=== PATIENT | male | born 1950 | race Caucasian/White ===

== ENCOUNTER 2016-11-27 08:42 | Emergency (ER) | payer OTHER ==
[~2016-11-27] VITALS: Ht 193 cm; Wt 123.1 kg
[~2016-11-27 08:42] MED LIST: ACET650T82 PO; ASCO100061 PO; ASPI-232 PO; GLUC15002 PO; HYG/25 PO; LPT/40 PO; MULT-220 PO; OMEGCAP2 PO; PLV75 PO; POTA20TA16 PO; SOTA80TA PO
[2016-11-27 08:46] VITALS: TEMP 36.4; Ht 193 cm; Wt 123.1 kg
[2016-11-27] MEDS ORDERED: ONDANSETRON INJ 2 MG/ML 2 ML VIAL IV STA (09:21)
[2016-11-27] MEDS ORDERED: MoRPHine SULFATE 10 MG/ML CARP/VIAL IV STA (09:21)
[2016-11-27] MEDS ORDERED: SODIUM CHLORIDE 0.9% 1000ML 1,000 ML IV STA (09:21)
[2016-11-27] MEDS ORDERED: OPTIRAY 320 IV PRN (09:30)
[2016-11-27 09:35] LABS: BASO % 0.1 %; BASO ABS # 0.01 K/uL (0-0.2); COMPLETE YES; EOS % 0.1 %; HEMATOCRIT 50.4 % (42-52); IG% 0.4 %; LYMPH % 8.9 %; LYMPH ABS # 0.95 K/uL (1.2-3.4); MEAN CELL VOLUME 95.3 fL (80-100); MEAN CORPUSCULAR HEMOGLOBIN 31.9 pg (25-34); MEAN CORPUSCULAR HGB CONC 33.5 g/dl (32-36); MEAN PLATELET VOLUME 8.9 fL (7.4-10.4); MONO % 3.6 %; NEUT % 86.9 %; PLATELET COUNT 264 K/uL (130-400); RED BLOOD COUNT 5.29 M/uL (4.7-6.1); WHITE BLOOD COUNT 10.64 K/uL (4.8-10.8)
[2016-11-27 09:41] LABS: URINE APPEARANCE CLEAR (CLEAR); URINE BILIRUBIN NEG (NEG); URINE COLOR YELLOW; URINE NITRITE NEG (NEG); URINE PH 7.5 (4.5-7.5); URINE SPECIFIC GRAVITY 1.028 (1.000-1.030); UROBILINOGEN NEG (NEG); ZZUR CULT IF INDIC CLEAN CATCH NO
[2016-11-27 09:49] LABS: MANUAL MICROSCOPIC REQUIRED? NO; REVIEW REQ? NO; SULFASALICYLIC ACID POS (NEG)
[2016-11-27 09:51] LABS: BUN/CREATININE RATIO 16.2 (10-20); CALCIUM 9.9 mg/dl (8.5-10.1); CREATININE 1.1 mg/dl (0.60-1.40); POTASSIUM 3.8 mmol/L (3.5-5.1)
--- NOTE | 2016-11-27 10:57 | DIAGNOSTIC IMAGING REPORT ---
CT SCAN OF THE ABDOMEN AND PELVIS WITHOUT CONTRAST CLINICAL HISTORY: Left flank pain COMPARISON STUDY: 01/02/2013 TECHNIQUE: CT scan of the abdomen and pelvis was performed from the lung bases to the proximal femurs. Images are reviewed in the axial, sagittal, and coronal planes. IV contrast was not administered for this examination. A dose lowering technique was utilized adhering to the principles of ALARA. CT DOSE: 1416.99 mGy.cm FINDINGS: Lower chest: There are bilateral dependent atelectatic type changes the heart is enlarged. Liver: The unenhanced liver is normal in size, contour, and attenuation. There is no intrahepatic biliary ductal dilatation. Gallbladder: Surgically absent Spleen: Normal in size and attenuation. Pancreas: Unremarkable. Adrenal glands: Unremarkable. Kidneys: There are punctate bilateral renal calculi. There is mild left-sided hydronephrosis. There is left-sided perinephric stranding. There are bilateral hypodensities, likely representing cysts. A mid upper pole left renal cyst contains a small peripheral calcification. This remains unchanged from 2013. No ureteral calculi are visualized. The etiology of the left-sided hydronephrosis, could be secondary to a recently passed calculus, radiolucent calculus, blood clot, or ureteral neoplasm. Close follow-up is advocated. Bowel: There are no transition zone to indicate bowel obstruction. There is no acute diverticulitis. The appendix appears normal. There is a right inguinal hernia containing a portion of sigmoid colon and bladder. There is a fat-containing left inguinal hernia. Peritoneum: There is no intraperitoneal free air or abdominal ascites. Vasculature: The abdominal aorta is normal in course and caliber. Adenopathy: None. Pelvic viscera: The prostate is enlarged measuring 55 mm transversely. Skeletal structures: No destructive osseous lesions are seen. IMPRESSION: 1. Bilateral nephrolithiasis 2. Mild left-sided hydronephrosis and perinephric stranding. No ureteral calculi are visualized. Likely diagnostic considerations include a recently passed calculus, radiolucent calculus, blood,, or ureteral neoplasm. Close follow-up is recommended 3. Normal appendix. No evidence of acute diverticulitis 4. Right inguinal hernia containing a portion of sigmoid colon and bladder. 5. No evidence of bowel obstruction. No evidence of free air Electronically signed by: Barak Tovar M.D. 11/27/2016 10:55 AM Dictated Date/Time: 11/27/2016 10:47 AM
[2016-11-27] MEDS ORDERED: OXYC1TAB3 PO (11:38)
[2016-11-27] MEDS ORDERED: ONDA4TAB65 PO (11:38)
[2016-11-27 11:54] VITALS: BP 124/79; PULSE 84; O2SAT 98
--- NOTE | 2016-11-27 14:49 | EMERGENCY ROOM VISIT NOTE ---
History Report prepared by Emma: Berenice Warner Under the Supervision of: Dr. Maxwell Bates D.O. First contact with patient: 09:00 Chief Complaint: FLANK PAIN Stated Complaint: LEFT SIDED PAIN/KIDNEY STONE History of Present Illness The patient is a 66 year old male who presents to the Emergency Room with complaints of constant left flank pain starting 9 hours ago. He reports that his pain came from his back and wraps around to the front of his body. The patient reports that he believes he has kidney stones and that he has passed one already. The patient reports also having tingling in hands. He denies having any testicular pain and bloody urine. The patient reports that his last bowel movement was yesterday. He states that he has a history of a hernia repair and a cholecystectomy. Pt denies headache, change in vision, fevers, chest pain, shortness of breath, nausea, vomiting, diarrhea, pain with urination , and melena. Source of History: patient Onset: 9 hours ago Position: other (left flank) Timing: constant Associated Symptoms: No fevers, No headache, No chest pain, No SOB Note: additional symptom: tinging in hands Review of Systems See HPI for pertinent positives & negatives. A total of 10 systems reviewed and were otherwise negative. Past Medical & Surgical Medical Problems: (1) Atrial fibrillation (2) Benign hypertension (3) Chronic anticoagulation (4) Chronic venous insufficiency (5) Coronary artery disease (6) Dyslipidemia (7) Sleep apnea (8) Stroke Surgical Problems: (1) H/O arthroscopic knee surgery (2) H/O colonoscopy (3) H/O ventral hernia repair (4) History of cholecystectomy (5) History of repair of hiatal hernia (6) S/P tonsillectomy and adenoidectomy Family History FH: heart disease FATHER (1st [place] late 50's, of HF age 72) FH: myocardial infarction FHx: cancer MOTHER ( of oral CA mid 70's) SISTER ( of lung CA) Social History Smoking Status: Never Smoker Alcohol Use: none Drug Use: none Marital Status: Housing Status: lives with family Occupation Status: retired Current/Historical Medications Scheduled Aspirin (Aspir-81), 81 MG PO QPM Atorvastatin (Lipitor), 40 MG PO QPM Potassium Ext Rel (Klor-Con), 20 MEQ PO BID Sotalol Hcl (Sotalol Hcl), 80 MG PO BID Scheduled PRN Ondansetron Hcl (Zofran), 4 MG PO TID PRN for Nausea Oxycodone Immediate Rel Tab (Roxicodone Ir), 5 MG PO Q6H PRN for Pain Allergies Coded Allergies: Amlodipine (Verified Adverse Reaction, Unknown, RASH, 11/28/15) le edema Physical Exam Vital Signs Date Time Temp Pulse Resp B/P (MAP) Pulse Ox O2 Delivery O2 Flow Rate FiO2 11/27/16 11:54 84 20 124/79 98 11/27/16 10:45 82 18 133/75 96 Room Air 11/27/16 08:46 36.4 75 18 187/95 94 Room Air Physical Exam GENERAL: Sitting upright in bed, disheveled, mild distress EYE EXAM: normal conjunctiva OROPHARYNX: no exudate, no erythema, lips, buccal mucosa, and tongue normal and mucous membranes are moist NECK: supple, no nuchal rigidity, no adenopathy, non-tender LUNGS: Clear to auscultation. Normal chest wall mechanics HEART: no murmurs, S1 normal and S2 normal ABDOMEN: minimal tenderness on left flank. BACK: Back is symmetrical on inspection and there is no deformity, no midline tenderness, no CVA tenderness. SKIN: no rashes and no bruising UPPER EXTREMITIES: upper extremities are grossly normal. LOWER EXTREMITIES: No pitting edema. NEURO EXAM: Normal sensorium, cranial nerves II-XII intact, normal speech, no weakness of arms, no weakness of legs. Medical Decision & Procedures ER Provider Diagnostic Interpretation: CT scan: Radiology provided the following report CT: CT SCAN OF THE ABDOMEN AND PELVIS WITHOUT CONTRAST CLINICAL HISTORY: Left flank pain COMPARISON STUDY: 01/02/2013 TECHNIQUE: CT scan of the abdomen and pelvis was performed from the lung bases to the proximal femurs. Images are reviewed in the axial, sagittal, and coronal planes. IV contrast was not administered for this examination. A dose lowering technique was utilized adhering to the principles of ALARA. CT DOSE: 1416.99 mGy.cm FINDINGS: Lower chest: There are bilateral dependent atelectatic type changes the heart is enlarged. Liver: The unenhanced liver is normal in size, contour, and attenuation. There is no intrahepatic biliary ductal dilatation. Gallbladder: Surgically absent Spleen: Normal in size and attenuation. Pancreas: Unremarkable. Adrenal glands: Unremarkable. Kidneys: There are punctate bilateral renal calculi. There is mild left-sided hydronephrosis. There is left-sided perinephric stranding. There are bilateral hypodensities, likely representing cysts. A mid upper pole left renal cyst contains a small peripheral calcification. This remains unchanged from 2013. No ureteral calculi are visualized. The etiology of the left-sided hydronephrosis, could be secondary to a recently passed calculus, radiolucent calculus, blood clot, or ureteral neoplasm. Close follow-up is advocated. Bowel: There are no transition zone to indicate bowel obstruction. There is no acute diverticulitis. The appendix appears normal. There is a right inguinal hernia containing a portion of sigmoid colon and bladder. There is a fat-containing left inguinal hernia. Peritoneum: There is no intraperitoneal free air or abdominal ascites. Vasculature: The abdominal aorta is normal in course and caliber. Adenopathy: None. Pelvic viscera: The prostate is enlarged measuring 55 mm transversely. Skeletal structures: No destructive osseous lesions are seen. IMPRESSION: 1. Bilateral nephrolithiasis 2. Mild left-sided hydronephrosis and perinephric stranding. No ureteral calculi are visualized. Likely diagnostic considerations include a recently passed calculus, radiolucent calculus, blood,, or ureteral neoplasm. Close follow-up is recommended 3. Normal appendix. No evidence of acute diverticulitis 4. Right inguinal hernia containing a portion of sigmoid colon and bladder. 5. No evidence of bowel obstruction. No evidence of free air Electronically signed by: Barak Tovar M.D. 11/27/2016 10:55 AM Dictated Date/Time: 11/27/2016 10:47 AM Laboratory Results 11/27/16 09:15 Red Blood Count 5.29, Mean Corpuscular Volume 95.3, Mean Corpuscular Hemoglobin 31.9, Mean Corpuscular Hemoglobin Concent 33.5, Mean Platelet Volume 8.9, Neutrophils (%) (Auto) 86.9, Lymphocytes (%) (Auto) 8.9, Monocytes (%) (Auto) 3.6, Eosinophils (%) (Auto) 0.1, Basophils (%) (Auto) 0.1, Neutrophils # (Auto) 9.25, Lymphocytes # (Auto) 0.95, Monocytes # (Auto) 0.38, Eosinophils # (Auto) 0.01, Basophils # (Auto) 0.01 11/27/16 09:15 Test 11/27/16 09:15 White Blood Count 10.64 K/uL (4.8-10.8) Red Blood Count 5.29 M/uL (4.7-6.1) Hemoglobin 16.9 g/dL (14.0-18.0) Hematocrit 50.4 % (42-52) Mean Corpuscular Volume 95.3 fL (80-100) Mean Corpuscular Hemoglobin 31.9 pg (25-34) Mean Corpuscular Hemoglobin Concent 33.5 g/dl (32-36) Platelet Count 264 K/uL (130-400) Mean Platelet Volume 8.9 fL (7.4-10.4) Neutrophils (%) (Auto) 86.9 % Lymphocytes (%) (Auto) 8.9 % Monocytes (%) (Auto) 3.6 % Eosinophils (%) (Auto) 0.1 % Basophils (%) (Auto) 0.1 % Neutrophils # (Auto) 9.25 K/uL (1.4-6.5) Lymphocytes # (Auto) 0.95 K/uL (1.2-3.4) Monocytes # (Auto) 0.38 K/uL (0.11-0.59) Eosinophils # (Auto) 0.01 K/uL (0-0.5) Basophils # (Auto) 0.01 K/uL (0-0.2) RDW Standard Deviation 42.9 fL (36.4-46.3) RDW Coefficient of Variation 12.4 % (11.5-14.5) Immature Granulocyte % (Auto) 0.4 % Immature Granulocyte # (Auto) 0.04 K/uL (0.00-0.02) Urine Color YELLOW Urine Appearance CLEAR (CLEAR) Urine pH 7.5 (4.5-7.5) Urine Specific [place] 1.028 (1.000-1.030) Urine Protein 1+ (NEG) Urine Glucose (UA) 2+ (NEG) Urine Ketones TRACE (NEG) Urine Occult Blood 3+ (NEG) Urine Nitrite NEG (NEG) Urine Bilirubin NEG (NEG) Urine Urobilinogen NEG (NEG) Urine Leukocyte Esterase NEG (NEG) Urine WBC (Auto) 1-5 /hpf (0-5) Urine RBC (Auto) >30 /hpf (0-4) Urine Hyaline Casts (Auto) 1-5 /lpf (0-5) Urine Epithelial Cells (Auto) 10-20 /lpf (0-5) Urine Bacteria (Auto) NEG (NEG) Anion Gap 5.0 mmol/L (3-11) Est Creatinine Clear Calc Drug Dose 94.6 ml/min Estimated GFR () 80.6 Estimated GFR (Non- 69.6 BUN/Creatinine Ratio 16.2 (10-20) Calcium Level 9.9 mg/dl (8.5-10.1) Total Bilirubin 0.9 mg/dl (0.2-1) Direct Bilirubin 0.2 mg/dl (0-0.2) Aspartate Amino Transf (AST/SGOT) 15 U/L (15-37) Alanine Aminotransferase (ALT/SGPT) 28 U/L (12-78) Alkaline Phosphatase 119 U/L (45-117) Total Protein 8.1 gm/dl (6.4-8.2) Albumin 3.9 gm/dl (3.4-5.0) Lipase 111 U/L (73-393) Laboratory results per my review. Medications Administered Medications (Trade) Dose Ordered Sig/Sunita Route Start Time Stop Time Status Last Admin Dose Admin Sodium Chloride 1,000 ml @ 999 mls/hr Q1H1M STAT IV 11/27/16 09:21 11/27/16 10:21 DC 11/27/16 09:46 999 MLS/HR Ondansetron HCl (Zofran Inj) 4 mg NOW STAT IV 11/27/16 09:21 11/27/16 09:23 DC 11/27/16 09:47 4 MG Morphine Sulfate (MoRPHine SULFATE INJ) 6 mg NOW STAT IV 11/27/16 09:21 11/27/16 09:23 DC 11/27/16 09:49 6 MG ED Course ED COURSE: Vital signs were reviewed and showed situational hypertension. The patients medical record was reviewed The above diagnostic studies were performed and reviewed. ED treatments and interventions as stated above. 0917: The patient was evaluated in room B3. A complete history and physical examination was performed. 0921: Ordered Morphine Sulfate 6 mg IV, Zofran Inj 4 mg IV, Sodium Chloride 1, 000 ml @ 999 mls/hr IV. 0943: I checked on the patient and he is doing better. 1124: I updated the patient. 1155: Upon reevaluation, the patient is feeling better. I discussed the findings and the treatment plan with the patient. He verbalizes agreement and understanding. He was discharged home. Medical Decision Blood Pressure Screening: The patient was found to have a slightly elevated blood pressure due to circumstances. I do not believe that the patient requires hypertension monitoring. Medication Reconciliation: I attest that I have personally reviewed the patient' s current medication list. Differential diagnoses includes but is not limited to gastritis, peptic ulcer disease, GERD, gallbladder disease, pancreatitis, small bowel obstruction, acute coronary syndrome, pericarditis, ischemic bowel, irritable bowel disease, irritable bowel syndrome, appendicitis, diverticulitis, malignancy, hernia, urinary tract infection, torsion, [/ectopic (if female)], perforation, trauma, infectious. Patient is a 66-year-old male that presents to the ER with left lower quadrant abdominal pain which started around 12 AM this morning. He notes it started in his back and is radiating anteriorly to his left lower quadrant. On exam he has minimal tenderness. CBC along with BMP, LFTs, bilirubin and lipase was unremarkable. UA showed hematuria. CT was performed and showed mild hydronephrosis on the left without stone. His symptoms have completely resolved although he did receive a dose of Dilaudid. With the blood in his urine and hydronephrosis I favor this is likely a stone. I did update him that this could be a retained stone which is not visible on CT versus mass although very unlikely. Recommended following up with PCP tomorrow and if symptoms persist or worsen following up with urology within the week. Discussed with Pt concerning signs and symptoms to watch out for. Pt was instructed to follow up with their PCP and discussed with the patient their option to return to the ED at anytime for persistent or worsening symptoms. The appropriate anticipatory guidance and out-patient management, including indications for return to the emergency department, were explained at length to the patient and understood. [place] Drug Monitoring Program Search Results: patient reviewed within database, no issues identified Impression Primary Impression: Hydronephrosis Additional Impression: Renal colic Scribe Attestation The scribe's documentation has been prepared under my direction and personally reviewed by me in its entirety. I confirm that the note above accurately reflects all work, treatment, procedures, and medical decision making performed by me. Departure Information Dispostion Home / Self-Care Prescriptions Ondansetron Hcl (ZOFRAN) 4 Mg Tab 4 MG PO TID Y for Nausea, #20 TAB Prov: Maxwell Bates, DO 11/27/16 Oxycodone Immediate Rel Tab (ROXICODONE IR) 5 Mg Tab 5 MG PO Q6H Y for Pain, #14 TAB Prov: Maxwell Bates, DO 11/27/16 Referrals Deena John M.D. (PCP) Forms HOME CARE DOCUMENTATION FORM, IMPORTANT VISIT INFORMATION Patient Instructions Kidney Stones, [facility] Additional Instructions Please follow up with your primary care doctor or if you are a student, [facility] with in the next 24 hours. Any worsening of your symptoms, please return to the ED immediately. This includes any fevers greater than 100.4, worsening pain, chest pain, shortness breath, persistent nausea, vomiting, unable to eat or drink, or any other concerning signs or symptoms from your standpoint. You were given medications during this visit that will inhibit your ability to drive, operate machinery and work. Please do NOT drive, operate machinery or work for the next 12hrs. You were also given a prescription for a narcotic. While taking this medication you should also not drive, operate machinery and or work. Please call urology to schedule appointment to be seen. Please call your PCP/primary care doctor as stated above to schedule appointment within the next 1-2 days. Problem Qualifiers Primary Impression: Hydronephrosis Hydronephrosis type: unspecified Qualified Codes: N13.30 - Unspecified hydronephrosis
== END 2016-11-27 11:55 | disposition home or self-care (01) ==
LOC: C.EDB 08:43
DX: N13.30 Unspecified hydronephrosis (principal); N23 Unspecified renal colic; R31.9 Hematuria, unspecified; I48.91 Unspecified atrial fibrillation; I10 Essential (primary) hypertension; I25.10 Atherosclerotic heart disease of native coronary artery without angina pectoris; E78.5 Hyperlipidemia, unspecified; G47.30 Sleep apnea, unspecified; Z82.3 Family history of stroke; Z90.49 Acquired absence of other specified parts of digestive tract; Z98.890 Other specified postprocedural states; Z79.82 Long term (current) use of aspirin; Z79.899 Other long term (current) drug therapy; Z88.8 Allergy status to other drugs, medicaments and biological substances; Z82.49 Family history of ischemic heart disease and other diseases of the circulatory system; Z80.9 Family history of malignant neoplasm, unspecified

== ENCOUNTER 2018-07-01 09:44 | Inpatient (IN) ==
--- NOTE | 2018-06-03 09:40 | Anesthesiology Consultation ---
Date of Service June 03, 2018 Assessment & Plan (1) Encounter for pre-operative examination: Chart Review Chart Review: Acceptable Risk for Surgery and Patient seen in Pre Admission Testing Consults Requested none Teaching & Discussion Pre-Anesthesia Teaching/Discussion Notes: Instructed NPO after midnight before surgery, except medications with 15 cc of water. Medication instructions provided according to the PAT guidelines. History Surgery Operation Date: 07/01/18 07:00 Proposed Procedures p Right Total Knee Arthroplasty - John Cotto MD Height/Weight Height: 6 ft 4 in Weight: 129.2 kg Allergies Allergy/AdvReac Type Severity Reaction Status Date / Time amlodipine AdvReac Unknown Cough Verified 05/28/18 11:31 Medications Home Medications Medication Instructions Recorded Confirmed Last Taken Glucosamine Chondroitin 1 dose PO DAILY 05/28/18 05/28/18 Unknown acetaminophen [Tylenol Arthritis 650 mg PO UD PRN 05/28/18 05/28/18 Unknown Pain] albuterol sulfate 1 - 2 puff INHALATION UD PRN 05/28/18 05/28/18 Unknown aspirin [Aspir-81] 81 mg PO QAM 05/28/18 05/28/18 05/28/18 atorvastatin 05/28/18 Unknown atorvastatin 40 mg PO QPM 05/28/18 05/28/18 05/27/18 fluticasone 2 spray INTRANASAL QAM 05/28/18 05/28/18 05/28/18 fluticasone furoate 1 inh INHALATION DAILY 05/28/18 05/28/18 Unknown lansoprazole [Prevacid] 15 mg PO QAM 05/28/18 05/28/18 05/28/18 losartan 25 mg PO QPM 05/28/18 05/28/18 05/27/18 multivitamin [Multiple Vitamins] 1 tab PO DAILY 05/28/18 05/28/18 Unknown omega 7-rwd-cml-fish oil [Fish Oil] 1 cap PO HS 05/28/18 06/03/18 Unknown potassium chloride [Klor-Con M20] 20 meq PO BID 05/28/18 05/28/18 05/28/18 sotalol 80 mg PO BID 05/28/18 05/28/18 05/28/18 Past Medical History Medical History Asthma NO FLARE UPS / CONTROLLED Atrial fibrillation DX 7-8 YR AGO/CARDIOVERSION ? DATE/[facility] GERD (gastroesophageal reflux disease) History of arthritis History of kidney stones History of low potassium Sleep apnea CPAP Thyroid nodule Past Family History Family History Mother Family history of cancer Sister Family history of lung cancer Past Surgical History Surgical History H/O foot surgery TENDON REPAIR IN CHILDHOOD History of arthroscopy of right knee History of colonoscopy History of hernia repair UMBILICAL History of laparoscopic cholecystectomy History of repair of hiatal hernia History of tonsillectomy and adenoidectomy Past Anesthesia History No Hx of Anesthesia Complications and No Family Hx of Anesthesia Complications History of PONV No Motion Sickness Screening History of Motion Sickness: No Social History Smoking Status: Never smoker Do You Dip or Chew Tobacco: No Hx Alcohol Use: No Hx Substance Use: No substance use type: does not use Exercise / Class Metabolic Activity II 4-5 Yardwork/Stairs/Walk up hill (Can climb FOS. Denies CP. Does get some SOB when taking sotolol, but recovers quickly. ) Review of Systems Patient denies chest pain, reflux, cough, wheezing, palpitations. +SOB/GLASS (Does get some SOB when taking sotolol, but recovers quickly) +joint pain (knees, hands) +palpitations (rare) Physical Exam Vital Signs BP: 144/92 P: 62 R: 18 T: 97.8 SPO2: 95% on RA Constitutional + obese ENMT Mouth: + dental bridge Thyromental Distance: < 3.5 Finger Breadths (3) Mallampati Class: II Neck normal visual inspection, trachea midline and + facial hair (Advised); neck extension not limited Respiratory normal respiratory effort Auscultation: lungs clear to auscultation bilaterally Cardiovascular Rate/Rhythm: regular rate and regular rhythm Heart Sounds: + murmur (3/6) Vessels: no carotid bruit Neurologic moves all extremities Psychiatric Orientation: alert and oriented x 3 Testing Electrocardiogram Date: 04/02/18 Findings: + NSR @ (60) and + no change from (04/16/17) Chest X-Ray Date: 06/03/18 Findings: + NAD and + cardiomegaly (Borderline, unchanged from 11/28/15.) Echocardiogram Date: 02/15/17 EF: 55-60% LV Function: normal RWMA: + none Other Findings: + LVH (mild concentric) and + diastolic dysfunction (Grade I) Moderate aortic valve stenosis is present. The aortic root is moderately enlarged. The proximal ascending thoracic aorta is mildly enlarged. Stress Test Date: 10/03/17 Type: DSE Resting EF: 60-64% The stress echo is negative for inducible ischemia. Hypertensive blood pressure response to dobutamine/atropine infusion. The LV wall thickness is mildly increased (concentric). The LV diastolic function is mildly abnormal (grade I) . The aortic valve is moderately calcified. Moderate aortic valve stenosis is present. Mild aortic valve regurgitation is present. Mild mitral regurgitation is present. The aortic root and proximal ascending aorta are mildly enlarged. The stress EKG response showed no evidence of ischemia. NSR was noted at rest. No symptoms were noted. The stress test was terminated due to 85% maximal HR was achieved. HR response to stress was normal. Hypertensive BP response to dobutamine/atropine infusion. Compared to prior study of 02/15/17, there is no significant change. Laboratory Results 06/03/18 10:30 Blood Type A Positive 06/03/18 10:30 Antibody Screen NEGATIVE 06/03/18 10:30 PT 10.0 Seconds (9.0-12.0) 06/03/18 10:30 INR 1.0 (0.9-1.1) 06/03/18 10:30 APTT 26.4 Seconds (21.0-31.0) 06/03/18 10:30 [facility] 05/08/18 SODIUM: 141 POTASSIUM: 4.1 CHLORIDE: 104 CO2: 29 BUN: 19 CREATININE: 0.7 GLUCOSE: 102
--- NOTE | 2018-06-03 09:49 | PAT Medication Instructions ---
Medication Instructions Date of Service June 03, 2018 Home Medications Glucosamine Chondroitin 1 dose PO DAILY acetaminophen [Tylenol Arthritis] 650 mg PO NEEDED albuterol sulfate 1 - 2 puff INHALATION NEEDED aspirin [Aspir-81] 81 mg PO QAM atorvastatin 40 mg PO QPM fluticasone 2 spray INTRANASAL QAM fluticasone furoate 1 inh INHALATION DAILY lansoprazole [Prevacid] 15 mg PO QAM losartan 25 mg PO QPM multivitamin [Multiple Vitamins] 1 tab PO DAILY omega 2-glf-zwh-fish oil [Fish Oil] 1 cap PO DAILY potassium chloride [Klor-Con M20] 20 meq PO BID sotalol 80 mg PO BID STOP taking 2 weeks before surgery Glucosamine Chondroitin 1 dose PO DAILY omega 0-ubd-apy-fish oil [Fish Oil] 1 cap PO DAILY DO NOT take the morning of surgery fluticasone 2 spray INTRANASAL QAM multivitamin [Multiple Vitamins] 1 tab PO DAILY potassium chloride [Klor-Con M20] 20 meq PO BID Take morning of surgery With a small sip of water, OTHERWISE NOTHING TO EAT OR DRINK AFTER MIDNIGHT: acetaminophen [Tylenol Arthritis] 650 mg PO NEEDED albuterol sulfate 1 - 2 puff INHALATION NEEDED aspirin [Aspir-81] 81 mg PO QAM fluticasone furoate 1 inh INHALATION DAILY lansoprazole [Prevacid] 15 mg PO QAM Take evening before surgery acetaminophen [Tylenol Arthritis] 650 mg PO NEEDED albuterol sulfate 1 - 2 puff INHALATION NEEDED atorvastatin 40 mg PO QPM losartan 25 mg PO QPM potassium chloride [Klor-Con M20] 20 meq PO BID sotalol 80 mg PO BID Other Notes If you have any questions please call us at [phone] or [phone] or [phone] or [phone]
--- NOTE | 2018-06-03 11:07 | XRay Report ---
XR chest Pre-admission PA/Lat HISTORY: Preop. COMPARISON: Chest 11/28/2015. FINDINGS: The lungs are clear. The heart is borderline enlarged. This remains unchanged. No pleural e ffusions. No pneumothorax. Epigastric surgical clips are noted. IMPRESSION: Borderline cardiomegaly, unchanged. Otherwise, no acute process within the chest. Electronically signed by: Jb Almanza M.D. 06/03/2018 11:06 AM
[2018-06-03 11:33] LABS: Basophils # (auto) 0.01 K/uL (0-0.2); Basophils % (auto) 0.1 %; Eosinophils # (auto) 0.08 K/uL (0-0.5); Eosinophils % (auto) 1.1 %; Hematocrit (blood only) 46.1 % (42-52); Hemoglobin 15.7 g/dL (14.0-18.0); Immature Granulocytes # (auto) 0.04 K/uL (0.00-0.02); Immature Granulocytes % (auto) 0.6 %; Lymphocytes # (auto) 1.76 K/uL (1.2-3.4); Lymphocytes % (auto) 25.3 %; Mean Corpuscular Hgb Conc 34.1 g/dL (32-36); Mean Corpuscular Volume 96.6 fL (80-100); Mean Platelet Volume 8.9 fL (7.4-10.4); Monocytes # (auto) 0.71 K/uL (0.11-0.59); Monocytes % (auto) 10.2 %; Neutrophils # (auto) 4.37 K/uL (1.4-6.5); Neutrophils % (auto) 62.7 %; Platelet Count 222 K/uL (130-400); RDW Coefficient of Variation 12.6 % (11.5-14.5); RDW Standard Deviation 44.4 fL (36.4-46.3); Red Blood Count 4.77 M/uL (4.7-6.1); White Blood Count 6.97 K/uL (4.8-10.8)
[2018-06-03 11:41] LABS: Partial Thromboplastin Time 26.4 Seconds (21.0-31.0)
--- NOTE | 2018-06-16 18:19 | History and Physical Report ---
DATE OF ADMISSION: 07/01/2018 CHIEF COMPLAINT: Bilateral knee pain, right side greater than left. HISTORY OF PRESENT ILLNESS: The patient is a 67-year-old gentleman. He has been a long-term patient of mine. I have been treating for knee arthritis for quite some time. We have been putting shots into his knees, which has gradually become less successful over time. The right knee is a bit worse than the left. He describes global pain. The more he walks, the more it hurts. The more he walks, the more he limps. He has nighttime pain. It is limiting his activities and would like to have his right knee fixed. PAST MEDICAL HISTORY: 1. Atrial fibrillation status post cardioversion, followed by Dr. Quiñones, currently in sinus rhythm. 2. Elevated cholesterol. 3. Asthma. 4. Sleep apnea with CPAP machine. 5. Hiatal hernia. 6. Gastroesophageal reflux disease. 7. Obesity with a BMI of 35. 8. Low back pain/sciatica. PAST SURGICAL HISTORY: 1. Hiatal hernia. 2. Ankle surgery. 3. Cholecystectomy. 4. Herniorrhaphy. 5. Nose fracture. 6. Right leg fracture. ALLERGIES: None. CURRENT MEDICINES: 1. Albuterol inhaler 2 puffs every 4 hours as needed. 2. Aspirin 81 mg a day. 3. Atorvastatin 40 mg a day. 4. Fish oil 1000 mg. 5. Fluticasone nasal spray 2 sprays each nostril a daily. 6. Fluticasone inhaler 1 puff per day. 7. Glucosamine. 8. Klor-Con 20 mEq twice a day. 9. Lansoprazole 1 capsule 30 minutes for the first meal of the day. 10. Losartan 25 mg. 11. Sotalol 80 mg twice a day for AFib. 12. Tylenol Arthritis. SOCIAL HISTORY: A 67-year-old gentleman. He is . Lives in [place]. FAMILY HISTORY: Noncontributory. REVIEW OF SYSTEMS: Significant for history of atrial fibrillation status post cardioversion, currently in sinus rhythm. He is off all anticoagulation. He is followed by Dr. Quiñones. No history of DVT or PE. No known bleeding problems. No chest pain or shortness of breath. PHYSICAL EXAMINATION: GENERAL: Physical examination shows a fairly large middle-aged male. Looks to be in pretty good health. HEENT: Benign. NECK: Supple. No lymphadenopathy. LUNGS: Clear to auscultation. HEART: Has a regular rate and rhythm. ABDOMEN: Soft, nontender, nondistended. EXTREMITIES: Grossly neurovascularly intact except as follows: Examination of both knees reveals the patient ambulates with a bit of a waddling gait. He has got varus alignment to both knees. Examination of the right knee reveals a varus alignment with a varus thrust. He has got bony hypertrophy medially. Hdgrj-ro-topoqvwj sized knee effusion. Range of motion is 5-120. No instability. He is neurologically intact. Examination of left knee reveals varus deformity. He has got bony hypertrophy medially. Range of motion 5-125. No instability. Small knee effusion. No pain with hip motion. The patient does have some bilateral lower extremity edema in both legs. X-RAYS: X-rays of both knees reveal advanced bilateral knee DJD. He has got complete loss of the medial joint space in both knees. The right side is probably a little bit worse than the left. ASSESSMENT: A 67-year-old gentleman with history of atrial fibrillation, currently in sinus rhythm with advanced bilateral knee degenerative joint disease. He has failed conservative treatment and would like to proceed with right knee replacement. PLAN: We will take him to the operating room and do a right total knee replacement. The risks and benefits of this procedure were explained to the patient including but not limited to DVT, PE, , infection, neurological injury, vascular injury, bleeding problem, pain, limited range of motion, stiffness, failure to relieve symptoms, incomplete relief of symptoms, need for further surgery in future, fracture, leg length inequality, nerve palsy, etc. The patient understands and desires to proceed. Informed consent was obtained. We have to be very good about controlling his swelling postoperatively due to his lower extremity edema. We will have to bring CPAP machine to the hospital. He should take his beta donavon the morning of surgery. We will see him. As far as discharge plans, he is planning to be discharged to home using [facility].
[~2018-07-01 09:44] MED LIST changes: -ACET650T82 PO; +ACETAMINOPHEN 500 MG TAB PO SCH; -ASCO100061 PO; -ASPI-232 PO; +BUPIVACAINE 0.5 % 5 MG/1 ML PF 10ML VIAL ONE; +BUPIVACAINE LIPOSOME/PF 266 MG, BUPIVACAINE/EPINEPHRINE 50 ML, SODIUM CHLORIDE 0.9% 30 ... INFIL SCH; +CEFAZOLIN 3000MG 65 ML IV SCH; +FAMOTIDINE 20 MG TAB PO SCH; +GABAPENTIN 300 MG PO SCH; -GLUC15002 PO; -HYG/25 PO; -LPT/40 PO; +LR 500ML BOLUS, THEN 15ML/HR IV SCH; +LR 60ML/HR IV SCH; +METOCLOPRAMIDE HCL 10 MG TABLET PO SCH; -MULT-220 PO; -OMEGCAP2 PO; -PLV75 PO; -POTA20TA16 PO; +ROPIVACAINE 0.5% 5 MG/ML 30 ML VIAL ONE; -SOTA80TA PO; +TRANEXAMIC ACID 1,000 MG **IV Intra-op IV SCH
[2018-07-01] MEDS ORDERED: MIDAZOLAM HCL 1 MG/ML 2ML VIAL ONE ×2 (10:33→13:59)
[2018-07-01] MEDS: SCOPOLAMINE 1.5 MG TDSY TD SCH (10:37)
--- NOTE | 2018-07-01 10:58 | History & Physical Bridge Note ---
Date of Service July 01, 2018 History & Physical Bridge Note I have examined the patient, reviewed the History & Physical and in the interval since the performance of the History & Physical I have noted the following changes of clinical significance: no changes noted
[2018-07-01] MEDS ORDERED: SODIUM CHLORIDE 0.9% PF 50 ML VIAL ONE (11:02)
[2018-07-01] MEDS ORDERED: BUPIVACAINE LIPOSOME 1.3% 266 MG/20 ML VIAL ONE (11:02)
[2018-07-01] MEDS ORDERED: BACITRACIN INJ 50,000 UNIT VIAL ONE (11:02)
[2018-07-01] MEDS ORDERED: BUPIVACAINE/EPINEPHRINE 0.25% 1:200,000 30 ML VIAL ONE (11:04)
[2018-07-01] MEDS ORDERED: LACTATED RINGER'S 1,000 ML IV SCH (11:45)
[2018-07-01] MEDS ORDERED: ONDANSETRON INJ 2 MG/ML 2 ML VIAL IV PRN ×2 (11:56→16:04)
[2018-07-01] MEDS ORDERED: ATROPINE SULFATE 0.1 MG/ML 10ML SYR IV PRN (11:56)
[2018-07-01] MEDS ORDERED: ePHEDrine sulfate 50 MG/ML AMP IV PRN (11:56)
[2018-07-01] MEDS ORDERED: fentaNYL citrate 100 MCG/2 ML VIAL IV PRN (11:56)
[2018-07-01] MEDS ORDERED: VANCOMYCIN HCL 1000MG/20ML VIAL ONE (13:25)
[2018-07-01] MEDS ORDERED: BUPIVACAINE/EPINEPHRINE 0.25% 1:200,000 30 ML VIAL INFIL ONE (13:44)
[2018-07-01] MEDS ORDERED: PROPOFOL IV EMULSION 10 MG/ML 20 ML VIAL IV ONE (14:18)
[2018-07-01] MEDS ORDERED: LIDOCAINE HCL 2% 2 ML VIAL/AMP(20MG/ML) INFIL ONE (14:18)
--- NOTE | 2018-07-01 14:47 | Post Operative Brief Note ---
Immediate Post Op Note v1 Date of Surgery July 01, 2018 Pre & Post Diagnosis Operation Date: 07/01/18 12:30 Pre-Op Diagnosis: Right Knee Advanced Degerative Joint Disease Post-Op Diagnosis: Right Knee Advanced Degerative Joint Disease Procedure Operation Date: 07/01/18 12:30 Actual Procedures p Right Total Knee Arthroplasty(Right) - Jhon Cotto MD Surgeon John Cotto MD Medical Csr Elizabeth, PAC Estimated Blood Loss 50 Findings Consistent with Post-Op Diagnosis Fluids 1900 cc Specimens Right Knee Drains Montgomery Catheter (A 16 Mongolian montgomery catheter was inserted by Sultana Jordan RN, without difficulty, clear yellow urine obtained, output to be monitored by Anesthesia.) Anesthesia Type Spinal MAC Complications none Disposition Accompanied Patient To Recovery: No Disposition: Recovery Room
--- NOTE | 2018-07-01 15:04 | Anesthesiology Progress Note ---
Date of Service July 01, 2018 Anesthesia Post Procedure Vital Signs Vital Signs: Temp Pulse Resp BP Pulse Ox 07/01/18 10:19 36.3 C L 70 18 133/88 94 Notes Mental Status: alert / awake / arousable Patient Amnestic to Procedure: Yes Nausea / Vomiting: adequately controlled Pain: adequately controlled Airway Patency, RR, SpO2: stable & adequate BP & HR: stable & adequate Hydration State: stable & adequate Neuraxial Anesthesia: was administered and sensory block is resolving Anesthetic Complications: no major complications apparent and Pt Satisfied with anesthetic care
--- NOTE | 2018-07-01 15:55 | XRay Report ---
TWO VIEWS RIGHT KNEE CLINICAL HISTORY: Postoperative examination. FINDINGS: AP and crosstable lateral portable views of the right knee are obtained. A right knee arthr oplasty is in near anatomic alignment. There has been undersurface remodeling of the patella. No acut e fracture is seen. There are expected postoperative changes around the knee including skin clips, so ft tissue edema, and subcutaneous gas. IMPRESSION: Expected postoperative changes status post right knee arthroplasty. No acute fracture is seen. Electronically signed by: Travis Ferguson M.D. 07/01/2018 3:54 PM
[2018-07-01] MEDS ORDERED: TAMSULOSIN HCL 0.4 MG CAP PO PRN (16:04)
[2018-07-01] MEDS ORDERED: ALBUTEROL HFA 8 GM INHALER INH PRN (16:04)
[2018-07-01] MEDS ORDERED: METOCLOPRAMIDE HCL INJ 5 MG/ML 2 ML VIAL IV PRN (16:04)
[2018-07-01] MEDS ORDERED: NALOXONE HCL 0.4 MG/1 ML VIAL/CARP IV PRN (16:04)
[2018-07-01] MEDS ORDERED: HYDROmorphone INJ 0.5 MG/0.5 ML SYR IV PRN (16:04)
[2018-07-01] MEDS ORDERED: ALUMINUM/MAGNESIUM SUSP 30 ML UDC PO PRN (16:04)
[2018-07-01] MEDS ORDERED: BISACODYL 10 MG SUPP PR PRN (16:04)
[2018-07-01] MEDS ORDERED: MAGNESIUM HYDROXIDE SUSP 30 ML UDC PO PRN (16:04)
[2018-07-01] MEDS: SODIUM CHLORIDE 0.9% 1000ML 1,000 ML IV SCH ×2 (16:44→22:41)
[2018-07-01] MEDS: CHECK SCOPOLAMINE PATCH PLACEMENT SCH ×2 (16:45→22:55)
[2018-07-01] MEDS: KETOROLAC TROMETHAMINE 15 MG/ML VIAL IV SCH ×2 (17:17→22:55)
[2018-07-01] MEDS: FERROUS GLUCONATE 324 MG TAB PO SCH (17:17)
[2018-07-01] MEDS: OXYCODONE HCL IR 5 MG TAB (IMMEDIATE RELEASE) PO PRN (17:38)
[2018-07-01] MEDS ORDERED: TRANEXAMIC ACID 1,000 MG in 0.9 % SODIUM CHLORIDE 100 ML IV SCH (20:49)
[2018-07-01] MEDS: OMEGA-3 (PURIFIED FISH OIL) 1 GM CAP PO SCH (21:33)
[2018-07-01] MEDS: POTASSIUM CHLORIDE 20 MEQ TABCR PO SCH (21:33)
[2018-07-01] MEDS: SOTALOL HCL 80 MG TAB PO SCH (21:33)
[2018-07-01] MEDS: ATORVASTATIN 40 MG TAB PO SCH (21:33)
[2018-07-01] MEDS: TAPENTADOL HCL ER 50 MG TABCR PO SCH (21:33)
[2018-07-01] MEDS: ASPIRIN 81 MG ECTAB PO SCH (21:33)
[2018-07-01] MEDS: DOCUSATE SODIUM 100 MG CAP PO SCH (21:33)
[2018-07-01] MEDS: LOSARTAN POTASSIUM 25 MG TAB PO SCH (21:33)
[2018-07-01] MEDS: SENNA 8.6 MG TAB PO SCH (21:34)
[2018-07-01] MEDS: ACETAMINOPHEN 500 MG TAB PO SCH (21:34)
[2018-07-01] MEDS: CEFAZOLIN 2000MG 2,000 MG/15 ML SYR IV SCH (21:38)
--- NOTE | 2018-07-02 01:12 | Operative Report ---
DATE OF OPERATION: 07/01/2018 SURGEON: John Cotto MD BARGE WORKER: ISAAC Lees PREOPERATIVE DIAGNOSIS: Right knee degenerative joint disease. POSTOPERATIVE DIAGNOSIS: Right knee degenerative joint disease. PROCEDURE PERFORMED: Right cemented posterior stabilized total knee arthroplasty. COMPLICATIONS: None. ESTIMATED BLOOD LOSS: 50 mL. FLUID REPLACEMENT: 1900 mL crystalloid fluid replacement. ANESTHESIA: Spinal with adductor canal block. DRAINS: None. SPECIMENS: Right knee sent for pathology. TOURNIQUET TIME: 56 minutes at 300 mmHg. OPERATIVE INDICATIONS: The patient is a 67-year-old gentleman, I have been following for several years for bilateral knee pain, DJD, right side a bit worse than the left. He has been through extensive conservative treatment which became less successful over time. X-rays show advanced medial compartment arthritis. He elected to proceed with operative treatment. OPERATIVE FINDINGS: Operative findings revealed advanced right knee DJD. Extensive grade 4 changes of the medial femoral condyle and medial tibial plateau as well as the patellofemoral joint. The lateral compartment was pretty well spared. He had a moderate to large knee joint effusion. A fixed varus deformity to his knee. OPERATIVE IMPLANTS: Operative implants consisted of: 1. Biomet Vanguard size 72.5 right posterior stabilized femoral component. 2. Biomet size 75 tibial tray. 3. A 14 mm posterior stabilized polyethylene insert. 4. A 34 x 8.5 all poly patella. OPERATIVE PROCEDURE: The patient was taken to the operating room, identified and placed on the operating table in supine position. All contact areas were appropriately padded. IV antibiotics were provided by anesthesia team. A spinal anesthetic and adductor canal block had been provided in the holding area. Sewell catheter was placed in sterile fashion. A right thigh tourniquet was then placed and the right lower extremity was then prepped and draped in usual sterile fashion. The right leg was elevated and exsanguinated with Esmarch and tourniquet was placed at 300 mmHg. An anterior approach of the right knee was then performed through a longitudinal incision centered over the patella. Sharp dissection was carried through subcutaneous tissue down to the level of the extensor mechanism. Medial parapatellar arthrotomy incision was made. Some subperiosteal dissection was carried out medially. The fat pad resected from beneath the patellar tendon. The lateral patellofemoral ligament was released. The patella was everted and knee was flexed. The osteophytes were taken off the distal femur. The ACL and PCL were then released from the distal femur and the tibia subluxated anteriorly. The external tibial alignment jig was then placed in the anterior face of the tibia and adjusted 16 mm medially. Proximal tibial cut was made to remove about 2-3 mm of bone from the most deficient aspect of the medial side. Some osteophytes were taken off medial and posteromedially. Tibia sized to a size 75. Attention was then drawn to the femur. The distal femur was entered with a sharp drill bit. Intramedullary canal was suctioned. A right 6-degree valgus cutting guide was placed. Distal femoral cutting block was pinned in place. Distal femoral cut was made to take an additional 3 mm of bone off the distal femur. The femur was then sized to a size 72.5. We did downsize this slightly. The AP cutting block was pinned parallel to the epicondylar axis, which was 3 degrees of external rotation. The anterior cut, anterior chamfer, posterior cut, posterior chamfer cuts were made. Box cutting guide was placed and adjusted slightly lateral and the box cut was made. The knee was flexed. The remnants of the medial and lateral menisci were excised. The osteophytes were taken off posterior aspect of the femur. Trial femoral component was placed. Tibial tray was pinned in maximum external rotation and drill and stem punch were used to create defect in proximal tibia for the tibial tray. I then trialed the knee and the 14 mm insert fit most appropriately. Attention was then drawn to the patella. The patella was cleaned of all soft tissues. Patella thickness measured 22 mm in thickness, it was cut down to 14. It was sized to a size 34 patella. Lug holes were drilled for 34 patella. Lateral osteophyte was removed. Patella button was placed. Knee was taken through range of motion and patella tracked nicely with no thumbs test. Attention was then drawn toward placement of the permanent components. All trial components removed. Bone plug was placed in the distal femur to limit blood loss. A double batch of Palacos G cement was mixed. I did add an additional gram of vancomycin. A Biomet Vanguard size 72.5 right posterior stabilized femoral component, size 75 tibial tray, 14 mm posterior stabilized polyethylene insert, and a 34 x 8.5 all poly patella then cemented in place. Knee was brought out into full extension until cement hardened. A final cement check was then performed. Pericapsular tissues were injected with a total of 100 mL of a combination of 20 mL of Exparel, 30 mL of normal saline, 50 mL of 0.25% Marcaine with epinephrine. The patient did receive 1 gram of tranexamic acid. The tourniquet was then let down for a tourniquet time of 56 minutes. Hemostasis was assured using electrocautery. Extensor mechanism was then closed with combination of #1 PDS suture and #1 Vicryl suture in a [id number] fashion. Extensor mechanism was checked and found to be intact. The subcutaneous tissues were then closed with #2 Dexon suture in buried interrupted fashion. Skin was closed with skin pilo. Leg was then cleaned, dried and a sterile dressing of Xeroform, 4 x 4, sterile cast padding and Erik bandage were applied. The patient then transferred to the recovery room in stable condition. The patient tolerated the procedure well with no complications. All needle and sponge counts were correct at the end of the operation. I attest to the content of the Intraoperative Record and any orders documented therein. Any exception s are noted below.
[2018-07-02] MEDS: ACETAMINOPHEN 500 MG TAB PO SCH ×3 (05:09→22:21)
[2018-07-02] MEDS: KETOROLAC TROMETHAMINE 15 MG/ML VIAL IV SCH ×3 (05:09→17:49)
[2018-07-02] MEDS: CEFAZOLIN 2000MG 2,000 MG/15 ML SYR IV SCH (05:09)
[2018-07-02] MEDS: SCOPOLAMINE 1.5 MG TDSY TD SCH (06:11)
[2018-07-02 07:56] LABS: Hematocrit (blood only) 38.9 % (42-52); Hemoglobin 13.3 g/dL (14.0-18.0); Mean Corpuscular Hgb Conc 34.2 g/dL (32-36); Mean Corpuscular Volume 94.9 fL (80-100); Platelet Count 197 K/uL (130-400); RDW Coefficient of Variation 12.4 % (11.5-14.5); White Blood Count 12.41 K/uL (4.8-10.8)
--- NOTE | 2018-07-02 07:58 | Anesthesiology Progress Note ---
Date of Service July 02, 2018 Anesthesia Post Procedure Vital Signs Vital Signs: Temp Pulse Pulse Pulse Resp BP BP 07/02/18 03:21 37.2 C 81 17 110/66 07/01/18 22:49 36.5 C 80 17 137/77 07/01/18 18:50 36.4 C L 62 17 114/63 07/01/18 17:49 36.6 C 60 18 131/73 07/01/18 16:40 62 17 115/68 07/01/18 16:12 36.4 C L 60 17 104/60 07/01/18 15:45 36.6 C 68 18 109/72 07/01/18 15:30 36.7 C 61 19 110/69 07/01/18 15:20 36.7 C 63 19 109/65 07/01/18 15:10 36.7 C 61 14 111/64 07/01/18 15:00 36.7 C 63 20 110/68 07/01/18 14:52 36.7 C 64 16 118/71 07/01/18 10:19 36.3 C L 70 18 133/88 Pulse Ox 07/02/18 03:21 91 07/01/18 22:49 92 07/01/18 18:50 95 07/01/18 17:49 96 07/01/18 16:40 96 07/01/18 16:12 95 07/01/18 15:45 95 07/01/18 15:30 92 07/01/18 15:20 94 07/01/18 15:10 94 07/01/18 15:00 94 07/01/18 14:52 97 07/01/18 10:19 94 Pain Intensity Right Knee: Pain Intensity: 2 Notes Mental Status: alert / awake / arousable and participated in evaluation Patient Amnestic to Procedure: Yes Nausea / Vomiting: adequately controlled Pain: adequately controlled Airway Patency, RR, SpO2: stable & adequate BP & HR: stable & adequate Hydration State: stable & adequate Neuraxial Anesthesia: was administered and sensory block resolved Anesthetic Complications: no major complications apparent
[2018-07-02 08:33] LABS: BUN Creatinine Ratio 21.6 (10-20); Creatinine Clr Calc Pharmacy 103.9 ml/min; Est GFR (African American) 88.8; Est GFR (Non-African American) 76.6; Potassium 3.9 mmol/L (3.5-5.1)
[2018-07-02] MEDS: SOTALOL HCL 80 MG TAB PO SCH ×2 (08:40→22:19)
[2018-07-02] MEDS: FERROUS GLUCONATE 324 MG TAB PO SCH ×2 (08:40→17:49)
[2018-07-02] MEDS: DOCUSATE SODIUM 100 MG CAP PO SCH ×2 (08:41→22:19)
[2018-07-02] MEDS: ASPIRIN 81 MG ECTAB PO SCH ×2 (08:42→22:19)
[2018-07-02] MEDS: FLUTICASONE PROPIONATE NA SPR 16 GM BTL SCH (08:42)
[2018-07-02] MEDS: POTASSIUM CHLORIDE 20 MEQ TABCR PO SCH ×2 (08:42→22:20)
[2018-07-02] MEDS: MULTIVITAMIN TAB PO SCH (08:43)
[2018-07-02] MEDS: PANTOprazole 40 MG TAB PO SCH (08:43)
[2018-07-02] MEDS: TAPENTADOL HCL ER 50 MG TABCR PO SCH ×2 (08:45→22:22)
[2018-07-02] MEDS ORDERED: MULTIVITAMIN TAB PO SCH (09:00)
[2018-07-02] MEDS: OXYCODONE HCL IR 5 MG TAB (IMMEDIATE RELEASE) PO PRN ×2 (09:35→19:56)
--- NOTE | 2018-07-02 11:17 | Progress Note ---
DATE: 07/02/2018 SUBJECTIVE: A 67-year-old gentleman postop day 1 from right knee replacement. He is doing pretty well. Pain is very well controlled while in bed but pretty painful today. He went for walking with therapy and did respond well to the pain medicine. Denies any chest pain or shortness of breath. Not feeling dizzy or lightheaded. OBJECTIVE: VITAL SIGNS: Temperature 36.5. Vital signs stable. GENERAL: Reveals a healthy, pleasant, middle-aged male. He is sitting up in his bed and talking to his spouse and looks pretty comfortable. LUNGS: Clear to auscultation. HEART: Regular rate and rhythm. ABDOMEN: Soft, nontender, nondistended. EXTREMITIES: Grossly neurovascularly intact except as follows: Examination of the right leg reveals the dressing to be clean, dry and intact. Leg is well aligned. He can dorsiflex and plantarflex his foot appropriately. He is neurologically intact. LABORATORY DATA: Hemoglobin 13.3. Hematocrit 38.9. Electrolytes are stable. ASSESSMENT: A 67-year-old gentleman postop day 1 from a right knee replacement, doing pretty well. Pain is controlled. He is neurologically intact. PLAN: 1. DVT prophylaxis including thigh-high TEDs, SCDs, and aspirin twice a day. 2. PT/OT. Weight bear as tolerated. Right total knee protocol. 3. Pain control, doing well with current pain regimen. 4. Disposition: Plan to discharge to home with some home health once adequately recovered.
[2018-07-02] MEDS: LOSARTAN POTASSIUM 25 MG TAB PO SCH (22:19)
[2018-07-02] MEDS: SENNA 8.6 MG TAB PO SCH (22:20)
[2018-07-02] MEDS: OMEGA-3 (PURIFIED FISH OIL) 1 GM CAP PO SCH (22:20)
[2018-07-02] MEDS: ATORVASTATIN 40 MG TAB PO SCH (22:20)
[2018-07-03] MEDS: KETOROLAC TROMETHAMINE 15 MG/ML VIAL IV SCH ×3 (00:18→11:46)
[2018-07-03] MEDS: ACETAMINOPHEN 500 MG TAB PO SCH (05:59)
--- NOTE | 2018-07-03 07:37 | Progress Note ---
DATE: 07/03/2018 SUBJECTIVE: A 67-year-old gentleman postop day 2 from right knee replacement. He is doing pretty well. Pain seems to be a little bit better today. No chest pain or shortness of breath. Not feeling dizzy or lightheaded. OBJECTIVE: VITAL SIGNS: Temperature 36.8. Vital signs stable. GENERAL: Physical examination reveals a healthy, pleasant, middle-aged male. He is lying in bed, looks pretty comfortable. EXTREMITIES: Examination of the right leg reveals the incision to be clean, dry and intact. No significant drainage. Some moderate swelling. Calf is soft and supple. He is neurologically intact. ASSESSMENT: A 67-year-old gentleman postop day 2 from right knee replacement, doing pretty well. Pain is controlled. PLAN: 1. DVT prophylaxis including thigh-high TEDs, SCDs, and aspirin twice a day. 2. PT/OT. Weight bear as tolerated. Right total knee protocol. 3. Pain control, doing well with current pain regimen. 4. Disposition: Plan to discharge to home with some home health later today.
[2018-07-03] MEDS: FERROUS GLUCONATE 324 MG TAB PO SCH (08:43)
[2018-07-03] MEDS: FLUTICASONE PROPIONATE NA SPR 16 GM BTL SCH (08:44)
[2018-07-03] MEDS: ASPIRIN 81 MG ECTAB PO SCH (08:44)
[2018-07-03] MEDS: SOTALOL HCL 80 MG TAB PO SCH (08:44)
[2018-07-03] MEDS: DOCUSATE SODIUM 100 MG CAP PO SCH (08:44)
[2018-07-03] MEDS: MULTIVITAMIN TAB PO SCH (08:47)
[2018-07-03] MEDS: TAPENTADOL HCL ER 50 MG TABCR PO SCH (08:47)
[2018-07-03] MEDS: POTASSIUM CHLORIDE 20 MEQ TABCR PO SCH (08:47)
[2018-07-03] MEDS: PANTOprazole 40 MG TAB PO SCH (08:47)
[2018-07-03] MEDS: OXYCODONE HCL IR 5 MG TAB (IMMEDIATE RELEASE) PO PRN (11:46)
--- NOTE | 2018-07-04 11:41 | Discharge Summary ---
Date of Service July 09, 2018 Discharge Data Consultations 07/01/18 16:04 Consult Case Management - Discharge Planning Routine Procedures Performed Operation Date: 07/01/18 12:30 Actual Procedures p Right Total Knee Arthroplasty(Right) - John Cotto MD
--- NOTE | 2018-07-08 15:46 | Discharge Summary ---
ADMITTING PHYSICIAN AND SURGEON: Dr. John Cotto. ADMITTING DIAGNOSIS: Right knee degenerative joint disease. SURGERY PERFORMED: Right total knee arthroplasty. SECONDARY DIAGNOSES: Atrial fibrillation, elevated cholesterol, asthma, sleep apnea, hiatal hernia, gastroesophageal reflux disease, obesity, low back pain, sciatica. CONSULTS: None obtained. HISTORY AND PHYSICAL EXAMINATION: Well documented in the patient's chart. HOSPITAL COURSE: The patient was admitted on 07/01/2018 underwent total knee arthroplasty, tolerated the procedure well. There were no complications. He was transferred to the PACU postoperatively and later to the orthopedic floor for further care. He was given Ancef for antibiotic prophylaxis, NICK stockings, SCDs and aspirin for DVT prophylaxis. Hemoglobin, hematocrit and vital signs were monitored during his hospital stay and remained stable, did not require any blood transfusions. There were no complications. By postoperative day 2, he was tolerating a regular diet, pain was controlled with oral pain medicine. He was participating in physical therapy. On postop day 2, he was discharged to home, set up with home health services, given printed discharge instructions including new prescriptions for extra strength Tylenol, aspirin and oxycodone. Continue his home medications, continue physical therapy, weightbearing as tolerated, NICK stockings. Follow up approximately 2 weeks postoperatively or sooner if there are any problems or concerns.
== END 2018-07-03 12:26 | disposition home health service (06) | DRG 470 ==
LOC: ASU 09:44 → 3E 14:52

== ENCOUNTER 2019-11-16 06:26 | Observation (INO) ==
--- NOTE | 2019-11-03 13:51 | PAT Medication Instructions ---
Medication Instructions Date of Service November 03, 2019 Home Medications Arnuity Ellipta 1 inh INHALATION QAM acetaminophen [Tylenol Arthritis Pain] 1,300 mg PO BID PRN albuterol sulfate 1 - 2 puff INHALATION UD PRN aspirin [Aspir-81] 81 mg PO QAM atorvastatin 40 mg PO QPM fluticasone propionate 2 spray INTRANASAL QAM losartan 25 mg PO QAM multivitamin [Multiple Vitamins] 1 tab PO QAM omega 3-gkt-eyl-fish oil [Fish Oil] 1 cap PO HS potassium chloride [Klor-Con M20] 20 meq PO BID sotalol 80 mg PO BID Glucosamine Chondroitin 1 cap PO QPM methimazole 5 mg PO QAM omeprazole 20 mg PO DAILY PRN STOP taking 2 weeks before surgery (or as soon as possible if surgery is within 2 weeks) omega 7-otd-rbw-fish oil [Fish Oil] 1 cap PO HS Glucosamine Chondroitin 1 cap PO QPM DO NOT take the morning of surgery losartan 25 mg PO QAM multivitamin [Multiple Vitamins] 1 tab PO QAM potassium chloride [Klor-Con M20] 20 meq PO BID Take morning of surgery With a small sip of water, OTHERWISE NOTHING TO EAT OR DRINK AFTER MIDNIGHT: Arnuity Ellipta 1 inh INHALATION QAM acetaminophen [Tylenol Arthritis Pain] 1,300 mg PO BID PRN (okay to take up to 4 hours prior to surgery if needed) albuterol sulfate 1 - 2 puff INHALATION UD PRN (use if needed; please bring with you to hospital day of surgery if possible) aspirin [Aspir-81] 81 mg PO QAM fluticasone propionate 2 spray INTRANASAL QAM sotalol 80 mg PO BID methimazole 5 mg PO QAM omeprazole 20 mg PO DAILY PRN (if needed) Take evening before surgery acetaminophen [Tylenol Arthritis Pain] 1,300 mg PO BID PRN (if needed) albuterol sulfate 1 - 2 puff INHALATION UD PRN (if needed) atorvastatin 40 mg PO QPM potassium chloride [Klor-Con M20] 20 meq PO BID sotalol 80 mg PO BID omeprazole 20 mg PO DAILY PRN (if needed) Other Notes If you have any questions please call us at [phone] or [phone] or [phone] or [phone]
--- NOTE | 2019-11-05 13:07 | Anesthesiology Consultation ---
Date of Service November 05, 2019 Assessment & Plan (1) Encounter for pre-operative examination: Per PAT assessment on 10/29: Travel screen negative. No known COVID-19 positive contacts. No current COVID-19 related symptoms. Per patient, surgeon arranging preop COVID testing. Awaiting results. - S/P left inguinal hernia repair: 09/28/19: LMA#5 - Seen by cardiology: 06/12/19: from a cardiac standpoint he is doing very well and no further cardiac testing or intervention is necessary at this time. He remains in sinus rhythm. His murmur stable by exam. Follow-up in 6 months - Moderate aortic stenosis (CHAIM= 1.3cm2, mean PG=24.1mmHg per 09/2018 echo): t/c general vs. SAB at anesthesiologist discretion AM DOS Chart Review Chart Review: Acceptable Risk for Surgery (pending COVID testing) and Patient seen in Pre Admission Testing Teaching & Discussion Pre-Anesthesia Teaching/Discussion Notes: Instructed NPO after midnight before surgery,except medications with 15 cc of water. Medication instructions provided according to the PAT guidelines. History Surgery Operation Date: 11/16/19 11:10 Proposed Procedures p Left Total Knee Arthroplasty - John Cotto MD Height/Weight Height: 6 ft 4 in Weight: 131.7 kg Allergies Allergy/AdvReac Type Severity Reaction Status Date / Time amlodipine AdvReac Unknown Cough Verified 10/30/19 14:58 Medications Home Medications Medication Instructions Recorded Confirmed Last Taken Arnuity Ellipta 1 inh INHALATION QAM 05/28/18 10/30/19 09/27/19 08:00 acetaminophen [Tylenol Arthritis 1,300 mg PO BID PRN 05/28/18 10/30/19 09/27/19 21:00 Pain] albuterol sulfate 1 - 2 puff INHALATION UD PRN 05/28/18 10/30/19 Unknown aspirin [Aspir-81] 81 mg PO QAM 05/28/18 10/30/19 09/27/19 08:00 atorvastatin 40 mg PO QPM 05/28/18 10/30/19 09/27/19 21:00 fluticasone propionate 2 spray INTRANASAL QAM 05/28/18 10/30/19 09/27/19 08:00 losartan 25 mg PO QAM 05/28/18 10/30/19 09/27/19 08:00 multivitamin [Multiple Vitamins] 1 tab PO QAM 05/28/18 10/30/19 09/21/19 omega 7-dyg-vsv-fish oil [Fish Oil] 1 cap PO HS 05/28/18 10/30/19 09/21/19 potassium chloride [Klor-Con M20] 20 meq PO BID 05/28/18 10/30/19 09/27/19 21:00 sotalol 80 mg PO BID 05/28/18 10/30/19 09/27/19 21:00 Glucosamine Chondroitin 1 cap PO QPM 08/22/18 10/30/19 09/21/19 methimazole 5 mg PO QAM 04/08/19 10/30/19 09/27/19 08:00 omeprazole 20 mg PO DAILY PRN 04/08/19 10/30/19 Unknown Past Medical History Medical History (Updated 11/05/19 @ 14:50 by Breanna Robles) Aortic stenosis Moderate aortic stenosis (CHAIM= 1.3cm2, mean PG=24.1mmHg) per 09/2018 echo Asthma stable Atrial fibrillation follows with Dr. Quiñones, "chronic sotalol therapy with CHADS score of 1" Dyslipidemia per records GERD (gastroesophageal reflux disease) controlled History of kidney stones no intervention needed Hypertension per records Hyperthyroidism on Methimazole- under surveillance by [facility] endocrine (euthyroid per most recent labs) Obesity Osteoarthritis Sleep apnea CPAP WITH O 2L/MIN HS Thyroid nodule Exercise / Class Metabolic Activity III < 4 Walking/Shop/Light housework Past Family History Family History Mother Family history of cancer Sister Family history of lung cancer Other No family history of adverse response to anesthesia Past Surgical History Surgical History H/O colonoscopy H/O foot surgery TENDON REPAIR IN CHILDHOOD H/O ventral hernia repair History of arthroscopy of right knee History of cardioversion History of cholecystectomy History of esophagogastroduodenoscopy (EGD) History of hernia repair UMBILICAL History of laparoscopic cholecystectomy History of left inguinal hernia repair 09/28/2019 [facility] History of repair of hiatal hernia History of right inguinal hernia repair History of tonsillectomy and adenoidectomy S/P thyroid biopsy Status post right knee replacement Social History Smoking Status: Never smoker Do You Dip or Chew Tobacco: No Hx Alcohol Use: Yes alcohol intake frequency: holidays/special occasions only Hx Substance Use: No substance use type: does not use Review of Systems Patient denies chest pain, shortness of breath, fever, chills, cough, wheezing, palpitations. Physical Exam Vital Signs VITALS BP 127/77 P 74 TEMP 98.7 SP02 94%RA RESP 16 PHYSICAL Full neck and c-spine range of motion. Full TMJ range of motion. TMD 3 finger breaths Mallampati Score 3 Dentition: missing molars. lower left bridge Lungs: clear throughout to auscultation Cardiac: regular rate and rhythm, no murmurs noted Spine: normal Carotid arteries: negative bruit Extremities: no edema + trimmed ta Testing Laboratory Results PT 10.7 Seconds (9.0-12.0) 11/05/19 13:25 INR 1.0 (0.9-1.1) 11/05/19 13:25 APTT 30.1 Seconds (21.0-31.0) 11/05/19 13:25 Blood Type A Positive 11/05/19 13:25 Antibody Screen NEGATIVE 11/05/19 13:25 09/28/19 WBC 7.87 H/H 15.8/47.1 PLATELETS 244 SODIUM 142 POTASSIUM 3.9 CHLORIDE 108 CO2 29 BUN 19 CREATININE 0.83 GLUCOSE 97 Electrocardiogram Date: 04/08/19 + NSR @ (67 bpm) and + RBBB (incomplete) Chest X-Ray Date: 11/05/19 Findings: + NAD Echocardiogram Date: 09/29/18 EF: 62% LV Function: normal RWMA: + none Other Findings: + LVH (Mild/concentric) Grade 2 diastolic dysfunction. Aortic valve has 3 leaflets. Aortic valve is moderately calcified. Moderate aortic valve stenosis is present (CHAIM= 1.3cm2, mean PG=24.1mmHg, AV velocity= 3.175m/s). Mild AR. Mild MR. Mild left atrial enlargement. Aortic root and proximal ascending aorta are mildly enlarged. Stress Test Date: 10/03/17 Type: DSE Resting EF: 60-64% Resting RWMA: + none The stress echo is negative for inducible ischemia. Hypertensive blood pressure response to dobutamine/atropine infusion. The LV wall thickness is mildly increased (concentric). The LV diastolic function is mildly abnormal (grade I). The aortic valve is moderately calcified. Moderate aortic valve stenosis is present. Mild aortic valve regurgitation is present. Mild mitral regurgitation is present. The aortic root and proximal ascending aorta are mildly enlarged. The stress EKG response showed no evidence of ischemia. NSR was noted at rest. No symptoms were noted. The stress test was terminated due to 85% maximal HR was achieved. HR response to stress was normal. Hypertensive BP response to utamine/atropine infusion. Compared to prior study of 02/15/17, there is no significant change.
--- NOTE | 2019-11-05 13:57 | XRay Report ---
XR chest Pre-admission PA/Lat CLINICAL HISTORY: pat preoperative COMPARISON STUDY: 06/03/2018 FINDINGS: The bones soft tissues and hemidiaphragms are normal. The cardiomediastinal silhouette is n ormal. The lungs are clear. The pulmonary vasculature is normal. IMPRESSION: Negative chest. ACT 112: Negative or not required by law. The above report was generated using voice recognition software. It may contain grammatical, syntax or spelling errors. Electronically signed by: Tim Strong M.D. 11/05/2019 1:56 PM
[2019-11-05 14:29] LABS: Partial Thromboplastin Ratio 1.1; Partial Thromboplastin Time 30.1 Seconds (21.0-31.0); Prothrombin Time 10.7 Seconds (9.0-12.0)
[~2019-11-16 06:26] MED LIST changes: -BUPIVACAINE 0.5 % 5 MG/1 ML PF 10ML VIAL ONE; -CEFAZOLIN 3000MG 65 ML IV SCH; +CEFAZOLIN 3000MG 72.5 ML IV SCH; +GABAPENTIN 300 MG CAP PO SCH; -GABAPENTIN 300 MG PO SCH; -ROPIVACAINE 0.5% 5 MG/ML 30 ML VIAL ONE
[2019-11-16] MEDS ORDERED: BUPIVACAINE 0.5 % 5 MG/1 ML PF 10ML VIAL ONE (06:29)
[2019-11-16] MEDS ORDERED: ROPIVACAINE 0.5% 5 MG/ML 30 ML VIAL ONE (06:30)
[2019-11-16] MEDS ORDERED: EPINEPHrine INJ 1 MG/ML AMP ONE ×2 (06:30→09:08)
--- NOTE | 2019-11-16 06:46 | History & Physical Bridge Note ---
Date of Service November 16, 2019 History & Physical Bridge Note I have examined the patient, reviewed the History & Physical and in the interval since the performance of the History & Physical I have noted the following changes of clinical significance: no changes noted
[2019-11-16] MEDS ORDERED: LIDOCAINE HCL 2% 2 ML VIAL/AMP(20MG/ML) INFIL ONE (07:37)
[2019-11-16] MEDS ORDERED: PROPOFOL IV EMULSION 10 MG/ML 20 ML VIAL IV ONE (07:37)
[2019-11-16] MEDS ORDERED: MIDAZOLAM HCL 1 MG/ML 2ML VIAL ONE ×2 (07:38→09:34)
[2019-11-16] MEDS ORDERED: ATROPINE SULFATE 0.1 MG/ML 10ML SYR IV PRN (07:56)
[2019-11-16] MEDS ORDERED: HYDROmorphone INJ 1 MG/ML SYRINGE IV PRN (07:56)
[2019-11-16] MEDS ORDERED: fentaNYL citrate 100 MCG/2 ML VIAL IV PRN (07:56)
[2019-11-16] MEDS ORDERED: MEPERIDINE HCL 25 MG/ML CARP/VIAL IV PRN (07:56)
[2019-11-16] MEDS ORDERED: ONDANSETRON INJ 2 MG/ML 2 ML VIAL IV PRN ×2 (07:56→11:57)
[2019-11-16] MEDS ORDERED: PHENYLEPHRINE 100MCG/ML 5ML SYR IV PRN (07:56)
[2019-11-16] MEDS ORDERED: ePHEDrine sulfate 50 MG/ML AMP IV PRN (07:56)
[2019-11-16] MEDS ORDERED: BUPIVACAINE/EPINEPHRINE 0.25% 1:200,000 30 ML VIAL ONE (09:07)
[2019-11-16] MEDS ORDERED: BUPIVACAINE LIPOSOME 1.3% 266 MG/20 ML VIAL ONE (09:08)
[2019-11-16] MEDS ORDERED: SODIUM CHLORIDE 0.9% PF 50 ML VIAL ONE (09:08)
[2019-11-16] MEDS ORDERED: BACITRACIN INJ 50,000 UNIT VIAL ONE (09:08)
[2019-11-16] MEDS ORDERED: BUPIVACAINE 0.25% 30 ML VIAL ONE (09:09)
[2019-11-16] MEDS ORDERED: ePHEDrine sulfate 50 MG/ML SYR ONE (10:13)
--- NOTE | 2019-11-16 11:07 | Post Operative Brief Note ---
PG Immediate Post Op with CF Date of Surgery November 16, 2019 Pre & Post Diagnosis Operation Date: 11/16/19 08:50 Pre-Op Diagnosis: Left Knee Degenerative Joint Disease, Knee Pain Post-Op Diagnosis: Left Knee Degenerative Joint Disease, Knee Pain I identified the patient and participated in the time-out.: Yes Procedure Operation Date: 11/16/19 08:50 Actual Procedures p Left Total Knee Arthroplasty(Left) - John Cotto MD Surgeon John Cotto MD Staff Radiation Therapist Elizabeth, PAC Estimated Blood Loss 50 Findings Consistent with Post-Op Diagnosis Fluids 1700 cc Specimens Specimen Description: Permanent specimen A: left knee bone and tissue Drains Montgomery Catheter (16fr montgomery catheter placed by Tiffanie Johnson PA-C, without difficulty; montgomery demonstrates clear yellow urine. Output measured and recorded by anesthesia.) Anesthesia Type Spinal MAC Complications none Disposition Disposition: Recovery Room
--- NOTE | 2019-11-16 11:20 | Operative Report ---
Post Operative Report Pre & Post Diagnosis Operation Date: 11/16/19 08:50 Pre-Op Diagnosis: Left Knee Degenerative Joint Disease, Knee Pain Post-Op Diagnosis: Left Knee Degenerative Joint Disease, Knee Pain I identified the patient and participated in the time-out.: Yes Procedure Operation Date: 11/16/19 08:50 Actual Procedures p Left Total Knee Arthroplasty(Left) - John Cotto MD Surgeon John Cotto MD Mid Level Practitioner Elizabeth, PAC Estimated Blood Loss 50 Findings Consistent with Post-Op Diagnosis Operative findings revealed advanced left knee DJD. Did pretty extensive grade 4 [id number] disease of the medial and patellofemoral compartments. He had a varus deformity to his knee. The osteophytes medially and posteriorly. Moderate-sized joint effusion. Fluids 1700 cc. Specimens Left knee sent for pathology. Drains None. Anesthesia Type Spinal MAC Complications none Disposition Accompanied Patient To Recovery: No Disposition: Recovery Room Indications Patient is a 69-year-old gentleman with a long history of bilateral knee pain discomfort. Is been through extensive conservative treatment over the years. He had his right knee replaced a little over a year ago is done well from this. He continues be limited by left knee pain discomfort. He failed all con servative measures and elected proceed with total knee arthroplasty. Kristian Resendiz, physician assistant women's soccer coach, was present for the entire procedure. He was critical for patient positioning, prepping, draping, retraction, exposure, wound closure, and application of the sterile dressing placed. Description of Procedure Operative implants consist of: 1. Biomet Vanguard size 70 left posterior by femoral component. 2. Biomet size 79 tibial tray. 3. 12 mm posterior stabilized polyethylene insert. 4. 31 x 8 all poly-patella. Patient was taken to the operating room identified and placed on the operating table supine position. All contractors were properly padded. IV antibiotics arrived by anesthesia team. Spinal anesthetic and abductor canal block had been provided in the holding area. A Sewell catheter was placed in sterile fashion. Left factor was then placed in the left lower extremities and prepped and draped in usual sterile fashion. The left leg was elevated and exsanguinated with use of an Esmarch and turns placed at 300 mmHg. An anterior approach to the left knee was then performed to longitudinal incision centered over the patella. Sharp dissection was got through subcutaneous tissue down to the level of the extensor mechanism. A medial parapatellar arthrotomy incision was made. Some subperiosteal dissection was carried out medially. The fat pad was dissected from each patella tendon. Lateral patellofemoral ligament was released. Patella was subluxated laterally and the knee was flexed. The osteophytes were taken off the distal femur P the ACL and PCL were then released from distal femur and the tibia was subluxated anteriorly. The external tibial alignment jig was then placed in the interface the tibia and adjusted 14 mm medially. Proximal tibial cut was made to remove about 2 mm of bone from the medial side. The tibia was then sized to a size 79. Some osteophytes were taken off medial and posterior medially. Attention was then drawn to the femur. The distal femur was entered with a sharp drill. Intramedullary canal was suction. A left 6 degree valgus cutting guide was placed. Distal femoral cutting block was pinned in place. The distal femoral cut was made to take an additional 3 mm of bone off distal femur. The femur was then sized to a size 70. We did downsize a slightly. The AP cutting block was pinned parallel to the epicondylar axis which was 5 degrees of external rotation. Anterior cut, anterior chamfer, posterior cut, posterior chamfer cuts were made. Box cutting guide was placed in just slight lateral box cut was made. The knee was flexed. The remnants of the medial lateral menisci were excised. The osteophytes were taken off the posterior aspect of the femur. A trial femoral component was placed. The tibial tray was pinned in maximum external rotation and the drill and stem punch were used to create defect in proximal tip for the tibial tray. Knee was then trialed and the 12 mm insert fit most appropriately. Attention drawn to the patella. Patella cleaned of all soft tissues. Patella thickness measured 23 mm in thickness was cut down to 14. Was sized to a size 31 patella. Locals were drilled for 31 patella. The lateral osteophyte was removed. Patella button was placed. Knee was taken through range of motion patella tracked nicely with no thumbs test. Attention drawn to place the permanent components. All trial components were removed. A bone plug was placed in the distal femur limit blood loss. A double batch [place]os G cement was mixed. A Biomet Vanguard size 70 left posterior by femoral component, a size 79 tibial tray, 12 mm posterior box polyethylene insert, and a 31 x 8 all poly-patella were then cemented in place. Knee was brought out into full extension total cement hardened. Final cement check was then performed. The pericapsular tissues were injected with total 100 cc of combination of 20 cc of Exparel, 30 cc normal saline, 50 cc of quarter percent Marcaine with epinephrine. Patient did receive 1 g tranexamic acid per the tourniquet was then let down for for final tourniquet time 57 minutes. Hemostasis assured use electrocautery. Extensor mechanism closed with combination of #1 PDS suture #1 Vicryl suture in [id number] fashion to the extensor mechanism checked found to be intact and subcutaneous tissue then closed with 2 Dexon suture in a buried interrupted fashion. Skin was closed skin pilo. Leg was then cleaned and dried a sterile dressing composed Xeroform, 4 x 4's, sterile cast padding, Erik bandage were applied. Patient then transferred to the recovery room in stable condition. Patient tolerated procedure well and there were no complications. I attest to the content of the Intraoperative Record and any orders documented therein. Any exceptions are noted below.
--- NOTE | 2019-11-16 11:28 | XRay Report ---
XR knee LT 1 or 2V routine CLINICAL HISTORY: Postoperative evaluation. COMPARISON: Knee radiographs June 15, 2019. FINDINGS: Alignment of the total left knee arthroplasty is anatomic. There is no fracture or unexpec galina radiopaque foreign body. There are skin pilo. IMPRESSION: Expected findings following total left knee arthroplasty. ACT 112: Negative or not required by law. Electronically signed by: Fred Cabrera M.D. 11/16/2019 11:26 AM
--- NOTE | 2019-11-16 11:51 | Anesthesiology Progress Note ---
Date of Service November 16, 2019 Anesthesia Post Procedure Vital Signs Vital Signs: Temp Pulse Pulse Resp BP BP Pulse Ox 11/16/19 11:40 36.7 C 11/16/19 11:30 61 16 118/58 L 96 11/16/19 11:20 61 16 110/60 97 11/16/19 11:13 36.7 C 61 16 91/69 L 96 11/16/19 07:30 36.8 C 65 18 136/90 96 Pain Intensity Left Knee: Pain Intensity: 1 Transfer of Care Handoff Completed per policy Notes Mental Status: alert / awake / arousable Patient Amnestic to Procedure: Yes Nausea / Vomiting: adequately controlled Pain: adequately controlled Airway Patency, RR, SpO2: stable & adequate BP & HR: stable & adequate Hydration State: stable & adequate Neuraxial Anesthesia: was administered and sensory block is resolving Anesthetic Complications: no major complications apparent and Pt Satisfied with anesthetic care
[2019-11-16] MEDS ORDERED: HYDROmorphone INJ 0.5 MG/0.5 ML SYR IV PRN (11:57)
[2019-11-16] MEDS ORDERED: TAMSULOSIN HCL 0.4 MG CAP PO PRN (11:57)
[2019-11-16] MEDS ORDERED: METOCLOPRAMIDE HCL INJ 5 MG/ML 2 ML VIAL IV PRN (11:57)
[2019-11-16] MEDS ORDERED: ALUMINUM/MAGNESIUM SUSP 30 ML UDC PO PRN (11:57)
[2019-11-16] MEDS ORDERED: ALBUTEROL HFA 8 GM INHALER INH PRN (11:57)
[2019-11-16] MEDS ORDERED: OXYCODONE HCL IR 5 MG TAB (IMMEDIATE RELEASE) PO PRN (11:57)
[2019-11-16] MEDS ORDERED: MAGNESIUM HYDROXIDE SUSP 30 ML UDC PO PRN (11:57)
[2019-11-16] MEDS ORDERED: NALOXONE HCL 0.4 MG/1 ML VIAL/CARP IV PRN (11:57)
[2019-11-16] MEDS ORDERED: bisacodyL 10 MG SUPP PR PRN (11:57)
[2019-11-16] MEDS ORDERED: PANTOprazole 40 MG TAB PO PRN (12:04)
[2019-11-16] MEDS: SODIUM CHLORIDE 0.9% 1000ML 1,000 ML IV SCH ×2 (12:30→20:27)
[2019-11-16] MEDS: ACETAMINOPHEN 500 MG TAB PO SCH ×2 (13:31→21:17)
[2019-11-16] MEDS: KETOROLAC TROMETHAMINE 15 MG/ML VIAL IV SCH ×2 (13:32→20:21)
[2019-11-16] MEDS: CEFAZOLIN 2000MG 2,000 MG/15 ML SYR IV SCH ×2 (16:15→23:52)
[2019-11-16] MEDS: ASCORBIC ACID 500 MG TAB PO SCH (17:14)
[2019-11-16] MEDS ORDERED: TRANEXAMIC ACID / 0.7% NACL 1,000 MG/100 ML BAG IV SCH (17:15)
[2019-11-16] MEDS: FERROUS GLUCONATE 324 MG TAB PO SCH (17:15)
[2019-11-16] MEDS ORDERED: ATORVASTATIN 40 MG TAB PO SCH (21:00)
[2019-11-16] MEDS ORDERED: OMEGA-3 (PURIFIED FISH OIL) 1 GM CAP PO SCH (21:00)
[2019-11-16] MEDS ORDERED: SENNA 8.6 MG TAB PO SCH (21:00)
[2019-11-16] MEDS: DOCUSATE SODIUM 100 MG CAP PO SCH (21:17)
[2019-11-16] MEDS: TAPENTADOL HCL ER 50 MG TABCR PO SCH (21:17)
[2019-11-16] MEDS: POTASSIUM CHLORIDE 20 MEQ TABCR PO SCH (21:17)
[2019-11-16] MEDS: ASPIRIN 81 MG ECTAB PO SCH (21:17)
[2019-11-16] MEDS: SOTALOL HCL 80 MG TAB PO SCH (21:17)
[2019-11-17] MEDS: KETOROLAC TROMETHAMINE 15 MG/ML VIAL IV SCH ×3 (01:53→13:37)
[2019-11-17] MEDS: ACETAMINOPHEN 500 MG TAB PO SCH ×2 (05:41→13:37)
[2019-11-17 07:05] LABS: Hematocrit (blood only) 39.9 % (42-52); Hemoglobin 13.3 g/dL (14.0-18.0); Mean Corpuscular Hemoglobin 32.5 pg (25-34); Mean Corpuscular Hgb Conc 33.3 g/dL (32-36); Mean Corpuscular Volume 97.6 fL (80-100); Platelet Count 213 K/uL (130-400); RDW Coefficient of Variation 12.9 % (11.5-14.5); RDW Standard Deviation 46.3 fL (36.4-46.3); Red Blood Count 4.09 M/uL (4.7-6.1); White Blood Count 11.05 K/uL (4.8-10.8)
[2019-11-17 07:29] LABS: BUN Creatinine Ratio 22.6 (10-20); Calcium 8.6 mg/dl (8.5-10.1); Creatinine Clr Calc Pharmacy 125.7 ml/min; Est GFR (African American) 104.6; Est GFR (Non-African American) 90.2
[2019-11-17] MEDS: FERROUS GLUCONATE 324 MG TAB PO SCH (08:52)
[2019-11-17] MEDS: ASCORBIC ACID 500 MG TAB PO SCH (08:53)
[2019-11-17] MEDS: SOTALOL HCL 80 MG TAB PO SCH (08:54)
[2019-11-17] MEDS: DOCUSATE SODIUM 100 MG CAP PO SCH (08:54)
[2019-11-17] MEDS: ASPIRIN 81 MG ECTAB PO SCH (08:55)
[2019-11-17] MEDS: POTASSIUM CHLORIDE 20 MEQ TABCR PO SCH (08:55)
[2019-11-17] MEDS ORDERED: FLUTICASONE FUROATE 100MCG 14 PUFFS/INHALER INH SCH (09:00)
[2019-11-17] MEDS ORDERED: FLUTICASONE PROPIONATE NA SPR 16 GM BTL NAE SCH (09:00)
[2019-11-17] MEDS ORDERED: MULTIVITAMIN TAB PO SCH ×2 (09:00)
[2019-11-17] MEDS ORDERED: methIMAzole 5 MG TABLET PO SCH (09:00)
[2019-11-17] MEDS ORDERED: LOSARTAN POTASSIUM 25 MG TAB PO SCH (09:00)
[2019-11-17] MEDS: TAPENTADOL HCL ER 50 MG TABCR PO SCH (09:04)
--- NOTE | 2019-11-17 10:24 | Progress Notes ---
DATE: 11/17/2019 SUBJECTIVE: A 69-year-old gentleman postop day #1 from left knee replacement. He is doing well. Had a pretty good night. Pain is controlled. No chest pain or shortness of breath. Not feeling dizzy or lightheaded. OBJECTIVE: VITAL SIGNS: Temperature is 36.6. Vital signs stable. GENERAL: Shows a pleasant, middle-aged male. He is sitting up dangling his legs over the edge of the bed and looks pretty comfortable this morning. LUNGS: Clear to auscultation. HEART: Has a regular rate and rhythm. ABDOMEN: Soft, nontender, nondistended. EXTREMITIES: Grossly neurovascularly intact except as follows. Examination of the left leg reveals the dressing to be clean, dry, and intact. He can dorsiflex and plantarflex his foot appropriately. He has got brisk refill. LABORATORY DATA: Hemoglobin 13.3. Hematocrit 39.3. Electrolytes are stable. ASSESSMENT: A 69-year-old gentleman postop day #1 from left knee replacement, doing pretty well. Pain is controlled. He is neurologically intact. PLAN: 1. DVT prophylaxis including thigh-high TEDs, SCDs, and aspirin twice a day. 2. PT/OT. Weight bear as tolerated. Left total knee protocol. 3. Pain control, doing pretty well with current pain regimen. 4. Disposition: Plan to discharge to home with some home health; if he does okay in therapy and pain controlled later today.
--- NOTE | 2019-11-20 14:38 | Discharge Summary ---
Date of Service November 20, 2019 Admission HPI Per Admitting Provider Well documented in the H & P Admission Exam (Per Admitting) Constitutional Well documented in the H & P Discharge Data Consultations 11/16/19 11:57 Consult Case Management - Discharge Planning Routine Procedures Performed Operation Date: 11/16/19 08:50 Actual Procedures p Left Total Knee Arthroplasty(Left) - John Cotto MD Hospital Course (1) Status post total left knee replacement: This patient is a 69 year old male admitted on 11/16/19 and underwent total knee arthroplasty. He tolerated the procedure well and there were no complications. Transferred to the PACU post op and later to the orthopedic floor for further care. He was given ancef for antibiotic prophylaxis. He was also given NICK stockings, SCDs, and aspirin for DVT prophylaxis. Hemoglobin, hematocrit, and vital signs were monitored during his hospital stay and remained stable. Did not require any blood transfusions. There were no complications during his hospital stay. By post op day #1 the patient was tolerating a regular diet, pain was reasonably controlled with oral pain medicine, and he was participating in physical therapy. On post op day #21the patient was discharged home and set up with home health care. He was given printed discharge instructions including prescriptions for extra strength tylenol, aspirin, and oxycodone. Continue physical therapy, weight bearing as tolerated. Continue NICK stockings. Follow up approximately 2 weeks post op or sooner if there are problems or concerns. Coding Level of Care Code None Diagnoses Status post total left knee replacement Z96.652
== END 2019-11-17 15:19 | disposition home health service (06) ==
LOC: ASU 06:26 → 3E 06:26

== ENCOUNTER 2023-11-06 15:19 | Inpatient (IN) ==
[2023-11-06 16:56] LABS: Basophils # (auto) 0.03 K/uL (0.00-0.20); Basophils % (auto) 0.4 %; Eosinophils % (auto) 1.5 %; Hematocrit (blood only) 41.5 % (42.0-52.0); Hemoglobin 13.7 g/dl (14.0-18.0); Immature Granulocytes # (auto) 0.04 K/uL (0.01-0.20); Immature Granulocytes % (auto) 0.6 %; Lymphocytes # (auto) 1.53 K/uL (1.20-3.40); Lymphocytes % (auto) 22.8 %; Mean Corpuscular Hemoglobin 31.9 pg (25.0-34.0); Mean Corpuscular Volume 96.7 fL (80.0-100.0); Mean Platelet Volume 8.7 fL (9.4-12.4); Monocytes # (auto) 0.58 K/uL (0.11-0.59); Monocytes % (auto) 8.7 %; Neutrophils # (auto) 4.42 K/uL (1.40-6.50); Platelet Count 286 K/uL (130-400); RDW Coefficient of Variation 12.2 % (11.5-14.5); RDW Standard Deviation 43.1 fL (36.4-46.3); Red Blood Count 4.29 M/uL (4.70-6.10)
[2023-11-06 17:10] LABS: Albumin Globulin Ratio 1.1 (0.9-2); Albumin Level 3.8 gm/dl (3.4-5.0); BUN Creatinine Ratio 20.7 (10-20); Bilirubin,Total 0.7 mg/dl (0.2-1.0); Calcium 9.1 mg/dl (8.6-10.3); Creatinine Clr Calc Pharmacy 112.9 ml/min; Est GFR (African American) 101.7 ml/min; Est GFR (Non-African American) 87.7 ml/min; Globulin 3.6 gm/dl (2.5-4.0); Potassium 4.1 mmol/L (3.5-5.1); Total Protein 7.4 gm/dl (6.0-8.3)
[2023-11-06 17:16] LABS: Troponin I High Sensitivity 3.8 pg/ml (0-20)
[2023-11-06] MEDS ORDERED: VANCOMYCIN CONSULT ACTIVE PRN ×2 (17:23→22:23)
[2023-11-06] MEDS: VANCOMYCIN HCL 2,750 MG in SODIUM CHLORIDE 0.9% 500 ML IV ONE (17:45)
--- NOTE | 2023-11-06 18:18 | Emergency Department Note ---
Impression & Plan Abscess of right lower leg ED Provider Note NAME: FRANK GAONA AGE: 73 SEX: M : 1950 ARRIVES VIA: Walk-In INFORMANT: Patient, ED PROVIDER(S): Norm Stafford MD CHIEF COMPLAINT: Leg abscess HPI: This is a 73-year-old male presenting for leg abscess. Patient was seen by his PCP a few days ago for a painful lump on his right chapin. He notes that he injured his leg about 2 weeks ago and since then has been progressively swollen. Now it is red. There is a fluctuant large area to the leg. He was referred to surgery who states that because on Eliquis he cannot get an incision and drainage today. He will need to come to the ER for IV antibiotics. He has no fevers, chills, nausea or vomiting. ROS: See above HPI for pertinent positives & negatives. A total of 10 systems reviewed and were otherwise negative. PHYSICAL EXAMINATION: General: resting comfortably in no acute distress Head: Normocephalic and atraumatic Eyes: Normal inspection, extraocular muscles intact Ear, nose, throat: Normal external exam Neck: Normal range of motion Respiratory: lungs clear to auscultation bilaterally Cardiovascular: Regular rate/rhythm, no murmur GI: soft, nontender, no guarding or rebound Extremities: Swollen right lower extremity, mid chapin with fluctuance Neuro: The patient awake and alert, appropriately conversive, no focal deficits, symmetric faces Skin: Warm, dry, and intact MEDICAL DECISION MAKING: This is a 73-year-old male presenting for leg abscess/cellulitis. Patient's leg is significantly swollen, on the right. Consistent with cellulitis and likely abscess. Ultrasound reviewed from outpatient visit showing complex fluid collection that is 6.7 x 1.6 x 4.9 cm, complex, suggestive of abscess done on 11/04/2023. -Discussed with on-call surgery who recommends CT imaging to assess for surgical versus orthopedic needs. Also recommends discussing with hospitalist service for admission. -Will start IV antibiotic at this time and consult hospitalist. -No leukocytosis noted, hemoglobin 13.7. Electrolytes within normal limits. Blood cultures pending. Differential diagnosis: DVT, cellulitis, abscess ER treatment provided: See below Diagnostics interpreted by me: ECG: None Cardiac Monitoring: An order was placed for continuous cardiac monitoring. The monitor shows a rate of 71 with sinus rhythm. Laboratory studies: As stated above and show below. Imaging studies: See below. Past Med/Surg History Problem List Abscess of right lower leg (Acute) Hematoma of right lower extremity Mass of right hand Status post total left knee replacement Encounter for pre-operative examination Left knee DJD Goiter (Chronic) Multiple thyroid nodules (Chronic) Coronary artery disease Left knee DJD (Chronic) History of cholecystectomy Atrial fibrillation (Chronic) Chronic venous insufficiency (Chronic) Chronic anticoagulation (Chronic) History of tonsillectomy and adenoidectomy History of hernia repair UMBILICAL Hyperthyroidism On Methimazole- under surveillance by [facility] endocrine (euthyroid per most recent labs) Follows with endo- last seen 04/13/20- no acute issues noted Hypertension per records Dyslipidemia per records Status post right knee replacement History of repair of hiatal hernia H/O ventral hernia repair H/O colonoscopy Medical History Cardiac murmur no current issues Obesity Aortic stenosis Moderate aortic stenosis (CHAIM= 1.3cm2, mean PG=24.1mmHg) per 09/2018 echo - has had a more recent echo in 2022 at [facility] Osteoarthritis History of kidney stones no intervention needed GERD (gastroesophageal reflux disease) controlled Thyroid nodule Sleep apnea CPAP WITH O 3L/MIN HS Asthma stable Atrial fibrillation follows with Dr. Quiñones, "chronic sotalol therapy with CHADS score of 1" Surgical History History of total knee replacement LEFT-10/2019 History of right inguinal hernia repair History of left inguinal hernia repair 09/28/2019 [facility] S/P thyroid biopsy History of cardioversion "YRS AGO" History of esophagogastroduodenoscopy (EGD) H/O foot surgery TENDON REPAIR IN CHILDHOOD History of arthroscopy of right knee History of laparoscopic cholecystectomy Family History Mother Family history of cancer Sister Family history of lung cancer Other No family history of adverse response to anesthesia Social History Smoking Status: Never smoker Second Hand Exposure: No; Do You Dip or Chew Tobacco: No; Hx Alcohol Use: No Hx Substance Use: No Preferred Language: Gibraltarian Communication Ability: Effective Visual Impairment: No Limitations Button Pusher Required: No Beliefs That Will Affect Care: None marital status: Current Living Situation: Spouse Current Living Situation Comment: with 1 dog current occupational status: retired Other Information That Helps Us Care for You: No Feels Safe at Home: Yes Safety Concerns: Feels Safe At This Time Assistive Devices: CPAP and Glasses Allergies Allergies Allergy/AdvReac Type Severity Reaction Status Date / Time amlodipine AdvReac Intermediate EDEMA Verified 11/06/23 18:15 lisinopril AdvReac Intermediate Cough Verified 11/06/23 18:15 sotalol AdvReac Intermediate A-FIB Verified 11/06/23 18:15 Home Meds Home Medications Medication Instructions Recorded Confirmed albuterol sulfate 90 mcg/actuation 2 puff inhalation Q4H PRN 05/28/18 11/06/23 aerosol inhaler Shortness Of Breath fluticasone furoate 100 1 inh inhalation QAM 05/28/18 11/06/23 mcg/actuation blister powder for inhalation (Arnuity Ellipta) fluticasone propionate 50 2 spray intranasal QAM 05/28/18 11/06/23 mcg/actuation nasal spray,suspension losartan 25 mg tablet 25 mg PO QAM 05/28/18 11/06/23 multivitamin (Multiple Vitamins 1 tab PO QAM 05/28/18 11/06/23 tablet) omega 5-rxc-vqg-fish oil 1,000 mg 1 cap PO HS 05/28/18 11/06/23 (120 mg-180 mg) capsule (Fish Oil) potassium chloride 20 mEq 20 meq PO BID 05/28/18 11/06/23 tablet,extended release(part/cryst) (Klor-Con M) glucosamine sulf dipot 1 cap PO QPM 08/22/18 11/06/23 chlr,msm,chond 550 mg-C 30 mg-perry 1 mg capsule (Glucosamine Chondroitin) aspirin 81 mg tablet,delayed 81 mg PO HS 11/30/20 11/06/23 release (Adult Low Dose Aspirin) apixaban 5 mg tablet (Eliquis) 5 mg PO BID 12/25/22 11/06/23 atorvastatin 80 mg tablet 80 mg PO HS 12/25/22 11/06/23 metoprolol succinate 50 mg 50 mg PO QAM 12/25/22 11/06/23 tablet,extended release 24 hr acetaminophen 650 mg 1,300 mg PO BID 11/06/23 11/06/23 tablet,extended release (Tylenol Arthritis Pain) albuterol sulfate 2.5 mg/3 mL 2.5 mg inhalation Q4H PRN 11/06/23 11/06/23 (0.083 %) solution for nebulization Shortness Of Breath Or Wheezing cephalexin 500 mg capsule 500 mg PO TID 11/06/23 11/06/23 montelukast 10 mg tablet 10 mg PO QAM 11/06/23 11/06/23 Previous Rx's Medication Instructions Recorded oxycodone-acetaminophen 5 mg-325 1 tab PO Q6H PRN pain #20 tabs 12/31/22 mg tablet (Percocet) methimazole 5 mg tablet 2.5 mg (1/2 x 5 mg) PO QAM #90 tabs 01/18/23 Results & Data (ED) Vital Signs Vital Signs - 24 hr 11/06/23 15:25 11/06/23 16:00 11/06/23 17:21 Temperature 36.7 C Temperature Source Temporal Artery Scan Pulse Rate 76 Pulse Rate [Apical] 72 70 Respiratory Rate 20 16 19 Respiratory Effort / Characteristics Non-Labored Spontaneous Non-Labored Spontaneous Non-Labored Spontaneous Respiratory Depth Normal Normal Normal Respiratory Pattern Regular Regular Regular Blood Pressure 135/71 Blood Pressure [Right Arm] 124/63 135/69 Blood Pressure Mean 92 Blood Pressure Mean [Right Arm] 83 91 Blood Pressure Position Sitting Blood Pressure Position [Right Arm] Semi-fowlers Pulse Oximetry 94 94 94 Oxygen Delivery Method Room Air Room Air Room Air Sepsis Recent Fever Within 48 Hours No Sepsis New/Unexplained Change in Mental Status No Sepsis Action Taken by Nursing No Action Required 11/06/23 17:50 Temperature Temperature Source Pulse Rate Pulse Rate [Apical] 68 Respiratory Rate 23 Respiratory Effort / Characteristics Non-Labored Spontaneous Respiratory Depth Normal Respiratory Pattern Regular Blood Pressure Blood Pressure [Right Arm] 135/69 Blood Pressure Mean Blood Pressure Mean [Right Arm] 91 Blood Pressure Position Blood Pressure Position [Right Arm] Pulse Oximetry 95 Oxygen Delivery Method Room Air Sepsis Recent Fever Within 48 Hours Sepsis New/Unexplained Change in Mental Status Sepsis Action Taken by Nursing Laboratory Data 11/06/23 16:28 11/06/23 16:28 Lab Results 11/06/23 Range/Units 16:28 WBC 6.70 (4.8-10.8) K/ul RBC 4.29 L (4.70-6.10) M/uL Hgb 13.7 L (14.0-18.0) g/dl Hct 41.5 L (42.0-52.0) % MCV 96.7 (80.0-100.0) fL MCH 31.9 (25.0-34.0) pg MCHC 33.0 (32.0-36.0) g/dL RDW Std Deviation 43.1 (36.4-46.3) fL RDW Coeff of Flavio 12.2 (11.5-14.5) % Plt Count 286 (130-400) K/uL MPV 8.7 L (9.4-12.4) fL Immature Gran % (Auto) 0.6 % Neut % (Auto) 66.0 % Lymph % (Auto) 22.8 % [place] % (Auto) 8.7 % Eos % (Auto) 1.5 % Baso % (Auto) 0.4 % Neut # (Auto) 4.42 (1.40-6.50) K/uL Lymph # (Auto) 1.53 (1.20-3.40) K/uL [place] # (Auto) 0.58 (0.11-0.59) K/uL Eos # (Auto) 0.10 (0.00-0.50) K/uL Baso # (Auto) 0.03 (0.00-0.20) K/uL Immature Gran # (Auto) 0.04 (0.01-0.20) K/uL Sodium 139 (136-145) mmol/L Potassium 4.1 (3.5-5.1) mmol/L Chloride 102 (98-107) mmol/L Carbon Dioxide 31 (21-32) mmol/L Anion Gap 6 (3-11) BUN 17 (6-23) mg/dl Creatinine 0.82 (0.6-1.4) mg/dl Est Cr Clr Drug Dosing 112.9 ml/min Est GFR ( Amer) 101.7 ml/min Est GFR (Non-Af Amer) 87.7 ml/min BUN/Creatinine Ratio 20.7 H (10-20) Glucose 124 H (70-99(Fasting)) mg/dl Calcium 9.1 (8.6-10.3) mg/dl Total Bilirubin 0.7 (0.2-1.0) mg/dl AST 16 (13-39) U/L ALT 13 (7-52) U/L Alkaline Phosphatase 99 (34-104) U/L Troponin I High Sens 3.8 (0-20) pg/ml Total Protein 7.4 (6.0-8.3) gm/dl Albumin 3.8 (3.4-5.0) gm/dl Globulin 3.6 (2.5-4.0) gm/dl Albumin/Globulin Ratio 1.1 (0.9-2) Lipase 24 (11-82) U/L Administered Medications Discontinued Medications Vancomycin HCl 2,750 mg/ (Sodium Chloride) 555 mls @ 200 mls/hr IV NOW ONE Stop: 11/06/23 20:09 Last Admin: 11/06/23 18:08 Dose: 200 mls/hr Documented By: TIMA Ioversol (Optiray 320 100ml) 100 ml IV ONCE ONE Stop: 11/06/23 23:01 Last Admin: 11/06/23 23:02 Dose: 93 ml Documented By: SADIE Discharge Plan Visit Data Chief Complaint: Leg Injury/Pain Stated Complaint: R LEG INJURY, ANTIBIOTIC IV ED Provider: Norm Stafford Discharge Problem: Abscess of right lower leg Patient Disposition: Admitted As Inpatient Discharge Instructions Interventions: ED Discharge Assessment Last Done: 11/06/23 20:47
--- NOTE | 2023-11-06 18:28 | History & Physical Report ---
Date of Service November 06, 2023 Assessment & Plan (1) Hematoma of right lower extremity: (2) Atrial fibrillation: (3) Hypertension: (4) Chronic anticoagulation: (5) Coronary artery disease: (6) Dyslipidemia: Plan: Right lower extremity hematoma versus abscess -Admit to MedSurg -Hold Eliquis for possible I&D - place on subq heparin for afib in the meantime -Consult general surgery, Dr. Huizar aware of patient for surgical procedure - CT leg pending -N.p.o. after midnight -likely to be done on Saturday for holding 72 hrs. -Will continue patient on IV vanc and add Unasyn IV -Obtain MRSA nasal swab CAD -Holding Eliquis, last dose on 11/05 morning -Continue home antihypertensive medications including losartan, metoprolol, potassium chloride -Continue statin therapy COPD Asthma PRABHU -Continue on home inhaler, nasal spray - May use home cpap machine Hyperthyroidism -Continue methimazole 2.5 mg daily DVT ppx: teds, scds, heparin subcu Lines: PIV x 1 FEN/GI: HH, continue n.p.o. at midnight in case needs for I&D CODE: Full code Dispo: From home, likely to remain in the hospital x 1-2 days A total of 75 minutes were spent with greater than 50% of that time face to face with the patient, personally reviewing all current laboratories, imaging studies, past medication reconciliation, outpatient chart review, and discussion with specialists to collaborate care for the patient with attending. Please see attending documentation for corrections and/or additions. History of Present Illness Chief Complaint: Left leg pain Primary Care Provider: Bello Sullivan MD This is a 73 yo M with PMHx of Atrial fibrillation on Eliquis, chronic ischemic heart disease, HLD, COPD, asthma, PRABHU, aortic stenosis who presented to outpatient general surgery office this morning and saw Dr. Rc Elena for right lower extremity lump after a fall he sustained 1 week ago. Ultrasound completed demonstrated a 6 cm hematoma/possible abscess and he was noted to be on Eliquis, therefore was referred to the ER for IV antibiotics and possible I&D during admission. Pt states that he was pushing off a boat 2 weeks ago and fell and hit the right chapin on the edge of the boat. Pt completed Keflex starting 10/28 until this morning. He denies any nausea, vomiting, fever, chills or sweats. Pt last dose of eliquis was this morning. He denies any fevers or chills but states he uses tylenol daily for arthritis pain. Allergies Allergy/AdvReac Type Severity Reaction Status Date / Time amlodipine AdvReac Intermediate EDEMA Verified 11/06/23 18:15 lisinopril AdvReac Intermediate Cough Verified 11/06/23 18:15 sotalol AdvReac Intermediate A-FIB Verified 11/06/23 18:15 Home Medications Medication Instructions Recorded Confirmed Type albuterol sulfate 90 mcg/actuation 2 puff inhalation Q4H PRN 05/28/18 11/06/23 History aerosol inhaler Shortness Of Breath fluticasone furoate 100 1 inh inhalation QAM 05/28/18 11/06/23 History mcg/actuation blister powder for inhalation (Arnuity Ellipta) fluticasone propionate 50 2 spray intranasal QAM 05/28/18 11/06/23 History mcg/actuation nasal spray,suspension losartan 25 mg tablet 25 mg PO QAM 05/28/18 11/06/23 History multivitamin (Multiple Vitamins 1 tab PO QAM 05/28/18 11/06/23 History tablet) omega 4-oim-vdp-fish oil 1,000 mg 1 cap PO HS 05/28/18 11/06/23 History (120 mg-180 mg) capsule (Fish Oil) potassium chloride 20 mEq 20 meq PO BID 05/28/18 11/06/23 History tablet,extended release(part/cryst) (Klor-Con M) glucosamine sulf dipot 1 cap PO QPM 08/22/18 11/06/23 History chlr,msm,chond 550 mg-C 30 mg-perry 1 mg capsule (Glucosamine Chondroitin) aspirin 81 mg tablet,delayed 81 mg PO HS 11/30/20 11/06/23 History release (Adult Low Dose Aspirin) apixaban 5 mg tablet (Eliquis) 5 mg PO BID 12/25/22 11/06/23 History atorvastatin 80 mg tablet 80 mg PO HS 12/25/22 11/06/23 History metoprolol succinate 50 mg 50 mg PO QAM 12/25/22 11/06/23 History tablet,extended release 24 hr oxycodone-acetaminophen 5 mg-325 1 tab PO Q6H PRN pain #20 tabs 12/31/22 11/06/23 Rx mg tablet (Percocet) methimazole 5 mg tablet 2.5 mg (1/2 x 5 mg) PO QAM #90 tabs 01/18/23 11/06/23 Rx acetaminophen 650 mg 1,300 mg PO BID 11/06/23 11/06/23 History tablet,extended release (Tylenol Arthritis Pain) albuterol sulfate 2.5 mg/3 mL 2.5 mg inhalation Q4H PRN 11/06/23 11/06/23 History (0.083 %) solution for nebulization Shortness Of Breath Or Wheezing cephalexin 500 mg capsule 500 mg PO TID 11/06/23 11/06/23 History montelukast 10 mg tablet 10 mg PO QAM 11/06/23 11/06/23 History Past Med/Surg History Problem List Hematoma of right lower extremity Mass of right hand Status post total left knee replacement Encounter for pre-operative examination Left knee DJD Goiter (Chronic) Multiple thyroid nodules (Chronic) Coronary artery disease Left knee DJD (Chronic) History of cholecystectomy Atrial fibrillation (Chronic) Chronic venous insufficiency (Chronic) Chronic anticoagulation (Chronic) History of tonsillectomy and adenoidectomy History of hernia repair UMBILICAL Hyperthyroidism On Methimazole- under surveillance by [facility] endocrine (euthyroid per most recent labs) Follows with endo- last seen 04/13/20- no acute issues noted Hypertension per records Dyslipidemia per records Status post right knee replacement History of repair of hiatal hernia H/O ventral hernia repair H/O colonoscopy Medical History Cardiac murmur no current issues Obesity Aortic stenosis Moderate aortic stenosis (CHAIM= 1.3cm2, mean PG=24.1mmHg) per 09/2018 echo - has had a more recent echo in 2022 at [facility] Osteoarthritis History of kidney stones no intervention needed GERD (gastroesophageal reflux disease) controlled Thyroid nodule Sleep apnea CPAP WITH O 3L/MIN HS Asthma stable Atrial fibrillation follows with Dr. Quiñones, "chronic sotalol therapy with CHADS score of 1" Surgical History History of total knee replacement LEFT-10/2019 History of right inguinal hernia repair History of left inguinal hernia repair 09/28/2019 [facility] S/P thyroid biopsy History of cardioversion "YRS AGO" History of esophagogastroduodenoscopy (EGD) H/O foot surgery TENDON REPAIR IN CHILDHOOD History of arthroscopy of right knee History of laparoscopic cholecystectomy Family History Mother Family history of cancer Sister Family history of lung cancer Other No family history of adverse response to anesthesia Social History Smoking Status: Never smoker Second Hand Exposure: No; Do You Dip or Chew Tobacco: No; Hx Alcohol Use: Yes Alcohol type: beer Hx Substance Use: No Preferred Language: Bangladeshi Communication Ability: Effective Visual Impairment: No Limitations Sprinkler Installer Required: No Beliefs That Will Affect Care: None marital status: Current Living Situation: Spouse Current Living Situation Comment: with 1 dog current occupational status: retired Feels Safe at Home: Yes Assistive Devices: CPAP, Glasses and Oxygen - at Night Review of Systems Review of Systems: Constitutional: No fever, sweats or chills Eyes: No diplopia, no worsening or blurred vision ENT: normal hearing, no trouble swallowing Respiratory: No cough, sputum, dyspnea at rest or on exertion Cardiovascular: No chest pain, tightness or palpitations Abdomen: No pain, nausea, vomiting, diarrhea or constipation Musculoskeletal: RLE pain, redness, tenderness, lump present, no specific joint pain, calf pain, swelling otherwise Neurologic: No weakness, numbness/tingling, or balance problems Psychiatric: No anxiety or depression Skin: No rash or itch Physical Exam Physical Exam: General: awake, alert, no apparent distress Head: Normocephalic, atraumatic ENT: PERRL, EOMI, no pharyngeal exudate, mucous membranes moist Chest: Clear to auscultation, on room air, no adventitious breath sounds Cardiac: Regular rate and rhythm, no murmur, no JVD, normal peripheral pulses, good capillary refill Abdominal: NABS x 4 quadrants, soft, nondistended, nontender to palpation, no rebound or guarding Extremities: RLE with erythema, lump visible over the RLE, peripheral edema of the ankle, or erythema, calfs nontender to palpation Psych: Normal mood and affect Neuro: AAO x 3, strength intact bilaterally and rated 5/5, no motor deficits, speech is clear, no peripheral sensory deficits Results & Data Results & Data Vital Signs (Past 12 Hours) Vital Signs Temp Pulse Pulse Resp BP BP Pulse Ox 11/06/23 17:50 68 23 135/69 95 11/06/23 17:21 70 19 135/69 94 11/06/23 16:00 72 16 124/63 94 11/06/23 15:25 36.7 C 76 20 135/71 94 O2 Del Method 11/06/23 17:50 Room Air 11/06/23 17:21 Room Air 11/06/23 16:00 Room Air 11/06/23 15:25 Room Air Laboratory Results 11/06/23 17:52 Aerobic Blood Culture - Pending Blood Anaerobic Blood Culture - Pending 11/06/23 16:28 Aerobic Blood Culture - Pending Blood Anaerobic Blood Culture - Pending 11/06/23 16:28 WBC 6.70 RBC 4.29 L Hgb 13.7 L Hct 41.5 L MCV 96.7 MCH 31.9 MCHC 33.0 RDW Std Deviation 43.1 RDW Coeff of Flavio 12.2 Plt Count 286 MPV 8.7 L Immature Gran % (Auto) 0.6 Neut % (Auto) 66.0 Lymph % (Auto) 22.8 [place] % (Auto) 8.7 Eos % (Auto) 1.5 Baso % (Auto) 0.4 Neut # (Auto) 4.42 Lymph # (Auto) 1.53 [place] # (Auto) 0.58 Eos # (Auto) 0.10 Baso # (Auto) 0.03 Immature Gran # (Auto) 0.04 Sodium 139 Potassium 4.1 Chloride 102 Carbon Dioxide 31 Anion Gap 6 BUN 17 Creatinine 0.82 Est Cr Clr Drug Dosing 112.9 Est GFR ( Amer) 101.7 Est GFR (Non-Af Amer) 87.7 BUN/Creatinine Ratio 20.7 H Glucose 124 H Calcium 9.1 Total Bilirubin 0.7 AST 16 ALT 13 Alkaline Phosphatase 99 Troponin I High Sens 3.8 Total Protein 7.4 Albumin 3.8 Globulin 3.6 Albumin/Globulin Ratio 1.1 Lipase 24 Code Status & VTE Plan Code Status Full code - discussed with pt at bedside Supervising Physician Co-Signing Physician Notes Patient is a 73-year-old male with history of atrial fibrillation on chronic anticoagulation with Eliquis, COPD and other medical problems presents with his tory of worsening right leg swelling, erythema after sustaining a trauma to his leg 2 week ago. He was started on Keflex by his PCP 1 week ago. Despite using the antibiotics, patient's symptoms continue to worsen. He admits to have leg pain pain with ambulation and activity. On recommendations from his PCP, patient visited ED for further evaluation. Please review HPI for complete details of presentation. I personally reviewed blood work. On exam patient is moderately built and nourished, no apparent distress, normocephalic atraumatic, EOMI, normal breath sounds, clear to auscultation, S1-S2, no murmur, abdomen soft, nontender, normal bowel sounds, alert, awake, oriented, grossly no focal deficits, right lower extremity swelling noted, lump noted on chin, tender to palpate. Outpatient ultrasound showed 6 cm hematoma, possible abscess. Patient is admitted for management of right leg cellulitis associated with hematoma/abscess.? Started on IV antibiotics. Hold Eliquis for possible I&D. Surgery was consulted. Pain control. I personally interviewed and examined at bedside. Patient's care is coordinated with Janessa Mitchell PA-C. I have reviewed the advanced practitioner's documentation, and I agree with plan of care. Please refer to the documentation above for details of patient's presentation and for discussion of other issues. I spent a total of25 minutes coordinating, documenting, and providing care for this patient excluding time spent in the performance of separately billed services.
--- NOTE | 2023-11-06 21:39 | Surgery Consultation ---
Date of Consultation November 06, 2023 Assessment & Plan (1) Hematoma of right lower extremity: Patient has been admitted on the medical service. From surgery perspective we recommend the following: I suspect the patient has a hematoma of his right lower extremity. Clinically the patient is not presenting like an abscess as he does not have any fevers or or leukocytosis or other signs of sepsis. Would recommend holding the patient's Eliquis which has been done. His most recent dose was the morning of 11/06/2023 Although the patient did have an outpatient ultrasound I feel CT scan of lower extremity will be beneficial to further delineate this fluid collection and help guide further decision making. This study has been ordered The medical service has empirically placed the patient on Unasyn as an abscess has not been entire excluded. He has also received a dose of vancomycin in the emergency department. (As noted above I have low clinical suspicion at this) Will empirically make the patient n.p.o. after midnight tonight. The patient be evaluated by my surgical attending, Dr. Huizar on the morning of 11/07/2023 to determine if incision and drainage will be required. It may, however be beneficial to withhold any surgical incision and drainage for at least an additional 24 hours as the patient did take Eliquis today. It is unclear if the patient will require surgical incision and drainage as on clinical exam the fluid collection/suspected hematoma is not causing any neurovascular compromise at this time the patient's lower extremity. At the present time the patient is nontoxic-appearing as he is normotensive without tachycardia, fever, or leukocytosis. Also as noted in the physical exam section of this note the patient is not exhibiting any signs of compartment syndrome. Additional recommendations be forthcoming based on his clinical course as unfolds Supervising Physician Co-Signing Physician Notes Patient discussed with Stefan Baumann overnight, see today's progress note for further plan. History of Present Illness Reason for Consultation: Right lower extremity fluid collection Attending Physician: Malik Christopher MD History of Present Illness This is a 73-year-old male who suffered a fall approximately 1 week ago. The patient says that he was launching his boat and slipped because he was wearing a new pair of sneakers which were not broken in. The patient notes that he struck his right chapin and since that time has had some pain and swelling of the right chapin. The patient notes that he takes Eliquis with his most recent dose this morning on 11/06/2023. Since this injury he denies any fevers, shakes, or chills. He has been able to ambulate since this injury. The patient says that he does have some chronic neuropathy but does not have any new numbness or tingling of his lower extremity. He reported to the [facility] general surgery office secondary to this problem and an ultrasound was completed that demonstrated a 6 cm fluid collection representing either hematoma or an abscess. It is noteworthy to mention that the patient reports that the swelling of his right lower extremity has not increased in size since the after mentioned injury. Since arrival to the emergency department the patient has had labs which I independent reviewed. CBC revealed white blood cell count and platelet count were normal. His hemoglobin and hematocrit were 13.7 and 41.5. Chemistry profile showed sodium and potassium as well as the BUN and creatinine were normal. At the time of my interview the patient was ambulating throughout his hospital room and he was in no distress. Allergies Allergy/AdvReac Type Severity Reaction Status Date / Time amlodipine AdvReac Intermediate EDEMA Verified 11/06/23 18:15 lisinopril AdvReac Intermediate Cough Verified 11/06/23 18:15 sotalol AdvReac Intermediate A-FIB Verified 11/06/23 18:15 Home Medications Medication Instructions Recorded Confirmed Type albuterol sulfate 90 mcg/actuation 2 puff inhalation Q4H PRN 05/28/18 11/06/23 History aerosol inhaler Shortness Of Breath fluticasone furoate 100 1 inh inhalation QAM 05/28/18 11/06/23 History mcg/actuation blister powder for inhalation (Arnuity Ellipta) fluticasone propionate 50 2 spray intranasal QAM 05/28/18 11/06/23 History mcg/actuation nasal spray,suspension losartan 25 mg tablet 25 mg PO QAM 05/28/18 11/06/23 History multivitamin (Multiple Vitamins 1 tab PO QAM 05/28/18 11/06/23 History tablet) omega 0-okj-ybv-fish oil 1,000 mg 1 cap PO HS 05/28/18 11/06/23 History (120 mg-180 mg) capsule (Fish Oil) potassium chloride 20 mEq 20 meq PO BID 05/28/18 11/06/23 History tablet,extended release(part/cryst) (Klor-Con M) glucosamine sulf dipot 1 cap PO QPM 08/22/18 11/06/23 History chlr,msm,chond 550 mg-C 30 mg-perry 1 mg capsule (Glucosamine Chondroitin) aspirin 81 mg tablet,delayed 81 mg PO HS 11/30/20 11/06/23 History release (Adult Low Dose Aspirin) apixaban 5 mg tablet (Eliquis) 5 mg PO BID 12/25/22 11/06/23 History atorvastatin 80 mg tablet 80 mg PO HS 12/25/22 11/06/23 History metoprolol succinate 50 mg 50 mg PO QAM 12/25/22 11/06/23 History tablet,extended release 24 hr oxycodone-acetaminophen 5 mg-325 1 tab PO Q6H PRN pain #20 tabs 12/31/2211/05 Rx mg tablet (Percocet) methimazole 5 mg tablet 2.5 mg (1/2 x 5 mg) PO QAM #90 tabs 01/18/23 11/06/23 Rx acetaminophen 650 mg 1,300 mg PO BID 11/06/23 11/06/23 History tablet,extended release (Tylenol Arthritis Pain) albuterol sulfate 2.5 mg/3 mL 2.5 mg inhalation Q4H PRN 11/06/23 11/06/23 History (0.083 %) solution for nebulization Shortness Of Breath Or Wheezing cephalexin 500 mg capsule 500 mg PO TID 11/06/23 11/06/23 History montelukast 10 mg tablet 10 mg PO QAM 11/06/23 11/06/23 History Patient History Medical History Cardiac murmur no current issues Obesity Aortic stenosis Moderate aortic stenosis (CHAIM= 1.3cm2, mean PG=24.1mmHg) per 09/2018 echo - has had a more recent echo in 2022 at [facility] Osteoarthritis History of kidney stones no intervention needed GERD (gastroesophageal reflux disease) controlled Thyroid nodule Sleep apnea CPAP WITH O 3L/MIN HS Asthma stable Atrial fibrillation follows with Dr. Quiñones, "chronic sotalol therapy with CHADS score of 1" Surgical History History of total knee replacement LEFT-10/2019 History of right inguinal hernia repair History of left inguinal hernia repair 09/28/2019 [facility] S/P thyroid biopsy History of cardioversion "YRS AGO" History of esophagogastroduodenoscopy (EGD) H/O foot surgery TENDON REPAIR IN CHILDHOOD History of arthroscopy of right knee History of laparoscopic cholecystectomy Family History Mother Family history of cancer Sister Family history of lung cancer Other No family history of adverse response to anesthesia Social History Smoking Status: Never smoker Second Hand Exposure: No; Do You Dip or Chew Tobacco: No; Hx Alcohol Use: No Hx Substance Use: No Preferred Language: Estonian Communication Ability: Effective Visual Impairment: No Limitations Vending Machine Operator Required: No Beliefs That Will Affect Care: None marital status: Current Living Situation: Spouse Current Living Situation Comment: with 1 dog current occupational status: retired Other Information That Helps Us Care for You: No Feels Safe at Home: Yes Safety Concerns: Feels Safe At This Time Assistive Devices: CPAP and Glasses Review of Systems Review of Systems: All systems reviewed & are unremarkable except as noted in HPI & below Physical Exam Constitutional: WD/WN, vitals as above Eyes: no conjunctival abnormality ENMT: Ears: no hearing impairment and no external ear abnormality Mouth: no oropharynx abnormality Neck: trachea midline Respiratory: normal respiratory effort; no respiratory distress and no labored breathing Cardiovascular: Rate/Rhythm: regular rate and regular rhythm Gastrointestinal (Abdomen): Soft and nondistended. Musculoskeletal: The patient's lower extremities were examined. The right lower extremity was noted to be circumferentially swollen compared to the left from mid talar region to approximately two [address] the way up his lower extremity. On the anterior aspect of the patient's right chapin there is a small area of swelling with some overlying erythema. This area did not exhibit warmth to palpation. There are no open areas or areas of drainage. There is no crepitus in the soft tissue. The area was somewhat painful to palpation. The patient did have intact sensation of his lower extremity. I was unable to palpate pedal pulses but both his posterior tibial and dorsalis pedis pulses were audible by Doppler. He did not have any pain of his right chapin or right foot with passive range of motion of his ankle. Capillary refill was noted to be adequate and there is no pallor of the extremity noted. The patient was able to ambulate throughout the room and he was able to dorsiflex and plantarflex his foot without difficulty. Skin: no rashes Neurologic: moves all extremities Psychiatric: A+Ox3, euthymic affect Results & Data Vital Signs (Past 12 Hours) Vital Signs Temp Pulse Pulse Resp BP BP Pulse Ox 11/06/23 20:12 69 12 156/65 H 97 11/06/23 19:33 73 11/06/23 19:14 73 18 148/79 H 95 11/06/23 17:50 68 23 135/69 95 11/06/23 17:21 70 19 135/69 94 11/06/23 16:00 72 16 124/63 94 11/06/23 15:25 36.7 C 76 20 135/71 94 O2 Del Method 11/06/23 20:12 Room Air 11/06/23 19:33 11/06/23 19:14 Room Air 11/06/23 17:50 Room Air 11/06/23 17:21 Room Air 11/06/23 16:00 Room Air 11/06/23 15:25 Room Air PG Care Time/CCT Total # of Minutes Spent Total Time Spent with Patient: Total time spent is greater than 50% in coordination of care (as documented) at patient's floor/unit and/or counseling patient: Coding Level of Care Code 71938 INT INP/OBS CARE 3/75MIN Diagnoses Hematoma of right lower extremity S80.11XA
[2023-11-06] MEDS ORDERED: ALBUTEROL HFA 8 GM INHALER INH PRN (22:23)
[2023-11-06] MEDS ORDERED: oxyCODONE/ACETAMINOPHEN 5mg/325mg TAB PO PRN (22:23)
[2023-11-06] MEDS ORDERED: AMPICILLIN SOD/SULBACTAM SOD 3 GM VIAL IV SCH (22:23)
[2023-11-06] MEDS ORDERED: ONDANSETRON INJ 2 MG/ML 2 ML VIAL IV PRN (22:23)
[2023-11-06] MEDS: OPTIRAY 320 100ml IV ONE (23:02)
[2023-11-06] MEDS: AMPICILLIN/SULBACTAM SOD 3,000 MG in SODIUM CHLOR 0.9% MINI-B 100 ML IV SCH (23:58)
[2023-11-07] MEDS: ATORVASTATIN 40 MG TAB PO SCH (00:01)
[2023-11-07] MEDS: HEPARIN SOD 5,000 UNIT/0.5 ML VIAL SQ SCH (00:01)
[2023-11-07] MEDS: ASPIRIN 81 MG ECTAB PO SCH (00:01)
--- NOTE | 2023-11-07 00:35 | CT Scan Report ---
Exam(s): CT EXTREMITY RIGHT LOWER With Contrast IV Amt: 93 ML OPTIRAY 320 EXAM: CT Right Lower Extremity With Intravenous Contrast CLINICAL HISTORY: Reason for exam: Right LE hematoma. TECHNIQUE: Axial computed tomography images of the right lower extremity with intravenous contrast. CTDI is 9.36 mGy and DLP is 540.68 mGy-cm. Automated exposure control was utilized for the study. A dose lowering technique was utilized adhering to the principles of ALARA. CONTRAST: Patient received 93 ML OPTIRAY 320 of IV contrast COMPARISON: No relevant prior studies available. FINDINGS: Bones/joints: Diffuse osseous demineralization. No acute fracture or subluxation. Soft tissues: Subcutaneous edema and skin thickening about the lower calf/ankle, concerning for cellulitis. Hyperdense coalescing fluid anterior to the tibia measures approximately 4.1 x 1.5 cm. Correlate for coalescing phlegmonous change versus soft tissue hematoma. No drainable abscess in this location. IMPRESSION: 1. No acute fracture or subluxation. 2. Subcutaneous edema and skin thickening about the lower calf/ankle, concerning for cellulitis. No subcutaneous air. 3. Hyperdense coalescing fluid anterior to the tibia measures approximately 4.1 x 1.5 cm. Correlate for coalescing phlegmonous change versus soft tissue hematoma. No drainable abscess in this location. Electronically signed by: Georges Vines MD 11/07/23 00:34 AM
[2023-11-07] MEDS ORDERED: Nursing to Pharmacy Communication SCH (04:45)
--- OUTSIDE RECORDS SUMMARY | 2023-11-07 05:50 | External Medical Summary | Summary of Care ---
Author Name Unknown Organization [facility] Address [address] [place] [address] Phone [phone] Care Team Providers Care Gas Booster Engineer Name Role Phone Bello Sullivan MD Primary Care Provider [phone] Reason for Visit * Reason Onset Date Comments Test Results 10/16/2023 Encounter Details Date Type Department Care Team (Late st Contact Info) Description 10/16/2023 Telephone Cardiology, [facility] [address] [place] [address] Roxanne Pete CRNP [address] [place] [address] Test Results Allergies Active Allergy Reactions Criticality Noted Date Comments Amlodipine Edema Other 11/28/2015 Lisinopril Cough 02/04/2018 Sotalol Unknown 02/12/2023 VT documented as of this encounter (statuses as of 10/23/2023) Medications Medication Sig Dispensed Refills Start Date End Date Status ASPIRIN 81 MG OR TABS one tab by mouth daily 0 0 Active HUMIDIFIER MISCIndications:Obs tructive sleep apnea (adult) (pediatric) heated 1 0 11/09/2005 Active GLUCOSAMINE CHONDROITIN COMPLX PO CAPS 1 daily Active ONE-A-DAY MENS PO TABS 1 daily Active TYLENOL ARTHRITIS PAIN 650 MG PO TBCR 2 tablets twice daily Active FISH OIL 1000 MG PO CAPS one daily Active oxygen IN GAS Use 3 L/min(Oxygen) as directed at bedtime. BLED THROUGH CPAP AHP 1 Each 02/04/2020 Active Additional Information Patient taking differently: 4 L/min(Oxygen)Nasal cannula HS, BLED THROUGH CPAPAHP, Reported on 03/20/2023 CPAP every night at bedtime. Active methIMAzole 5 MG Oral Tablet (Tapazole) Take 0.5 Tablets by mouth in the morning. 05/29/2022 Active Albuterol Sulfate HFA 108 (90 Base) MCG/ACT Inhalation Aerosol Solution Inhale 2 Puffs by mouth every 4 hours as needed for Shortness of Breath. 18 g 11 07/13/2022 Active Atorvastatin Calcium 80 MG Oral Tablet (Lipitor)Indication s:Dyslipidemia, goal LDL below 70 Take 1 Tablet by mouth in the morning. 90 Tablet 3 11/08/2022 Active Eliquis 5 MG Oral Tablet (Apixaban)Indicatio ns:Paroxysmal atrial fibrillation (HCC) TAKE 1 TABLET EVERY MORNINGAND TAKE 1 TABLET BEFORE BEDTIME 180 Tablet 3 11/22/2022 Active Metoprolol Succinate ER 50 MG Oral Tablet Extended Release 24 Hour (toPROL XL)Indications:Paro xysmal atrial fibrillation (HCC) TAKE 1 TABLET EVERY MORNING 90 Tablet 3 01/01/2023 Active Potassium Chloride Roxy ER 20 MEQ Oral Tablet Extended Release (Klor-Con M20)Indications:Hyp okalemia Take 2 Tablets by mouth in the morning. 180 Tablet 3 01/08/2023 Active Additional Information Patient taking differently: 20 mEqOralBID (.AM/PM), Reported on 10/22/2023 Montelukast Sodium 10 MG Oral Tablet (Singulair) Take 1 Tablet by mouth in the morning. 90 Tablet 3 03/21/2023 Active Arnuity Ellipta 100 MCG/ACT Inhalation Aerosol Powder Breath Activated (fluticasone Furoate)Indications :Mild intermittent asthma without complication USE 1 INHALATION ORALLY DAILY 90 Each 3 07/16/2023 Active Fluticasone Propionate 50 MCG/ACT Nasal Suspension (Flonase) Administer 2 Sprays into each nostril in the morning. 48 g 1 07/16/2023 Active Losartan Potassium 25 MG Oral Tablet (Cozaar) TAKE 1 TABLET DAILY 90 Tablet 1 08/13/2023 Active oxyCODONE-Acetamino phen 5-325 MG Oral Tablet (Percocet) 1 Tablet. 12/31/2022 Active Hospital, Clinic, or Other Facility Administered Medication Ordered Dose Route Frequency Start Date End Date Status Albuterol Sulfate (Proventil) (2.5 MG/3ML) 0.083% inhalation solution 2.5 mgIndications:Mild intermittent asthma without complication 2.5 mg NEBULIZER Q4H PRN 07/13/2022 Acti ve documented as of this encounter (statuses as of 10/23/2023) Active Problems Problem Noted Date Diagnosed Date Prediabetes 09/30/2023 Overview: Per Prediabetes protocol Hyperthyroidism 04/02/2019 Overview: On Tapazole Nocturnal hypoxemia 03/02/2019 History of colon polyps 09/22/2018 Gastroesophageal reflux disease without esophagi tis 09/01/2018 Mild intermittent asthma without complication Thyroid nodule 10/31/2017 History of kidney stones 11/29/2016 Chronic venous insufficiency 09/16/2015 Obesity, Class I, BMI 30.0-34.9 (see actual BMI) 12/17/2012 Dyslipidemia, goal LDL below 100 09/28/2010 Atrial fibrillation 03/16/2008 PRABHU (obstructive sleep apnea) 12/04/2005 NONALLERGIC RHINITIS 11/26/2002 documented as of this encounter (statuses as of 10/23/2023) Resolved Problems Problem Noted Date Diagnosed Date Resolved Date Prediabetes 11/02/2019 11/03/2020 Overview: Per Prediabetes protocol Peripheral vascular disease 04/02/2019 10/04/2020 Controlled substance agreement signed 10/03/2018 10/06/2019 Cough 03/24/2018 03/02/2019 COPD, mild 03/04/2018 09/01/2018 Asthma with COPD (chronic ob structive pulmonary disease) 03/04/2018 09/01/2018 Adenomatous polyp of colon 10/14/2017 0 09/22/2018 Trigger finger 10/09/2012 12/18/2012 Dermatitis 09/21/2011 12/18/2012 Acute bronchitis, complicated 06/22/2011 12/18/2012 Pain in right knee 06/22/2011 8 Edema 06/22/2011 10/06/2019 [employer] Research Other*[id number] 09/28/2010 09/15/2013 Overview: PROJECT: #[id number], SPONSOR: Sosa, PI: James Mendez MD SUMMARY: Observational registry to better understand how patients with A-Fib are cared for (utilization, effectiveness, safety of antithrombotic therapy for stroke prevention). Patients are recruited through an invitational letter. Study data will be collected (by research staff) from the EHR for at least 2 years on consenting patients at approximate 6-month intervals when seen at routine clinic visits. There is no study intervention. A BPA will fire in office visit notes and is connected to a flowsheet which has 2-4 questions that must be answered by the visit provider before the encounter can be closed. CONTACT: Travis Shepherd, Electric Meter Tester Chronic ischemic heart disease 09/28/2009 02/06/2022 Anticoagulation management encounter 03/16/2008 12/18/2012 FDC current use of ant icoagulant therapy 03/16/2008 08/17/2016 Overview: ICD-10 update of inactive term ADVANCE DIRECTIVE INFORMATION 10/02/2005 10/06/2019 Overview: Information given to patient Dyslipidemia, goal to be determined 01/08/2001 03/30/2009 Family history of ischemic heart disease 01/08/2001 09/28/2009 Bicipital tenosynovitis 01/08/200112/2009 documented as of this encounter (statuses as of 10/23/2023) Immunizations Name Administration Dates Next Due COVID-19 mRNA, LNP-s, No Pre serve, 2-Dose Series (Moderna) 06/25/2020,05/21/2020 COVID-19, mRNA, LNP-s, PF, B ooster, 100mcg/0.5mg (Moderna) 02/23/2021 DT - Diptheria/Tetanus (PEDS) 08/27/2002 Hepatitis B, 0-19 yrs 01/05/2013 Pneumococcal Conjugate Vacc, 13 Valent (Prevnar) 08/18/2015 Pneumococcal Polysaccharide PPV23 (Pneumovax) 02/21/2018,01/05/2013,03/30/2010 Season Influenza, Cell Cultu re, 18+ Yrs, With Preserv (Flucelvax) 01/13/2015 Seasonal Influenza, PF, 6 M & above, IM , (FluLaval or Fluzone) 01/09/2020 Seasonal Influenza, Quadriva lent Hd (Fluzone Hd) 02/06/2022,01/03/2021 Seasonal Influenza, Quadriva lent, No Preserve, IM 11/20/2017,02/17/2016 Seasonal Influenza, Split, I IV3, With Preserve, Inj 01/27/2019,12/23/2013,03/02/2013,01/10,02/16/2011,03/30/2010,03/30/2009 ,03/15/2008,02/28/2006,03/04/2003 Seasonal Influenza, Trivalen t, Adjuvanted, 65+ yrs 01/27/2019 Seasonal Influenza, Trivalen t, High Dose, No Preserve, IM 12/22/2017,01/11/2017 TD, Preservative Free 02/26/2020 TDAP, Age 7 and older, IM (Adacel) 03/30/2010 Zoster Vaccine Recombinant (Shingrix) 04/20/2018 ,12/22/2017,11/20/2017 documented as of this encounter Social History Tobacco Use Types Packs/Day Years Used Date Smoking Tobacco: Never Smokeless Tobacco: Never Comments:second hand smoke e xposure to some extent x 18 years Alcohol Use Standard Drinks/Week Comments No 0 (1 standard drink = 0.6 oz pur e alcohol) PHQ-2 Answer Date Recorded PHQ Adult Total Score 0 09/25/2023 Hunger Vital Sign Answer Date Recorded Within the past 12 months, y ou worried that your food would run out before you got the money to buy more. Never true 03/19/20 23 Within the past 12 months, t he food you bought just didn't last and you didn't have money to get more. Never true 03/19/2023 Childcare Answer Date Recorded Do you feel overwhelmed with taking care of a child, family member or friend? No 03/19/2023 Does your family need help f inding childcare? (Household - for ages 0-17 years) Not on file 03/19/2023 Clothing Answer Date Recorded Have you been unable to get clothing when it was really needed? No 03/19/2023 Is your family able to get c lothes or diapers when needed? (Household - for ages 0-17 years) Not on file 03/19/2023 Personal Safety Answer Date Recorded Do you feel unsafe or have concerns for your saf ety? No 03/19/2023 Do you have concerns for you r family's safety? (Household - for ages 0-17 years) Not on file 03/19/2023 Utilities Answer Date Recorded Do you have trouble paying y our heating, water, or electric bill? No 03/19/2023 Is your family able to pay t he heat, water, or electric bill? (Household - for ages 0-17 years) Not on file 03/19/2023 Does your family have access to good internet? (Household - for ages 0-17 years) Not on file 03/19/2023 Employment Status Answer Date Recorded Are you unemployed or without regular income? No 03/19/2023 Does the household have a re gular source of income? (Household - for ages 0-17 years) Not on file 03/19/2023 Social Connections Answer Date Recorded How often do you feel lonely or isolated from th ose around you? Never 03/19/2023 Financial Resource Strain Answer Date R ecorded Do you have any trouble payi ng for your medications, or do you think you might in the future? No 03/19/2023 Does your family have troubl e paying for medicine? (Household - for ages 0-17 years) Not on file 03/19/2023 Transportation Needs Answer Date Record ed READ ONLY Do you have troubl e getting a ride to medical visits or work? Never True 03/19/2023 Does your family have a hard time getting a ride to doctors visits? (Household - for ages 0-17 years) Not on file 03/19/2023 Has lack of transportation k ept you from medical appointments, meetings, work, or from getting things needed for daily living? Check all that apply. (Adult - for ages 18 years and over) Not on file 03/19/2023 Do you (or your family) have trouble finding or paying for a ride (transportation)? (Household - for ages 0-17 years) Not on file 03/19/2023 Housing Stability Answer Date Recorded Do you currently live in a s helter or have no steady place to sleep at night? No 03/19/2023 READ ONLY Do you think you a re at risk of becoming homeless? No 03/19/2023 Does your family worry about paying for your home or becoming homeless? (Household - for ages 0-17 years) Not on file 1 05/19/2022 Are you homeless or worried that you might be in the future? (Adult - for ages 18 years and over) Not on file Are you (or your family) danny eless or worried that you might be in the future? (Household - for ages 0-17 years) Not on file Food Insecurity Answer Date Recorded Do you need food for this week? No 03/19/2023 Are you able to get enough f ood for your family? (Household - for ages 0-17 years) Not on file 03/19/2023 Does your family need food t his week? (Household - for ages 0-17 years) Not on file 03/19/2023 Do you always have enough fo od for your family? (Household - for ages 0-17 years) Not on file 03/19/2023 Sex and Gender Information Value Date Recorded Sex Assigned at Not on file Gender Identity Not on file Sexual Orientation Straight 06/14/2020 9: 39 AM EST Job Start Date Occupation Industry Not on file Not on file Not on file documented as of this encounter Miscellaneous Notes * Telephone Encounter - Sujatha Borrego CMA - 10/23/2023 1:12 PM EDT Letter mailed. * Telephone Encounter - Sujatha Borrego CMA - 10/16/2023 12:15 PM EDT My g sent. * Telephone Encounter - Sujatha Borrego CMA - 10/16/2023 12:14 PM EDT ----- Message from Roxanne Pete sent at 10/16/2023 8:37 AM EDT ----- Ascending aortic measurements stable at 4.5 cm. Dental findings: Increased size of a 4.5 cm hypodense nodule in the left thyroid lobe since 2019. Follow-up with thyroid ultrasound is recommended. Recommend follow-up with PCP. documented in this encounter Plan of Treatment Upcoming Encounters Date Type Department Care Team (Late st Contact Info) Description 04/27/2024 8:20 AM EST Office Visit [facility] [address] [place] [facility] [place] [place] [address] Bello Sullivan MD [address] [place] [address] 07/16/2024 10:00 AM EDT Office Visit [facility] [address] [phone] Bernice Daniels CRNP [address] [place] [address] 10/20/2024 8:15 AM EDT [facility] Studies [facility] [address] [facility] [address] 11/03/2024 8:30 AM EDT Office Visit Cardiology, [facility] [address] [facility] [place] [address] John Wiseman MD [address] [facility] [address] Scheduled Procedures Name Priority Associated Diagnoses Date/Ti me COLONOSCOPY FLEXIBLE PROXIMA L DIAGNOSTIC Recall History of colonic polyps Health Maintenance Due Date Last Done Comments Cologuard 07/06/1995 Fecal Occult Blood Test 07/06/1995 Sigmoidoscopy 07/06/1995 COVID-19 Vaccine ( season) 2022 02/23/2021, 06/25/2020, 05/21/2020 Influenza Vaccine (FLU shot) (#1) 2023 02/06/2022, 01/03/2021, 01/09/2020, Additional history exists Depression Screening 09/24/2024 09/25/2023 HbA1c 09/24/2024 09/25/2023, 09/21, 04/10/2022, Additional history exists Colonoscopy 02/18/2026 02/18/2023, 01/22, 10/28/2017, Additional history exists Colorectal Cancer Screening 02/18/2026 Lipid Panel 03/21/2028 03/21/2023, 10/20, 09/11/2021, Additional history exists DTaP,Tdap,and Td Vaccines (4 - Td or Tdap) 02/25/2030 02/26/2020, 03/30/2010, 08/27/2002 Hepatitis B Vaccine Aged Out 01/05/2013 No longe r eligible based on patient's age to complete this topic Pneumococcal Vaccine: 65+ Years Completed 02/21/2018, 08/18/2015, 01/05/2013, Additional history exists Zoster Vaccines Completed 04/20/2018, 05/2017, 11/20/2017 RETIRED - COLONOSCOPY-EVERY 5 YRS AGES 18-100 Discontinued 02/18/2023, 02/18/2023, 10/28/2017, Additional history exists HPV (Gardasil) Vaccine Aged Out No lo nger eligible based on patient's age to complete this topic MENINGOCOCCAL (MENACTRA/MENVEO) Aged Out No longer eligible based on patient's age to complete this topic documented as of this encounter Medical Devices Implanted Type Area Strip Cutter Device Identifier Shelf Expiration Date Model / Serial / Lot Lens Li61ao 13.00mm 19.50 - [id number] - [id number] Implanted:Qty: 1 on 03/26/2023 by Max Melendez MD at [facility] Right: Eye [employer] 11/20/2027 [id number] / [id number] / [id number] Lens Li61ao 13.00mm 19.50 - [id number] - [id number] Implanted:Qty: 1 on 04/04/2023 by Max Melendez MD at [facility] Left: Eye [employer] 12/21/2027 [id number] / [id number] / [id number] documented as of this encounter Advance Directives * Full Code (Latest Code Status on File) Date Activated Date Inactivated Comments 04/04/2023 10:23 AM 04/04/2023 4:09 PM This orde r reflects the patients wishes and were consensually agreed upon. Question Answer Comments Discussion of Advance Directives occurred with: Patient Does the patient have a Living Will? No Does the patient have Health Care Power of Attor michael? No * Full Code Date Activated Date Inactivated Comments 03/26/2023 1:01 PM 03/26/2023 6:40 PM This order r eflects the patients wishes and were consensually agreed upon. Question Answer Comments Discussion of Advance Directives occurred with: Patient Does the patient have a Living Will? No Does the patient have Health Care Power of Attor michael? No Care Teams Gas Booster Engineer Relationship Specialty Start Date End Date Bello Sullivan MD [address] [facility] [place] [address] PCP - General Family Medicine 06/17/19 documented as of this encounter
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
--- OUTSIDE RECORDS SUMMARY | 2023-11-07 05:50 | External Medical Summary | Summary of Care ---
Author Name Unknown Organization [facility] Address [address] [place] [address] Phone [phone] Care Team Providers Care High Pressure Cleaner Name Role Phone Bello Sullivan MD Primary Care Provider +1- [phone] Reason for Referral * Precert (Within 10 days (routine)) - Authorized Specialty Diagnoses / Procedures Referred By Contac t Referred To Contact Cardiac Studies Diagnoses Paroxysmal atrial fibrillation (HCC) V-tach (HCC) Nonrheumatic aortic valve stenosis Enlarged aorta (HCC) Dyslipidemia, goal LDL below 100 HTN, goal below 130/80 PRABHU (obstructive sleep apnea) Procedures ECHO, COMPLETE (2D), TRANS-THORACIC Roxanne Pete CRNP [address] [place] [address] Referral ID Status Reason Start Date Expiration Date V isits Requested Visits Authorized [id number] Authorized Precert 10/20/2024 999 999 Reason for Visit * Reason Comments Follow Up Encounter Details Date Type Department Care Team (Late st Contact Info) Description 10/22/2023 8:30 AM EDT Office Visit Cardiology, [facility] [address] [place] [address] Roxanne Pete CRNP [address] [place] [address] Paroxysmal atrial fibrillation (HCC)*; V-tach (HCC); Nonrheumatic aortic valve stenosis; Enlarged aorta (HCC); Dyslipidemia, goal LDL below 100; HTN, goal below 130/80; PRABHU (obstructive sleep apnea) Allergies Active Allergy Reactions Criticality Noted Date Comments Amlodipine Edema Other 11/28/2015 Lisinopril Cough 02/04/2018 Sotalol Unknown 02/12/2023 VT documented as of this encounter (statuses as of 10/22/2023) Medications Medication Sig Dispensed Refills Start Date [...] as of this encounter (statuses as of 10/22/2023) Active Problems Problem Noted Date Diagnosed Date [...] as of this encounter (statuses as of 10/22/2023) Resolved Problems Problem Noted Date Diagnosed Date [...] 06/22/2011 8 Edema 06/22/2011 10/06/2019 [employer] Other*[id number] 09/28/2010 09/15/2013 Overview: PROJECT: #[id number], SPONSOR: Sosa, PI: James Mendez MD SUMMARY: [...] encounter can be closed. 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 use of ant icoagulant therapy 03/16/2008 08/17/2016 Overview: ICD-10 update of inactive term ADVANCE DIRECTIVE INFORMATION 10/02/2005 10/06/2019 Overview: Information given to patient Dyslipidemia, goal to be determined 01/08/2001 03/30/2009 Family history of ischemic heart disease 01/08/2001 09/28/2009 Bicipital tenosynovitis 01/08/2001 06/12/2009 documented as of this encounter (statuses as of 10/22/2023) Immunizations Name Administration Dates Next Due COVID-19 [...] 18 years and over) Not on file 3 Are you (or your family) danny eless [...] Sign Reading Time Taken Comments Blood Pressure 136/74 10/22/2023 8:17 AM EDT Pulse 72 10/22/2023 8:17 AM EDT Temperature - - Respiratory Rate 16 10/22/2023 8:17 AM EDT Oxygen Saturation - - Inhaled Oxygen Concentration - - Weight 130 kg (286 lb 8 oz) 10/22/2023 8:17 AM E DT Height - - Body Mass Index 34.87 09/25/2023 7:59 AM EDT documented in this encounter Progress Notes * Roxanne Pete CRNP - 10/22/2023 8:30 AM EDT Cardiology Outpatient Visit 10/22/2023 Primary Order Expediter: Formally Dr. Quiñones, follows with Dr. Aparicio EP Past medical history: Paroxysmal atrial fibrillation,[id number] score of 2 (age, HTN) History of DCCV years ago by Dr. Wiseman, previously on sotalol-discontinued 02/2022 due to VT History of recurrent hypokalemia associated with atrial fibrillation H/o nonsustained Ventricular tachycardia Nonischemic nuclear stress testing 04/2022 Moderate aortic stenosis Enlarged aortic root and ascending aorta Dyslipidemia Hypertension Obstructive sleep apnea; on CPAP Hyperthyroidism, follows with [facility] endocrinology, on Tapazole Chronic venous insufficiency HPI 73-year-old male presenting to the cardiology office today in routine follow-up. Was last evaluatedby the undersigned approximately 1 year ago. Patient carries a history of aortic stenosis. Most recent echocardiogram dated 09/2023 showed a normal LVEF of 60-64% without wall motion abnormalities. Aortic valve gradients indicated moderate stenosis was present with mild aortic regurgitation. The aortic root was mildly enlarged at 4.4 cm and ascending aorta measured at 4.[address] of the chest performed showing similar measurements. Today the patient presents feeling well and offers no acute concerns. Denies any exertional chest pain or unusual shortness of breath. No sustained palpitations. Occasional lightheadedness with position changes. No syncope. No orthopnea or PND. Has chronic venous insufficiency. Lower extremity edema at baseline. Wears compression socks. No fever, chills, cough, hematochezia, melena, or hemoptysis. Patient is compliant with all medications, and offers no side effects. Current Outpatient Medications Medication Sig Dispense Refill ASPIRIN 81 MG OR TABS one tab by mouth daily 0 0 GLUCOSAMINE CHONDROITIN COMPLX PO CAPS 1 [...] BLED THROUGH CPAP AHP) 1 Each 0 methIMAzole 5 MG Oral Tablet (Tapazole) Take [...] 5-325 MG Oral Tablet (Percocet) 1 Tablet. HUMIDIFIER MISC heated 1 0 CPAP every night at bedtime. Current Facility-Administered Medications Medication Dose Route Frequency Provider Last Rate Last Admin Albuterol Sulfate (Proventil) (2.5 MG/3ML) 0.083% inhalation solution 2.5 mg 2.5 mg Nebulizer Q4H PRN Bernice Daniels, DESIRE 2.5 mg at 07/18/23 0750 Past Medical [...] REPAIR, LAP, REDUCIBLE 05/18/2020 Dr. Abad at [facility] ABDOMEN SURGERY PROCEDURE NEC 1997 hiatal hernia repair COLONOSCOPY, DIAGNOSTIC (RECTUM) 10/07/2014 adenomatous polyps, repeat 3 yrs COLONOSCOPY, DIAGNOSTIC (RECTUM) 10/28/2017 adenomatous polyp, repeat 5 yrs/COLONOSCOPY FLEXIBLE PROXIMAL DIAGNOSTIC performed by Valencia Hewitt DO at [facility] COLONOSCOPY, DIAGNOSTIC (RECTUM) 02/18/2023 biopsies show adenomatous polyps/recall 3 years/COLONOSCOPY FLEXIBLE PROXIMAL DIAGNOSTIC performed by Valencia Hewitt DO at [facility] COLONOSCOPY, REMOVE LESION 02/2004 ascending colon Benign inflammatory polyp. Repeat 10 years. EGD, FLEXIBLE, DIAGNOSTIC 01/14/2018 mild stomach irritation/ESOPHAGOGASTRODUODENOSCOPY (EGD), FLEXIBLE, TRANSORAL, DIAGNOSTIC performedby Valencia Hewitt DO at [facility] INFORMATION Removal of cysts from back INFORMATION 12/29/2012 Laparoscopic ventral hernia repair with 12.5 cm circular Surgi-mesh Dr Awan, Kale\\medical office assistant instructor Ricki Cantu [facility] 12/29/12 KNEE ARTHROSCOPY/MENISCUS REPAIR 1999 Knee Scope,Med+Lat Menis Repair LAPAROSCOPY; CHOLECYSTECTOMY 1989 Cholecystectomy, Laproscopic REMOVE CATARACT, INSERT LENS PROSTH Right 03/26/2023 RIGHT EXTRACAPSULAR CATARACT REMOVAL WITH INTRAOCULAR LENS performed by Max Melendez MDat [facility] REMOVE CATARACT, INSERT LENS PROSTH Left 04/04/2023 LEFT EXTRACAPSULAR CATARACT REMOVAL WITH INTRAOCULAR LENS performed by Max Melendez MD at [facility] REMOVE GALLBLADDER 20 years ago REMOVE TONSILS & ADENOIDS, UNDER 12 REPAIR SPIGELIAN HERNIA SURGICAL PROCEDURE ONLY Right 12/31/2022 Inguinal Hernia Repair (Right) by Dr. Sherley Abad Social History Tobacco Use Smoking status: Never Smokeless tobacco: Never Tobacco comments: second hand smoke exposure to some extent x 18 years Vaping Use Vaping status: Never Used Substance Use Topics Alcohol use: No Drug use: No Review of patient's allergies indicates: Allergen Reactions Amlodipine Edema Other Lisinopril Cough Sotalol Unknown VT Review of Systems: See HPI for pertinent positives. All others negative, other than those noted in HPI. Physical Exam BP 136/74 (BP Site: Left Arm, BP Position: Sitting) | Pulse 72 | Resp 16 | Wt 130 kg (286 lb 8 oz) | BMI 34.87 kg/m | BSA 2.64 m General: No acute distress. A+Ox3. HEENT: Normocephalic. Atraumatic. Conjunctiva and sclera clear. NECK: No carotid bruits. No JVD. Carotid upstrokes are brisk. Heart: RRR. S1 and S2 noted. +3/6 systolic murmur Lungs: Clear to auscultation. No wheezes, rhonchi, rales. Abdomen: Normal bowel sounds. Soft. Nontender. No masses or organomegaly. No abdominal bruits. Extremities: Chronic venous insufficiency, right greater than left. Wears compression socks. No clubbing or cyanosis. Pulses: radial=2/4, posterior tibial=2/4, dorsalis pedis = 2/4. NEURO: No focal deficits. PSYCH: Normal. Lab data/imaging study review: Echo 09/2023 The examination is adequate to evaluate the referral indication. The qualitative LV ejection fraction is 60-64% (normal). The LV wall thickness is moderately increased (concentric). The left atrium is mildly enlarged (35-41 ml/m^2). The left ventricular diastolic function is mildly abnormal (grade I). The aortic valve is moderately calcified. Mild aortic valve regurgitation is present. Moderate aortic valve stenosis is present. The aortic root and proximal ascending aorta are mildly enlarged. Mild mitral regurgitation is present. Echo 09/2022 The examination is limited quality but adequate for evaluation of the referral indication. The qualitative LV ejection fraction is 60-64% (normal). No LV segmental wall motion abnormalities. Moderate aortic valve stenosis is present. Moderate aortic valve regurgitation is present. The aortic root is mildly enlarged. The aortic arch is mildly dilated. The proximal ascending aortais inadequately visualized Nuclear Stress Test 05/17/2022: Myocardial perfusion imaging is normal. Overall left ventricular systolic function was normal without regional wall motion abnormalities. The left ventricular ejection fraction was 68%. There are no prior studies available for comparison. Echocardiogram 03/07/2022: The left ventricular cavity size is normal. The LV wall thickness is moderately increased (concentric). The left ventricular wall motion is normal. The qualitative LV ejection fraction is 60-64% (normal). The left ventricular diastolic function is moderately abnormal (grade II). The aortic valve is moderately calcified. Moderate aortic valve stenosis is present. Mild aortic valve regurgitation is present. The mitral valve leaflets are mildly calcified. Mild mitral regurgitation is present. There is no evidence of pulmonary hypertension. In comparison to prior study of August 17, 2021, no significant change Zio Patch: 02/07/2022: CONCLUSIONS: Duration: 14 days. Indication: Palpitations Patient had a min HR of 45 bpm, max HR of 207 bpm, and avg HR of 64 bpm. Predominant underlying rhythm was Sinus Rhythm. 7 Ventricular Tachycardia runs occurred, the run with the fastest interval lasting 10 beats with a max rate of 207 bpm, the longest lasting 9.6 secs with an avg rate of 181 bpm. 7 Supraventricular Tachycardia runs occurred, the run with the fastest interval lasting 12 beats with a max rate of 169 bpm (avg 145 bpm); the run with the fastest interval was also the longest. Some episodes of Supraventricular Tachycardia may be possible Atrial Tachycardia with variable block. Isolated SVEs were rare (<1.0%), SVE Couplets were rare (<1.0%), and SVE Triplets were rare (<1.0%). Isolated VEs were rare (<1.0%, 334), VE Couplets were rare (<1.0%, 20), and VE Triplets were rare (<1.0%, 4). Ventricular Bigeminy was present. MD notification criteria for Ventricular Tachycardia met - report posted prior to notification per account request (MB). Occasional symptoms correlate with sinus rhythm and supraventricular ectopy. 7 ventricular tachycardia runs recorded without associated symptoms. Ordering physician notified of results via staff message. Impression/Plan: 1. Paroxysmal atrial fibrillation (HCC) -Paroxysmal atrial fibrillation,[id number] score of 2 (age, HTN) -History of DCCV years ago by Dr. Wiseman, previously on sotalol-discontinued 02/2022 due to VT -History of recurrent hypokalemia associated with atrial fibrillation, on replacement 1. Continue Eliquis 5 mg twice daily 2. Continue metoprolol succinate 50 milligrams daily 3. With recurrent atrial fibrillation considerations of restarting sotalol per EP 2. V-tach (HCC) -Nonsustained Ventricular tachycardia -Nonischemic nuclear stress testing 04/2022 3. Nonrheumatic aortic valve stenosis Moderate aortic stenosis per echo, 09/2023 1. Repeat echo in 1 year to reassess AV gradients 4. 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 Dyslipidemia, goal LDL below 100 LDL 70 1. Continue atorvastatin 40 mg daily 6. HTN, goal below 130/80 Controlled. 1. Continue losartan 25 mg daily 2. Encouraged adequate hydration to minimize dizziness with position changes 7. PRABHU (obstructive sleep apnea) On CPAP The patient agrees to the above plan and will call with additional questions or concerns. ER with all emergencies advised. Follow-up: Return in about 1 year (around 10/21/2024). | Check-out note: Echo 1 year prior to follow up. I spent a total of 30 minutes on the date of service in preparation, delivery, and documentation ofthe care provided to Tim Fraser excluding any time spent in the performance of separately billed services. DESIRE [facility], Department of Cardiology This chart was completed in part utilizing [employer] Speech Voice Recognition Software. Grammatical errors, random word insertions, prounoun errors, and incomplete sentences are an occasional consequence of this system due to software limitations, ambient noise, and hardware issues. Any formal questions or concerns about the content, text, or information contained within the body of this dictation should be directly addressed to the provider for clarification. documented in this encounter Nursing Notes * Jose D Max CMA - 10/22/2023 8:16 AM EDT Examination Room: 4 Name: Tim Fraser Date of : (1950). Reason for Visit: follow up Interim Hospitalization(s): denies Problems/Concerns: dizzy/lightheaded when sitting up/standing up too quickly Chest Pain/SOB: denies [facility] Discussed: Not applicable [facility] is a way you can talk to your provider online through e-mail. Would you like to sign up? I can activate it for you? ALREADY ACTIVE Patient was instructed to not get up on the exam table until directed and assisted by their provider; patient is to remain seated in the chair/ wheelchair/ exam table for fall prevention and safety reasons. Patient is aware to have assistance to step down off exam table with personnel. Patient voiced full comprehension of instructions. documented in this encounter Miscellaneous Notes * Addendum Note - Jose D Max CMA - 10/22/2023 8:54 AM EDTAddended by: JOSE D MAX on: 10/22/2023 08:54 AM Modules accepted: Orders documented in this encounter Plan of Treatment Upcoming Encounters Date Type Department Care Team (Late st Contact Info) Description 04/27/2024 8:20 AM EST Office Visit [facility] [address] [place] [address] Bello Sullivan MD [address] [place] [address] 07/16/2024 10:00 AM EDT Office Visit [facility] [address] [place] [phone] Bernice Daniels CRNP [address] [place] [address] 10/20/2024 8:15 AM EDT Cardiac Studies Cardiac Studies, [facility] [address] [place] [address] 11/03/2024 8:30 AM EDT Office Visit Cardiology, [facility] [address] [facility] [place] [address] John Wiseman MD [address] [place] [address] Scheduled Orders Name Type Priority Associated Diagnoses Orde r Schedule ECHO, COMPLETE (2D), TRANS-THORACIC Echocardiology Routine Paroxysmal atrial fibrillation (HCC) V-tach (HCC) Nonrheumatic aortic valve stenosis Enlarged aorta (HCC) Dyslipidemia, goal LDL below 100 HTN, goal below 130/80 PRABHU (obstructive sleep apnea) Expected: 10/20/2024 (Approximate), Expires: 11/21/2025 EKG EKG Routine Paroxysmal atrial fibrillation (HCC) Expected: 10/22/2023 (Approximate), Expires: 11/21/2024 Scheduled Procedures Name Priority Associated Diagnoses Date/Ti [...] Tdap) 02/25/2030 02/26/2020, 03/30/2010, 08/27/2002 Hepatitis B Aged Out 01/05/2013 No longer eligi ble based on patient's age to complete this topic Pneumococcal Vaccine: 65+ Years Completed 02/21/2018, 08/18/2015, 01/05/2013, Additional history exists Zoster Vaccines Completed 04/20/2018, 05/2017, 11/20/2017 RETIRED - COLONOSCOPY-EVERY 5 YRS AGES 18-100 Discontinued 02/18/2023, 02/18/2023, 10/28/2017, Additional history exists GARDASIL-HPV IMMUNIZATION SERIES Aged Out No longer eligible based on patient's age to complete this topic MENINGOCOCCAL (MENACTRA/MENVEO) Aged Out No longer eligible based on patient's age to complete this topic documented as of this encounter Medical Devices Implanted Type Area Director Of Vendor Management Device Identifier Shelf Expiration Date Model / Serial / Lot Lens Li61ao 13.00mm 19.50 - [id number] - [id number] Implanted:Qty: 1 on 03/26/2023 by Max Melendez MD at [facility] Right: Eye [employer] 11/20/2027 [id number] / [id number] / [id number] Lens Li61ao 13.00mm 19.50 - [id number] - [id number] Implanted:Qty: 1 on 04/04/2023 by Max Melendez MD at [facility] Left: Eye [employer] 12/21/2027 [id number] / [id number] / [id number] documented as of this encounter Visit Diagnoses Diagnosis Paroxysmal atrial fibrillation (HCC)- Primary Atrial fibrillation V-tach (HCC) Paroxysmal ventricular tachycardia Nonrheumatic aortic valve stenosis Aortic valve disorders Enlarged aorta (HCC) Other specified disorders of arteries and arterioles Dyslipidemia, goal LDL below 100 Other and unspecified hyperlipidemia HTN, goal below 130/80 Unspecified essential hypertension PRABHU (obstructive sleep apnea) Obstructive sleep apnea (adult) (pediatric) documented in this encounter Advance Directives * [...] Power of Attor michael? No Care Teams High Pressure Cleaner Relationship Specialty Start Date End Date Bello Sullivan MD [address] [place] [address] PCP - General Family Medicine 06/17/19 documented as of this encounter"
--- OUTSIDE RECORDS SUMMARY | 2023-11-07 05:50 | External Medical Summary | Summary of Care ---
Author Name Unknown Organization [facility] Address [address] [place] [address] Phone [phone] Care Team Providers Care Can Technician Name Role Phone Bello Sullivan MD Primary Care Provider +1- [phone] Reason for Visit * Reason Onset Date Comments Appointment 11/05/2023 Encounter Details Date Type Department Care Team (Late st Contact Info) Description 11/05/2023 Telephone General Internal Medicine [facility] [address] [place] [address] Javier Montenegro, DO [address] [place] [address] Appointment Allergies Active Allergy Reactions Criticality Noted Date [...] Tablet (Lipitor)Indication s:Dyslipidemia, goal LDL below 70 TAKE 1 TABLET EVERY MORNING 90 Tablet 3 10/31/2023 Active Eliquis 5 MG Oral Tablet (Apixaban)Indicatio ns:Paroxysmal atrial fibrillation (HCC) TAKE 1 TABLET EVERY MORNINGAND TAKE 1 TABLET BEFORE BEDTIME 180 Tablet 3 10/31/2023 Active Cephalexin 500 MG Oral CapsuleIndications: Cellulitis of right lower extremity Take 1 Capsule by mouth in the morning and 1 Capsule at noon and 1 Capsule before bedtime. Do all this for 7 days. 21 Capsule 11/05/2023 11/12/2023 Active Hospital, Clinic, or Other Facility Administered [...] 06/22/2011 8 Edema 06/22/2011 10/06/2019 [employer] Other*[id number] 09/28/2010 09/15/2013 Overview: PROJECT: #[id number], SPONSOR: Sosa, PI: James Mendez MD SUMMARY: [...] encounter can be closed. 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 (Household - for ages [...] encounter Miscellaneous Notes * Telephone Encounter - Bruna Caicedo OSA - 11/05/2023 9:39 AM EDT Scheduled on 11/06/23. * Telephone Encounter - Rick Gonzalez OSA - 11/05/2023 8:31 AM EDT Procedure: SURGERY REFERRAL OP Status: Needs Scheduling (Dvbk-ih-Rfilbay Pending) Requested appt date: Authorizing: Javier Montenegro DO in [facility] POD3 Referral: [id number] (Authorized) Priority: Within 3 days (urgent) Diagnosis: Cellulitis of right lower extremity [L03.115] Abscess [L02.91] Please assist patient with scheduling appointment documented in this encounter Plan of Treatment Upcoming Encounters Date Type Department Care Team (Late st Contact Info) Description 11/06/2023 1:30 PM EDT Office Visit General Surgery, [facility] [address] [address] Rc Elena MD [address] [place] [address] 04/27/2024 8:20 AM EST Office Visit [place] [address] [place] [address] Bello Sullivan MD [address] [place] [address] 07/16/2024 10:00 AM EDT Office Visit [facility] [address] [place] [phone] Bernice Daniels CRNP [address] [place] [address] 10/20/2024 8:15 AM EDT Cardiac Studies Cardiac Studies, [facility] [address] [place] [address] 11/03/2024 8:30 AM EDT Office Visit Cardiology, [facility] [address] [place] [address] John Wiseman MD [address] [place] [address] Scheduled Procedures Name Priority Associated Diagnoses Date/Ti me COLONOSCOPY FLEXIBLE PROXIMA L DIAGNOSTIC Recall History of colonic polyps Health Maintenance Due Date Last Done Comments Cologuard 07/06/1995 Fecal Occult Blood Test 07/06/1995 Sigmoidoscopy 07/06/1995 COVID-19 Vaccine ( - 2022- season) 2022 02/23/2021, 06/25/2020, 05/21/2020 *SPIROMETRY ONCE [...] this encounter Medical Devices Implanted Type Area News Broadcaster Device Identifier Shelf Expiration Date Model / Serial / Lot Lens Li61ao 13.00mm 19.50 - [id number] - [id number] Implanted:Qty: 1 on 03/26/2023 by Max Melendez MD at [facility] Right: Eye [employer] 11/20/2027 [id number] / [id number] / [id number] Lens Li61ao 13.00mm 19.50 - [id number] - [id number] Implanted:Qty: 1 on 04/04/2023 by Max Melendez MD at [facility] Left: Eye [employer] 12/21/2027 [id number] / [id number] / [id number] documented as of this encounter Advance Directives [...] Power of Attor michael? No Care Teams Can Technician Relationship Specialty Start Date End Date Bello Sullivan MD [address] [place] [address] PCP - General Family Medicine 06/17/19 documented as of this encounter
--- OUTSIDE RECORDS SUMMARY | 2023-11-07 05:50 | External Medical Summary | Summary of Care ---
Author Name Unknown Organization [facility] Address [address] [place] [address] Phone [phone] Care Team Providers Care Deck Mate Name Role Phone Bello Sullivan MD Primary Care Provider +1- [phone] Reason for Visit * Reason Comments eRx-Medication Refill Encounter Details Date Type Department Care Team (Late st Contact Info) Description 10/30/2023 Refill Cardiology, [facility] [address] [place] [address] Kortney Smith CRNP [address] [facility] [place] [address] Dyslipidemia, goal LDL below 70; Paroxysmal atrial fibrillation (HCC) Allergies Active Allergy Reactions Criticality Noted Date Comments Amlodipine Edema Other 11/28/2015 Lisinopril Cough 02/04/2018 Sotalol Unknown 02/12/2023 VT documented as of this encounter (statuses as of 10/31/2023) Medications Medication Sig Dispensed Refills Start Date End Date Status ASPIRIN 81 MG OR TABS one tab by mouth daily 0 0 Active HUMIDIFIER MISCIndications:O bstructive sleep apnea (adult) (pediatric) heated 1 0 [...] Oral Tablet Extended Release 24 Hour (toPROL XL)Indications:Pa roxysmal atrial fibrillation (HCC) TAKE 1 TABLET EVERY MORNING 90 Tablet 3 01/01/2023 Active Potassium Chloride Roxy ER 20 MEQ Oral Tablet Extended Release (Klor-Con M20)Indications:H ypokalemia Take 2 Tablets by mouth in the morning. 180 Tablet 3 01/08/2023 Active Additional Information Patient taking differently: 20 mEqOralBID (.AM/PM), Reported on 10/22/2023 Montelukast Sodium 10 MG Oral Tablet (Singulair) Take 1 Tablet by mouth in the morning. 90 Tablet 3 03/21/2023 Active Arnuity Ellipta 100 MCG/ACT Inhalation Aerosol Powder Breath Activated (fluticasone Furoate)Indicatio ns:Mild intermittent asthma without complication USE 1 INHALATION ORALLY DAILY 90 Each 3 07/16/2023 Active Fluticasone Propionate 50 MCG/ACT Nasal Suspension (Flonase) Administer 2 Sprays into each nostril in the morning. 48 g 1 07/16/2023 Active Losartan Potassium 25 MG Oral Tablet (Cozaar) TAKE 1 TABLET DAILY 90 Tablet 1 08/13/2023 Active oxyCODONE-Acetami nophen 5-325 MG Oral Tablet (Percocet) 1 Tablet. 12/31/2022 Active Cephalexin 500 MG Oral CapsuleIndication s:Cellulitis of right lower extremity Take 1 Capsule by mouth in the morning and 1 Capsule at noon and 1 Capsule before bedtime. Do all this for 10 days. 30 Capsule 10/28/2023 11/07/19 24 Active Atorvastatin Calcium 80 MG Oral Tablet (Lipitor)Indicati ons:Dyslipidemia, goal LDL below 70 TAKE 1 TABLET EVERY MORNING 90 Tablet 3 10/31/2023 Active Eliquis 5 MG Oral Tablet (Apixaban)Indicat ions:Paroxysmal atrial fibrillation (HCC) TAKE 1 TABLET EVERY MORNINGAND TAKE 1 TABLET BEFORE BEDTIME 180 Tablet 3 10/31/2023 Active Atorvastatin Calcium 80 MG Oral Tablet (Lipitor)Indicati ons:Dyslipidemia, goal LDL below 70 Take 1 Tablet by mouth in the morning. 90 Tablet 3 11/08/2022 10/31/19 24 Discontinued Eliquis 5 MG Oral Tablet (Apixaban)Indicat ions:Paroxysmal atrial fibrillation (HCC) TAKE 1 TABLET EVERY MORNINGAND TAKE 1 TABLET BEFORE BEDTIME 180 Tablet 3 11/22/2022 10/31/19 24 Discontinued Hospital, Clinic, or Other Facility Administered Medication Ordered Dose Route Frequency Start Date End Date Status Albuterol Sulfate (Proventil) (2.5 MG/3ML) 0.083% inhalation solution 2.5 mgIndications:Mild intermittent asthma without complication 2.5 mg NEBULIZER Q4H PRN 07/13/2022 Acti ve documented as of this encounter (statuses as of 10/31/2023) Active Problems Problem Noted Date Diagnosed Date [...] as of this encounter (statuses as of 10/31/2023) Resolved Problems Problem Noted Date Diagnosed Date [...] 06/22/2011 8 Edema 06/22/2011 10/06/2019 [employer] Other*[id number] 09/28/2010 09/15/2013 Overview: PROJECT: #[id number], SPONSOR: Sosa, PI: James Mendez MD SUMMARY: [...] encounter can be closed. CONTACT: Travis Shepherd, Quantitative Research Analyst Chronic ischemic heart disease 09/28/2009 02/06/2022 Anticoagulation management encounter 03/16/2008 12/18/2012 skilled nursing current use of ant icoagulant therapy 03/16/2008 08/17/2016 Overview: ICD-10 update of inactive term ADVANCE DIRECTIVE INFORMATION 10/02/2005 10/06/2019 Overview: Information given to patient Dyslipidemia, goal to be determined 01/08/2001 03/30/2009 Family history of ischemic heart disease 01/08/2001 09/28/2009 Bicipital tenosynovitis 01/08/2001 06/0 12/2009 documented as of this encounter (statuses as of 10/31/2023) Immunizations Name Administration Dates Next Due COVID-19 [...] encounter Miscellaneous Notes * Telephone Encounter - Kortney Smith CRNP - 10/31/2023 9:44 AM EDT Signed Prescriptions: Disp Refills Atorvastatin Calcium 80 MG Oral Tablet (Li*90 Tab*3 Sig: TAKE 1 TABLET EVERY MORNING Authorizing Provider: SARAH, KORTNEY KEEGAN Eliquis 5 MG Oral Tablet (Apixaban) 180 Ta*3 Sig: TAKE 1 TABLET EVERY MORNINGAND TAKE 1 TABLET BEFORE BEDTIME Authorizing Provider: KORTNEY SMITH * Telephone Encounter - Germaine Barros CMA - 10/31/2023 9:33 AM EDTPending Prescriptions: Disp Refills Atorvastatin Calcium 80 MG Oral Tablet [Ph*90 Tab*3 Sig: TAKE 1 TABLET EVERY MORNING Eliquis 5 MG Oral Tablet [Pharmacy Med Nam*180 Ta*3 Sig: TAKE 1 TABLET EVERY MORNINGAND TAKE 1 TABLET BEFORE BEDTIME Electronically signed by Germaine Barros [facility] at 10/31/2023 9:33 AM EDT * Telephone Encounter - Germaine Barros [facility] - 10/31/2023 9:32 AM EDT Did you pend patient's preferred pharmacy and medication before forwarding?yes Pharmacy: [id number] Pending Prescriptions: Disp Refills Atorvastatin Calcium 80 MG Oral Tablet (L*90 Tab*3 Sig: TAKE 1 TABLET EVERY MORNING Eliquis 5 MG Oral Tablet (Apixaban) [Phar*180 Ta*3 Sig: TAKE 1 TABLET EVERY MORNINGAND TAKE 1 TABLET BEFORE BEDTIME Last Visit: 10/22/2023 (in office), Visit date not found (telemedicine) Next Visit: Visit date not found If no future appointments scheduled, and last appointment is greater than a year ago, please schedule patient for a follow-up appointment Last date the medication was ordered: Atorvastatin: 11-08-2022 Eliquis: 11-22-2022 Is this request for a controlled substance?No Urine Drug Screen:No results found. However, due to the size of the patient record, not all encounters were searched. Please check Results Review for a complete set of results. Patient Phone Numbers Labs: Lab Results Component Value Date/Time CREAT 0.9 09/25/2023 09:28 AM CREAT 0.9 05/11/2020 03:19 PM POTASSIUM 4.4 09/25/2023 09:28 AM POTASSIUM 4.7 05/11/2020 03:19 PM TSH 1.16 09/25/2023 09:28 AM TSH 2.93 10/06/2019 09:22 AM LDLCALC 57 05/08/2018 09:27 AM LDLDIRECT 70 03/21/2023 04:07 PM LDLDIRECT 84 10/22/2019 08:38 AM LDLDIRECT 90 08/17/2016 09:56 AM ALT 17 12/11/2022 10:13 AM ALT 17 05/11/2020 03:19 PM HGBA1C 5.7 (H) 09/25/2023 09:28 AM HGBA1C 5.7 (H) 10/22/2019 08:38 AM documented in this encounter Plan of Treatment Upcoming Encounters Date Type Department Care Team (Late st Contact Info) Description 11/04/2023 9:00 AM EDT Imaging Radiology, [place] [address] [place] [address] 11/05/2023 8:20 AM EDT Office Visit General Internal Medicine Emelyn [place] [address] [facility] [address] Javier Montenegro, [address] [address] 04/27/2024 8:20 AM EST Office Visit Family Practice [place] [address] [place] [phone] Bello Sullivan MD [address] [place] [address] 07/16/2024 10:00 AM EDT Office Visit Sleep Disorders Ctr [facility] [address] [place] [phone] Bernice Daniels CRNP [address] [place] [address] 10/20/2024 8:15 AM EDT Cardiac Studies Cardiac Studies, [facility] [address] [facility] [place] [address] 11/03/2024 8:30 AM EDT Office Visit Cardiology, [facility] [address] [facility] [place] [address] John Wiseman MD 132 [facility] [place] [address] Scheduled Procedures Name Priority Associated Diagnoses Date/Ti [...] this encounter Medical Devices Implanted Type Area Music Instructor Device Identifier Shelf Expiration Date Model / Serial / Lot Lens Li61ao 13.00mm 19.50 - [id number] - [id number] Implanted:Qty: 1 on 03/26/2023 by Max Melendez MD at OR [facility] Right: Eye [employer] 11/20/2027 [id number] / [id number] / [id number] Lens Li61ao 13.00mm 19.50 - [id number] - [id number] Implanted:Qty: 1 on 04/04/2023 by Max Melendez MD at OR [facility] Left: Eye [employer]OM[employer] 12/21/2027 [id number] / [id number] / [id number] documented as of this encounter Visit Diagnoses Diagnosis Dyslipidemia, goal LDL below 70 Other and unspecified hyperlipidemia Paroxysmal atrial fibrillation (HCC) Atrial fibrillation documented in this encounter Advance Directives * [...] Power of Attor michael? No Care Teams Deck Mate Relationship Specialty Start Date End Date Bello Sullivan MD [address] [place] [address] PCP - General Family Medicine 06/17/19 documented as of this encounter
--- OUTSIDE RECORDS SUMMARY | 2023-11-07 05:50 | External Medical Summary | Summary of Care ---
Author Name Unknown Organization [facility] Address [address] [place] [address] Phone [phone] Care Team Providers Care Engine Installer Name Role Phone Bello Sullivan MD Primary Care Provider +1- [phone] Reason for Visit * Reason Onset Date Comments Appointment 11/05/2023 Encounter Details Date Type Department Care Team (Late st Contact Info) Description 11/05/2023 Telephone General Internal Medicine [facility] [address] [place] [address] Javier Montenegro, DO [address] [place] [address] Appointment Allergies Active Allergy Reactions Criticality Noted [...] 06/22/2011 8 Edema 06/22/2011 10/06/2019 [employer] Other*[id number] 09/28/2010 09/15/2013 Overview: PROJECT: #[id number], SPONSOR: Sosa, PI: James Mendez MD SUMMARY: [...] encounter can be closed. CONTACT: Travis Shepherd, Denial Resolution Specialist Chronic ischemic heart disease 09/28/2009 02/06/2022 Anticoagulation management encounter 03/16/2008 12/18/2012 director long term care current use of ant icoagulant therapy 03/16/2008 [...] No 03/19/2023 Does the household have a new [facility] source of income? (Household - for ages [...] encounter Miscellaneous Notes * Telephone Encounter - Rick Gonzalez OSA - 11/05/2023 8:31 AM EDT Procedure: SURGERY REFERRAL OP Status: Needs Scheduling (Hfpi-yq-Szqsyvy Pending) Requested appt date: Authorizing: Javier Montenegro DO in GEN INT [facility] POD3 Referral: [id number] (Authorized) Priority: Within 3 days (urgent) Diagnosis: Cellulitis of right lower extremity [L03.115] Abscess [L02.91] Please assist patient with scheduling appointment documented in this encounter Plan of Treatment Upcoming Encounters Date Type Department Care Team (Late st Contact Info) Description 04/27/2024 8:20 AM EST Office Visit Family [facility] [place] [address] [place] [facility] [place] [phone] Bello Sullivan MD [address] [facility] [place] [address] 07/16/2024 10:00 AM EDT Office Visit Sleep Disorders Ctr [facility] [address] [facility] [place] [address] Bernice Daniels CRNP [facility] [place] [address] 10/20/2024 8:15 AM EDT Cardiac Studies Cardiac Studies, [facility] 132 [facility] [place] [address] 11/03/2024 8:30 AM EDT Office Visit Cardiology, [facility] [place] [address] John Wiseman MD 132 [facility] [place] [address] Scheduled Procedures Name Priority Associated Diagnoses Date/Ti [...] this encounter Medical Devices Implanted Type Area Solutions Architect Consultant Device Identifier Shelf Expiration Date Model / Serial / Lot Lens Li61ao 13.00mm 19.50 - [id number] - [id number] Implanted:Qty: 1 on 03/26/2023 by Max Melendez MD at OR [facility] Right: Eye [employer] 11/20/2027 [id number] / [id number] / [id number] Lens Li61ao 13.00mm 19.50 - [id number] - [id number] Implanted:Qty: 1 on 04/04/2023 by Max Melendez MD at OR [facility] Left: Eye [employer]OM[employer] 12/21/2027 [id number] / [id number] / [id number] documented as of this encounter Advance Directives [...] Power of Attor michael? No Care Teams Engine Installer Relationship Specialty Start Date End Date Bello Sullivan MD [address] [place] [address] PCP - General Family Medicine 06/17/19 documented as of this encounter
--- OUTSIDE RECORDS SUMMARY | 2023-11-07 05:50 | External Medical Summary | Summary of Care ---
Author Name Unknown Organization [facility] Address [address] [place] [address] Phone [phone] Care Team Providers Care Director Life Sales Name Role Phone Bello Sullivan MD Primary Care Provider +1- [phone] Reason for Referral * Precert (Within 10 days (routine)) - Authorized Specialty Diagnoses / Procedures Referred By Contac t Referred To Contact Cardiac Studies Diagnoses Paroxysmal atrial fibrillation (HCC) V-tach (HCC) Nonrheumatic aortic valve stenosis Enlarged aorta (HCC) Dyslipidemia, goal LDL below 100 HTN, goal below 130/80 PRABHU (obstructive sleep apnea) Procedures ECHO, COMPLETE (2D), TRANS-THORACIC Roxanne Pete CRNP [address] [place] [address] Referral ID Status Reason Start Date Expiration Date V isits Requested Visits Authorized [id number] Authorized Precert 10/20/2024 999 999 Reason for Visit * Reason Comments Follow Up Encounter Details Date Type Department Care Team (Late st Contact Info) Description 10/22/2023 8:30 AM EDT Office Visit Cardiology, [facility] [address] [place] [address] Roxanne Pete CRNP [address] [place] [address] Paroxysmal atrial fibrillation (HCC)*; V-tach (HCC); Nonrheumatic [...] 06/22/2011 8 Edema 06/22/2011 10/06/2019 [employer] Other*[id number] 09/28/2010 09/15/2013 Overview: PROJECT: #[id number], SPONSOR: Sosa, PI: James Mendez MD SUMMARY: [...] encounter can be closed. CONTACT: Travis Shepherd, Publicity Agent Chronic ischemic heart disease 09/28/2009 02/06/2022 Anticoagulation management encounter 03/16/2008 12/18/2012 terminal block assembler current use of ant icoagulant therapy 03/16/2008 [...] AM EDT Cardiology Outpatient Visit 10/22/2023 Primary Warp Changer: Formally Dr. Quiñones, follows with Dr. Aparicio EP Past medical history: Paroxysmal atrial fibrillation,AST2NP6-UHXk score of 2 (age, HTN) History of DCCV years ago by Dr. Wiseman, previously on sotalol-discontinued 02/2022 due to [place] History of recurrent hypokalemia associated with atrial fibrillation H/o nonsustained Ventricular tachycardia Nonischemic nuclear stress testing 04/2022 Moderate aortic stenosis Enlarged aortic root and ascending aorta Dyslipidemia Hypertension Obstructive sleep apnea; on CPAP Hyperthyroidism, follows with [facility] endocrinology, on Tapazole Chronic venous insufficiency HPI [...] Dr. Abad at [facility] ABDOMEN SURGERY PROCEDURE NEC 1997 hiatal hernia [...] with 12.5 cm circular Surgi-mesh Dr Awan, Kale\\quality control assistant Ricki Cantu [facility] 12/29/12 KNEE ARTHROSCOPY/MENISCUS REPAIR 1999 Knee Scope,Med+Lat [...] 1. Paroxysmal atrial fibrillation (HCC) -Paroxysmal atrial fibrillation,[id number] score of 2 (age, HTN) -History of [...] performance of separately billed services. DES[facility], Department of Cardiology This chart was completed in part utilizing [employer] Speech Voice Recognition Software. Grammatical errors, random [...] Description 04/27/2024 8:20 AM EST Office Visit [facility] [address] [place] [address] Bello Sullivan MD [address] [place] [address] 07/16/2024 10:00 AM EDT Office Visit [facility] [address] [place] [phone] Bernice Daniels CRNP [address] [place] [address] 10/20/2024 8:15 AM EDT Cardiac Studies Cardiac Studies, [facility] [address] [place] [address] 11/03/2024 8:30 AM EDT Office Visit Cardiology, [facility] [address] [facility] [place] [address] John Wiseman MD [address] [place] [address] Scheduled Orders Name Type Priority Associated Diagnoses [...] this encounter Medical Devices Implanted Type Area Improvement Engineer Device Identifier Shelf Expiration Date Model / Serial / Lot Lens Li61ao 13.00mm 19.50 - [id number] - [id number] Implanted:Qty: 1 on 03/26/2023 by Max Melendez MD at OR [facility] Right: Eye [employer]OM[employer] 11/20/2027 [id number] / [id number] / [id number] Lens Li61ao 13.00mm 19.50 - [id number] - [id number] Implanted:Qty: 1 on 04/04/2023 by Max Melendez MD at OR [facility] Left: Eye [employer]OMB 12/21/2027 [id number] / [id number] / [id number] documented as of this encounter Visit Diagnoses [...] Power of Attor michael? No Care Teams Director Life Sales Relationship Specialty Start Date End Date Bello Sullivan MD [address] [place] [address] PCP - General Family Medicine 06/17/19 documented as of this encounter"
--- OUTSIDE RECORDS SUMMARY | 2023-11-07 05:51 | External Medical Summary ---
Author Name Unknown Address Unknown Organization K01:[facility] - [address] [place] [address] Laboratory Report Ordering Provider Test Date Status FADUMO LIN 09/25/2023 09:28:07 Final Observation Date Value Abnormality Reference (Units ) Status MYCODE SPECIMEN-SST 09/25/2023 09:28:07 Freezing of extracted DNA, whole blood and/or serum. Final Performing Location [facility] - [address] [place] [address]
--- OUTSIDE RECORDS SUMMARY | 2023-11-07 05:51 | External Medical Summary | Summary of Care ---
Author Name Unknown Organization [facility] Address [address] [place] [address] Phone [phone] Care Team Providers Care Environmental Permitting Specialist Name Role Phone Bello Sullivan MD Primary Care Provider +1- [phone] Reason for Visit * Reason Onset Date Comments Test Results 10/10/2023 Encounter Details Date Type Department Care Team (Late st Contact Info) Description 10/10/2023 Telephone Cardiology, [facility] [address] [place] [address] Roxanne Pete CRNP [address] [place] [address] Test Results Allergies Active Allergy Reactions Criticality Noted Date Comments Amlodipine Edema Other 11/28/2015 Lisinopril Cough 02/04/2018 Sotalol Unknown 02/12/2023 [place] documented as of this encounter (statuses as of 10/10/2023) Medications Medication Sig Dispensed Refills Start Date [...] the morning. 180 Tablet 3 01/08/2023 Active Montelukast Sodium 10 MG Oral Tablet (Singulair) [...] as of this encounter (statuses as of 10/10/2023) Active Problems Problem Noted Date Diagnosed Date [...] as of this encounter (statuses as of 10/10/2023) Resolved Problems Problem Noted Date Diagnosed Date [...] 06/22/2011 8 Edema 06/22/2011 10/06/2019 [employer] Other*[id number] 09/28/2010 09/15/2013 Overview: PROJECT: #[id number], SPONSOR: Danny&Danny, PI: James Mendez MD SUMMARY: Observational registry [...] encounter can be closed. CONTACT: Travis Shepherd, Shaker Plate Operator Chronic ischemic heart disease 09/28/2009 02/06/2022 Anticoagulation management encounter 03/16/2008 12/18/2012 residential current use of ant icoagulant therapy 03/16/2008 08/17/2016 Overview: ICD-10 update of inactive term ADVANCE DIRECTIVE INFORMATION 10/02/2005 10/06/2019 Overview: Information given to patient Dyslipidemia, goal to be determined 01/08/2001 03/30/2009 Family history of ischemic heart disease 01/08/2001 09/28/2009 Bicipital tenosynovitis 01/08/200112/2009 documented as of this encounter (statuses as of 10/10/2023) Immunizations Name Administration Dates Next Due COVID-19 [...] encounter Miscellaneous Notes * Telephone Encounter - Jb Cruz OSA - 10/10/2023 12:13 PM EDT Called patient he is setup for the ct and is aware of the date and time. Sep Appt at 3:00 PM (15 min) CT1 SAM[facility]EL KENT * Telephone Encounter - Mark Huddleston RN - 10/10/2023 11:53 AM EDT Called and spoke to the patient and reviewed the message with him from Roxanne Simpson in regards to his echo. He state he understood. Explained that the schedulers will call if the can move up his CT scan. * Telephone Encounter - Mark Huddleston RN - 10/10/2023 11:53 AM EDT ----- Message from Roxanne Pete sent at 10/10/2023 9:10 AM EDT ----- Echocardiogram showed a normal LVEF of 60-64% with moderate concentric LVH. No wall motion abnormalities. Moderate aortic stenosis and mild aortic regurgitation noted, stable. Aortic root measuring 4.4 cm and ascending aorta measuring 4.4 cm. Overall echocardiogram is stable. Patient is due for a CT scan of the chest on 11/03. Can we move this appointment up to be prior to my follow-up on 10/21 so I can discuss results. documented in this encounter Plan of Treatment Upcoming Encounters Date Type Department Care Team (Late st Contact Info) Description 10/10/2023 3:00 PM EDT Imaging Radiology [address] [facility] [place] [address] 10/22/2023 8:30 AM EDT Office Visit Cardiology, [facility] 132 [facility] [place] [address] Yanci, DESIRE Adrian 132 [facility] [place] [address] 04/27/2024 8:20 AM EST Office Visit [facility] [address] [place] [address] Bello Sullivan MD [address] [place] [address] 07/16/2024 10:00 AM EDT Office Visit Sleep Disorders Ctr [facility] 132 [facility] [place] [phone] Bernice Daniels CRNP 132 [facility] [place] [address] Scheduled Procedures Name Priority Associated Diagnoses Date/Ti me COLONOSCOPY FLEXIBLE PROXIMA L DIAGNOSTIC Recall History of colonic polyps Health Maintenance Due Date Last Done Comments Cologuard 07/06/1995 Fecal Occult Blood Test 07/06/1995 Sigmoidoscopy 07/06/1995 COVID-19 Vaccine ( season) 2022 02/23/2021, 06/25/2020, 05/21/2020 Influenza Vaccine (FLU shot) (Season Ended) 2023 02/06/2022, 01/03/2021, 01/09/2020, Additional history exists [...] this encounter Medical Devices Implanted Type Area Salad Maker Device Identifier Shelf Expiration Date Model / Serial / Lot Lens Li61ao 13.00mm 19.50 - [id number] - [id number] Implanted:Qty: 1 on 03/26/2023 by Max Melendez MD at OR [facility] Right: Eye [employer]OM[employer] 11/20/2027 [id number] / [id number] / [id number] Lens Li61ao 13.00mm 19.50 - [id number] - [id number] Implanted:Qty: 1 on 04/04/2023 by Max Melendez MD at OR [facility] Left: Eye [employer]CH [employer] LOMB 12/21/2027 [id number] / [id number] / [id number] documented as of this encounter Advance Directives [...] Power of Attor michael? No Care Teams Environmental Permitting Specialist Relationship Specialty Start Date End Date Bello Sullivan MD [address] [place] [address] PCP - General Family Medicine 06/17/19 documented as of this encounter
--- OUTSIDE RECORDS SUMMARY | 2023-11-07 05:51 | External Medical Summary ---
Author Name Unknown Address Unknown Organization K01:[facility] - [address] [place] [address] Laboratory Report Ordering Provider Test Date Status MARILEE GAMINOLUCIO 09/25/2023 09:28:07 Final Observation Date Value Abnormality Reference (Units ) Status BUN 09/25/2023 09:28:07 18 6-20 (mg/dL) Final Creatinine 09/25/2023 09:28:07 0.9 0.6-1.2 (mg/dL) Final Glomerular filtration rate/1.73 sq M.predicted [Volume Rate/Area] in Serum, Plasma or Blood by Creatinine-based formula (CKD-EPI) 09/25/2023 09:28:07 >90 >=60 (mL/min) Final eGFR is calculated based on the CKD-EPI 2020 equation Sodium 09/25/2023 09:28:07 140 135-146 (m mol/L) Final Potassium 09/25/2023 09:28:07 4.4 3.5-5.1 (m mol/L) Final Cl 09/25/2023 09:28:07 101 98-107 (mm ol/L) Final CO2 09/25/2023 09:28:07 29 22-32 (mmo l/L) Final Anion gap 09/25/2023 09:28:07 10 7-15 (mmol /L) Final Glucose 09/25/2023 09:28:07 101 70-120 (mg /dL) Final Calcium 09/25/2023 09:28:07 9.5 8.4-10.2 ( mg/dL) Final Performing Location [facility] - [address] [place] [address]
--- OUTSIDE RECORDS SUMMARY | 2023-11-07 05:51 | External Medical Summary | Summary of Care ---
Author Name Unknown Organization [facility] Address [address] [place] [address] Phone [phone] Care Team Providers Care Business Services Manager Name Role Phone Bello Sullivan MD Primary Care Provider [phone]- [phone] Reason for Visit * Reason Onset Date Comments Test Results 10/16/2023 Encounter Details Date Type Department Care Team (Late st Contact Info) Description 10/16/2023 Telephone Cardiology, [facility] [address] [place] [address] Roxanne Pete CRNP [address] [place] [address] Test Results Allergies Active Allergy Reactions Criticality Noted Date Comments Amlodipine Edema Other 11/28/2015 Lisinopril Cough 02/04/2018 Sotalol Unknown 02/12/2023 VT documented as of this encounter (statuses as of 10/16/2023) Medications Medication Sig Dispensed Refills Start Date [...] as of this encounter (statuses as of 10/16/2023) Active Problems Problem Noted Date Diagnosed Date [...] as of this encounter (statuses as of 10/16/2023) Resolved Problems Problem Noted Date Diagnosed Date [...] 06/22/2011 8 Edema 06/22/2011 10/06/2019 [employer] Other*[id number] 09/28/2010 09/15/2013 Overview: PROJECT: #[id number], SPONSOR: Danny&Danny, PI: James Mendez MD SUMMARY: [...] encounter can be closed. CONTACT: Travis Shepherd, Apprentice/Lineman Chronic ischemic heart disease 09/28/2009 02/06/2022 Anticoagulation management encounter 03/16/2008 12/18/2012 assisted current use of ant icoagulant therapy 03/16/2008 08/17/2016 Overview: ICD-10 update of inactive term ADVANCE DIRECTIVE INFORMATION 10/02/2005 10/06/2019 Overview: Information given to patient Dyslipidemia, goal to be determined 01/08/2001 03/30/2009 Family history of ischemic heart disease 01/08/2001 09/28/2009 Bicipital tenosynovitis 01/08/200112/2009 documented as of this encounter (statuses as of 10/16/2023) Immunizations Name Administration Dates Next Due COVID-19 [...] [facility] [address] [place] [address] Roxanne Pete CRNP [address] [facility] [place] [address] 04/27/2024 8:20 AM EST Office Visit Family [facility] [address] [place] [phone] Bello Sullivan MD [address] [place] [address] 07/16/2024 10:00 AM EDT Office Visit [facility] Disorders Ctr [facility] [address] [facility] [place] [phone] Bernice Daniels CRNP [address] [facility] [place] [address] Scheduled Procedures Name Priority Associated Diagnoses Date/Ti [...] this encounter Medical Devices Implanted Type Area Nurse Office Device Identifier Shelf Expiration Date Model / Serial / Lot Lens Li61ao 13.00mm 19.50 - [id number] - [id number] Implanted:Qty: 1 on 03/26/2023 by Max Melendez MD at OR [facility] Right: Eye [employer] 11/20/2027 [id number] / [id number] / [id number] Lens Li61ao 13.00mm 19.50 - [id number] - [id number] Implanted:Qty: 1 on 04/04/2023 by Max Melendez MD at OR [facility] Left: Eye [employer] 12/21/2027 [id number] / [id number] / [id number] documented as of this encounter Advance Directives [...] Power of Attor michael? No Care Teams Business Services Manager Relationship Specialty Start Date End Date Bello Sullivan MD [address] [place] [address] PCP - General Family Medicine 06/17/19 documented as of this encounter
--- OUTSIDE RECORDS SUMMARY | 2023-11-07 05:51 | External Medical Summary | Summary of Care ---
Author Name Unknown Organization [facility] Address [address] [place] [address] Phone [phone] Care Team Providers Care Retread Supervisor Name Role Phone Bello Sullivan MD Primary Care Provider +1- [phone] Reason for Visit * Reason Comments Follow Up Patient is here toda y for a follow up. Patient would like a spot checked on his right wrist that gets sore. Patient states he had a health screening done at his house and they found neuropathy. Patient has red spots on his chest he would like checked. Patient states he has a mole on his right side he would like checked. Patient has a sore spot on his left leg that has been there for about a year and does not heal. Patients back is irritated. Encounter Details Date Type Department Care Team (Late st Contact Info) Description 09/25/2023 8:00 AM EDT Office Visit [facility] [address] [place] [address] Bello Sullivan MD [address] [place] [address] Hyperthyroidism*; Prediabetes; Inflammation of sacroiliac joint (HCC); Dyslipidemia, goal LDL below 100; PRABHU (obstructive sleep apnea); Paroxysmal atrial fibrillation (HCC); Gastroesophageal reflux disease without esophagitis Allergies Active Allergy Reactions Criticality Noted Date Comments Amlodipine Edema Other 11/28/2015 Lisinopril Cough 02/04/2018 Sotalol Unknown 02/12/2023 VT documented as of this encounter (statuses as of 10/14/2023) Medications Medication Sig Dispensed Refills Start Date [...] as of this encounter (statuses as of 10/14/2023) Active Problems Problem Noted Date Diagnosed Date [...] as of this encounter (statuses as of 10/14/2023) Resolved Problems Problem Noted Date Diagnosed Date [...] 06/22/2011 8 Edema 06/22/2011 10/06/2019 [employer] Other*[id number] 09/28/2010 09/15/2013 Overview: PROJECT: #[id number], SPONSOR: Sosa, PI: James Mendez MD SUMMARY: [...] encounter can be closed. CONTACT: Travis Shepherd, Exhibitions Curator Chronic ischemic heart disease 09/28/2009 02/06/2022 Anticoagulation management encounter 03/16/2008 12/18/2012 care home current use of ant icoagulant therapy 03/16/2008 08/17/2016 Overview: ICD-10 update of inactive term ADVANCE DIRECTIVE INFORMATION 10/02/2005 10/06/2019 Overview: Information given to patient Dyslipidemia, goal to be determined 01/08/2001 03/30/2009 Family history of ischemic heart disease 01/08/2001 09/28/2009 Bicipital tenosynovitis 01/08/200112/2009 documented as of this encounter (statuses as of 10/14/2023) Immunizations Name Administration Dates Next Due COVID-19 [...] No 03/19/2023 Does the household [facility] source of [facility]? (Household - for [...] Sign Reading Time Taken Comments Blood Pressure 124/72 09/25/2023 7:59 AM EDT Pulse 69 09/25/2023 7:59 AM EDT Temperature 36.6 C (97.8 F) 09/25/2023 7:59 AM ED T Respiratory Rate 16 09/25/2023 7:59 AM EDT Oxygen Saturation 94% 09/25/2023 7:59 AM EDT Inhaled Oxygen Concentration - - Weight 130.1 kg (286 lb 12.8 oz) 09/25/2023 7:59 AM EDT Height 193 cm (6' 4") 09/25/2023 7:59 AM EDT Body Mass Index 34.91 09/25/2023 7:59 AM EDT documented in this encounter Progress Notes * Bello Sullivan MD - 09/25/2023 8:31 AM EDT Subjective: Tim Fraser is a 73 year old male here today for Chief Complaint Patient presents with Follow Up Patient is here today for a follow up. Patient would like a spot checked on his right wrist that gets sore. Patient states he had a health screening done at his house and they found neuropathy. Patient has red spots on his chest he would like checked. Patient states he has a mole on his right side he would like checked. Patient has a sore spot on his left leg that has been there for about a year and does not heal. Patients back is irritated. Pt here for routine recheck. Please see nurses notes above for concerns. Agrees to up dating labs. Denies chest pain, shortness of breath, cough, nausea, vomiting, abd pain, dysuria, urinary frequency, nocturia, fever, melena, hematochezia, peripheral edema. Past Medical History: Diagnosis Date Adenomatous polyp [...] LAP, REDUCIBLE 05/18/2020 Dr. Abad at [facility] ABDOMEN SURGERY PROCEDURE NEC 1998 hiatal hernia repair COLONOSCOPY, DIAGNOSTIC (RECTUM) 10/07/2014 adenomatous polyps, repeat 3 yrs COLONOSCOPY, DIAGNOSTIC (RECTUM) 10/28/2017 adenomatous polyp, repeat 5 yrs/COLONOSCOPY FLEXIBLE PROXIMAL DIAGNOSTIC performed by Valencia Hewitt DO at ENDOSCOPY [facility] COLONOSCOPY, DIAGNOSTIC (RECTUM) 02/18/2023 biopsies show adenomatous polyps/recall 3 years/COLONOSCOPY FLEXIBLE PROXIMAL DIAGNOSTIC performed by Valencia Hewitt DO at [facility]COPY [facility] COLONOSCOPY, REMOVE LESION 02/2004 ascending colon Benign inflammatory polyp. Repeat 10 years. EGD, FLEXIBLE, DIAGNOSTIC 01/14/2018 mild stomach irritation/ESOPHAGOGASTRODUODENOSCOPY (EGD), FLEXIBLE, TRANSORAL, DIAGNOSTIC performedby Valencia Hewitt DO at ENDOSCOPY [facility] INFORMATION Removal of cysts from back INFORMATION 12/29/2012 Laparoscopic ventral hernia repair with 12.5 cm circular Surgi-mesh Kale Swanson\\engineering assistant Ricki Cantu [facility] 12/29/12 KNEE ARTHROSCOPY/MENISCUS REPAIR 1999 Knee Scope,Med+Lat Menis Repair LAPAROSCOPY; CHOLECYSTECTOMY 1989 Cholecystectomy, Laproscopic REMOVE CATARACT, INSERT LENS PROSTH Right 03/26/2023 RIGHT EXTRACAPSULAR CATARACT REMOVAL WITH INTRAOCULAR LENS performed by Max Melendez MDat OR [facility] REMOVE CATARACT, INSERT LENS PROSTH Left 04/04/2023 LEFT EXTRACAPSULAR CATARACT REMOVAL WITH INTRAOCULAR LENS performed by Max Melendez MD at OR [facility] REMOVE GALLBLADDER 20 years ago REMOVE TONSILS & ADENOIDS, UNDER 12 REPAIR SPIGELIAN HERNIA SURGICAL PROCEDURE ONLY Right 12/31/2022 Inguinal Hernia Repair (Right) by Dr. Sherley Abad Review of patient's allergies indicates: Allergen Reactions Amlodipine Edema Other Lisinopril Cough Sotalol Unknown VT Current Outpatient Medications Medication Sig Dispense Refill [...] 0.5 Tablets by mouth in the morning. Atorvastatin Calcium 80 MG Oral Tablet (Lipitor) [...] mouth in the morning. 180 Tablet 3 Montelukast Sodium 10 MG [...] 5-325 MG Oral Tablet (Percocet) 1 Tablet. Albuterol Sulfate HFA 108 (90 Base) MCG/ACT Inhalation Aerosol Solution Inhale 2 Puffs by mouth every 4 hours as needed for Shortness of Breath. 18 g 11 Current Facility-Administered Medications Medication Dose Route Frequency Provider Last Rate Last Admin Albuterol Sulfate (Proventil) (2.5 MG/3ML) 0.083% inhalation solution 2.5 mg 2.5 mg Nebulizer Q4H PRN Bernice Daniels CRNP 2.5 mg at 07/18/23 0750 Objective: BP 124/72 | Pulse 69 | Temp 36.6 C (97.8 F) (Tympanic) | Resp 16 | Ht 1.93 m (6' 4")| Wt 130.1 kg (286 lb 12.8 oz) | SpO2 94% | BMI 34.91 kg/m | BSA 2.64 m GEN: NAD HEENT: Benign NECK: Supple with no LAD, TM, JVD CHEST: CTA B CV: RRR ABD: Soft, NT/ND, No HSM, NABS EXT: No c,c,e Assessment and Plan: Hyperthyroidism (Primary) - TSH WITH FREE T4 IF INDICATED; Future; Expected date: 09/25/2023 Prediabetes - HEMOGLOBIN A1C; Future; Expected date: 09/25/2023 - BASIC METABOLIC PANEL; Future; Expected date: 09/25/2023 Inflammation of sacroiliac joint (HCC) Dyslipidemia, goal LDL below 100 PRABHU (obstructive sleep apnea) Paroxysmal atrial fibrillation (HCC) Gastroesophageal reflux disease without esophagitis -continue current treatments. Call for new or worsening symptoms. Follow Up: Return in about 6 months (around 03/26/2024) for recheck. | For: recheck | Check-out note: Labs today 35 min with pt and chart review. Bello Sullivan MD documented in this encounter Nursing Notes * Patti Dillard LPN - 09/25/2023 8:05 AM EDT The patient has been properly identified by confirmation of name and date of . Chief Complaint Patient presents with Follow Up Patient is here today for a follow up. Patient would like a spot checked on his right wrist that gets sore. Patient states he had a health screening done at his house and they found neuropathy. Patient has red spots on his chest he would like checked. Patient states he has a mole on his right side he would like checked. Patient has a sore spot on his left leg that has been there for about a year and does not heal. Patients back is irritated. documented in this encounter Plan of Treatment Upcoming Encounters Date Type Department Care Team (Late st Contact Info) Description 10/22/2023 8:30 AM EDT Office Visit [facility], [facility] [address] [facility] [address] Roxanne Pete CRNP [address] [place] [address] 04/27/2024 8:20 AM EST Office Visit [facility] [address] [place] [phone] Bello Sullivan MD [address] [place] [address] 07/16/2024 10:00 AM EDT Office Visit Sleep Disorders Ctr [facility] [address] [facility] [place] [phone] Bernice Daniels CRNP [address] [place] [address] Scheduled Procedures Name Priority Associated Diagnoses Date/Ti [...] this encounter Medical Devices Implanted Type Area Television Journalist Device Identifier Shelf Expiration Date Model / Serial / Lot Lens Li61ao 13.00mm 19.50 - [id number] - [id number] Implanted:Qty: 1 on 03/26/2023 by Max Melendez MD at OR [facility] Right: Eye [employer] 11/20/2027 [id number] / [id number] / [id number] Lens Li61ao 13.00mm 19.50 - [id number] - [id number] Implanted:Qty: 1 on 04/04/2023 by Max Melendez MD at OR [facility] Left: Eye [employer] 12/21/2027 [id number] / [id number] / [id number] documented as of this encounter Results * TSH WITH FREE T4 IF INDICATED (09/25/2023 9:28 AM EDT) Pathologist [facility] TSH 1.16 0.27 - 4.20 uIU/mL 09/25/2023 4:43 PM EDT LAB[facility]ATORY [facility] Blood Venous blood specimen / Unknown Venipuncture / Unknown 09/25/2023 9:28 AM EDT 09/25/2023 9:28 AM EDT Bello Sullivan MD LAB BLOOD ORDERABL ES LAB[facility]ATORY [facility] [address] [place] [address] * BASIC METABOLIC PANEL (09/25/2023 9:28 AM EDT) BUN 18 6 - 20 mg/dL 09/25/2023 4:01 PM EDT LAB[facility]ATORY [facility] Creatinine 0.9 0.6 - 1.2 mg/dL 09/25/2023 4:01 PM EDT LAB[facility]ATORY [facility] Estimated Glomerular Filtration Rate >90 >=60 mL/min 09/25/2023 4:01 PM EDT LAB[facility]ATORY [facility] Comment:eGFR is calculated b ased on the CKD-EPI 2020 equation Sodium 140 135 - 146 mmol/L 09/25/2023 4:01 PM EDT LAB[facility]ORY [facility] Potassium 4.4 3.5 - 5.1 mmol/L 09/25/2023 4:01 PM EDT LABORATORY C Chloride 101 98 - 107 mmol/L 09/25/2023 4:01 PM EDT LABORATORY C CO2 29 22 - 32 mmol/L 09/25/2023 4:01 PM EDT LABORATORY C Anion Gap 10 7 - 15 mmol/L 09/25/2023 4:01 PM EDT LABORATORY C Glucose 101 70 - 120 mg/dL 09/25/2023 4:01 PM EDT LABORATORY C Calcium 9.5 8.4 - 10.2 mg/dL 09/25/2023 4:01 PM EDT LABORATORY C Blood Venous blood specimen / Unknown Venipuncture / Unknown 09/25/2023 9:28 AM EDT 09/25/2023 9:28 AM EDT Bello Sullivan MD LAB BLOOD ORDERABL ES Performing Organization Address [facility] de Phone Number LABORATORY [facility] [address] [place] [address] * (ABNORMAL) HEMOGLOBIN A1C (09/25/2023 9:28 AM EDT) [facility] Hemoglobin A1C 5.7(H) 4.0 - 5.6 % 09/25/2023 3:58 PM EDT LABORATORY C Comment:The use of HbA1c to monitor glycemic status is based on normal hemoglobin and HbA composition. This test should not be used in patients with abnormal hemoglobin that affects the half life of the red blood cell or the in vivo glycation rates. Estimated Average Glucose 117 <126 mg/dL 09/25/2023 3:58 PM EDT LABORATORY [facility] Blood Venous blood specimen / Unknown Venipuncture / Unknown 09/25/2023 9:28 AM EDT 09/25/2023 9:28 AM EDT Bello Sullivan MD LAB BLOOD ORDERABL ES Performing Organization Address [facility] Co de Phone Number LABORATORY [facility] [address] [place] [address] documented in this encounter Visit Diagnoses Diagnosis Hyperthyroidism- Primary Thyrotoxicosis without mention of goiter or other cause, without mention of thyrotoxic crisis or storm Prediabetes Other abnormal glucose Inflammation of sacroiliac joint (HCC) Sacroiliitis, not elsewhere classified Dyslipidemia, goal LDL below 100 Other and unspecified hyperlipidemia PRABHU (obstructive sleep apnea) Obstructive sleep apnea (adult) (pediatric) Paroxysmal atrial fibrillation (HCC) Atrial fibrillation Gastroesophageal reflux disease without esophagitis Esophageal reflux documented in this encounter Advance Directives * [...] Power of Attor michael? No Care Teams Retread Supervisor Relationship Specialty Start Date End Date Bello Sullivan MD [address] [place] [address] PCP - General Family Medicine 06/17/19 documented as of this encounter
--- OUTSIDE RECORDS SUMMARY | 2023-11-07 05:51 | External Medical Summary | Summary of Care ---
Author Name Unknown Organization [facility] Address [address] [place] [address] Phone [phone] Care Team Providers Care Employment Services Director Name Role Phone Hanny Engel MD Primary Care Provider +1- [phone] Reason for Visit * Reason Comments eRx-Medication Refill Encounter Details Date Type Department Care Team (Late st Contact Info) Description 08/11/2023 Refill [facility] [address] [place] [address] Hanny Engel MD [address] [place] [address] Allergies Active Allergy Reactions Criticality Noted Date Comments Amlodipine Edema Other 11/28/2015 Lisinopril Cough 02/04/2018 Sotalol Unknown 02/12/2023 [place] documented as of this encounter (statuses as of 08/13/2023) Medications Medication Sig Dispensed Refills Start Date End Date Status ASPIRIN 81 MG OR TABS one tab by mouth daily 0 0 Active HUMIDIFIER MISCIndications:O bstructive sleep apnea (adult) (pediatric) heated 1 0 11/09/2005 Active GLUCOSAMINE CHONDROITIN COMPLX PO CAPS 1 daily 0 Active ONE-A-DAY MENS PO TABS 1 daily 0 Active TYLENOL ARTHRITIS PAIN 650 MG PO TBCR 2 tablets twice daily 0 Active FISH OIL 1000 MG PO CAPS one daily 0 Active oxygen IN GAS Use 3 L/min(Oxygen) as directed at bedtime. BLED THROUGH CPAP AHP 1 Each 0 02/04/2020 Active Additional Information Patient taking differently: 4 L/min(Oxygen)Nasal cannula HS, BLED THROUGH CPAPAHP, Reported on 03/20/2023 CPAP every night at bedtime. 0 Active methIMAzole 5 MG Oral Tablet (Tapazole) Take 0.5 Tablets by mouth in the morning. 0 05/29/2022 Active Albuterol Sulfate HFA 108 (90 Base) MCG/ACT Inhalation Aerosol Solution Inhale 2 Puffs by mouth every 4 hours as needed for Shortness of Breath. 18 g 11 07/13/2022 Active Atorvastatin Calcium 80 MG Oral Tablet (Lipitor)Indicati ons:Dyslipidemia, goal LDL below 70 Take 1 Tablet by mouth in the morning. 90 Tablet 3 11/08/2022 Active Eliquis 5 MG Oral Tablet (Apixaban)Indicat [...] TABLET DAILY 90 Tablet 1 08/13/2023 Active Losartan Potassium 25 MG Oral Tablet (Cozaar) TAKE 1 TABLET DAILY 90 Tablet 1 01/05/2023 08/13/19 24 Discontinued Hospital, Clinic, or Other Facility Administered Medication Ordered Dose Route Frequency Start Date End Date Status Albuterol Sulfate (Proventil) (2.5 MG/3ML) 0.083% inhalation solution 2.5 mgIndications:Mild intermittent asthma without complication 2.5 mg NEBULIZER Q4H PRN 07/13/2022 Acti ve documented as of this encounter (statuses as of 08/13/2023) Active Problems Problem Noted Date Diagnosed Date Hyperthyroidism 04/02/2019 Overview: On Tapazole Nocturnal hypoxemia [...] as of this encounter (statuses as of 08/13/2023) Resolved Problems Problem Noted Date Diagnosed Date [...] 06/22/2011 8 Edema 06/22/2011 10/06/2019 [employer] Other*[id number] 09/28/2010 09/15/2013 Overview: PROJECT: #[id number], SPONSOR: Danny&Danny, PI: James Mendez MD SUMMARY: [...] encounter can be closed. CONTACT: Travis Shepherd, Graphic User Interface Designer Chronic ischemic heart disease 09/28/2009 02/06/2022 Anticoagulation management encounter 03/16/2008 12/18/2012 shelter current use of ant icoagulant therapy 03/16/2008 08/17/2016 Overview: ICD-10 update of inactive term ADVANCE DIRECTIVE INFORMATION 10/02/2005 10/06/2019 Overview: Information given to patient Dyslipidemia, goal to be determined 01/08/2001 03/30/2009 Family history of ischemic heart disease 01/08/2001 09/28/2009 Bicipital tenosynovitis 01/08/200112/2009 documented as of this encounter (statuses as of 08/13/2023) Immunizations Name Administration Dates Next Due COVID-19 [...] Preserve, IM 12/22/2017,01/11/2017 TD, Preservative Free 02/26/2020 TDAP (age 11 and older)(Adacel) 03/30/2010 Zoster Vaccine Recombinant (Shingrix) 04/20/2018 ,12/22/2017,11/20/2017 documented as of this encounter Social History Tobacco Use Types Packs/Day Years Used Date Smoking Tobacco: Never Smokeless Tobacco: Never Comments:second hand smoke e xposure to some extent x 18 years Alcohol Use Standard Drinks/Week Comments No 0 (1 standard drink = 0.6 oz pur e alcohol) PHQ-2 Answer Date Recorded PHQ Adult Total Score 0 04/10/2022 Hunger Vital Sign Answer Date Recorded Within the past 12 months, y ou worried that your food would run out before you got the money to buy more. Never true 03/19/20 23 Within the past 12 months, t he food you bought just didn't last and you didn't have money to get more. Never true 03/19/2023 Sex and Gender Information Value Date Recorded Sex Assigned at Not on file Gender Identity Not on file Sexual Orientation Straight 06/14/2020 9: 39 AM EST Job Start Date Occupation Industry Not on file Not on file Not on file documented as of this encounter Miscellaneous Notes * Telephone Encounter - Fouzia Carl, [facility] - 08/13/2023 8:00 AM EDTSigned Prescriptions: Disp Refills Losartan Potassium 25 MG Oral Tablet (Coza*90 Tab*1 Sig: TAKE 1 TABLET DAILYAuthorizing Provider: HANNY ENGEL User: FOUZIA CARL documented in this encounter Plan of Treatment Upcoming Encounters Date Type Department Care Team (Late st Contact Info) Description 09/25/2023 8:00 AM EDT [facility] [address] [facility] [phone] [facility] [address] [address] 10/10/2023 7:15 AM EDT Cardiac Studies Cardiac Studies, [facility] [address] [place] [address] 10/22/2023 8:30 AM EDT Office Visit Cardiology, [facility] [address] [place] [address] Roxanne Pete CRNP [address] [place] [address] 11/04/2023 8:15 AM EDT Imaging Radiology [address] [place] [address] 07/16/2024 10:00 AM EDT Office Visit Sleep Disorders Ctr [facility] [address] [place] [phone] Bernice Daniels CRNP [address] [place] [address] Scheduled Procedures Name Priority Associated Diagnoses Date/Ti me COLONOSCOPY FLEXIBLE PROXIMA L DIAGNOSTIC Recall History of colonic polyps Health Maintenance Due Date Last Done Comments COVID-19 Vaccine (2022- season) 2022 02/23/2021, 06/25/2020, 05/21/2020 Depression Screening 04/10/2023 04/10/2022 Influenza Vaccine (FLU shot) (Season Ended) 2023 02/06/2022, 01/03/2021, 01/09/2020, Additional history exists COLONOSCOPY-EVERY 3 YRS AGES 18-100 02/18/2026 02/18/2023, 02/18/2023, 10/28/2017, Additional history exists Lipid Panel 03/21/2028 03/21/2023, 10/20, 09/11/2021, Additional history exists DTaP,Tdap,and Td Vaccines (4 - Td or Tdap) 02/25/2030 02/26/2020, 03/30/2010, 08/27/2002 Hepatitis B Aged Out 01/05/2013 No longer eligi ble based on patient's age to complete this topic Pneumococcal Vaccine: 65+ Years Completed 02/21/2018, 08/18/2015, 01/05/2013, Additional history exists Zoster Vaccines Completed 04/20/2018, 05/2017, 11/20/2017 COLONOSCOPY-EVERY 5 YRS AGES 18-100 Discontinued 02/18/2023, 02/18/2023, 10/28/2017, Additional history exists GARDASIL-HPV IMMUNIZATION SERIES Aged Out No longer eligible based on patient's age to complete this topic MENINGOCOCCAL (MENACTRA/MENVEO) Aged Out No longer eligible based on patient's age to complete this topic documented as of this encounter Medical Devices Implanted Type Area Loom Mechanic Device Identifier Shelf Expiration Date Model / Serial / Lot Lens Li61ao 13.00mm 19.50 - [id number] - [id number] Implanted:Qty: 1 on 03/26/2023 by Max Melendez MD at OR [facility] Right: Eye [employer] 11/20/2027 [id number] / [id number] / [id number] Lens Li61ao 13.00mm 19.50 - [id number] - [id number] Implanted:Qty: 1 on 04/04/2023 by Max Melendez MD at OR [facility] Left: Eye [employer]OM[employer] 12/21/2027 [id number] / [id number] / [id number] documented as of this encounter Advance Directives Latest Code Status on File Code Status Date Activated Date Inactivated Comments Full Code 04/04/2023 10:23 AM 04/04/2023 4:09 PM Th is order reflects the patients wishes and were consensually agreed upon. Question Answer Comments Discussion of Advance Directives occurred with: Patient Does the patient have a Living Will? No Does the patient have Health Care Power of Manager Chinese? No Code Status History Code Status Date Activated Date Inactivated Comments Full Code 03/26/2023 1:01 PM 03/26/2023 6:40 PM This order reflects the patients wishes and were consensually agreed upon. Question Answer Comments Discussion of Advance Directives occurred with: Patient Does the patient have a Living Will? No Does the patient have Health Care Power of Manager Chinese? No Care Teams Employment Services Director Relationship Specialty Start Date End Date Hanny Engel MD [address] [place] [address] PCP - General Family Medicine 06/17/19 documented as of this encounter
--- OUTSIDE RECORDS SUMMARY | 2023-11-07 05:51 | External Medical Summary ---
Author Name Unknown Address Unknown Organization K01:[place] [facility] [place] [address] [facility] [address] Laboratory Report Ordering Provider Test Date Status TORO GAMINO 09/25/2023 09:28:07 Final Observation Date Value Abnormality Reference (Units ) Status HbA1C 09/25/2023 09:28:07 5.7 Above high normal 4. 0-5.6 (%) Final The use of HbA1c to monitor glycemic status is based on normal hemoglobin and HbA composition. This test should not be used in patients with abnormal hemoglobin that affects the half life of the red blood cell or the in vivo glycation rates. Glucose, estimated average 09/25/2023 09:28:07 117 <126 (mg/dL) Final Performing Location [place] [facility] [place] [address] [facility] [address]
--- OUTSIDE RECORDS SUMMARY | 2023-11-07 05:51 | External Medical Summary | Summary of Care ---
Author Name Unknown Organization [facility] Address [address] [place] [address] Phone [phone] Care Team Providers Care Cto Name Role Phone Blelo Sullivan MD Primary Care Provider +1- [phone] Encounter Details Date Type Department Care Team (Late st Contact Info) Description 09/20/2023 Result Scan Unspecified Department <No scans attached> Allergies Active Allergy Reactions Criticality Noted Date Comments Amlodipine Edema Other 11/28/2015 Lisinopril Cough 02/04/2018 Sotalol Unknown 02/12/2023 [place] documented as of this encounter (statuses as of 10/02/2023) Medications Medication Sig Dispensed Refills Start Date [...] TABLET DAILY 90 Tablet 1 08/13/2023 Active Hospital, Clinic, or Other Facility Administered Medication Ordered Dose Route Frequency Start Date End Date Status Albuterol Sulfate (Proventil) (2.5 MG/3ML) 0.083% inhalation solution 2.5 mgIndications:Mild intermittent asthma without complication 2.5 mg NEBULIZER Q4H PRN 07/13/2022 Acti ve documented as of this encounter (statuses as of 10/02/2023) Active Problems Problem Noted Date Diagnosed Date [...] as of this encounter (statuses as of 10/02/2023) Resolved Problems Problem Noted Date Diagnosed Date [...] 06/22/2011 8 Edema 06/22/2011 10/06/2019 [employer] Other*[id number] 09/28/2010 09/15/2013 Overview: PROJECT: #[id number], SPONSOR: Sosa, PI: James Mendez MD SUMMARY: [...] encounter can be closed. CONTACT: Travis Shepherd, Carbon Coater Machine Operator Chronic ischemic heart disease 09/28/2009 02/06/2022 Anticoagulation management encounter 03/16/2008 12/18/2012 [facility] current use of ant icoagulant therapy 03/16/2008 08/17/2016 Overview: ICD-10 update of inactive term ADVANCE DIRECTIVE INFORMATION 10/02/2005 10/06/2019 Overview: Information given to patient Dyslipidemia, goal to be determined 01/08/2001 03/30/2009 Family history of ischemic heart disease 01/08/2001 09/28/2009 Bicipital tenosynovitis 01/08/200112/2009 documented as of this encounter (statuses as of 10/02/2023) Immunizations Name Administration Dates Next Due COVID-19 [...] on file documented as of this encounter Plan of Treatment Upcoming Encounters Date Type Department Care Team (Late st Contact Info) Description 10/10/2023 7:15 AM EDT Cardiac Studies Cardiac Studies, [facility] [address] [facility] [place] [address] 10/22/2023 8:30 AM EDT Office Visit Cardiology, [facility] [address] [facility] [place] [address] Roxanne Pete CRNP [address] [place] [address] 11/04/2023 8:15 AM EDT Imaging Radiology [facility] [address] [place] [address] 04/27/2024 8:20 AM EST [address] [phone] Bello Sullivan MD [address] [place] [address] 07/16/2024 10:00 AM EDT Office Visit Sleep Disorders Ctr [facility] [address] [place] [address] Bernice Daniels CRNP [address] [place] [address] Scheduled Procedures Name Priority Associated Diagnoses Date/Ti me COLONOSCOPY FLEXIBLE PROXIMA L DIAGNOSTIC Recall History of colonic polyps Health Maintenance Due Date Last Done Comments Cologuard 07/06/1995 Fecal Occult Blood Test 07/06/1995 Sigmoidoscopy 07/06/1995 COVID-19 Vaccine ( season) 2022 02/23/2021, 06/25/2020, 05/21/2020 Influenza Vaccine (FLU shot) (Season Ended) 2023 02/06/2022, 01/03/2021, 01/09/2020, Additional history exists Depression Screening 09/24/2024 09/25/2023 Colonoscopy 02/18/2026 02/18/2023, 01/22, 10/28/2017, Additional history [...] this encounter Medical Devices Implanted Type Area Assembly Leader Device Identifier Shelf Expiration Date Model / Serial / Lot Lens Li61ao 13.00mm 19.50 - [id number] - [id number] Implanted:Qty: 1 on 03/26/2023 by Max Melendez MD at OR [facility] Right: Eye [employer] 11/20/2027 [id number] / [id number] / [id number] Lens Li61ao 13.00mm 19.50 - [id number] - [id number] Implanted:Qty: 1 on 04/04/2023 by Max Melendez MD at OR [facility] Left: Eye [employer] LOMB 12/21/2027 [id number] / [id number] / [id number] documented as of this encounter Procedures Procedure Name Priority Date/Time Associated Diagnosis Comments RADIOLOGY SCANNED RESULT 09/20/2023 documented in this encounter Results * RADIOLOGY SCANNED RESULT (09/20/2023) 09/20/2023 No Physician Data Unknown DIAGNOSTIC RAD IOLOGY SERVICES documented in this encounter Advance Directives * [...] Power of Attor michael? No Care Teams Cto Relationship Specialty Start Date End Date Bello Sullivan MD [address] [facility] [place] [address] PCP - General Family Medicine 06/17/19 documented as of this encounter
--- OUTSIDE RECORDS SUMMARY | 2023-11-07 05:51 | External Medical Summary ---
Author Name Unknown Address Unknown Organization K01[place] [facility] [place] [address] [facility] [address] Laboratory Report Ordering Provider Test Date Status TORO GAMINO 09/25/2023 09:28:07 Final Observation Date Value Abnormality Reference (Units ) Status TSH 09/25/2023 09:28:07 1.16 0.27-4.20 (uIU/mL) Final Performing Location [facility] [address] [facility] [address]
--- OUTSIDE RECORDS SUMMARY | 2023-11-07 05:51 | External Medical Summary | Summary of Care ---
Author Name Unknown Organization [facility] Address [address] [place] [address] Phone [phone] Care Team Providers Care Analytical Lab Analyst Name Role Phone Bello Sullivan MD Primary Care Provider +1- [phone] Reason for Visit * Reason Comments Outpatient Testing Encounter Details Date Type Department Care Team (Late st Contact Info) Description 09/25/2023 9:40 AM EDT Laboratory Laboratory, [facility] [address] [place] [address] [facility] [address] [place] [address] [employer] Other*[id number]; Prediabetes; Hyperthyroidism Allergies Active Allergy Reactions Criticality Noted Date Comments Amlodipine Edema Other 11/28/2015 Lisinopril Cough 02/04/2018 Sotalol Unknown 02/12/2023 [place] documented as of this encounter (statuses as of 09/25/2023) Medications Medication Sig Dispensed Refills Start Date [...] as of this encounter (statuses as of 09/25/2023) Active Problems Problem Noted Date Diagnosed Date [...] as of this encounter (statuses as of 09/25/2023) Resolved Problems Problem Noted Date Diagnosed Date [...] 06/22/2011 8 Edema 06/22/2011 10/06/2019 [employer] Other*[id number] 09/28/2010 09/15/2013 Overview: PROJECT: #[id number], SPONSOR: J&Danny, PI: James Mendez MD SUMMARY: Observational registry [...] encounter can be closed. CONTACT: Travis Shepherd, Cheese Tester Chronic ischemic heart disease 09/28/2009 02/06/2022 [...] as of this encounter (statuses as of 09/25/2023) Immunizations Name Administration Dates Next Due COVID-19 [...] 7:15 AM EDT Cardiac Studies Cardiac Studies, [facility] [address] [place] [address] 10/22/2023 8:30 AM EDT Office Visit Cardiology, [facility] [address] [place] [address] Roxanne Pete CRNP [address] [facility] [place] [address] 11/04/2023 8:15 AM EDT Imaging Radiology [address] [facility] [place] [address] 04/27/2024 8:20 AM EST Office Visit [facility] [address] [place] [phone] Bello Sullivan MD [address] [place] [address] 07/16/2024 10:00 AM EDT Office Visit Sleep Disorders Ctr [facility] [address] [facility] [place] [phone] Bernice Daniels CRNP [address] [facility] [place] [address] Pending Results Name Type Priority Associated Diagnoses Date /Time MYCODE SUBSEQUENT ADULT Lab Routine [employer] Other*[id number] 09/25/2023 9:28 AM EDT HEMOGLOBIN A1C Lab Routine Prediabetes 09/25/2023 9:28 AM EDT BASIC METABOLIC PANEL Lab Routine Prediabetes 09/25/2023 9:28 AM EDT TSH WITH FREE T4 IF INDICATED Lab Routine Hyperthyroidism 09/25/2023 9:28 AM EDT MYCODE SST1 Lab Routine [employer] Other*[id number] 09/25/2023 9:28 AM EDT MYCODE SST2 Lab Routine [employer] Other*[id number] 09/25/2023 9:28 AM EDT Scheduled Procedures Name Priority Associated Diagnoses Date/Ti [...] this encounter Medical Devices Implanted Type Area Student Development Coordinator Device Identifier Shelf Expiration Date Model / Serial / Lot Lens Li61ao 13.00mm 19.50 - [id number] - [id number] Implanted:Qty: 1 on 03/26/2023 by Max Melendez MD at OR [facility] Right: Eye [employer] 11/20/2027 [id number] / [id number] / [id number] Lens Li61ao 13.00mm 19.50 - [id number] - [id number] Implanted:Qty: 1 on 04/04/2023 by Max Melendez MD at OR [facility] Left: Eye [employer]CH [employer] LOMB 12/21/2027 [id number] / [id number] / [id number] documented as of this encounter Visit Diagnoses Diagnosis [employer] Other*[id number] Prediabetes Other abnormal glucose Hyperthyroidism Thyrotoxicosis without mention of goiter or other cause, without mention of thyrotoxic crisis or storm documented in this encounter Advance Directives * [...] Power of Attor michael? No Care Teams Analytical Lab Analyst Relationship Specialty Start Date End Date Bello Sullivan MD [address] [place] [address] PCP - General Family Medicine 06/17/19 documented as of this encounter
--- OUTSIDE RECORDS SUMMARY | 2023-11-07 05:52 | External Medical Summary | Summary of Care ---
Author Name Unknown Organization [facility] Address [address] [place] [address] Phone [phone] Care Team Providers Care Forwarder Operator Name Role Phone Bello Sullivan MD Primary Care Provider [phone]- [phone] Reason for Visit * Reason Comments Pulmonary Function Test PFT with broncho dilator Encounter Details Date Type Department Care Team (Latest Contact Info) Description 07/18/2023 8:00 AM EDT PulmDiagnostic Pulmonary Function Lab, [facility] [address] [facility] [place] [address] [place], [address] [facility] [place] [address] Mild intermittent asthma without complication* Allergies Active Allergy Reactions Criticality Noted Date Comments Amlodipine Edema Other 11/28/2015 Lisinopril Cough 02/04/2018 Sotalol Unknown 02/12/2023 VT documented as of this encounter (statuses as of 07/18/2023) Medications Medication Sig Dispensed Refills Start Date [...] EVERY MORNING 90 Tablet 3 01/01/2023 Active Losartan Potassium 25 MG Oral Tablet (Cozaar) TAKE 1 TABLET DAILY 90 Tablet 1 01/05/2023 Active Potassium Chloride Roxy ER 20 MEQ [...] the morning. 48 g 1 07/16/2023 Active Hospital, Clinic, or Other Facility Administered Medication Ordered Dose Route Frequency Start Date End Date Status Albuterol Sulfate (Proventil) (2.5 MG/3ML) 0.083% inhalation solution 2.5 mgIndications:Mild intermittent asthma without complication 2.5 mg NEBULIZER Q4H PRN 07/13/2022 Acti ve documented as of this encounter (statuses as of 07/18/2023) Active Problems Problem Noted Date Diagnosed Date [...] as of this encounter (statuses as of 07/18/2023) Resolved Problems Problem Noted Date Diagnosed Date [...] 06/22/2011 8 Edema 06/22/2011 10/06/2019 [employer] Other*[id number] 09/28/2010 09/15/2013 Overview: PROJECT: #[id number], SPONSOR: Sosa, PI: James Mendez MD SUMMARY: [...] encounter can be closed. CONTACT: Travis Shepherd, Exhaust Tender Chronic ischemic heart disease 09/28/2009 02/06/2022 Anticoagulation [...] as of this encounter (statuses as of 07/18/2023) Immunizations Name Administration Dates Next Due COVID-19 [...] Sign Reading Time Taken Comments Blood Pressure - - Pulse - - Temperature - - Respiratory Rate - - Oxygen Saturation - - Inhaled Oxygen Concentration - - Weight 132.2 kg (291 lb 7.2 oz) 07/18/2023 7:58 AM EDT Height 193.3 cm (6' 4.1") 07/18/2023 7:58 AM EDT Body Mass Index 35.38 07/18/2023 7:58 AM EDT documented in this encounter Nursing Notes * Glo Monsivais, JOSELIN - 07/18/2023 8:02 AM EDT Tim Fraser was identified by name, Date of : (1950), and . Vitals were obtained for testing. Body mass index is 35.38 kg/m. Pt does not have a smoking history. 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 Pt wears CPAP with 4 liters bled in. Spirometry, DLCO, RAW, and TGV performed. A slowvolume nebulizer treatment of 0.5ml of albuterol in 3 ml of NSS was given. The proper method of use, as well as anticipated side effects, of this svn are discussed and demonstrated to the patient. Patient demonstrates adequate delivery. Administrations This Visit Albuterol Sulfate (Proventil) (2.5 MG/3ML) 0.083% inhalation solution 2.5 mg Admin Date 07/18/2023 Action Given Dose 2.5 mg Route Nebulizer Documented By Glo Monsivais RRT documented in this encounter Plan of Treatment Upcoming Encounters Date Type Department Care Team (Late st Contact Info) Description 09/25/2023 8:00 AM EDT Office Visit [facility] [address] [place] [phone] Bello Sullivan MD [address] [place] [address] 10/10/2023 7:15 AM EDT Cardiac Studies Cardiac Studies, [facility] [address] [facility] [place] [address] 10/22/2023 8:30 AM EDT Office Visit Cardiology, [facility] [address] [facility] [place] [address] Roxanne Pete CRNP [address] [facility] [place] [address] 11/04/2023 8:15 AM EDT Imaging Radiology [address] [place] [address] 07/16/2024 10:00 AM EDT Office Visit [facility] [address] [place] [phone] Bernice Daniels CRNP [address] [facility] [place] [address] Scheduled Procedures Name Priority Associated Diagnoses Date/Ti me COLONOSCOPY FLEXIBLE PROXIMA L DIAGNOSTIC Recall History of colonic polyps Health Maintenance Due Date Last Done Comments COVID-19 Vaccine ( season) 2022 02/23/2021, 06/25/2020, 05/21/2020 Influenza Vaccine (FLU shot) (#1) 2022 02/06/2022, 01/03/2021, 01/09/2020, Additional history exists Depression Screening 04/10/2023 04/10/2022 COLONOSCOPY-EVERY 3 YRS AGES 18-100 02/18/2026 02/18/2023, [...] this encounter Medical Devices Implanted Type Area Watch Commander Device Identifier Shelf Expiration Date Model / Serial / Lot Lens Li61ao 13.00mm 19.50 - [id number] - [id number] Implanted:Qty: 1 on 03/26/2023 by Max Melendez MD at OR [facility] Right: Eye [employer] 11/20/2027 [id number] / [id number] / [id number] Lens Li61ao 13.00mm 19.50 - [id number] - [id number] Implanted:Qty: 1 on 04/04/2023 by Max Melendez MD at OR [facility] Left: Eye [employer] 12/21/2027 [id number] / [id number] / [id number] documented as of this encounter Visit Diagnoses Diagnosis Mild intermittent asthma without complication- Primary Unspecified asthma documented in this encounter Administered Medications Active Administered Medications - up to 3 most recent administrations Medication Order MAR Action Action Date Dose Rate Site Albuterol Sulfate (Proventil) (2.5 MG/3ML) 0.083% inhalation solution 2.5 mg 2.5 mg, Nebulizer, Q4H PRN once for PFT, Starting on Sat07/13/22 at 1129, Until Discontinued Given 07/18/2023 7:50 AM EDT 2.5 mg documented in this encounter Advance Directives Latest Code Status on File Code Status Date Activated Date Inactivated Comments Full Code 04/04/2023 10:23 AM 04/04/2023 4:09 PM Th is order reflects the patients wishes and were consensually agreed upon. Question Answer Comments Discussion of Advance Directives occurred with: Patient Does the patient have a Living Will? No Does the patient have Health Care Power of Dramatic Art Teacher? No Code Status History Code Status Date Activated Date Inactivated Comments Full Code 03/26/2023 1:01 PM 03/26/2023 6:40 PM This order reflects the patients wishes and were consensually agreed upon. Question Answer Comments Discussion of Advance Directives occurred with: Patient Does the patient have a Living Will? No Does the patient have Health Care Power of Dramatic Art Teacher? No Care Teams Forwarder Operator Relationship Specialty Start Date End Date Bello Sullivan MD [address] [place] [address] PCP - General Family Medicine 06/17/19 documented as of this encounter
--- OUTSIDE RECORDS SUMMARY | 2023-11-07 05:52 | External Medical Summary | Summary of Care ---
Author Name Unknown Organization [facility] Address [address] [place] [address] Phone [phone] Care Team Providers Care Oim Consultant Name Role Phone Bello Sullivan MD Primary Care Provider [phone] Reason for Visit * Reason Comments Follow Up Sleep Apnea Asthma Noct Hypoxemia Encounter Details Date Type Department Care Team (Late st Contact Info) Description 07/16/2023 9:00 AM EDT Office Visit [facility] [address] [place] [phone] Bernice Daniels CRNP [address] [facility] [place] [address] Mild intermittent asthma without complication*; Obstructive sleep apnea; Nocturnal hypoxemia; NONALLERGIC RHINITIS Allergies Active Allergy Reactions Criticality Noted Date Comments Amlodipine Edema Other 11/28/2015 Lisinopril Cough 02/04/2018 Sotalol Unknown 02/12/2023 VT documented as of this encounter (statuses as of 07/23/2023) Medications Medication Sig Dispensed Refills Start Date End Date Status ASPIRIN 81 MG OR TABS one tab by mouth daily 0 0 Active HUMIDIFIER MISCIndications: Obstructive sleep apnea (adult) (pediatric) heated 1 0 6 Active GLUCOSAMINE CHONDROITIN COMPLX PO CAPS 1 daily 0 Active ONE-A-DAY MENS PO TABS 1 daily 0 Active TYLENOL ARTHRITIS PAIN 650 MG PO TBCR 2 tablets twice daily 0 Active FISH OIL 1000 MG PO CAPS one daily 0 Active oxygen IN GAS Use 3 L/min(Oxygen) as directed at bedtime. BLED THROUGH CPAP AHP 1 Each 0 0 Active Additional Information Patient taking differently: 4 L/min(Oxygen)Nasal cannula HS, BLED THROUGH CPAPAHP, Reported on 03/20/2023 CPAP every night at bedtime. 0 Active methIMAzole 5 MG Oral Tablet (Tapazole) Take 0.5 Tablets by mouth in the morning. 0 3 Active Albuterol Sulfate HFA 108 (90 Base) MCG/ACT Inhalation Aerosol Solution Inhale 2 Puffs by mouth every 4 hours as needed for Shortness of Breath. 18 g 11 3 Active Atorvastatin Calcium 80 MG Oral Tablet (Lipitor)Indicat ions:Dyslipidemi a, goal LDL below 70 Take 1 Tablet by mouth in the morning. 90 Tablet 3 3 Active Eliquis 5 MG Oral Tablet (Apixaban)Indica tions:Paroxysmal atrial fibrillation (HCC) TAKE 1 TABLET EVERY MORNINGAND TAKE 1 TABLET BEFORE BEDTIME 180 Tablet 3 3 Active Metoprolol Succinate ER 50 MG Oral Tablet Extended Release 24 Hour (toPROL XL)Indications:P aroxysmal atrial fibrillation (HCC) TAKE 1 TABLET EVERY MORNING 90 Tablet 3 3 Active Losartan Potassium 25 MG Oral Tablet (Cozaar) TAKE 1 TABLET DAILY 90 Tablet 1 3 Active Potassium Chloride Roxy ER 20 MEQ Oral Tablet Extended Release (Klor-Con M20)Indications: Hypokalemia Take 2 Tablets by mouth in the morning. 180 Tablet 3 3 Active Montelukast Sodium 10 MG Oral Tablet (Singulair) Take 1 Tablet by mouth in the morning. 90 Tablet 3 3 Active Arnuity Ellipta 100 MCG/ACT Inhalation Aerosol Powder Breath Activated (fluticasone Furoate)Indicati ons:Mild intermittent asthma without complication USE 1 INHALATION ORALLY DAILY 90 Each 3 4 Active Fluticasone Propionate 50 MCG/ACT Nasal Suspension (Flonase) Administer 2 Sprays into each nostril in the morning. 48 g 1 4 Active Abdominal Binder/Elastic XLIndications:Po stoperative pain Wear abdominal binder daily for support and compression 1 Each 0 1 07/16/19 24 Discontinued Fluticasone Propionate 50 MCG/ACT Nasal Suspension (Flonase) Administer 2 Sprays into each nostril in the morning. 48 g 1 3 07/16/19 24 Discontinued(Ref ill) Arnuity Ellipta 100 MCG/ACT Inhalation Aerosol Powder Breath Activated (fluticasone Furoate)Indicati ons:Mild intermittent asthma without complication USE 1 INHALATION ORALLY DAILY 90 Each 3 3 07/16/19 24 Discontinued(Ref ill) Hospital, Clinic, or Other Facility Administered Medication Ordered Dose Route Frequency Start Date End Date Status Albuterol Sulfate (Proventil) (2.5 MG/3ML) 0.083% inhalation solution 2.5 mgIndications:Mild intermittent asthma without complication 2.5 mg NEBULIZER Q4H PRN 07/13/2022 Acti ve documented as of this encounter (statuses as of 07/23/2023) Active Problems Problem Noted Date Diagnosed Date [...] as of this encounter (statuses as of 07/23/2023) Resolved Problems Problem Noted Date Diagnosed Date [...] 06/22/2011 8 Edema 06/22/2011 10/06/2019 [employer] Other*[id number] 09/28/2010 09/15/2013 Overview: PROJECT: #[id number], SPONSOR: Sosa, PI: James Mendez MD SUMMARY: [...] encounter can be closed. 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 current use of ant icoagulant therapy 03/16/2008 08/17/2016 Overview: ICD-10 update of inactive term ADVANCE DIRECTIVE INFORMATION 10/02/2005 10/06/2019 Overview: Information given to patient Dyslipidemia, goal to be determined 01/08/2001 03/30/2009 Family history of ischemic heart disease 01/08/2001 09/28/2009 Bicipital tenosynovitis 01/08/200112/2009 documented as of this encounter (statuses as of 07/23/2023) Immunizations Name Administration Dates Next Due COVID-19 [...] Sign Reading Time Taken Comments Blood Pressure 142/70 07/16/2023 9:08 AM EDT Pulse 73 07/16/2023 9:08 AM EDT Temperature 37.1 C (98.7 F) 07/16/2023 9:08 AM ED T Respiratory Rate 16 07/16/2023 9:08 AM EDT Oxygen Saturation 95% 07/16/2023 9:08 AM EDT Inhaled Oxygen Concentration - - Weight 132.5 kg (292 lb) 07/16/2023 9:08 AM EDT Height 193 cm (6' 4") 07/16/2023 9:08 AM EDT Body Mass Index 35.54 07/16/2023 9:08 AM EDT documented in this encounter Progress Notes * Bernice Daniels CRNP - 07/16/2023 9:38 AM EDT [facility] Tim Fraser is a 73 year old male seen for yearly follow-up of mild intermittent asthma, nonallergic rhinitis and severe obstructive sleep apnea with hypoxemia on CPAP and oxygen. Medical history includes atrial fibrillation, GERD, nonallergic rhinitis with last testing done in 2002, BMI 35.4. Pulmonary Symptoms: Reports 0 ER visits/hospitalization and 0 courses of prednisone related to their breathing in the past year. Cough: occasional, denies night time cough Sputum Production: denies Hemoptysis: denies Dyspnea: noted with exertion depending on weather Chest tightness or wheezing: denies Environmental allergies: noted, triggered by his dog Pulmonary Medications: Arnuity 100mcg - used 1-7 days per week based often on weather/symptoms, winter is the worst for him, notes benefit with use Albuterol - has on hand but rarely used Motelukast 10 mg - nightly Flonase - daily with benefit Sleep Symptoms & Treatment: CPAP with oxygen used nightly, noting ongoing benefit with use. Compliance Data: Report date: % total days used: 100 % days used > 4 hours: 100 Average hours per day used: 9 hours 6 mins Large leak: 0 mins AHI: 1.8 Equipment: DME Provider: TRACY Device: Blue Source Settings: 12-20 cmH20 with 4 LPM Interface Type: nasal with chin strap Humidifier: not used Cleaning: Washing by hand only Problem List: Patient Active Problem List Diagnosis Code NONALLERGIC RHINITIS J31.0 PRABHU (obstructive sleep apnea) G47.33 Atrial fibrillation (HCC) I48.91 Dyslipidemia, goal LDL below 100 E78.5 Obesity, Class I, BMI 30.0-34.9 (see actual BMI) E66.9 Chronic venous insufficiency I87.2 History of kidney stones Z87.442 Thyroid nodule E04.1 Gastroesophageal reflux disease without esophagitis K21.9 Mild intermittent asthma without complication J45.20 History of colon polyps Z86.010 Nocturnal hypoxemia G47.34 Hyperthyroidism E05.90 Medications: Outpatient Medications Marked as Taking for the 07/16/23 encounter (Office Visit) with Bernice Daniels CRNP Medication Sig Montelukast Sodium 10 MG Oral Tablet (Singulair) Take 1 Tablet by mouth in the morning. Potassium Chloride Roxy ER 20 MEQ Oral Tablet Extended Release (Klor-Con M20) Take 2 Tablets by mouth in the morning. Losartan Potassium 25 MG Oral Tablet (Cozaar) TAKE 1 TABLET DAILY Metoprolol Succinate ER 50 MG Oral Tablet Extended Release 24 Hour (toPROL XL) TAKE 1 TABLET EVERY MORNING Eliquis 5 MG Oral Tablet (Apixaban) TAKE 1 TABLET EVERY MORNINGAND TAKE 1 TABLET BEFORE BEDTIME Atorvastatin Calcium 80 MG Oral Tablet (Lipitor) Take 1 Tablet by mouth in the morning. Albuterol Sulfate HFA 108 (90 Base) MCG/ACT Inhalation Aerosol Solution Inhale 2 Puffs by mouth every 4 hours as needed for Shortness of Breath. Arnuity Ellipta 100 MCG/ACT Inhalation Aerosol Powder Breath Activated (fluticasone Furoate) USE 1 INHALATION ORALLY DAILY Fluticasone Propionate 50 MCG/ACT Nasal Suspension (Flonase) Administer 2 Sprays into each nostril in the morning. methIMAzole 5 MG Oral Tablet (Tapazole) Take 0.5 Tablets by mouth in the morning. CPAP every night at bedtime. oxygen IN GAS Use 3 L/min(Oxygen) as directed at bedtime. BLED THROUGH CPAP AHP (Patient taking differently: Use 4 L/min(Oxygen) as directed at bedtime. BLED THROUGH CPAP AHP) FISH OIL 1000 MG PO CAPS one daily TYLENOL ARTHRITIS PAIN 650 MG PO TBCR 2 tablets twice daily GLUCOSAMINE CHONDROITIN COMPLX PO CAPS 1 daily ONE-A-DAY MENS PO TABS 1 daily HUMIDIFIER MISC heated ASPIRIN 81 MG OR TABS one tab by mouth daily Current Facility-Administered Medications for the 07/16/23 encounter (Office Visit) with Bernice Daniels CRNP Medication Albuterol Sulfate (Proventil) (2.5 MG/3ML) 0.083% inhalation solution 2.5 mg Diagnostics: Pulmonary Function Test Results: Performed on 12/13/2017 - Reviewed Sleep Testing: PSG 10/2005: AHI 36 Split 09/07/2017: AHI 81, SpO2 <89% 74 minutes; suboptimal titration, CPAP 14 cwp, some desats noted CPAP 11-14 cwp Noct ox APAP 7-15 cwp/RA 05/2018: SpO2 dane 69% with 64 minutes <89% Titration 07/2018: CPAP to BIPAP, suboptimal, mouth leak (50% of night)/mask leak, he declined trialFFM, SpO2 <89% 12.5 minutes, recommend repeat starting on 06/04 -> patient declined change toBPAP and repeat testing Noct Ox Apap 7-15 cwp/RA 09/25/18: <89% 36 mins, low 89% Noct Ox Apap 7-15 cwp/RA 03/04/19: <89% 41 mins, low 82% Noct Ox Apap 10-15 cwp/RA 03/31/19: <89% 62 mins, low 83% Noct Ox Apap 10-15/2LPM 01/22/20:<88% 42 mins, low 78% Noct Ox Apap 10-15/3LPM 02/10/20:<88% 36 mins, low 84% (chin strap/nasal mask) Noct Ox Apap 12-20/4 LPM 01/03/2021 (wt 282): SpO2 dane 88%, mean 93.5%, test time 8:55 hrs Roosevelt Sleepiness Scale Question 07/16/2023 9:10 AM EDT - Filed by Madison Kunz LPN What is the chance you will doze off in the following situation? Sitting and reading Slight chance of dozing Watching TV Slight chance of dozing Sitting inactive in a public place, such as a theater or meeting No chance of dozing As a passenger in a car for an hour without a break No chance of dozing Lying down to rest in the afternoon when circumstances permit High chance of dozing When sitting and talking to someone No chance of dozing When sitting quietly after lunch without alcohol No chance of dozing In a car, while stopped for a few minutes in traffic No chance of dozing Score (range: 0 - 24) 5 Asthma Control Test Question 07/16/2023 9:12 AM EDT - Filed by Madison Kunz LPN Please select the best response to the five questions below, by clicking the appropriate option button. In the past 4 weeks, how much of the time did your asthma keep you from getting as much done at work, school or at home? (4) A little of the time During the past 4 weeks, how often have you had shortness of breath? (4) Once or twice a week During the past 4 weeks, how often did your asthma symptoms (wheezing, coughing, shortness of breath, chest tightness or pain) wake you up at night or earlier than usual in the morning? (5) Not at all During the past 4 weeks, how often have you used your rescue inhaler or nebulizer medication (such as albuterol)? (5) Not at all How would you rate your asthma control during the past 4 weeks? (4) Well controlled Total ACT Adult Score (range: 5 - 25) 22 (Well Controlled) Total ACT Child Score (range: 0 - 27) Incomplete BP 142/70 | Pulse 73 | Temp 37.1 C (98.7 F) (Tympanic) | Resp 16 | Ht 1.93 m (6' 4") | Wt 132.5kg (292 lb) | SpO2 95% | BMI 35.54 kg/m | BSA 2.67 m Physical Exam Vitals and nursing note reviewed. Jackaroo present: none. Constitutional: General: He is not in acute distress. Appearance: He is not diaphoretic. Cardiovascular: Rate and Rhythm: Normal rate and regular rhythm. Heart sounds: Murmur (RSB) heard. Pulmonary: Effort: Pulmonary effort is normal. No respiratory distress. Breath sounds: Normal breath sounds. Skin: General: Skin is warm and dry. Capillary Refill: Capillary refill takes less than 2 seconds. Neurological: Mental Status: He is alert and oriented to person, place, and time. Psychiatric: Mood and Affect: Mood normal. Thought Content: Thought content normal. Assessment and Plan: PRABHU on CPAP (Primary) Nocturnal hypoxemia Severe sleep apnea based on AHI criteria associated with hypoxemia on CPAP with 4 LPM bled through He is compliant, therapeutic and benefiting with nasal PAP treatment. Continue CPAP with oxygen 4 LPM during all periods of sleep opportunity. Routine cleaning and change of supplies as needed was encouraged. Continue to avoid engaging in activities that require full alertness when feeling sleepy or tired. Mild intermittent asthma without complication ACT 22 Well controlled on LD ICS inhaler used 1-7 days per week. Discussed daily use is recommended for optimal treatment of airways inflammation. SHARAN to be used as needed Avoid known triggers. PFTs scheduled NONALLERGIC RHINITIS Continue montelukast and nasal corticosteroid Last testing for allergies in 2002. Consider NE Rast completion and repeat CBC/diff with IgE if symptoms worsen. Consider stepping up treatment with 24 hour antihistamine if symptoms worsen. Follow up in Pulmonary Medicine Clinic in 12 months, sooner as needed. DESIRE [facility] I spent a total of 40-54 minutes (exact time 49 mins) on the date of service in preparation, delivery, and documentation of the care provided to Tim Fraser excluding any time spent in the performance of separately billed services. documented in this encounter Nursing Notes * Madison Kunz LPN - 07/16/2023 9:12 AM EDT Chief Complaint Patient presents with Follow Up Sleep Apnea Asthma Noct Hypoxemia Cpap DME: AHP Roosevelt Sleepiness Scale Question 07/16/2023 9:10 AM EDT - Filed by Madison Kunz LPN What is the chance you will doze off in the following situation? Sitting and reading Slight chance of dozing Watching TV Slight chance of dozing Sitting inactive in a public place, such as a theater or meeting No chance of dozing As a passenger in a car for an hour without a break No chance of dozing Lying down to rest in the afternoon when circumstances permit High chance of dozing When sitting and talking to someone No chance of dozing When sitting quietly after lunch without alcohol No chance of dozing In a car, while stopped for a few minutes in traffic No chance of dozing Score (range: 0 - 24) 5 Asthma Control Test Question 07/16/2023 9:12 AM EDT - Filed by Madison Kunz LPN Please select the best response to the five questions below, by clicking the appropriate option button. In the past 4 weeks, how much of the time did your asthma keep you from getting as much done at work, school or at home? (4) A little of the time During the past 4 weeks, how often have you had shortness of breath? (4) Once or twice a week During the past 4 weeks, how often did your asthma symptoms (wheezing, coughing, shortness of breath, chest tightness or pain) wake you up at night or earlier than usual in the morning? (5) Not at all During the past 4 weeks, how often have you used your rescue inhaler or nebulizer medication (such as albuterol)? (5) Not at all How would you rate your asthma control during the past 4 weeks? (4) Well controlled Total ACT Adult Score (range: 5 - 25) 22 (Well Controlled) Total ACT Child Score (range: 0 - 27) Incomplete MMRC Dyspnea Scale = None apply per pt Interm History/Respiratory Symptoms Cough: occ dry/productive Hemoptysis: no Sinus Symptoms: PND Hospitalizations: no ED Trips: no Triggers: air conditions,pets Nocturnal: no CPAP/BiPAP/O2: CPAP WITH o2 @ 4 LPM documented in this encounter Plan of Treatment Upcoming Encounters Date Type Department Care Team (Late st Contact Info) Description 09/25/2023 8:00 AM EDT Office Visit [facility] [address] [phone] Bello Sullivan MD [address] [place] [id number] 10/10/2023 7:15 AM EDT Cardiac Studies Cardiac Studies, [facility] [address] [facility] [place] [id number] 10/22/2023 8:30 AM EDT Office Visit Cardiology, [facility] [address] [facility] [place] [address] Roxanne Pete CRNP [address] [place] [id number] 11/04/2023 8:15 AM EDT Imaging Radiology [facility] 1st Floor, [place] [address] [facility] [place] [id number] 07/16/2024 10:00 AM EDT Office Visit [facility] [address] [facility] [place] [phone] Bernice Daniels CRNP [address] [place] [id number] Scheduled Procedures Name Priority Associated Diagnoses Date/Ti [...] this encounter Medical Devices Implanted Type Area Ambulatory Care Device Identifier Shelf Expiration Date Model / Serial / Lot Lens Li61ao 13.00mm 19.50 - [id number] - [id number] Implanted:Qty: 1 on 03/26/2023 by Max Melendez MD at [facility] Right: Eye [employer] 11/20/2027 [id number] / [id number] / [id number] Lens Li61ao 13.00mm 19.50 - [id number] - [id number] Implanted:Qty: 1 on 04/04/2023 by Max Melendez MD at OR [facility] Left: Eye [employer] 12/21/2027 [id number] / [id number] / [id number] documented as of this encounter Visit Diagnoses Diagnosis Mild intermittent asthma without complication- Primary Unspecified asthma Obstructive sleep apnea Obstructive sleep apnea (adult) (pediatric) Nocturnal hypoxemia Hypoxemia NONALLERGIC RHINITIS Chronic rhinitis documented in this encounter Advance Directives Latest [...] the patient have Health Care Power of Creative Engagement Director? No Code Status History Code Status Date Activated Date Inactivated Comments Full Code 03/26/2023 1:01 PM 03/26/2023 6:40 PM This order reflects the patients wishes and were consensually agreed upon. Question Answer Comments Discussion of Advance Directives occurred with: Patient Does the patient have a Living Will? No Does the patient have Health Care Power of Creative Engagement Director? No Care Teams Oim Consultant Relationship Specialty Start Date End Date Bello Sullivan MD [address] [place] [id number] PCP - General Family Medicine 06/17/19 documented as of this encounter
[2023-11-07 07:57] LABS: Hematocrit (blood only) 37.9 % (42.0-52.0); Hemoglobin 12.9 g/dl (14.0-18.0); Mean Corpuscular Hemoglobin 32.4 pg (25.0-34.0); Mean Corpuscular Volume 95.2 fL (80.0-100.0); Mean Platelet Volume 9.2 fL (9.4-12.4); Platelet Count 258 K/uL (130-400); RDW Coefficient of Variation 12.1 % (11.5-14.5); RDW Standard Deviation 42.5 fL (36.4-46.3); Red Blood Count 3.98 M/uL (4.70-6.10); White Blood Count 7.29 K/ul (4.8-10.8)
[2023-11-07] MEDS: FLUTICASONE PROPIONATE NA SPR 16 GM BTL SCH (08:18)
[2023-11-07] MEDS: FLUTICASONE FUROATE 100MCG 14 PUFFS/INHALER INH SCH (08:19)
[2023-11-07] MEDS: LOSARTAN POTASSIUM 25 MG TAB PO SCH (08:19)
[2023-11-07] MEDS: METOPROLOL SUCC 50MG EXT REL TAB PO SCH (08:19)
[2023-11-07] MEDS: MONTELUKAST SODIUM 10 MG TABLET PO SCH (08:19)
[2023-11-07] MEDS: methIMAzole 5 MG TABLET PO SCH (08:19)
[2023-11-07] MEDS: VANCOMYCIN HCL 1,500 MG in SODIUM CHLORIDE 0.9% 500 ML IV SCH (08:25)
[2023-11-07 08:30] LABS: BUN Creatinine Ratio 20.5 (10-20); Calcium 8.8 mg/dl (8.6-10.3); Creatinine Clr Calc Pharmacy 132.9 ml/min; Est GFR (African American) 106.7 ml/min; Potassium 3.7 mmol/L (3.5-5.1)
--- NOTE | 2023-11-07 08:43 | Pharmacy Report ---
Pharmacy PK ABX Note - Date of Service November 07, 2023 - Assessment and Plan Assessment 73 year old M receiving Vancomycin and Unasyn for treatment of right lower extremity cellulitis. * Day # 2 of antimicrobial therapy. * MRSA nasal swab negative. Blood cultures pending. No leukocytosis. No fever. Plan Vancomycin * Loading dose: 2750 mg IV x 1 * Maintenance dose: 1500 mg IV every 12 hours * Regimen is predicted to achieve target AUC/CHRIS of 400-600 mg/L.hr * Random level ordered for: 11/08/23 Unasyn * 3000 mg IV every 6 hours Pharmacy will continue to follow and will adjust dose/frequency as necessary. Thank you. Pharmacy has transitioned to AUC monitoring for vancomycin. AUC/CHRIS is the preferred PK/PD target and is associated with decreased risk of nephrotoxicity compared to traditional trough targets.
--- OUTSIDE RECORDS SUMMARY | 2023-11-07 09:36 | External Medical Summary | Summary of Care ---
Author Name Unknown Organization [facility] Address [address] [place] [address] Phone [phone] Care Team Providers Care Car Dumper Operator Helper Name Role Phone Bello Sullivan MD Primary Care Provider [phone] Reason for Visit * Reason Comments NEW PATIENT Right lower extremit y abscess. * Evaluate & Treat - Unlimited Visits (Within 3 days (urgent)) - Authorized Specialty Diagnoses / Procedures Referred By Nohemy mendoza Referred To Contact General Surgery Diagnoses Cellulitis of right lower extremity Abscess Javier Montenegro, DO [address] [place] [address] Referral ID Status Reason Start Date Expiration Date Visits Requested Visits Authorized [id number] Authorized Specialty Services Required 11/05/[phone] Encounter Details Date Type Department Care Team ([facility] st Contact Info) Description 11/06/2023 1:30 PM EDT Office Visit General Surgery, [facility] [address] [place] [address] Rc Elena MD [address] [place] [address] Hematoma* Allergies Active Allergy Reactions Criticality Noted Date Comments Amlodipine Edema Other 11/28/2015 Lisinopril Cough 02/04/2018 Sotalol Unknown 02/12/2023 [place] documented as of this encounter (statuses as of 11/06/2023) Medications Medication Sig Dispensed Refills Start Date [...] as of this encounter (statuses as of 11/06/2023) Active Problems Problem Noted Date Diagnosed Date [...] as of this encounter (statuses as of 11/06/2023) Resolved Problems Problem Noted Date Diagnosed Date [...] 06/22/2011 8 Edema 06/22/2011 10/06/2019 [employer] Other*[id number] 09/28/2010 09/15/2013 Overview: PROJECT: #[id number], SPONSOR: Sosa, PI: James Mendez MD SUMMARY: [...] encounter can be closed. CONTACT: Travis Shepherd, Filenet Developer Chronic ischemic heart disease 09/28/2009 02/06/2022 Anticoagulation management encounter 03/16/2008 12/18/2012 terminal manager current use of ant icoagulant therapy 03/16/2008 08/17/2016 Overview: ICD-10 update of inactive term ADVANCE DIRECTIVE INFORMATION 10/02/2005 10/06/2019 Overview: Information given to patient Dyslipidemia, goal to be determined 01/08/2001 03/30/2009 Family history of ischemic heart disease 01/08/2001 09/28/2009 Bicipital tenosynovitis 01/08/2001 06/12/2009 documented as of this encounter (statuses as of 11/06/2023) Immunizations Name Administration Dates Next Due COVID-19 [...] Sign Reading Time Taken Comments Blood Pressure 137/65 11/06/2023 1:17 PM EDT Pulse 63 11/06/2023 1:17 PM EDT Temperature - - Respiratory Rate - - Oxygen Saturation - - Inhaled Oxygen Concentration - - Weight 130.8 kg (288 lb 6.4 oz) 11/06/2023 1:17 PM EDT Height - - Body Mass Index 35.11 11/05/2023 8:02 AM EDT documented in this encounter Progress Notes * Rc Elena MD - 11/06/2023 1:41 PM EDT SUBJECTIVE: Tim Fraser is a 73 year old male. Chief Complaint Patient presents with NEW PATIENT Right lower extremity abscess. HPI: 73-year-old gentleman fell last week, developed a lump in his right lower extremity. Subsequently this has gotten warm, red, tender to palpation. He had an ultrasound which demonstrated a 6 cm hematoma/possible abscess. He was seen by his primary care physician who sent him to General Surgery. Past Medical History: Diagnosis Date Adenomatous polyp [...] [facility] ABDOMEN SURGERY PROCEDURE NEC 1998 hiatal hernia repair COLONOSCOPY, DIAGNOSTIC (RECTUM) 10/07/2014 adenomatous polyps, repeat 3 yrs COLONOSCOPY, DIAGNOSTIC (RECTUM) 10/28/2017 adenomatous polyp, repeat 5 yrs/COLONOSCOPY FLEXIBLE PROXIMAL DIAGNOSTIC performed by Valencia Hewitt DO at ENDOSCOPY [facility] COLONOSCOPY, DIAGNOSTIC (RECTUM) 02/18/2023 biopsies show adenomatous polyps/recall 3 years/COLONOSCOPY FLEXIBLE PROXIMAL DIAGNOSTIC performed by Valencia Hewitt DO at ENDOSCOPY [facility] COLONOSCOPY, REMOVE LESION 02/2004 ascending colon Benign inflammatory polyp. Repeat 10 years. EGD, FLEXIBLE, DIAGNOSTIC 01/14/2018 mild stomach irritation/ESOPHAGOGASTRODUODENOSCOPY (EGD), FLEXIBLE, TRANSORAL, DIAGNOSTIC performedby Valencia Hewitt DO at ENDOSCOPY [facility] INFORMATION Removal of cysts from back INFORMATION 12/29/2012 Laparoscopic ventral hernia repair with 12.5 cm circular Surgi-mesh Dr Awan, Kale\\preschool assistant director Ricki Cantu [facility] 12/29/12 KNEE ARTHROSCOPY/MENISCUS REPAIR 1999 Knee Scope,Med+Lat Menis Repair LAPAROSCOPY; CHOLECYSTECTOMY 1989 Cholecystectomy, Laproscopic REMOVE CATARACT, INSERT LENS PROSTH Right 03/26/2023 RIGHT EXTRACAPSULAR CATARACT REMOVAL WITH INTRAOCULAR LENS performed by Max Melendez MDat OR [facility] REMOVE CATARACT, INSERT LENS PROSTH Left 04/04/2023 LEFT EXTRACAPSULAR CATARACT REMOVAL WITH INTRAOCULAR LENS performed by Max Melendez MD at OR [facility] REMOVE GALLBLADDER 20 years ago REMOVE TONSILS & ADENOIDS, UNDER 12 REPAIR SPIGELIAN HERNIA SURGICAL PROCEDURE ONLY Right 12/31/2022 Inguinal Hernia Repair (Right) by Dr. Sherley Abad Current Outpatient Medications Medication Sig Dispense Refill [...] 5-325 MG Oral Tablet (Percocet) 1 Tablet. Atorvastatin Calcium 80 MG Oral Tablet (Lipitor) TAKE 1 TABLET EVERY MORNING 90 Tablet 3 Eliquis 5 MG Oral Tablet (Apixaban) TAKE 1 TABLET EVERY MORNINGAND TAKE 1 TABLET BEFORE BEDTIME 180Tablet 3 Cephalexin 500 MG Oral Capsule Take 1 Capsule by mouth in the morning and 1 Capsule at noon and 1 Capsule before bedtime. Do all this for 7 days. 21 Capsule 0 Current Facility-Administered Medications Medication Dose Route Frequency Provider Last Rate Last Admin Albuterol Sulfate (Proventil) (2.5 MG/3ML) 0.083% inhalation solution 2.5 mg 2.5 mg Nebulizer Q4H PRN Bernice Daniels CRNP 2.5 mg at 07/18/23 0750 Review of patient's allergies indicates: Allergen Reactions Amlodipine Edema Other Lisinopril Cough Sotalol Unknown [place] Social History: Social History Tobacco Use Smoking status: Never Smokeless tobacco: Never Tobacco comments: second hand smoke exposure to some extent x 18 years Substance Use Topics Alcohol use: No Vaping/E-Cigarette Use Vaping/E-Cigarette Use Never User Vaping/E-Cigarette Substances Vaping/E-Cigarette Devices ROS As per HPI; otherwise negative OBJECTIVE: PHYSICAL EXAM: BP 137/65 | Pulse 63 | Wt 130.8 kg (288 lb 6.4 oz) | BMI 35.11 kg/m | BSA 2.65 m General: alert, healthy, and no distress Head: Normocephalic, No masses, lesions, tenderness or abnormalities Eye Exam: conjunctiva are pink and non-injected, sclera clear Abdomen: abdomen soft and non-tender Extremities: no edema, no clubbing, no cyanosis Skin: skin color, texture, turgor are normal, no rashes or significant lesions Right lower extremity with streaking erythema, central area of hematoma, taut, tender to palpation ASSESSMENT: T14.8XXA Hematoma (primary encounter diagnosis) PLAN: Probable infected hematoma following fall last week. He has been placed on oral antibiotics. Ultrasound with hematoma/possible abscess. He is on Eliquis. We will send him to the emergency department for admission to the medicine service for IV antibiotics. He will need to be off his Eliquis. He mayrequire drainage of the hematoma, however he requires medicine admission and IV antibiotics 1st. Rc Elena MD 11/06/2023 documented in this encounter Nursing Notes * Karissa Alarcon MED ASSIST - 11/06/2023 1:18 PM EDT Chief Complaint Patient presents with NEW PATIENT Right lower extremity abscess. Verified patient. Some apin 01/29 on/off. documented in this encounter Plan of Treatment Upcoming Encounters Date Type Department Care Team (Late st Contact Info) Description 04/27/2024 8:20 AM EST Office Visit [facility] [address] [place] [phone] Bello Sullivan MD [address] [place] [address] 07/16/2024 10:00 AM EDT Office Visit [facility] [address] [facility] [place] [phone] Bernice Daniels CRNP [address] [facility] [place] [address] 10/20/2024 8:15 AM EDT Cardiac Studies Cardiac Studies, [facility] [address] [facility] [place] [address] 11/03/2024 8:30 AM EDT Office Visit Cardiology, [facility] [address] [facility] [place] [address] John Wiseman MD [address] [place] [phone] Scheduled Procedures Name Priority Associated Diagnoses Date/Ti me COLONOSCOPY FLEXIBLE PROXIMA L DIAGNOSTIC Recall History of colonic polyps Scheduled Referrals Name Type Priority Associated Diagnoses Orde r Schedule SURGERY REFERRAL OP Referral Within 3 day s (urgent) Cellulitis of right lower extremity Abscess Ordered: 11/05/2023 Health Maintenance Due Date Last Done Comments Cologuard 07/06/1995 Fecal Occult Blood Test 07/06/1995 Sigmoidoscopy 07/06/1995 COVID-19 Vaccine (4 - season) 2022 02/23/2021, 06/25/2020, 05/21/2020 *SPIROMETRY ONCE [...] this encounter Medical Devices Implanted Type Area [employer] Director Device Identifier Shelf Expiration Date Model / Serial / Lot Lens Li61ao 13.00mm 19.50 - [id number] - [id number] Implanted:Qty: 1 on 03/26/2023 by Max Melendez MD at OR [facility] Right: Eye [employer] 11/20/2027 [id number] / [id number] / [id number] Lens Li61ao 13.00mm 19.50 - [id number] - [id number] Implanted:Qty: 1 on 04/04/2023 by Max Melendez MD at OR [facility] Left: Eye [employer] 12/21/2027 [id number] / [id number] / [id number] documented as of this encounter Visit Diagnoses Diagnosis Hematoma- Primary Contusion of unspecified site documented in this encounter [...] Power of Attor michael? No Care Teams Car Dumper Operator Helper Relationship Specialty Start Date End Date Bello Sullivan MD [address] [place] [address] PCP - General Family Medicine 06/17/19 documented as of this encounter"
[2023-11-07] MEDS ORDERED: fentaNYL citrate PF 100 MCG/2 ML VIAL ONE (10:26)
--- NOTE | 2023-11-07 10:27 | Anesthesiology Consultation ---
Date of Service November 07, 2023 Assessment & Plan Chart Review Chart Review: Acceptable Risk for Surgery and Patient NOT seen in Pre Admission Testing History Surgery Operation Date: 11/07/23 07:00 Proposed Procedures p Incision and Drainage Right Lower Extremity Hematoma - Leif Huizar DO, FACS Height/Weight Height: 6 ft 4 in Weight: 130.5 kg Allergies Allergy/AdvReac Type Severity Reaction Status Date / Time amlodipine AdvReac Intermediate EDEMA Verified 11/06/23 18:15 lisinopril AdvReac Intermediate Cough Verified 11/06/23 18:15 sotalol AdvReac Intermediate A-FIB Verified 11/06/23 18:15 Medications Home Medications Medication Instructions Recorded Confirmed Last Taken albuterol sulfate 90 mcg/actuation 2 puff inhalation Q4H PRN 05/28/18 11/06/23 Unknown aerosol inhaler Shortness Of Breath fluticasone furoate 100 1 inh inhalation QAM 05/28/18 11/06/23 11/06/23 mcg/actuation blister powder for inhalation (Arnuity Ellipta) fluticasone propionate 50 2 spray intranasal QAM 05/28/18 11/06/23 11/06/23 mcg/actuation nasal spray,suspension losartan 25 mg tablet 25 mg PO QAM 05/28/18 11/06/23 11/06/23 multivitamin (Multiple Vitamins 1 tab PO QAM 05/28/18 11/06/23 11/06/23 tablet) omega 3-qop-uaw-fish oil 1,000 mg 1 cap PO HS 05/28/18 11/06/23 11/05/23 (120 mg-180 mg) capsule (Fish Oil) potassium chloride 20 mEq 20 meq PO BID 05/28/18 11/06/23 11/06/23 08:00 tablet,extended release(part/cryst) (Klor-Con M) glucosamine sulf dipot 1 cap PO QPM 08/22/18 11/06/23 11/05/23 chlr,msm,chond 550 mg-C 30 mg-perry 1 mg capsule (Glucosamine Chondroitin) aspirin 81 mg tablet,delayed 81 mg PO HS 11/30/20 11/06/23 11/05/23 release (Adult Low Dose Aspirin) apixaban 5 mg tablet (Eliquis) 5 mg PO BID 12/25/22 11/06/23 11/06/23 08:00 atorvastatin 80 mg tablet 80 mg PO HS 12/25/22 11/06/23 11/05/23 metoprolol succinate 50 mg 50 mg PO QAM 12/25/22 11/06/23 11/06/23 tablet,extended release 24 hr oxycodone-acetaminophen 5 mg-325 1 tab PO Q6H PRN pain #20 tabs 12/31/22 11/06/23 Unknown mg tablet (Percocet) methimazole 5 mg tablet 2.5 mg (1/2 x 5 mg) PO QAM #90 tabs 01/18/23 11/06/23 11/06/23 acetaminophen 650 mg 1,300 mg PO BID 11/06/23 11/06/23 11/06/23 08:00 tablet,extended release (Tylenol Arthritis Pain) albuterol sulfate 2.5 mg/3 mL 2.5 mg inhalation Q4H PRN 11/06/23 11/06/23 Unknown (0.083 %) solution for nebulization Shortness Of Breath Or Wheezing cephalexin 500 mg capsule 500 mg PO TID 11/06/23 11/06/23 11/06/23 08:00 montelukast 10 mg tablet 10 mg PO QAM 11/06/23 11/06/23 11/06/23 Active Medications Generic Name Dose Route Start Last Admin Trade Name Freq PRN Reason Stop Dose Admin Aspirin 81 mg 11/06/23 22:23 11/07/23 00:01 Aspirin 81 Mg Ectab PO 12/06/23 22:22 81 mg HS KAREN Administration Atorvastatin Calcium 80 mg 11/06/23 22:23 11/07/23 00:01 Atorvastatin 40 Mg Tab PO 12/06/23 22:22 80 mg HS KAREN Administration Fluticasone Furoate 1 puffs 11/07/23 09:00 11/07/23 08:19 Fluticasone Furoate 100mcg 14 Puffs/Inhaler INH 12/07/23 08:59 Not Given QAM KAREN Fluticasone Propionate 2 sprays 11/07/23 09:00 11/07/23 08:18 Fluticasone Propionate Na Spr 16 Gm Btl NA 12/07/23 08:59 2 sprays QAM KAREN Administration Heparin Sodium (Porcine) 5,000 units 11/06/23 22:23 11/07/23 06:04 Heparin Sod 5,000 Unit/0.5 Ml Vial SQ 12/06/23 22:22 5,000 units Q8 KAREN Administration Vancomycin HCl 1,500 mg/ 530 mls @ 200 mls/hr 11/07/23 08:00 11/07/23 08:25 Sodium Chloride IV 11/14/23 07:59 200 mls/hr Q12H KAREN Administration Ampicillin Sodium/Sulbactam 100 mls @ 200 mls/hr 11/06/23 23:00 11/07/23 08:23 Sodium 3,000 mg/ Sodium IV 11/13/23 22:59 Infused Chloride Q6H KAREN Infusion Losartan Potassium 25 mg 11/07/23 09:00 11/07/23 08:19 Losartan Potassium 25 Mg Tab PO 12/07/23 08:59 25 mg QAM KAREN Administration Methimazole 2.5 mg 11/07/23 09:00 11/07/23 08:19 Methimazole 5 Mg Tablet PO 12/07/23 08:59 2.5 mg QAM KAREN Administration Metoprolol Succinate 50 mg 11/07/23 09:00 11/07/23 08:19 Metoprolol Succ 50mg Ext Rel Tab PO 12/07/23 08:59 50 mg QAM KAREN Administration Montelukast Sodium 10 mg 11/07/23 09:00 11/07/23 08:19 Montelukast Sodium 10 Mg Tablet PO 12/07/23 08:59 10 mg QAM KAREN Administration Past Medical History Medical History Cardiac murmur no current issues Obesity Aortic stenosis Moderate aortic stenosis (CHAIM= 1.3cm2, mean PG=24.1mmHg) per 09/2018 echo - has had a more recent echo in 2022 at [facility] Osteoarthritis History of kidney stones no intervention needed GERD (gastroesophageal reflux disease) controlled Thyroid nodule Sleep apnea CPAP WITH O 3L/MIN HS Asthma stable Atrial fibrillation follows with Dr. Quiñones, "chronic sotalol therapy with CHADS score of 1" Past Family History Family History Mother Family history of cancer Sister Family history of lung cancer Other No family history of adverse response to anesthesia Past Surgical History Surgical History History of total knee replacement LEFT-10/2019 History of right inguinal hernia repair History of left inguinal hernia repair 09/28/2019 [facility] S/P thyroid biopsy History of cardioversion "YRS AGO" History of esophagogastroduodenoscopy (EGD) H/O foot surgery TENDON REPAIR IN CHILDHOOD History of arthroscopy of right knee History of laparoscopic cholecystectomy Social History Smoking Status: Never smoker Do You Dip or Chew Tobacco: No Hx Alcohol Use: No Alcohol type: beer alcohol intake frequency: holidays/special occasions only Hx Substance Use: No substance use type: does not use Physical Exam Vital Signs Last Vital Signs Temp 36.4 C L 11/07/23 07:11 Pulse 59 L 11/07/23 07:11 Resp 16 11/07/23 07:11 BP 151/76 H 11/07/23 07:11 Pulse Ox 95 11/07/23 07:11 O2 Del Method Room Air 11/07/23 07:11 Testing Laboratory Results 11/07/23 06:35 11/07/23 06:35
--- NOTE | 2023-11-07 10:35 | Surgery Progress Note ---
Date of Service November 07, 2023 Assessment & Plan (1) Hematoma of right lower extremity: Plan: Traumatic hematoma of the anterior right lower extremity with surrounding cellulitis. No obvious abscess on imaging. Discussed options to include observation with antibiotics versus I&D. Patient prefers to proceed with surgery. Plan for incision and drainage right lower extremity hematoma Risk discussed to include but not limited to bleeding, infection, poor wound healing, damage to surrounding structures, need for future more extensive surgery, and the risk of anesthesia Will need wound care and postop antibiotics (2) Cellulitis of right lower extremity: (3) Atrial fibrillation: (4) Chronic venous insufficiency: (5) Chronic anticoagulation: Admission and Anticipated Discharge Date Admission Date: November 06, 2023 Subjective Admitted with right lower extremity cellulitis. Has small resolving hematoma that may or may not be infected. Swelling worsened initially after the injury and the redness appeared over the past 24 to 48 hours. Last dose of Eliquis yesterday morning. Physical Exam Constitutional: WD/WN, vitals as above + obese Respiratory: normal respiratory effort, lungs clear to auscultation Cardiovascular: RRR, no murmur, no edema Skin: no rashes, warm and dry + erythema and + fluctulance Erythema and edema to right lower extremity. Approximately assisted down his right lower leg there is a 5 x 4 cm fluctuant area. Results & Data Vital Signs (Past 12 Hours) Vital Signs Temp Pulse Resp BP Pulse Ox O2 Del Method 11/07/23 07:11 36.4 C L 59 L 16 151/76 H 95 Room Air Laboratory Results Laboratory Results - last 24 hr 11/06/23 11/06/23 11/07/23 16:28 23:55 06:35 WBC 6.70 7.29 RBC 4.29 L 3.98 L Hgb 13.7 L 12.9 L Hct 41.5 L 37.9 L MCV 96.7 95.2 MCH 31.9 32.4 MCHC 33.0 34.0 RDW Std Deviation 43.1 42.5 RDW Coeff of Flavio 12.2 12.1 Plt Count 286 258 MPV 8.7 L 9.2 L Immature Gran % (Auto) 0.6 Neut % (Auto) 66.0 Lymph % (Auto) 22.8 [place] % (Auto) 8.7 Eos % (Auto) 1.5 Baso % (Auto) 0.4 Neut # (Auto) 4.42 Lymph # (Auto) 1.53 [place] # (Auto) 0.58 Eos # (Auto) 0.10 Baso # (Auto) 0.03 Immature Gran # (Auto) 0.04 Sodium 139 141 Potassium 4.1 3.7 Chloride 102 104 Carbon Dioxide 31 29 Anion Gap 6 8 BUN 17 15 Creatinine 0.82 0.73 Est Cr Clr Drug Dosing 112.9 132.9 Est GFR ( Amer) 101.7 106.7 Est GFR (Non-Af Amer) 87.7 92.0 BUN/Creatinine Ratio 20.7 H 20.5 H Glucose 124 H 85 Calcium 9.1 8.8 Total Bilirubin 0.7 AST 16 ALT 13 Alkaline Phosphatase 99 Troponin I High Sens 3.8 Total Protein 7.4 Albumin 3.8 Globulin 3.6 Albumin/Globulin Ratio 1.1 Lipase 24 Nasal Screen MRSA (PCR) Negative Diagnostic Findings CT scan personally reviewed and interpreted agree with the assessment of a 4 x 4 x 1.5 cm fluid collection. No rim enhancement. Likely resolving hematoma, could represent phlegmon or infected hematoma. No obvious abscess. Lower Extremity CT 11/06/23 21:31 Exam(s): CT EXTREMITY RIGHT LOWER With Contrast IV Amt: 93 ML OPTIRAY 320 EXAM: CT Right Lower Extremity With Intravenous Contrast CLINICAL HISTORY: Reason for exam: Right LE hematoma. TECHNIQUE: Axial computed tomography images of the right lower extremity with intravenous contrast. CTDI is 9.36 mGy and DLP is 540.68 mGy-cm. Automated exposure control was utilized for the study. A dose lowering technique was utilized adhering to the principles of ALARA. CONTRAST: Patient received 93 ML OPTIRAY 320 of IV contrast COMPARISON: No relevant prior studies available. FINDINGS: Bones/joints: Diffuse osseous demineralization. No acute fracture or subluxation. Soft tissues: Subcutaneous edema and skin thickening about the lower calf/ankle, concerning for cellulitis. Hyperdense coalescing fluid anterior to the tibia measures approximately 4.1 x 1.5 cm. Correlate for coalescing phlegmonous change versus soft tissue hematoma. No drainable abscess in this location. IMPRESSION: 1. No acute fracture or subluxation. 2. Subcutaneous edema and skin thickening about the lower calf/ankle, concerning for cellulitis. No subcutaneous air. 3. Hyperdense coalescing fluid anterior to the tibia measures approximately 4.1 x 1.5 cm. Correlate for coalescing phlegmonous change versus soft tissue hematoma. No drainable abscess in this location. Electronically signed by: Georges Vines MD 11/07/23 00:34 AM PG Care Time/CCT Total # of Minutes Spent Total Time Spent with Patient: Total time spent is greater than 50% in coordination of care (as documented) at patient's floor/unit and/or counseling patient: Coding Level of Care Code 18452 SUB INP/OBS CARE 2/35MIN Diagnoses Hematoma of right lower extremity, initial encounter S80.11XA Encounter type: initial encounter Cellulitis of right lower extremity L03.115 Atrial fibrillation I48.91 Chronic venous insufficiency I87.2 Chronic anticoagulation Z79.01 (1) Hematoma of right lower extremity Encounter type: initial encounter Qualified Code(s): S80.11XA - Contusion of right lower leg, initial encounter
[2023-11-07] MEDS: LACTATED RINGER'S 1,000 ML IV SCH (10:55)
[2023-11-07] MEDS ORDERED: ePHEDrine sulfate 50 MG/ML AMP IV PRN (11:05)
[2023-11-07] MEDS ORDERED: ONDANSETRON INJ 2 MG/ML 2 ML VIAL IV PRN (11:05)
[2023-11-07] MEDS ORDERED: fentaNYL citrate PF 100 MCG/2 ML VIAL IV PRN (11:05)
[2023-11-07] MEDS ORDERED: HYDROmorphone INJ 1 MG/ML SYRINGE IV PRN (11:05)
[2023-11-07] MEDS ORDERED: ATROPINE SULFATE 0.1 MG/ML 10ML SYR IV PRN (11:05)
[2023-11-07] MEDS ORDERED: LIDOCAINE 2% 2 ML VIAL/AMP(20MG/ML) INFIL ONE (11:23)
[2023-11-07] MEDS ORDERED: PROPOFOL IV EMULSION 10 MG/ML 20 ML VIAL IV ONE (11:23)
[2023-11-07] MEDS ORDERED: ONDANSETRON INJ 2 MG/ML 2 ML VIAL ONE (11:23)
[2023-11-07] MEDS: BUPIVACAINE 0.5 % 5 MG/1 ML MPF 30ML VIAL INJ ONE (11:43)
--- NOTE | 2023-11-07 11:46 | Operative Report ---
PG Post Operative Report Pre & Post Diagnosis Operation Date: 11/07/23 07:00 Pre-Op Diagnosis: Right Lower Extremity Hematoma Post-Op Diagnosis: Right Lower Extremity Hematoma I identified the patient and participated in the time-out.: Yes Procedure Operation Date: 11/07/23 07:00 Actual Procedures p Incision and Drainage Right Lower Extremity Hematoma(Right) - Leif Huizar DO, NAKUL Surgeon Leif Huizar DO, NAKUL Retort Cooler None Estimated Blood Loss 20 Findings Consistent with Post-Op Diagnosis 20 cc old hematoma evacuated, no active bleeding. Culture sent, no obvious infection Specimens Right lower extremity hematoma cultures Anesthesia Type MAC Complications none Disposition Accompanied Patient To Recovery: No Disposition: Recovery Room Indications 73-year-old male presented with right lower extremity cellulitis, imaging revealed hematoma versus phlegmon, concern for infection. Plan for incision and drainage right leg hematoma. The risks of the procedure were discussed, all questions were answered, and the patient agreed to proceed with surgery as planned. Description of Procedure The patient was properly identified, consented, and taken to the operating room where he was placed in the supine position. Sedation with monitored anesthesia care was induced. SCDs and a safety belt were placed. Preoperative antibiotics were administered. The patient's right lower extremity was prepped and draped in the standard sterile fashion. Surgical timeout was performed and all parties were in agreement that this was the correct patient and procedure to be performed and we continued as planned. Local anesthetic was injected along the skin incision. A vertically oriented elliptical incision was made overlying the hematoma and deepened down through the subcutaneous tissue with electrocautery. Approximately 20 cc of old blood was evacuated. This did not appear infected. Cultures were sent. The wound was copiously irrigated and hemostasis was confirmed. The wound was then packed with moistened 2 inch Kerlix gauze. Fluffed 4 x 4's, and ABD, and Kerlix roll were used as dressing. The patient was awakened in the operating room and taken to the PACU where he recovered without apparent incident. All sponge, instrument and needle counts were correct at the conclusion of the procedure. The patient tolerated the procedure well. I attest to the content of the Intraoperative Record and any orders documented therein. Any exceptions are noted below.
--- NOTE | 2023-11-07 12:29 | Anesthesiology Progress Note ---
Date of Service November 07, 2023 Anesthesia Post Procedure Vital Signs Vital Signs: Temp Pulse Pulse Pulse Resp BP BP 11/07/23 12:20 36.5 C 64 19 109/65 11/07/23 12:10 64 21 128/67 11/07/23 12:00 68 17 123/72 11/07/23 11:53 36.5 C 65 15 156/64 H 11/07/23 10:47 36.5 C 74 20 132/70 11/07/23 07:11 36.4 C L 59 L 16 151/76 H 11/06/23 22:29 36.7 C 71 16 157/79 H 11/06/23 20:12 69 12 156/65 H 11/06/23 19:33 73 11/06/23 19:14 73 18 148/79 H 11/06/23 17:50 68 23 135/69 11/06/23 17:21 70 19 135/69 11/06/23 16:00 72 16 124/63 11/06/23 15:25 36.7 C 76 20 135/71 Pulse Ox O2 Del Method O2 Flow Rate 11/07/23 12:20 97 Room Air 11/07/23 12:10 99 Room Air 11/07/23 12:00 100 Nasal Cannula 3 11/07/23 11:53 99 Nasal Cannula 3 11/07/23 10:47 95 Room Air 11/07/23 07:11 95 Room Air 11/06/23 22:29 97 Room Air 11/06/23 20:12 97 Room Air 11/06/23 19:33 11/06/23 19:14 95 Room Air 11/06/23 17:50 95 Room Air 11/06/23 17:21 94 Room Air 11/06/23 16:00 94 Room Air 11/06/23 15:25 94 Room Air Pain Intensity Right Zavala: Pain Intensity: 2 Transfer of Care Handoff Completed per policy Notes Mental Status: alert / awake / arousable and participated in evaluation Patient Amnestic to Procedure: Yes Nausea / Vomiting: adequately controlled Pain: adequately controlled Airway Patency, RR, SpO2: stable & adequate BP & HR: stable & adequate Hydration State: stable & adequate Anesthetic Complications: no major complications apparent and Pt Satisfied with anesthetic care
--- NOTE | 2023-11-07 14:42 | Hospitalist Progress Note ---
Date of Service November 07, 2023 Assessment & Plan (1) Hematoma of right lower extremity: (2) Atrial fibrillation: (3) Hypertension: (4) Chronic anticoagulation: (5) Coronary artery disease: (6) Dyslipidemia: Plan: Right lower extremity hematoma versus abscess -Admit to [facility] -S/P I and D by Dr. Huizar POD # 0 -EBL 20cc/ this amount of hematoma was evacuated, no active bleeding, no obvious infection -Continue vanco/unasyn for now; awaiting initial culture -MRSA swab negative CAD -Continue home antihypertensive medications including losartan, metoprolol, potassium chloride -Continue statin therapy Atrial Fibrillation continue metoprolol Discussed with surgery, ok to resume eliquis on 11/07 after dressing change give 40meq KCL today to keep K > 4, obtain mag in a.m. COPD Asthma PRABHU -Continue on home inhaler, nasal spray - May use home cpap machine Hyperthyroidism -Continue methimazole 2.5 mg daily DVT ppx: Hold Eliquis, likely to resume in am., pt is ambulating CODE: Full code Dispo: From home, s/p I an D; awaiting on intraoperative cultures, possible d/c tomorrow A total of 51 minutes were spent with greater than 50% of that time face to face with the patient, personally reviewing all current laboratories, imaging studies, past medication reconciliation, outpatient chart review, and discussion with specialists to collaborate care for the patient with attending. Please see attending documentation for corrections and/or additions. Admission and Anticipated Discharge Date Admission Date: November 06, 2023 Supervising Physician Co-Signing Physician Notes I have discussed the case with the collaborating advanced practitioner. I agree with the above PN. I have reviewed and confirmed the patients medical history, the findings on physical examination, and the patients diagnosis and treatment plan with Anderson VALERO and agree with the information documented. Patient now s/p ID of RLE 20cc of blood without appearance of infection. Continue IV abx and await culture. monitor post op labs. rest of plan as above I spent a total of 15 minutes coordinating, documenting, and providing care for this patient excluding time spent in the performance of separately billed services. All of the aforementioned completed outside of collaborating with the assigned advanced practitioner for a full treatment plan. I have reviewed the advanced practitioner's documentation, and I agree with, and take responsibility for the plan of care Subjective Pt seen and examined in room 355-2 Follow up RLE hematoma. He reports no significant pain. He is able to ambulate w/o difficulty. He denies f/c/s, chest pain, sob, n/v/d, abd pain. He remains NPO for I and D today. Review of Systems Review of Systems: All systems reviewed & are unremarkable except as noted in HPI & below Physical Exam Physical Exam: Gen: WD/WN, NAD, A&O x3 HEENT: Normocephalic, atraumatic, conjunctivae moist, sclerae anicteric, mucous membranes moist. Lung: Clear to Auscultation bilaterally, no wheezes/rales/rhonchi Heart: Regular rate, regular rhythm, 1/6 ELIESER LUSB, rubs, or gallops Abdomen: Soft, NT, ND +BS x 4 Extremities: No edema Skin: Warm, no rash, negative turgor. Results & Data Results & Data Vital Signs (Past 12 Hours) Vital Signs Temp Pulse Pulse Resp BP Pulse Ox O2 Del Method 11/07/23 13:38 36.4 C L 67 16 134/69 94 Room Air 11/07/23 13:05 62 16 126/53 L 95 Room Air 11/07/23 12:35 36.8 C 63 18 137/72 98 Room Air 11/07/23 12:20 36.5 C 64 19 109/65 97 Room Air 11/07/23 12:10 64 21 128/67 99 Room Air 11/07/23 12:00 68 17 123/72 100 Nasal Cannula 11/07/23 11:53 36.5 C 65 15 156/64 H 99 Nasal Cannula 11/07/23 10:47 36.5 C 74 20 132/70 95 Room Air 11/07/23 07:11 36.4 C L 59 L 16 151/76 H 95 Room Air O2 Flow Rate 11/07/23 13:38 11/07/23 13:05 11/07/23 12:35 11/07/23 12:20 11/07/23 12:10 11/07/23 12:00 3 11/07/23 11:53 3 11/07/23 10:47 11/07/23 07:11 Laboratory Results I have independently reviewed and interpreted patient's labs including CBC, BMP. Medications Administered Current Inpatient Medications Acetaminophen (Acetaminophen 325 Mg Tab) 650 mg PO Q4H PRN PRN Reason: Moderate Pain (Scale 4, 5, 6) Stop: 12/06/23 22:22 Albuterol (Albuterol Hfa 8 Gm Inhaler) 2 puffs INH Q4H PRN PRN Reason: Shortness Of Breath Stop: 12/06/23 22:22 Aspirin (Aspirin 81 Mg Ectab) 81 mg PO HS [facility] Stop: 12/06/23 22:22 Last Admin: 11/07/23 00:01 Dose: 81 mg Atorvastatin Calcium (Atorvastatin 40 Mg Tab) 80 mg PO HS [facility] Stop: 12/06/23 22:22 Last Admin: 11/07/23 00:01 Dose: 80 mg Atropine Sulfate (Atropine Sulfate 0.1 Mg/Ml 10ml Syr) 0.5 mg IV Q1M PRN PRN Reason: PACU Use-HR<40 &/or Bradycardi Stop: 11/07/23 19:05 Ephedrine Sulfate (Ephedrine Sulfate 50 Mg/Ml Amp) 5 mg IV Q5M PRN PRN Reason: PACU Use Only-SBP<90 mmHg Stop: 11/07/23 19:05 Fentanyl Citrate (Fentanyl Citrate Pf 100 Mcg/2 Ml Vial) 50 mcg IV Q5M PRN PRN Reason: PACU Use Only-Pain Stop: 11/07/23 19:05 Fluticasone Furoate (Fluticasone Furoate 100mcg 14 Puffs/Inhaler) 1 puffs INH QAM KAREN Stop: 12/07/23 08:59 Last Admin: 11/07/23 08:19 Dose: Not Given Fluticasone Propionate (Fluticasone Propionate Na Spr 16 Gm Btl) 2 sprays NA QAM KAREN Stop: 12/07/23 08:59 Last Admin: 11/07/23 08:18 Dose: 2 sprays Heparin Sodium (Porcine) (Heparin Sod 5,000 Unit/0.5 Ml Vial) 5,000 units SQ Q8 KAREN Stop: 12/06/23 22:22 Last Admin: 11/07/23 14:36 Dose: 5,000 units Hydromorphone HCl (Hydromorphone Inj 1 Mg/Ml Syringe) 0.25 mg IV Q5M PRN PRN Reason: PACU Use Only-Pain Stop: 11/07/23 19:05 Vancomycin HCl 1,500 mg/ (Sodium Chloride) 530 mls @ 200 mls/hr IV Q12H [facility] Stop: 11/14/23 07:59 Last Infusion: 11/07/23 11:00 Dose: Infused Ampicillin Sodium/Sulbactam Sodium 3,000 mg/ Sodium Chloride 100 mls @ 200 mls/ hr IV Q6H [facility] Stop: 11/13/23 22:59 Last Infusion: 11/07/23 13:19 Dose: Infused Lactated Ringer's (Lr) 1,000 mls @ 15 mls/hr IV .Q24H [facility] Stop: 12/07/23 10:29 Last Infusion: 11/07/23 11:14 Dose: Infused Losartan Potassium (Losartan Potassium 25 Mg Tab) 25 mg PO [facility] Stop: 12/07/23 08:59 Last Admin: 11/07/23 08:19 Dose: 25 mg Methimazole (Methimazole 5 Mg Tablet) 2.5 mg PO [facility] Stop: 12/07/23 08:59 Last Admin: 11/07/23 08:19 Dose: 2.5 mg Metoprolol Succinate (Metoprolol Succ 50mg Ext Rel Tab) [facility] Stop: 12/07/23 08:59 Last Admin: 11/07/23 08:19 Dose: 50 mg Miscellaneous Information (Vancomycin Consult Active) 1 each N/A UD PRN PRN Reason: Consult Stop: 12/06/23 22:22 Montelukast Sodium (Montelukast Sodium 10 Mg Tablet) 10 mg PO [facility] Stop: 12/07/23 08:59 Last Admin: 11/07/23 08:19 Dose: 10 mg Ondansetron HCl (Ondansetron Inj 2 Mg/Ml 2 Ml Vial) 4 mg IV Q4H PRN PRN Reason: Nausea And Vomiting Stop: 12/06/23 22:22 Ondansetron HCl (Ondansetron Inj 2 Mg/Ml 2 Ml Vial) 4 mg IV ONCE PRN PRN Reason: PACU Use Only-Nausea/Vomiting Stop: 11/07/23 19:05 Oxycodone/Acetaminophen (Oxycodone/Acetaminophen 5mg/325mg Tab) 1 tab PO Q6H PRN PRN Reason: pain Stop: 11/20/23 22:22 (1) Hematoma of right lower extremity Encounter type: initial encounter Qualified Code(s): S80.11XA - Contusion of right lower leg, initial encounter
[2023-11-07] MEDS: POTASSIUM CHLORIDE CRTAB 20 MEQ TABCR PO STA (15:19)
[2023-11-07] MEDS: ACETAMINOPHEN 325 MG TAB PO PRN (15:21)
--- NOTE | 2023-11-08 15:00 | Discharge Summary ---
Discharge Summary Date of Service November 08, 2023 Principal Dx & Hospital Course #1 = Principal Diagnosis (1) Hematoma of right lower extremity: (2) Atrial fibrillation: (3) Hypertension: (4) Chronic anticoagulation: (5) Coronary artery disease: (6) Dyslipidemia: Right lower extremity hematoma versus abscess -Admit to [facility] -S/P I and D by Dr. Huizar POD # 1 -EBL 20cc/ this amount of hematoma was evacuated, no active bleeding, no obvious infection -De escalate to Keflex for additional 7 days; pt states he still has a full 7 day supply home, probiotic prescribed -Pt will need daily dressing changes, irrigate wound with saline using a 35cc syringe and blunt need. Place adaptic into the wound and then gently fill with aquacel Ag ensuring to leave a tail, cover ABG and secure with kerlix. -Pt educated he will need to follow up with [facility] as a wound vac will likely need to be used. Our nurse coordinator will call on Saturday, 11/10, to arrange this. CAD -Continue home antihypertensive medications including losartan, metoprolol, potassium chloride -Continue statin therapy Atrial Fibrillation continue metoprolol Discussed with surgery, resume eliquis COPD Asthma PRABHU -Continue on home inhaler, nasal spray - May use home cpap machine Hyperthyroidism -Continue methimazole 2.5 mg daily DVT ppx: Eliquis CODE: Full code Dispo: D/C to home if demonstrates ability to change dressings; CM working on Home health with a likely start of Saturday A total of 51 minutes were spent with greater than 50% of that time face to face with the patient, personally reviewing all current laboratories, imaging studies, past medication reconciliation, outpatient chart review, and discussion with specialists to collaborate care for the patient with attending. Please see attending documentation for corrections and/or additions. Notes For Next Care Provider S/P I and D of RLE Hematoma, Wound Culture is pending; however surgeon felt most likely hematoma not abscess. He is being treated with empiric antibiotic, kefl ex, for additional 7 days. He will need to be seen by the wound center at [facility] as it is felt he will likely need a wound vac. This appointment needs arrange. He is to do daily dressing changes. Medication Changes From Visit none Admission HPI Per Admitting Provider This is a 73 yo M with PMHx of Atrial fibrillation on Eliquis, chronic ischemic heart disease, HLD, COPD, asthma, PRABHU, aortic stenosis who presented to outpatient general surgery office this morning and saw Dr. Rc Elena for right lower extremity lump after a fall he sustained 1 week ago. Ultrasound completed demonstrated a 6 cm hematoma/possible abscess and he was noted to be on Eliquis, therefore was referred to the ER for IV antibiotics and possible I&D during admission. Pt states that he was pushing off a boat 2 weeks ago and fell and hit the right chapin on the edge of the boat. Pt completed Keflex starting 10/28 until this morning. He denies any nausea, vomiting, fever, chills or sweats. Pt last dose of eliquis was this morning. He denies any fevers or chills but states he uses tylenol daily for arthritis pain. Admission Exam Per Admitting Provider General: awake, alert, no apparent distress Head: Normocephalic, atraumatic ENT: PERRL, EOMI, no pharyngeal exudate, mucous membranes moist Chest: Clear to auscultation, on room air, no adventitious breath sounds Cardiac: Regular rate and rhythm, no murmur, no JVD, normal peripheral pulses, good capillary refill Abdominal: NABS x 4 quadrants, soft, nondistended, nontender to palpation, no rebound or guarding Extremities: RLE with erythema, lump visible over the RLE, peripheral edema of the ankle, or erythema, calfs nontender to palpation Psych: Normal mood and affect Neuro: AAO x 3, strength intact bilaterally and rated 5/5, no motor deficits, speech is clear, no peripheral sensory deficits Discharge Exam Gen: WD/WN, NAD, A&O x3 HEENT: Normocephalic, atraumatic, conjunctivae moist, sclerae anicteric, mucous membranes moist. Lung: Clear to Auscultation bilaterally, no wheezes/rales/rhonchi Heart: Regular rate, regular rhythm, 1/6 ELIESER LUSB, rubs, or gallops Abdomen: Soft, NT, ND +BS x 4 Extremities: RLE dressing CDI, wound eval via picture, large open wound 3.5 x 1.1 x 1.7 Skin: Warm, no rash, negative turgor. Updated Medication List Medication Instructions Recorded Confirmed Type albuterol sulfate 90 mcg/actuation 2 puff inhalation Q4H PRN 05/28/18 11/06/23 History aerosol inhaler Shortness Of Breath fluticasone furoate 100 1 inh inhalation QAM 05/28/18 11/06/23 History mcg/actuation blister powder for inhalation (Arnuity Ellipta) fluticasone propionate 50 2 spray intranasal QAM 05/28/18 11/06/23 History mcg/actuation nasal spray,suspension losartan 25 mg tablet 25 mg PO QAM 05/28/18 11/06/23 History multivitamin (Multiple Vitamins 1 tab PO QAM 05/28/18 11/06/23 History tablet) omega 4-qww-skk-fish oil 1,000 mg 1 cap PO HS 05/28/18 11/06/23 History (120 mg-180 mg) capsule (Fish Oil) potassium chloride 20 mEq 20 meq PO BID 05/28/18 11/06/23 History tablet,extended release(part/cryst) (Klor-Con M) glucosamine sulf dipot 1 cap PO QPM 08/22/18 11/06/23 History chlr,msm,chond 550 mg-C 30 mg-perry 1 mg capsule (Glucosamine Chondroitin) aspirin 81 mg tablet,delayed 81 mg PO HS 11/30/20 11/06/23 History release (Adult Low Dose Aspirin) apixaban 5 mg tablet (Eliquis) 5 mg PO BID 12/25/22 11/06/23 History atorvastatin 80 mg tablet 80 mg PO HS 12/25/22 11/06/23 History metoprolol succinate 50 mg 50 mg PO QAM 12/25/22 11/06/23 History tablet,extended release 24 hr oxycodone-acetaminophen 5 mg-325 1 tab PO Q6H PRN pain #20 tabs 12/31/22 11/06/23 Rx mg tablet (Percocet) methimazole 5 mg tablet 2.5 mg (1/2 x 5 mg) PO QAM #90 tabs 01/18/23 11/06/23 Rx acetaminophen 650 mg 1,300 mg PO BID 11/06/23 11/06/23 History tablet,extended release (Tylenol Arthritis Pain) albuterol sulfate 2.5 mg/3 mL 2.5 mg inhalation Q4H PRN 11/06/23 11/06/23 History (0.083 %) solution for nebulization Shortness Of Breath Or Wheezing cephalexin 500 mg capsule 500 mg PO TID 11/06/23 11/06/23 History montelukast 10 mg tablet 10 mg PO QAM 11/06/23 11/06/23 History Saccharomyces boulardii 250 mg 250 mg PO DAILY #7 caps 11/08/23 Rx capsule (Florastor) Hospital Stay Data Consultations 11/06/23 20:04 ED Decision to Admit Stat 11/06/23 22:23 Consult General Surgery Routine Procedures Performed Operation Date: 11/07/23 07:00 Actual Procedures p Incision and Drainage Right Lower Extremity Hematoma(Right) - Leif Huizar DO, FACS Diagnostic Imagining Performed Lower Extremity CT 11/06/23 21:31 Exam(s): CT EXTREMITY RIGHT LOWER With Contrast IV Amt: 93 ML OPTIRAY 320 EXAM: CT Right Lower Extremity With Intravenous Contrast CLINICAL HISTORY: Reason for exam: Right LE hematoma. TECHNIQUE: Axial computed tomography images of the right lower extremity with intravenous contrast. CTDI is 9.36 mGy and DLP is 540.68 mGy-cm. Automated exposure control was utilized for the study. A dose lowering technique was utilized adhering to the principles of ALARA. CONTRAST: Patient received 93 ML OPTIRAY 320 of IV contrast COMPARISON: No relevant prior studies available. FINDINGS: Bones/joints: Diffuse osseous demineralization. No acute fracture or subluxation. Soft tissues: Subcutaneous edema and skin thickening about the lower calf/ankle, concerning for cellulitis. Hyperdense coalescing fluid anterior to the tibia measures approximately 4.1 x 1.5 cm. Correlate for coalescing phlegmonous change versus soft tissue hematoma. No drainable abscess in this location. IMPRESSION: 1. No acute fracture or subluxation. 2. Subcutaneous edema and skin thickening about the lower calf/ankle, concerning for cellulitis. No subcutaneous air. 3. Hyperdense coalescing fluid anterior to the tibia measures approximately 4.1 x 1.5 cm. Correlate for coalescing phlegmonous change versus soft tissue hematoma. No drainable abscess in this location. Electronically signed by: Georges Vines MD 11/07/23 00:34 AM Pending Results Patient Have Any Pending Studies at Discharge: Yes (wound culture is pending from incision and drainage) Discharge Instructions Given to Patient (Per Discharging Provider) MEDICATION CHANGES: Please complete the antibiotic, KEFLEX, that was prescribed to you as outpatient for an additional 7 days. Next dose is due in the evening on 11/08/23. Please take a daily probiotic while on antibiotics. This was prescribed to your pharmacy. Please continue all other medications as prescribed. SUMMARY OF TEST RESULTS: You were admitted with a right lower extremity hematoma. You were seen and evaluated by general surgery and underwent incision and drainage of this hematoma. The hematoma was evacuated and you now have an open wound to your right lower extremity. This requires daily dressing changes and will continue antibiotics for an additional 7 days. It is also imperative that you establish at the wound care center until this is healed. PENDING TEST RESULTS: Wound culture is pending from the incision and drainage procedure. RECOMMENDATIONS FOR FOLLOW-UP: Please follow up with your Primary Care Provider and Surgeon as scheduled. Again, you will need to be seen at the [facility] to continue treatment for your Right lower extremity wound. You will receive a call with an appointment for this. Current Dressing Change is as follows: Irrigate wound with saline using a 35 cc syringe and a blunt needle. Place Adaptic into the wound then gently filled with Aquacel AG ensuring to leave a tail, cover with an ABD and secure with Ker lix. Please keep leg elevated when seated. OTHER INSTRUCTIONS: Seek medical attention if you have: * temperature above 101 * chest pain or trouble breathing * abdominal pain, nausea, vomiting * diarrhea, dark stools or bloody stools * any unanswered questions or concerns Call 911 if symptoms are severe. Please take good care of yourself. It has been a pleasure taking care of you. Please take care of yourself. If you have any questions regarding your recent hospitalization please contact [facility] and request Esther Hospitalist @ [phone]. Kristyn Barron PA-C Total Time Total Time Spent Total Time Spent (In Minutes): 55 minutes Supervising Physician Co-Signing Physician Notes I have discussed the case with the collaborating advanced practitioner. I agree with the above DC summary. I have reviewed and confirmed the patients medical history, the findings on physical examination, and the patients diagnosis and treatment plan with Anderson VALERO and agree with the information documented. Mr Fraser is now s/p ID of RLE. Patient to continue on keflex for an addition 7 days. instructed on wound care and HH services established for beginning of next week. I spent a total of 15 minutes coordinating, documenting, and providing care for this patient excluding time spent in the performance of separately billed services. All of the aforementioned completed outside of collaborating with the assigned advanced practitioner for a full treatment plan. I have reviewed the advanced practitioner's documentation, and I agree with, and take responsibility for the plan of [facility] Attestation I certify that this patient is under my care and that I, or a physicians librarian assistant working with me, had a face to-face encounter that meets the home health [id number] encounter requirements with this patient. The encounter with the patient was in whole, or in part, for the following medical condition, which is the primary reason for home health care (list medical condition): RLE hematoma with open wound I certify that, based on my findings, the following services are medically necessary home health services: My clinical findings support the need for the above services because:Pt needs support with dressing packing/changes Further, I certify that my clinical findings support that this patient is homebound (i.e. absences from home require considerable and taxing effort and are for medical reasons or [employer] services or infrequently or of short duration when for other reasons) because: He needs daily dressing changes that requiring nursing support Certification for Home Health Services: Based on the above findings, I certify that this patient is confined to the home and needs intermittent group home care, physical therapy and/or speech therapy or continues to need occupational therapy. The patient is under my care, and I have initiated the establishment of the plan of care. This patient will be followed by a physician who will periodically review the plan of care.
[2023-11-08] MEDS: APIXABAN 5 MG TABLET PO SCH (15:37)
== END 2023-11-08 17:28 | disposition home health service (06) | DRG 580 ==
LOC: ED 15:19 → 3W 18:49 → SUATTDRO 18:49 → 3W 20:47

== ENCOUNTER 2024-01-07 09:34 | Inpatient (IN) ==
--- NOTE | 2024-01-07 09:42 | Emergency Department Note ---
History of Present Illness General Chief complaint: Flank Pain Stated complaint: KIDNEY ISSUE, BACK PAIN, COLD SWEATS Time Seen by Provider: 01/07/24 09:41 History of Present Illness Maximum Pain Intensity: 9 This is a 73-year-old male with a history of kidney stones that presents to the emergency department via private vehicle with complaints of "right flank pain". Pain started yesterday on the right low back area and the presented to urgent care. Pain currently 8-9/10. Patient notes the pain began around 5 AM today. There is associated nausea. He notes history of kidney stones. He took oxycodone today at 8 AM. No nausea or vomiting. Home Medications Medication Instructions Recorded Confirmed Type albuterol sulfate 90 mcg/actuation 2 puff inhalation Q4H PRN 05/28/18 01/07/24 History aerosol inhaler Shortness Of Breath fluticasone furoate 100 1 inh inhalation QAM 05/28/18 01/07/24 History mcg/actuation blister powder for inhalation (Arnuity Ellipta) fluticasone propionate 50 2 spray intranasal QAM 05/28/18 01/07/24 History mcg/actuation nasal spray,suspension losartan 25 mg tablet 25 mg PO QAM 05/28/18 01/07/24 History multivitamin (Multiple Vitamins 1 tab PO QAM 05/28/18 01/07/24 History tablet) omega 6-xqj-fdt-fish oil 1,000 mg 1 cap PO HS 05/28/18 01/07/24 History (120 mg-180 mg) capsule (Fish Oil) potassium chloride 20 mEq 20 meq PO BID 05/28/18 01/07/24 History tablet,extended release(part/cryst) (Klor-Con M) glucosamine sulf dipot 1 cap PO QPM 08/22/18 01/07/24 History chlr,msm,chond 550 mg-C 30 mg-perry 1 mg capsule (Glucosamine Chondroitin) aspirin 81 mg tablet,delayed 81 mg PO HS 11/30/20 01/07/24 History release (Adult Low Dose Aspirin) apixaban 5 mg tablet (Eliquis) 5 mg PO BID 12/25/22 01/07/24 History atorvastatin 80 mg tablet 80 mg PO HS 12/25/22 01/07/24 History metoprolol succinate 50 mg 50 mg PO QAM 12/25/22 01/07/24 History tablet,extended release 24 hr oxycodone-acetaminophen 5 mg-325 1 tab PO Q6H PRN pain #20 tabs 12/31/22 01/07/24 Rx mg tablet (Percocet) methimazole 5 mg tablet 2.5 mg (1/2 x 5 mg) PO QAM #90 tabs 01/18/23 01/07/24 Rx acetaminophen 650 mg 1,300 mg PO BID 11/06/23 01/07/24 History tablet,extended release (Tylenol Arthritis Pain) albuterol sulfate 2.5 mg/3 mL 2.5 mg inhalation Q4H PRN 11/06/23 01/07/24 History (0.083 %) solution for nebulization Shortness Of Breath Or Wheezing montelukast 10 mg tablet 10 mg PO QAM 11/06/23 01/07/24 History Allergies Allergy/AdvReac Type Severity Reaction Status Date / Time amlodipine AdvReac Intermediate EDEMA Verified 01/01/24 10:31 lisinopril AdvReac Intermediate Cough Verified 01/01/24 10:31 sotalol AdvReac Intermediate A-FIB Verified 01/01/24 10:31 Past Med/Surg History Problem List Acute right flank pain (Acute) Hydroureteronephrosis (Acute) Right distal ureteral calculus (Acute) Status post total left knee replacement History of cholecystectomy History of tonsillectomy and adenoidectomy History of hernia repair UMBILICAL Hyperthyroidism On Methimazole- under surveillance by [facility] endocrine (euthyroid per most recent labs) Follows with endo- last seen 04/13/20- no acute issues noted Status post right knee replacement History of repair of hiatal hernia H/O ventral hernia repair H/O colonoscopy Medical History Ascending aortic aneurysm NSVT (nonsustained ventricular tachycardia) PAF (paroxysmal atrial fibrillation) s/p DCCV Hypertension per records Coronary artery disease Dyslipidemia per records Atrial fibrillation Chronic venous insufficiency Chronic anticoagulation Cardiac murmur no current issues Obesity Aortic stenosis Moderate aortic stenosis (CHAIM= 1.3cm2, mean PG=24.1mmHg) per 09/2018 echo - has had a more recent echo in 2022 at [facility] [address] Osteoarthritis History of kidney stones no intervention needed GERD (gastroesophageal reflux disease) controlled Thyroid nodule Sleep apnea CPAP WITH O 3L/MIN HS Asthma stable Surgical History History of incision and drainage (11/07/23) Incision and Drainage Right Lower Extremity Hematoma(Right) - Leif Huizar, DO, FACS History of total knee replacement LEFT-10/2019 History of right inguinal hernia repair History of left inguinal hernia repair 09/28/2019 [facility] S/P thyroid biopsy History of cardioversion "YRS AGO" History of esophagogastroduodenoscopy (EGD) H/O foot surgery TENDON REPAIR IN CHILDHOOD History of arthroscopy of right knee History of laparoscopic cholecystectomy Family History Mother Family history of cancer Sister Family history of lung cancer Other No family history of adverse response to anesthesia Social History Smoking Status: Never smoker Second Hand Exposure: No; Do You Dip or Chew Tobacco: No; Hx Alcohol Use: No Hx Substance Use: No Preferred Language: Trinidadian Communication Ability: Effective Visual Impairment: No Limitations Hearing Ability: Normal 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 Required: No Beliefs That Will Affect Care: None marital status: Current Living Situation: Spouse Current Living Situation Comment: with 1 dog current occupational status: retired Feels Safe at Home: Yes Diet: ideal protein Diet Comment: Educated to increase protein, vitamin c, d and zinc Assistive Devices: None Review of Systems A total of 10 systems reviewed and were otherwise negative Physical Exam Vital Signs Vital Signs - 24 hr 01/07/24 09:37 01/07/24 10:49 01/07/24 12:00 Temperature 36.9 C Temperature Source Temporal Artery Scan Pulse Rate 71 67 Pulse Rate [Apical] 64 Pulse Rhythm Regular Respiratory Rate 20 20 19 Respiratory Effort / Characteristics Non-Labored Spontaneous Respiratory Depth Normal Blood Pressure 181/81 H Blood Pressure [Left Arm] 146/73 H Blood Pressure Mean 114 Blood Pressure Mean [Left Arm] 97 Pulse Oximetry 93 94 96 Oxygen Delivery Method Room Air Room Air Room Air Sepsis Recent Fever Within 48 Hours No Sepsis New/Unexplained Change in Mental Status No Sepsis Action Taken by Nursing No Action Required VITAL SIGNS - Vital signs and nursing notes were reviewed. Stable and afebrile. GENERAL -73-year-old male appearing his stated age who is in no acute distress. Communicates well with provider and answers questions appropriately. SKIN - Without rashes. No meningeal or petechial rash. HEAD - NC/AT. EYES - PERRL with EOMI bilaterally. Sclera anicteric. EARS - No deformities of external structures noted on gross examination bilaterally. NOSE - Midline and without cyanosis. No epistaxis or purulent drainage noted. MOUTH/OROPHARYNX - Without perioral cyanosis. NECK - Neck with FROM. No nuchal rigidity. LUNGS - CTA CARDIAC - RRR ABDOMEN - Abdominal contour normal without pulsations or visible masses. BS normoactive all four quadrants. No tenderness, palpable masses, hepatosplenomegaly, or ascites noted. EXTREMITIES - No clubbing or peripheral cyanosis. +5/5 strength noted in UE/LE bilaterally. NEUROLOGIC - Cranial nerves II through XII grossly intact. PSYCH -alert, oriented and pleasant on exam Course Administered Medications Morphine Sulfate (Morphine Sulfate 4 Mg/Ml 1 Ml Carp\\Vial) 4 mg IV Q4H PRN PRN Reason: Pain (6,7,8,9,10) Stop: 01/21/24 12:18 Last Admin: 01/07/24 12:41 Dose: 4 mg Documented By: TITO Oxycodone HCl (Oxycodone Hcl Ir 5 Mg Tab (Immediate Release)) 5 mg PO Q4H PRN PRN Reason: MODERATE Pain (4,5,6) & Pre PT Stop: 01/21/24 12:18 Last Admin: 01/07/24 12:41 Dose: 5 mg Documented By: TITO Discontinued Medications Sodium Chloride (Nss) 500 mls @ 100 mls/hr IV .Q5H KAREN Stop: 02/06/24 11:44 Last Admin: 01/07/24 12:06 Dose: 125 mls/hr Documented By: TITO Morphine Sulfate (Morphine Sulfate 2 Mg/Ml Carp) 2 mg IV NOW STA Stop: 01/07/24 10:06 Last Admin: 01/07/24 10:42 Dose: 2 mg Documented By: PAIGE Ondansetron HCl (Ondansetron Inj 2 Mg/Ml 2 Ml Vial) 4 mg IV NOW STA Stop: 01/07/24 10:06 Last Admin: 01/07/24 10:42 Dose: 4 mg Documented By: PAIGE Medical Decision Making Laboratory Data 01/07/24 10:10 01/07/24 10:10 Lab Results 01/07/24 01/07/24 Range/Units 10:00 10:10 WBC 13.95 H (4.8-10.8) K/ul RBC 4.73 (4.70-6.10) M/uL Hgb 15.2 (14.0-18.0) g/dl Hct 44.4 (42.0-52.0) % MCV 93.9 (80.0-100.0) fL MCH 32.1 (25.0-34.0) pg MCHC 34.2 (32.0-36.0) g/dL RDW Std Deviation 45.8 (36.4-46.3) fL RDW Coeff of Flavio 13.3 (11.5-14.5) % Plt Count 243 (130-400) K/uL MPV 9.2 L (9.4-12.4) fL Immature Gran % (Auto) 0.4 % Neut % (Auto) 87.6 % Lymph % (Auto) 5.5 % [place] % (Auto) 6.3 % Eos % (Auto) 0.1 % Baso % (Auto) 0.1 % Neut # (Auto) 12.22 H (1.40-6.50) K/uL Lymph # (Auto) 0.77 L (1.20-3.40) K/uL [place] # (Auto) 0.88 H (0.11-0.59) K/uL Eos # (Auto) 0.01 (0.00-0.50) K/uL Baso # (Auto) 0.01 (0.00-0.20) K/uL Immature Gran # (Auto) 0.06 (0.01-0.20) K/uL Sodium 136 (136-145) mmol/L Potassium 3.7 (3.5-5.1) mmol/L Chloride 100 (98-107) mmol/L Carbon Dioxide 26 (21-32) mmol/L Anion Gap 10 (3-11) BUN 16 (6-23) mg/dl Creatinine 1.01 (0.6-1.4) mg/dl Est Cr Clr Drug Dosing 94.3 ml/min Est GFR ( Amer) 85.1 ml/min Est GFR (Non-Af Amer) 73.4 ml/min BUN/Creatinine Ratio 15.8 (10-20) Glucose 153 H (70-99(Fasting)) mg/dl Calcium 9.2 (8.6-10.3) mg/dl Total Bilirubin 1.0 (0.2-1.0) mg/dl AST 20 (13-39) U/L ALT 17 (7-52) U/L Alkaline Phosphatase 93 (34-104) U/L Total Protein 7.5 (6.0-8.3) gm/dl Albumin 4.3 (3.4-5.0) gm/dl Globulin 3.2 (2.5-4.0) gm/dl Albumin/Globulin Ratio 1.3 (0.9-2) Urine Color Yellow Urine Appearance Cloudy A (Clear) Urine pH 7.0 (4.5-7.5) Ur Specific Mcdonough 1.016 (1.000-1.030) Urine Protein 1+ H (Negative) Urine Glucose (UA) Negative (Negative) Urine Ketones Negative (Negative) Urine Blood 3+ H (Negative) Urine Nitrite Negative (Negative) Urine Bilirubin Negative (Negative) Urine Urobilinogen Negative (Negative) Ur Leukocyte Esterase 1+ H (Negative) Urine WBC (Auto) 0-5 (0-5) /hpf Urine RBC (Auto) >20 H (0-2) /hpf U Hyaline Cast (Auto) 0-2 (0-2) /lpf U Epithel Cells (Auto) 0-2 (0-2) /hpf Urine Bacteria (Auto) None Seen (None Seen) Imaging Data Radiologist's Impression: Abdomen/Pelvis CT 01/07/24 09:[address] WITHOUT CONTRAST CT DOSE: 1698.54 mGy.cm HISTORY: Acute right-sided flank pain R flank pain, hx kidney stone TECHNIQUE: Multiaxial CT images of the abdomen and pelvis were performed without contrast. A dose lowering technique was utilized adhering to the principles of ALARA. COMPARISON STUDY: 08/22/2018 FINDINGS: Cardiomegaly with aortic valvular and coronary arterial calcifications. There is mild bibasilar atelectasis. No free air. The unenhanced spleen, pancreas and adrenal glands are unremarkable. Cholecystectomy with likely postsurgical biliary ductal dilation. Unchanged probable cyst within the posterior right hepatic lobe on image 24 series 2. Mild nonspecific bilateral perinephric stranding. There is dovu-fy-tpeqxtpr right-sided hydroureteronephrosis secondary to an obstructing 7 x 5 x 8 mm calculus of the distal right ureter on image 316 series 3 approximately 2 cm upstream to the UVJ. There are at least 4 nonobstructing calculi of the right kidney measuring up to 4 mm. Bilateral renal hypodensities are incompletely characterized on this exam however suggestive of probable cysts. 3 mm cortical calcification of the superior pole left kidney. Punctate left renal calculi. Partially decompressed urinary bladder with wall thickening. Prostatomegaly. Small left and moderate right inguinal hernias. The right inguinal hernia contains fat, trace amount of fluid, a portion of the nonobstructed and tortuous sigmoid colon and a portion of the anterior urinary bladder lumen perivesicular stranding. Atherosclerosis of the aorta without aneurysm. There is no lymphadenopathy. Postoperative changes near the gastroesophageal junction. Normal appendix. No bowel obstruction or bowel wall thickening identified. Degenerative changes of the shoulders and spine. IMPRESSION: 1. Ygqg-iv-elbwparz right-sided hydroureteronephrosis secondary to an obstructing 8 mm calculus of the distal right ureter just upstream to the UVJ. 2. Right greater than left nonobstructing bilateral nephrolithiasis. 3. Moderate sized right inguinal hernia containing mesenteric fat, trace amount of fluid, nonobstructed sigmoid colon and a portion of the urinary bladder. 4. No bowel obstruction or bowel wall thickening. 5. Additional findings as above. ACT 112: Negative or not required by law. The above report was generated using voice recognition software. It may contain grammatical, syntax or spelling errors. Electronically signed by: Silvano Daily M.D. 01/07/2024 10:56 AM MDM Narrative Patient was seen and evaluated as above in room B02. Review was performed of triage nursing notes and vital signs. I did review pertinent previous visits and patient history. After obtaining a thorough history and physical examination the above work up was performed. Patient presents to us today for evaluation of right flank pain in the setting of history of kidney stones. Patient well- appearing and nontoxic but appears to be in pain. IV access with established. Labs were drawn. Mild leukocytosis 13.95. No anemia. No emergent metabolic disturbance. Mild hyperglycemia 153. Urinalysis reveals findings to suggest stone but no infection. A CT scan was performed of the abdomen/pelvis and does reveal mild to moderate right-sided hydroureteronephrosis secondary to an obstructing 8 mm calculus of the distal right ureter just upstream to the UVJ. Incidentals also reviewed with the patient and patient was provided a copy of the CT scan report. While here the patient's pain and symptoms were medicated with IV morphine, IV Zofran. A smaller dose of morphine was administered however even despite this mild hypoxia 88 noted and he was started on supplemental O2. I do believe that further evaluation and management in the inpatient setting is warranted. I did discuss this with urology, DESIRE Guajardo as well as the hospitalist service. Please refer to further documentation regarding his stay. GCS: 15 In the evaluation and treatment of this patient the following differential diagnoses were entertained: Renal colic, UTI, pyelonephritis, bowel obstruction, among others Impression & Plan Right distal ureteral calculus, Hydroureteronephrosis, Acute right flank pain Discharge Plan Visit Data Chief Complaint: Flank Pain Stated Complaint: KIDNEY ISSUE, BACK PAIN, COLD SWEATS ED Provider: Sharon Tracey ED Midlevel Provider: Adrian Perrin Discharge Problem: Right distal ureteral calculus, Hydroureteronephrosis, Acute right flank pain Patient Disposition: Admitted As Inpatient Condition: Good Discharge Instructions Interventions: ED Discharge Assessment Last Done: 01/07/24 14:20
[2024-01-07 10:36] LABS: Basophils # (auto) 0.01 K/uL (0.00-0.20); Basophils % (auto) 0.1 %; Eosinophils # (auto) 0.01 K/uL (0.00-0.50); Eosinophils % (auto) 0.1 %; Hematocrit (blood only) 44.4 % (42.0-52.0); Hemoglobin 15.2 g/dl (14.0-18.0); Immature Granulocytes # (auto) 0.06 K/uL (0.01-0.20); Immature Granulocytes % (auto) 0.4 %; Lymphocytes # (auto) 0.77 K/uL (1.20-3.40); Lymphocytes % (auto) 5.5 %; Mean Corpuscular Hemoglobin 32.1 pg (25.0-34.0); Mean Corpuscular Hgb Conc 34.2 g/dL (32.0-36.0); Mean Corpuscular Volume 93.9 fL (80.0-100.0); Mean Platelet Volume 9.2 fL (9.4-12.4); Monocytes # (auto) 0.88 K/uL (0.11-0.59); Monocytes % (auto) 6.3 %; Neutrophils # (auto) 12.22 K/uL (1.40-6.50); Neutrophils % (auto) 87.6 %; Platelet Count 243 K/uL (130-400); RDW Coefficient of Variation 13.3 % (11.5-14.5); RDW Standard Deviation 45.8 fL (36.4-46.3); Red Blood Count 4.73 M/uL (4.70-6.10); White Blood Count 13.95 K/ul (4.8-10.8)
[2024-01-07] MEDS: MoRPHine SULFATE 2 MG/ML CARP IV STA (10:42)
[2024-01-07] MEDS: ONDANSETRON INJ 2 MG/ML 2 ML VIAL IV STA (10:42)
[2024-01-07 10:52] LABS: Albumin Globulin Ratio 1.3 (0.9-2); Albumin Level 4.3 gm/dl (3.4-5.0); BUN Creatinine Ratio 15.8 (10-20); Calcium 9.2 mg/dl (8.6-10.3); Creatinine Clr Calc Pharmacy 94.3 ml/min; Est GFR (African American) 85.1 ml/min; Est GFR (Non-African American) 73.4 ml/min; Globulin 3.2 gm/dl (2.5-4.0); Potassium 3.7 mmol/L (3.5-5.1); Total Protein 7.5 gm/dl (6.0-8.3)
[2024-01-07 10:56] LABS: Appearance Urine Cloudy (Clear); Bacteria Urine Automated None Seen (None Seen); Bilirubin Urine Negative (Negative); Blood Urine 3+ (Negative); Cast Urine Automated 0-2 /lpf (0-2); Color Urine Yellow; Epithelial Cell Urine Auto 0-2 /hpf (0-2); Glucose Urine UA Negative (Negative); Ketones Urine Negative (Negative); Leukocyte Esterase Urine 1+ (Negative); Nitrite Urine Negative (Negative); Protein Urine 1+ (Negative); RBC Urine Automated >20 /hpf (0-2); Specific Gravity Urine 1.016 (1.000-1.030); Urobilinogen Urine Negative (Negative); WBC Urine Automated 0-5 /hpf (0-5)
--- NOTE | 2024-01-07 10:58 | CT Scan Report ---
ABDOMEN AND PELVIS CT WITHOUT CONTRAST CT DOSE: 1698.54 mGy.cm HISTORY: Acute right-sided flank pain R flank pain, hx kidney stone TECHNIQUE: Multiaxial CT images of the abdomen and pelvis were performed without contrast. A dose lo wering technique was utilized adhering to the principles of ALARA. COMPARISON STUDY: 08/22/2018 FINDINGS: Cardiomegaly with aortic valvular and coronary arterial calcifications. There is mild bibas ilar atelectasis. No free air. The unenhanced spleen, pancreas and adrenal glands are unremarkable. C holecystectomy with likely postsurgical biliary ductal dilation. Unchanged probable cyst within the p osterior right hepatic lobe on image 24 series 2. Mild nonspecific bilateral perinephric stranding. There is lxtn-ds-ftetehir right-sided hydroureteron ephrosis secondary to an obstructing 7 x 5 x 8 mm calculus of the distal right ureter on image 316 se zohra 3 approximately 2 cm upstream to the UVJ. There are at least 4 nonobstructing calculi of the rig ht kidney measuring up to 4 mm. Bilateral renal hypodensities are incompletely characterized on this exam however suggestive of probable cysts. 3 mm cortical calcification of the superior pole left kidn ey. Punctate left renal calculi. Partially decompressed urinary bladder with wall thickening. Prostat omegaly. Small left and moderate right inguinal hernias. The right inguinal hernia contains fat, trac e amount of fluid, a portion of the nonobstructed and tortuous sigmoid colon and a portion of the ant erior urinary bladder lumen perivesicular stranding. Atherosclerosis of the aorta without aneurysm. There is no lymphadenopathy. Postoperative changes helga r the gastroesophageal junction. Normal appendix. No bowel obstruction or bowel wall thickening ident ified. Degenerative changes of the shoulders and spine. IMPRESSION: 1. Kelz-zo-aifyfwto right-sided hydroureteronephrosis secondary to an obstructing 8 mm calculus of th e distal right ureter just upstream to the UVJ. 2. Right greater than left nonobstructing bilateral nephrolithiasis. 3. Moderate sized right inguinal hernia containing mesenteric fat, trace amount of fluid, nonobstruct ed sigmoid colon and a portion of the urinary bladder. 4. No bowel obstruction or bowel wall thickening. 5. Additional findings as above. ACT 112: Negative or not required by law. The above report was generated using voice recognition software. It may contain grammatical, syntax o r spelling errors. Electronically signed by: Silvano Daily M.D. 01/07/2024 10:56 AM
[2024-01-07] MEDS: SODIUM CHLORIDE 0.9% 500 ML IV SCH (12:06)
[2024-01-07] MEDS: oxyCODONE HCL IR 5 MG TAB (IMMEDIATE RELEASE) PO PRN (12:41)
[2024-01-07] MEDS: MoRPHine SULFATE 4 MG/ML 1 ML CARP\\VIAL IV PRN (12:41)
--- NOTE | 2024-01-07 13:04 | Communication Note ---
Date of Service: January 07, 2024 73-year-old male with PMH of HLD, thyroid noted, HTN, prediabetes, PRABHU, mild intermittent asthma, nocturnal hypoxemia, paroxysmal atrial fibrillation, GERD, obesity, kidney stones, chronic venous insufficiency presented to the ED with acute worsening of right flank pain. Patient reports that he has right flank pain started around Saturday, had acute worsening today morning and hence presented to the ED. Describes the pain as dull/achy. Denies any radiation of pain. Reports oxycodone relieves pain. Patient denies any pain or burning with passing urine, denies fever, denies sore throat/cough/chest pain/headache/dizziness. Patient denies smoking/alcohol use/recreational drug use. Full code as per my discussion with the patient. Labs reviewed, WBC elevated likely reactive secondary to pain in the setting of kidney stone. Other labs fairly WNL. UA with noted hematuria likely secondary to ureteral stone. Patient denies pain or burning with passing urine. Active problem: Right renal stone with hydroureteronephrosis: Admitting CTAP with mild to moderate right-sided hydroureteronephrosis secondary to an obstructing 8 mm calculus of the distal right ureter just upstream to the UVJ. Patient with right-sided flank pain. Patient denies pain or burning with passing urine. Monitor off antibiotic. Continue IV fluids, pain management and bowel regimen, tamsulosin. Uro consult. NPO midnight until uro eval in AM. Leukocytosis: UA not suggestive of UTI, patient denies any signs and symptoms of UTI. No CVA angle tenderness. Monitor off antibiotic. Leukocytosis likely reactive secondary to acute stress. RLE wound: clean dressing. wound care following per pt. no s/s infection. consult wocn. Other chronic medical conditions: Continue with/resume home meds as and when able. Exam GENERAL: Alert and oriented x3. NAD, on RA. HEENT: No pallor, no icterus. Pupils equal, round and reactive to light. Oral mucosa moist. NECK: No JVD, no neck masses. HEART: S1 and S2 heard. Regular rate and rhythm. No murmur, no gallop. RESPIRATORY SYSTEM: Normal AP diameter. No accessory muscle use. No wheezing, no crackles. ABDOMEN: Soft, bowel sounds present, nontender, no distention. CENTRAL NERVOUS SYSTEM: No facial droop. Speech is clear. Obeys simple commands. Moves extremities. EXTREMITIES: 1-2 +ble edema, no erythema seen. RLE wound w/ no surrounding erythema or tenderness. No CVA glo tender. I have seen and examined the patient and have discussed the case with the provider above. I agree with the assessment and plan as stated.
--- OUTSIDE RECORDS SUMMARY | 2024-01-07 13:04 | External Medical Summary | Summary of Care ---
Author Name Unknown Organization [facility] Address [address] [place] [address] Phone [phone] Care Team Providers Care Compliance Counsel Name Role Phone Bello Sullivan MD Primary Care Provider [phone] Encounter Details Date Type Department Care Team (Late st Contact Info) Description 12/12/2023 Telephone [facility] [address] [place] [address] Bello Sullivan MD [address] [place] [address] Allergies Active Allergy Reactions Criticality Noted Date Comments Amlodipine Edema Other 11/28/2015 Lisinopril Cough 02/04/2018 Sotalol Unknown 02/12/2023 VT documented as of this encounter (statuses as of 12/13/2023) Medications Medication Sig Dispensed Refills Start Date [...] BEFORE BEDTIME 180 Tablet 3 10/31/2023 Active Saccharomyces boulardii 250 MG Oral Capsule (Florastor) Take 1 Capsule by mouth daily. Active Hospital, Clinic, or Other Facility Administered Medication Ordered Dose Route Frequency Start Date End Date Status Albuterol Sulfate (Proventil) (2.5 MG/3ML) 0.083% inhalation solution 2.5 mgIndications:Mild intermittent asthma without complication 2.5 mg NEBULIZER Q4H PRN 07/13/2022 Acti ve documented as of this encounter (statuses as of 12/13/2023) Active Problems Problem Noted Date Diagnosed Date [...] as of this encounter (statuses as of 12/13/2023) Resolved Problems Problem Noted Date Diagnosed Date [...] 06/22/2011 8 Edema 06/22/2011 10/06/2019 [employer] Other*[id number] 09/28/2010 09/15/2013 Overview: PROJECT: #[id number], SPONSOR: Sosa, PI: James Mendez MD SUMMARY: [...] encounter can be closed. 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 therapy 03/16/2008 08/17/2016 Overview: ICD-10 update of inactive term ADVANCE DIRECTIVE INFORMATION 10/02/2005 10/06/2019 Overview: Information given to patient Dyslipidemia, goal to be determined 01/08/2001 03/30/2009 Family history of ischemic heart disease 01/08/2001 09/28/2009 Bicipital tenosynovitis 01/08/200112/2009 documented as of this encounter (statuses as of 12/13/2023) Immunizations Name Administration Dates Next Due COVID-19 [...] encounter Miscellaneous Notes * Telephone Encounter - Bello Sullivan MD - 12/13/2023 5:13 PM EDT signed * Telephone Encounter - Marianne Molina MED ASSIST - 12/12/2023 10:52 AM EDT Received verbal patient care order from [facility] that state as follows: "1:Other/Right Leg Zavala Hemotoma surgical site. Perform wound vac changes to right lower zavala: Remove old wound vac dressing. Cleanse wound with NSS, Pat dry. Skin prep around per-wound and , Apply (black sponge) to wound bed. Cover with occlusive drape to form seal. Cut small slit in drape and apply trac pad. Connect to tubing/wound vac. Apply suction and 125mmHg. Continuous wound vac to be changed M-W-; Effective Date: 12/09/2023." Placed on provider's desk for signature. documented in this encounter Plan of Treatment Upcoming Encounters Date Type Department Care Team (Late st Contact Info) Description 04/27/2024 8:20 AM EST Office Visit [facility] [address] [place] [phone] Bello Sullivan MD [address] [place] [address] 07/16/2024 10:00 AM EDT Office Visit [facility] [address] [facility] [place] [id number] Bernice Daniels CRNP [address] [facility] [place] [address] 10/20/2024 8:15 AM EDT Cardiac Studies Cardiac Studies, [facility] [address] [facility] [place] [address] 11/03/2024 8:30 AM EDT Office Visit Cardiology, [facility] [address] [facility] [place] [address] John Wiseman MD [address] [facility] [place] [id number] Scheduled Procedures Name Priority Associated Diagnoses Date/Ti me COLONOSCOPY FLEXIBLE PROXIMA L DIAGNOSTIC Recall History of colonic polyps Health Maintenance Due Date Last Done Comments Cologuard 07/06/1995 Fecal Occult Blood Test 07/06/1995 Sigmoidoscopy 07/06/1995 Adult Wellness Visit 2016 COVID-19 Vaccine ( season) 2022 02/23/2021, 06/25/2020, [...] this encounter Medical Devices Implanted Type Area Dry Paste Supervisor Device Identifier Shelf Expiration Date Model / Serial / Lot Lens Li61ao 13.00mm 19.50 - [id number] - [id number] Implanted:Qty: 1 on 03/26/2023 by Max Melendez MD at OR [facility] Right: Eye [employer] 11/20/2027 [id number] / [id number] / [id number] Lens Li61ao 13.00mm 19.50 - [id number] - [id number] Implanted:Qty: 1 on 04/04/2023 by Max Melendez MD at OR [facility] Left: Eye [employer] 12/21/2027 [id number] / [id number] / [id number] documented as of this encounter Advance Directives [...] Power of Attor michael? No Care Teams Compliance Counsel Relationship Specialty Start Date End Date Bello Sullivan MD [address] [place] [address] PCP - General Family Medicine 06/17/19 documented as of this encounter
--- OUTSIDE RECORDS SUMMARY | 2024-01-07 13:05 | External Medical Summary | Summary of Care ---
Author Name Unknown Organization [facility] Address [address] [place] [address] Phone [phone] Care Team Providers Care Hockey Instructor Name Role Phone Bello Sullivan MD Primary Care Provider +1- [phone] Encounter Details Date Type Department Care Team (Late st Contact Info) Description 11/28/2023 Telephone [facility] [address] [place] [address] Bello Sullivan MD [address] [place] [address] Allergies Active Allergy Reactions Criticality Noted Date Comments Amlodipine Edema Other 11/28/2015 Lisinopril Cough 02/04/2018 Sotalol Unknown 02/12/2023 VT documented as of this encounter (statuses as of 12/04/2023) Medications Medication Sig Dispensed Refills Start Date [...] as of this encounter (statuses as of 12/04/2023) Active Problems Problem Noted Date Diagnosed Date [...] as of this encounter (statuses as of 12/04/2023) Resolved Problems Problem Noted Date Diagnosed Date [...] 06/22/2011 8 Edema 06/22/2011 10/06/2019 [employer] Other*[id number] 09/28/2010 09/15/2013 Overview: PROJECT: #[id number], SPONSOR: Sosa, PI: James Mendez MD SUMMARY: [...] encounter can be closed. CONTACT: Travis Shepherd, Hand Ii Tube Bender Chronic ischemic heart disease 09/28/2009 02/06/2022 Anticoagulation management encounter 03/16/2008 12/18/2012 intermission coordinator current use of ant icoagulant therapy 03/16/2008 08/17/2016 Overview: ICD-10 update of inactive term ADVANCE DIRECTIVE INFORMATION 10/02/2005 10/06/2019 Overview: Information given to patient Dyslipidemia, goal to be determined 01/08/2001 03/30/2009 Family history of ischemic heart disease 01/08/2001 09/28/2009 Bicipital tenosynovitis 01/08/200112/2009 documented as of this encounter (statuses as of 12/04/2023) Immunizations Name Administration Dates Next Due COVID-19 [...] encounter Miscellaneous Notes * Telephone Encounter - Marianne Molina MED ASSIST - 12/04/2023 10:17 AM EDT Received another fax from [facility] services for fdc. * Telephone Encounter - Nacho Tian MED ASSIST - 11/28/2023 9:40 AM EDT Received fax from [employer] [facility]. Please review patient order, sign date and fax to [phone] documented in this encounter Plan of Treatment Upcoming Encounters Date Type Department Care Team (Late st Contact Info) Description 04/27/2024 8:20 AM EST Office Visit [facility] [address] [place] [facility] [place] [address] Bello Sullivan MD [address] [place] [facility] [place] [address] 07/16/2024 10:00 AM EDT Office Visit [facility] Disorders [facility] [place] [phone] Bernice Daniels CRNP [facility] [place] [address] 10/20/2024 8:15 AM EDT Cardiac Studies Cardiac Studies, [facility] [address] [facility] [place] [address] 11/03/2024 8:30 AM EDT Office Visit Cardiology, [facility] [address] [facility] [place] [address] John Wiseman MD 132 [facility] [place] [address] Scheduled Procedures Name Priority Associated Diagnoses Date/Ti [...] this encounter Medical Devices Implanted Type Area Soaker Hides Device Identifier Shelf Expiration Date Model / Serial / Lot Lens Li61ao 13.00mm 19.50 - [id number] - [id number] Implanted:Qty: 1 on 03/26/2023 by Max Melendez MD at OR [facility] Right: Eye [employer] 11/20/2027 [id number] / [id number] / [id number] Lens Li61ao 13.00mm 19.50 - [id number] - [id number] Implanted:Qty: 1 on 04/04/2023 by Max Melendez MD at OR [facility] Left: Eye [employer] 12/21/2027 [id number] / [id number] / [id number] documented as of this encounter Advance Directives [...] Power of Attor michael? No Care Teams Hockey Instructor Relationship Specialty Start Date End Date Bello Sullivan MD [address] [place] [address] PCP - General Family Medicine 06/17/19 documented as of this encounter
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
--- OUTSIDE RECORDS SUMMARY | 2024-01-07 13:05 | External Medical Summary | Summary of Care ---
Author Name Unknown Organization [facility] Address [address] [place] [address] Phone [phone] Care Team Providers Care Post Hole Digger Name Role Phone Bello Sullivan MD Primary Care Provider +1- [phone] Encounter Details Date Type Department Care Team (Late st Contact Info) Description 10/15/2023 Telephone [facility] [address] [place] [address] Bello Sullivan MD [address] [place] [address] Allergies Active Allergy Reactions Criticality Noted Date Comments Amlodipine Edema Other 11/28/2015 Lisinopril Cough 02/04/2018 Sotalol Unknown 02/12/2023 VT documented as of this encounter (statuses as of 11/25/2023) Medications Medication Sig Dispensed Refills Start Date [...] as of this encounter (statuses as of 11/25/2023) Active Problems Problem Noted Date Diagnosed Date [...] as of this encounter (statuses as of 11/25/2023) Resolved Problems Problem Noted Date Diagnosed Date [...] 06/22/2011 8 Edema 06/22/2011 10/06/2019 [employer] Other*[id number] 09/28/2010 09/15/2013 Overview: PROJECT: #[id number], SPONSOR: Sosa, PI: James Mendez MD SUMMARY: [...] encounter can be closed. 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 current use of ant icoagulant therapy 03/16/2008 08/17/2016 Overview: ICD-10 update of inactive term ADVANCE DIRECTIVE INFORMATION 10/02/2005 10/06/2019 Overview: Information given to patient Dyslipidemia, goal to be determined 01/08/2001 03/30/2009 Family history of ischemic heart disease 01/08/2001 09/28/2009 Bicipital tenosynovitis 01/08/200112/2009 documented as of this encounter (statuses as of 11/25/2023) Immunizations Name Administration Dates Next Due COVID-19 [...] encounter Miscellaneous Notes * Telephone Encounter - Aide Wisdom OSA - 10/15/2023 11:45 AM EDT 10/15/23 Rec Data for pt from [employer]. Sent to [facility]. Placed in provider's mail bin . documented in this encounter Plan of Treatment Upcoming Encounters Date Type Department Care Team (Late st Contact Info) Description 04/27/2024 8:20 AM EST Office Visit [facility] [address] [place] [address] Bello Sullivan MD [address] [place] [address] 07/16/2024 10:00 AM EDT Office Visit Sleep Disorders Ctr [facility] [address] [facility] [place] [phone] Bernice Daniels CRNP [address] [place] [address] 10/20/2024 8:15 AM EDT Cardiac Studies Cardiac Studies, [facility] 132 [facility] [place] [address] 11/03/2024 8:30 AM EDT Office Visit Cardiology, [facility] [address] [place] [address] John Wiseman MD [address] [place] [address] Scheduled Procedures Name Priority Associated Diagnoses Date/Ti [...] this encounter Medical Devices Implanted Type Area Marketing Sales Supervisor Device Identifier Shelf Expiration Date Model / Serial / Lot Lens Li61ao 13.00mm 19.50 - [id number] - [id number] Implanted:Qty: 1 on 03/26/2023 by Max Melendez MD at OR [facility] Right: Eye [employer] 11/20/2027 [id number] / [id number] / [id number] Lens Li61ao 13.00mm 19.50 - [id number] - [id number] Implanted:Qty: 1 on 04/04/2023 by Max Melendez MD at OR [facility] Left: Eye [employer] 12/21/2027 [id number] / [id number] / [id number] documented as of this encounter Advance Directives [...] Power of Attor michael? No Care Teams Post Hole Digger Relationship Specialty Start Date End Date Bello Sullivan MD [address] [place] [address] PCP - General Family Medicine 06/17/19 documented as of this encounter
--- OUTSIDE RECORDS SUMMARY | 2024-01-07 13:05 | External Medical Summary | Summary of Care ---
Author Name Unknown Organization [facility] Address [address] [place] [address] Phone [phone] Care Team Providers Care Bill Hiker Name Role Phone Bello Sullivan MD Primary Care Provider +1- [phone] Encounter Details Date Type Department Care Team (Late st Contact Info) Description 11/28/2023 Telephone [facility] [address] [place] [address] Bello Sullivan MD [address] [place] [address] Allergies Active Allergy Reactions Criticality [...] 06/22/2011 8 Edema 06/22/2011 10/06/2019 [employer] Other*[id number] 09/28/2010 09/15/2013 Overview: PROJECT: #[id number], SPONSOR: Sosa, PI: James Mendez MD SUMMARY: [...] encounter can be closed. 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 Please review patient order, sign date and fax to [phone] documented in this encounter Plan of Treatment Upcoming Encounters Date Type Department Care Team (Late st Contact Info) Description 04/27/2024 8:20 AM EST Office Visit [facility] [address] [facility] [place] [address] Bello Sullivan MD [address] [facility] [place] [id number] 07/16/2024 10:00 AM EDT Office Visit [facility] Disorders Ctr [facility] [address] [facility] [place] [address] Bernice Daniels CRNP [address] [place] [address] 10/20/2024 8:15 AM EDT Cardiac Studies Cardiac Studies, [facility] [address] [place] [address] 11/03/2024 8:30 AM EDT Office Visit Cardiology, [facility] [address] [place] [address] John Wiseman MD [address] [place] [address] Scheduled Procedures Name Priority Associated Diagnoses Date/Ti [...] this encounter Medical Devices Implanted Type Area Physical Testing Supervisor Device Identifier Shelf Expiration Date Model / Serial / Lot Lens Li61ao 13.00mm 19.50 - [id number] - [id number] Implanted:Qty: 1 on 03/26/2023 by Max Melendez MD at OR [facility] Right: Eye [employer] 11/20/2027 [id number] / [id number] / [id number] Lens Li61ao 13.00mm 19.50 - [id number] - [id number] Implanted:Qty: 1 on 04/04/2023 by Max Melendez MD at OR [facility] Left: Eye [employer] 12/21/2027 [id number] / [id number] / [id number] documented as of this encounter Advance Directives [...] Power of Attor michael? No Care Teams Bill Hiker Relationship Specialty Start Date End Date Bello Sullivan MD [address] [place] [address] PCP - General Family Medicine 06/17/19 documented as of this encounter
--- OUTSIDE RECORDS SUMMARY | 2024-01-07 13:05 | External Medical Summary | Summary of Care ---
Author Name Unknown Organization [facility] Address [address] [place] [address] Phone [phone] Care Team Providers Care Reconciliation Coordinator Name Role Phone Bello Sullivan MD Primary Care Provider [phone]- [phone] Encounter Details Date Type Department Care Team (Late st Contact Info) Description 10/01/2023 Telephone [facility] [address] [place] [address] Bello Sullivan MD [address] [place] [address] Allergies Active Allergy Reactions Criticality [...] 06/22/2011 8 Edema 06/22/2011 10/06/2019 [employer] Other*[id number] 09/28/2010 09/15/2013 Overview: PROJECT: #[id number], SPONSOR: Sosa, PI: James Mendez MD SUMMARY: [...] encounter can be closed. 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 Placed notification in provider's mail bin on 10/01/23. documented in this encounter Plan of Treatment Upcoming Encounters Date Type Department Care Team (Late st Contact Info) Description 04/27/2024 8:20 AM EST Office Visit [facility] [address] [place] [phone] Bello Sullivan MD [address] [place] [address] 07/16/2024 10:00 AM EDT Office Visit [facility] [address] [place] [phone] Bernice Daniels CRNP [address] [facility] [place] [address] 10/20/2024 8:15 AM EDT Cardiac Studies Cardiac Studies, [facility] [address] [place] [address] 11/03/2024 8:30 AM EDT Office Visit Cardiology, [facility] [place] [address] [place] [address] John Wiseman MD [address] [place] [address] Scheduled Procedures Name Priority Associated Diagnoses Date/Ti [...] this encounter Medical Devices Implanted Type Area Disease Case Manager Device Identifier Shelf Expiration Date Model / Serial / Lot Lens Li61ao 13.00mm 19.50 - [id number] - [id number] Implanted:Qty: 1 on 03/26/2023 by Max Melendez MD at [facility] Right: Eye [employer] 11/20/2027 [id number] / [id number] / [id number] Lens Li61ao 13.00mm 19.50 - [id number] - [id number] Implanted:Qty: 1 on 04/04/2023 by Max Melendez MD at [facility] Left: Eye [employer] 12/21/2027 [id number] / [id number] / [id number] documented as of this encounter Advance Directives [...] Power of Attor michael? No Care Teams Reconciliation Coordinator Relationship Specialty Start Date End Date Bello Sullivan MD [address] [place] [address] PCP - General Family Medicine 06/17/19 documented as of this encounter
--- NOTE | 2024-01-07 13:37 | Urology Consultation ---
Date of Consultation January 07, 2024 Assessment & Plan (1) Right distal ureteral calculus: 73-year-old male with history of nephrolithiasis admitted for renal colic secondary to an obstructing 8 mm right distal ureteral calculus with hydronephrosis. He is afebrile and hemodynamically stable Labs reviewedWBC 13.95, normal renal function Urinalysis on arrival was not suspicious for infection CT abdomen pelvis reviewed and notable for an obstructing 8 mm right distal ureteral calculus with hydronephrosis; additional bilateral nonobstructing renal calculi Continues to have right flank discomfort, improved since arrival No emergent indication for stent at this time Discussed options for stone management including trial of passage versus surgical intervention Discussed intervention with right ureteral stent placement while inpatient with stone treatment at a later date vs outpatient surgical options if pain is controlled After discussion, will monitor overnight and reassess for intervention in the am Continue supportive care and pain management Recommend start Flomax Recommend n.p.o. at midnight to reassess will follow, please contact our service with any questions or changes in patient's status History of Present Illness History of Present Illness This is a 73-year-old male with past medical history of nephrolithiasis who presented to the emergency department today for evaluation of right flank pain. On arrival to ED, he was afebrile, hypertensive. Lab work showed WBC 13.95, renal function was normal at 1.01. Urinalysis showed 1+ protein, 3+ blood, 1+ LE, >20 RBC, otherwise negative. Workup included CT abdomen pelvis without contrast which demonstrated mild to moderate right sided hydroureteronephrosis secondary to an obstructing 8 mm calculus at the distal right ureter; right greater than left nonobstructing bilateral nephrolithiasis. ED course: IV fluids, ondansetron, oxycodone and morphine. He was admitted to the hospital medicine service for pain management. Patient seen and examined in the emergency department. He is awake and resting in litter, no acute distress. He reports his right flank pain started 2 days ago and worsened today. He took oxycodone at home without relief. He reports associated nausea, no vomiting. Pain has improved since arrival. He is voiding spontaneously. Notes hematuria today. No fever or chills. He reports history of kidney stones, which he has previously passed spontaneously. No prior surgical intervention for stones. Allergies Allergy/AdvReac Type Severity Reaction Status Date / Time amlodipine AdvReac Intermediate EDEMA Verified 01/01/24 10:31 lisinopril AdvReac Intermediate Cough Verified 01/01/24 10:31 sotalol AdvReac Intermediate A-FIB Verified 01/01/24 10:31 Home Medications Medication Instructions Recorded Confirmed Type albuterol sulfate 90 mcg/actuation 2 puff inhalation Q4H PRN 05/28/18 01/07/24 History aerosol inhaler Shortness Of Breath fluticasone furoate 100 1 inh inhalation QAM 05/28/18 01/07/24 History mcg/actuation blister powder for inhalation (Arnuity Ellipta) fluticasone propionate 50 2 spray intranasal QAM 05/28/18 01/07/24 History mcg/actuation nasal spray,suspension losartan 25 mg tablet 25 mg PO QAM 05/28/18 01/07/24 History multivitamin (Multiple Vitamins 1 tab PO QAM 05/28/18 01/07/24 History tablet) omega 8-hjq-wxs-fish oil 1,000 mg 1 cap PO HS 05/28/18 01/07/24 History (120 mg-180 mg) capsule (Fish Oil) potassium chloride 20 mEq 20 meq PO BID 05/28/18 01/07/24 History tablet,extended release(part/cryst) (Klor-Con M) glucosamine sulf dipot 1 cap PO QPM 08/22/18 01/07/24 History chlr,msm,chond 550 mg-C 30 mg-perry 1 mg capsule (Glucosamine Chondroitin) aspirin 81 mg tablet,delayed 81 mg PO HS 11/30/20 01/07/24 History release (Adult Low Dose Aspirin) apixaban 5 mg tablet (Eliquis) 5 mg PO BID 12/25/22 01/07/24 History atorvastatin 80 mg tablet 80 mg PO HS 12/25/22 01/07/24 History metoprolol succinate 50 mg 50 mg PO QAM 12/25/22 01/07/24 History tablet,extended release 24 hr oxycodone-acetaminophen 5 mg-325 1 tab PO Q6H PRN pain #20 tabs 12/31/22 01/07/24 Rx mg tablet (Percocet) methimazole 5 mg tablet 2.5 mg (1/2 x 5 mg) PO QAM #90 tabs 01/18/23 01/07/24 Rx acetaminophen 650 mg 1,300 mg PO BID 11/06/23 01/07/24 History tablet,extended release (Tylenol Arthritis Pain) albuterol sulfate 2.5 mg/3 mL 2.5 mg inhalation Q4H PRN 11/06/23 01/07/24 History (0.083 %) solution for nebulization Shortness Of Breath Or Wheezing montelukast 10 mg tablet 10 mg PO QAM 11/06/23 01/07/24 History Patient History Medical History NSVT (nonsustained ventricular tachycardia) PAF (paroxysmal atrial fibrillation) s/p DCCV Hypertension per records Coronary artery disease Dyslipidemia per records Atrial fibrillation Chronic venous insufficiency Chronic anticoagulation Cardiac murmur no current issues Obesity Aortic stenosis Moderate aortic stenosis (CHAIM= 1.3cm2, mean PG=24.1mmHg) per 09/2018 echo - has had a more recent echo in 2022 at [facility] Osteoarthritis History of kidney stones no intervention needed GERD (gastroesophageal reflux disease) controlled Thyroid nodule Sleep apnea CPAP WITH O 3L/MIN HS Asthma stable Surgical History History of incision and drainage (11/07/23) Incision and Drainage Right Lower Extremity Hematoma(Right) - Leif Huizar DO, FACS History of total knee replacement LEFT-10/2019 History of right inguinal hernia repair History of left inguinal hernia repair 09/28/2019 [facility] S/P thyroid biopsy History of cardioversion "YRS AGO" History of esophagogastroduodenoscopy (EGD) H/O foot surgery TENDON REPAIR IN CHILDHOOD History of arthroscopy of right knee History of laparoscopic cholecystectomy Family History Mother Family history of cancer Sister Family history of lung cancer Other No family history of adverse response to anesthesia Social History Smoking Status: Never smoker Second Hand Exposure: No; Do You Dip or Chew Tobacco: No; Hx Alcohol Use: No Hx Substance Use: No Preferred Language: Mohawk Communication Ability: Effective Visual Impairment: No Limitations Hearing Ability: Normal Worm Sorter Required: No Beliefs That Will Affect Care: None marital status: Current Living Situation: Spouse Current Living Situation Comment: with 1 dog current occupational status: retired Feels Safe at Home: Yes Diet: ideal protein Diet Comment: Educated to increase protein, vitamin c, d and zinc Assistive Devices: None Review of Systems Review of Systems: All systems reviewed & are unremarkable except as noted in HPI & below Physical Exam Constitutional: well developed and well nourished; no acute distress Respiratory: normal respiratory effort; no respiratory distress and no labored breathing Gastrointestinal (Abdomen): Inspection/Auscultation: abdomen normal to inspection Musculoskeletal: Head/Neck/Chest: normocephalic Neurologic: moves all extremities and awake Psychiatric: Orientation: alert and oriented x 3 Genitourinary: no CVA tenderness Results & Data Vital Signs (Past 12 Hours) Vital Signs Temp Pulse Pulse Resp BP BP Pulse Ox 01/07/24 13:01 72 01/07/24 12:00 64 19 146/73 H 96 01/07/24 10:49 67 20 94 01/07/24 09:37 36.9 C 71 20 181/81 H 93 O2 Del Method 01/07/24 13:01 01/07/24 12:00 Room Air 01/07/24 10:49 Room Air 01/07/24 09:37 Room Air PG Care Time/CCT Total # of Minutes Spent Total Time Spent with Patient: Total time spent is greater than 50% in coordination of care (as documented) at patient's floor/unit and/or counseling patient: Coding Level of Care Code 57355 INT INP/OBS CARE 2/55MIN Diagnoses Right distal ureteral calculus N20.1
--- NOTE | 2024-01-07 13:58 | History & Physical Report ---
Date of Service January 07, 2024 Assessment & Plan (1) Right distal ureteral calculus: Plan: Admit to [facility] Patient presenting from home reports of right flank pain x 2 days In the ED, CT ABD/pelvis shows [id number] right-sided hydroureteronephrosis secondary to an obstructing 8 mm calculus of the distal right ureter just upstream to the UVJ Start Flomax, IVF Urology consulted, no plans for surgical intervention today, will keep n.p.o. after midnight UA does not suggest UTI, will hold on antibiotics (2) PAF (paroxysmal atrial fibrillation): Plan: Rate controlled on metoprolol, anticoagulated on Eliquis Discussed with Romi Guajardo PA-C, urology - no indication to hold Eliquis (3) Hypertension: Plan: BP elevated on presentation, likely secondary to pain Continue home dose losartan and metoprolol for now (4) Hyperthyroidism: Plan: Chronic, stable TSH 1.16 09/[address] chest 09/2023 - Increased size of a 4.5 cm hypodense nodule in the left thyroid lobe since 2019. Follow-up with thyroid ultrasound is recommended. -- unclear if this has been followed up yet, will defer to PCP, message sent to PCP in [facility] (5) Aortic stenosis: Plan: Echo 09/2023-EF 60 to 64%, moderate , mild AR (6) Ascending aortic aneurysm: Plan: Stable at 4.[address] chest 09/2023 DVT PROPHYLAXIS On Eliquis Patient seen in collaboration with Dr. Gunter. I spent a total of 75 minutes coordinating, documenting, and providing care for this patient excluding time spent in the performance of separately billed services. This included personally reviewing all current laboratories and imaging studies, medication reconciliation, outpatient chart review, and discussion with specialists. History of Present Illness Chief Complaint: Right flank pain Primary Care Provider: Bello Sullivan MD 73-year-old male with PMH HTN, hyperthyroidism, asthma, paroxysmal atrial fibrillation anticoagulated on Eliquis, aortic stenosis, and other problems listed below who presents to the ED for evaluation of right flank pain. Patient reports his symptoms began 2 days ago. Initially describes the pain as a dull ache and constant. This morning, patient reports acute worsening of the pain. He denies fevers and chills. Reports urinary hesitancy, no dysuria or hematuria. Denies abdominal pain, nausea, vomiting, diarrhea. No chest pain or shortness of breath. Denies lightheadedness, dizziness, diaphoresis, syncopal events. In the ED, CT ABD/pelvis shows [id number] right-sided hydroureteronephrosis secondary to an obstructing 8 mm calculus of the distal right ureter just upstream to the UVJ. Patient was given IV morphine, IV Zofran, IVF. Allergies Allergy/AdvReac Type Severity Reaction Status Date / Time amlodipine AdvReac Intermediate EDEMA Verified 01/01/24 10:31 lisinopril AdvReac Intermediate Cough Verified 01/01/24 10:31 sotalol AdvReac Intermediate A-FIB Verified 01/01/24 10:31 Home Medications Medication Instructions Recorded Confirmed Type albuterol sulfate 90 mcg/actuation 2 puff inhalation Q4H PRN 05/28/18 01/07/24 History aerosol inhaler Shortness Of Breath fluticasone furoate 100 1 inh inhalation QAM 05/28/18 01/07/24 History mcg/actuation blister powder for inhalation (Arnuity Ellipta) fluticasone propionate 50 2 spray intranasal QAM 05/28/18 01/07/24 History mcg/actuation nasal spray,suspension losartan 25 mg tablet 25 mg PO QAM 05/28/18 01/07/24 History multivitamin (Multiple Vitamins 1 tab PO QAM 05/28/18 01/07/24 History tablet) omega 4-ayr-ozn-fish oil 1,000 mg 1 cap PO HS 05/28/18 01/07/24 History (120 mg-180 mg) capsule (Fish Oil) potassium chloride 20 mEq 20 meq PO BID 05/28/18 01/07/24 History tablet,extended release(part/cryst) (Klor-Con M) glucosamine sulf dipot 1 cap PO QPM 08/22/18 01/07/24 History chlr,msm,chond 550 mg-C 30 mg-perry 1 mg capsule (Glucosamine Chondroitin) aspirin 81 mg tablet,delayed 81 mg PO HS 11/30/20 01/07/24 History release (Adult Low Dose Aspirin) apixaban 5 mg tablet (Eliquis) 5 mg PO BID 12/25/22 01/07/24 History atorvastatin 80 mg tablet 80 mg PO HS 12/25/22 01/07/24 History metoprolol succinate 50 mg 50 mg PO QAM 12/25/22 01/07/24 History tablet,extended release 24 hr oxycodone-acetaminophen 5 mg-325 1 tab PO Q6H PRN pain #20 tabs 12/31/22 01/07/24 Rx mg tablet (Percocet) methimazole 5 mg tablet 2.5 mg (1/2 x 5 mg) PO QAM #90 tabs 01/18/23 01/07/24 Rx acetaminophen 650 mg 1,300 mg PO BID 11/06/23 01/07/24 History tablet,extended release (Tylenol Arthritis Pain) albuterol sulfate 2.5 mg/3 mL 2.5 mg inhalation Q4H PRN 11/06/23 01/07/24 History (0.083 %) solution for nebulization Shortness Of Breath Or Wheezing montelukast 10 mg tablet 10 mg PO QAM 11/06/23 01/07/24 History Past Med/Surg History Problem List Acute right flank pain (Acute) Hydroureteronephrosis (Acute) Right distal ureteral calculus (Acute) Status post total left knee replacement History of cholecystectomy History of tonsillectomy and adenoidectomy History of hernia repair UMBILICAL Hyperthyroidism On Methimazole- under surveillance by [facility] endocrine (euthyroid per most recent labs) Follows with endo- last seen 04/13/20- no acute issues noted Status post right knee replacement History of repair of hiatal hernia H/O ventral hernia repair H/O colonoscopy Medical History Ascending aortic aneurysm NSVT (nonsustained ventricular tachycardia) PAF (paroxysmal atrial fibrillation) s/p DCCV Hypertension per records Coronary artery disease Dyslipidemia per records Atrial fibrillation Chronic venous insufficiency Chronic anticoagulation Cardiac murmur no current issues Obesity Aortic stenosis Moderate aortic stenosis (CHAIM= 1.3cm2, mean PG=24.1mmHg) per 09/2018 echo - has had a more recent echo in 2022 at [facility] Osteoarthritis History of kidney stones no intervention needed GERD (gastroesophageal reflux disease) controlled Thyroid nodule Sleep apnea CPAP WITH O 3L/MIN HS Asthma stable Surgical History History of incision and drainage (11/07/23) Incision and Drainage Right Lower Extremity Hematoma(Right) - Leif Huizar DO, NAKUL History of total knee replacement LEFT-10/2019 History of right inguinal hernia repair History of left inguinal hernia repair 09/28/2019 [facility] S/P thyroid biopsy History of cardioversion "YRS AGO" History of esophagogastroduodenoscopy (EGD) H/O foot surgery TENDON REPAIR IN CHILDHOOD History of arthroscopy of right knee History of laparoscopic cholecystectomy Family History Mother Family history of cancer Sister Family history of lung cancer Other No family history of adverse response to anesthesia Social History Smoking Status: Never smoker Second Hand Exposure: No; Do You Dip or Chew Tobacco: No; Hx Alcohol Use: No Hx Substance Use: No Preferred Language: Greek Communication Ability: Effective Visual Impairment: No Limitations Hearing Ability: Normal 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 Gunter's addendum for physical exam Results & Data Results & Data Vital Signs (Past 12 Hours) Vital Signs Temp Pulse Pulse Resp BP BP Pulse Ox 01/07/24 13:01 72 01/07/24 12:00 64 19 146/73 H 96 01/07/24 10:49 67 20 94 01/07/24 09:37 36.9 C 71 20 181/81 H 93 O2 Del Method 01/07/24 13:01 01/07/24 12:00 Room Air 01/07/24 10:49 Room Air 01/07/24 09:37 Room Air Laboratory Results Short CBC 01/07/24 Range/Units 10:10 WBC 13.95 H (4.8-10.8) K/ul Hgb 15.2 (14.0-18.0) g/dl Hct 44.4 (42.0-52.0) % Plt Count 243 (130-400) K/uL BMP 01/07/24 10:10 Sodium 136 Potassium 3.7 Chloride 100 Carbon Dioxide 26 BUN 16 Creatinine 1.01 Glucose 153 H Calcium 9.2 Liver Function 01/07/24 Range/Units 10:10 Total Bilirubin 1.0 (0.2-1.0) mg/dl AST 20 (13-39) U/L ALT 17 (7-52) U/L Alkaline Phosphatase 93 (34-104) U/L Albumin 4.3 (3.4-5.0) gm/dl Urine 01/07/24 Range/Units 10:00 Urine Color Yellow Urine Appearance Cloudy A (Clear) Urine pH 7.0 (4.5-7.5) Ur Specific [place] 1.016 (1.000-1.030) Urine Protein 1+ H (Negative) Urine Glucose (UA) Negative (Negative) Diagnostic Findings Laboratory Results WBC 13.95 K/ul (4.8-10.8) H 01/07/24 10:10 RBC 4.73 M/uL (4.70-6.10) 01/07/24 10:10 Hgb 15.2 g/dl (14.0-18.0) 01/07/24 10:10 Hct 44.4 % (42.0-52.0) 01/07/24 10:10 MCV 93.9 fL (80.0-100.0) 01/07/24 10:10 MCH 32.1 pg (25.0-34.0) 01/07/24 10:10 MCHC 34.2 g/dL (32.0-36.0) 01/07/24 10:10 RDW Std Deviation 45.8 fL (36.4-46.3) 01/07/24 10:10 RDW Coeff of Flavio 13.3 % (11.5-14.5) 01/07/24 10:10 Plt Count 243 K/uL (130-400) 01/07/24 10:10 MPV 9.2 fL (9.4-12.4) L 01/07/24 10:10 Immature Gran % (Auto) 0.4 % 01/07/24 10:10 Neut % (Auto) 87.6 % 01/07/24 10:10 Lymph % (Auto) 5.5 % 01/07/24 10:10 [place] % (Auto) 6.3 % 01/07/24 10:10 Eos % (Auto) 0.1 % 01/07/24 10:10 Baso % (Auto) 0.1 % 01/07/24 10:10 Neut # (Auto) 12.22 K/uL (1.40-6.50) H 01/07/24 10:10 Lymph # (Auto) 0.77 K/uL (1.20-3.40) L 01/07/24 10:10 [place] # (Auto) 0.88 K/uL (0.11-0.59) H 01/07/24 10:10 Eos # (Auto) 0.01 K/uL (0.00-0.50) 01/07/24 10:10 Baso # (Auto) 0.01 K/uL (0.00-0.20) 01/07/24 10:10 Immature Gran # (Auto) 0.06 K/uL (0.01-0.20) 01/07/24 10:10 Sodium 136 mmol/L (136-145) 01/07/24 10:10 Potassium 3.7 mmol/L (3.5-5.1) 01/07/24 10:10 Chloride 100 mmol/L (98-107) 01/07/24 10:10 Carbon Dioxide 26 mmol/L (21-32) 01/07/24 10:10 Anion Gap 10 (3-11) 01/07/24 10:10 BUN 16 mg/dl (6-23) 01/07/24 10:10 Creatinine 1.01 mg/dl (0.6-1.4) 01/07/24 10:10 Est Cr Clr Drug Dosing 94.3 ml/min 01/07/24 10:10 Est GFR ( Amer) 85.1 ml/min 01/07/24 10:10 Est GFR (Non-Af Amer) 73.4 ml/min 01/07/24 10:10 BUN/Creatinine Ratio 15.8 (10-20) 01/07/24 10:10 Glucose 153 mg/dl (70-99(Fasting)) H 01/07/24 10:10 Calcium 9.2 mg/dl (8.6-10.3) 01/07/24 10:10 Total Bilirubin 1.0 mg/dl (0.2-1.0) 01/07/24 10:10 AST 20 U/L (13-39) 01/07/24 10:10 ALT 17 U/L (7-52) 01/07/24 10:10 Alkaline Phosphatase 93 U/L (34-104) 01/07/24 10:10 Total Protein 7.5 gm/dl (6.0-8.3) 01/07/24 10:10 Albumin 4.3 gm/dl (3.4-5.0) 01/07/24 10:10 Globulin 3.2 gm/dl (2.5-4.0) 01/07/24 10:10 Albumin/Globulin Ratio 1.3 (0.9-2) 01/07/24 10:10 Urine Color Yellow 01/07/24 10:00 Urine Appearance Cloudy (Clear) A 01/07/24 10:00 Urine pH 7.0 (4.5-7.5) 01/07/24 10:00 Ur Specific [place] 1.016 (1.000-1.030) 01/07/24 10:00 Urine Protein 1+ (Negative) H 01/07/24 10:00 Urine Glucose (UA) Negative (Negative) 01/07/24 10:00 Urine Ketones Negative (Negative) 01/07/24 10:00 Urine Blood 3+ (Negative) H 01/07/24 10:00 Urine Nitrite Negative (Negative) 01/07/24 10:00 Urine Bilirubin Negative (Negative) 01/07/24 10:00 Urine Urobilinogen Negative (Negative) 01/07/24 10:00 Ur Leukocyte Esterase 1+ (Negative) H 01/07/24 10:00 Urine WBC (Auto) 0-5 /hpf (0-5) 01/07/24 10:00 Urine RBC (Auto) >20 /hpf (0-2) H 01/07/24 10:00 U Hyaline Cast (Auto) 0-2 /lpf (0-2) 01/07/24 10:00 U Epithel Cells (Auto) 0-2 /hpf (0-2) 01/07/24 10:00 Urine Bacteria (Auto) None Seen (None Seen) 01/07/24 10:00 Impressions Abdomen/Pelvis CT 01/07/24 09:[address] WITHOUT CONTRAST CT DOSE: 1698.54 mGy.cm HISTORY: Acute right-sided flank pain R flank pain, hx kidney stone TECHNIQUE: Multiaxial CT images of the abdomen and pelvis were performed without contrast. A dose lowering technique was utilized adhering to the principles of ALARA. COMPARISON STUDY: 08/22/2018 FINDINGS: Cardiomegaly with aortic valvular and coronary arterial calcifications. There is mild bibasilar atelectasis. No free air. The unenhanced spleen, pancreas and adrenal glands are unremarkable. Cholecystectomy with likely postsurgical biliary ductal dilation. Unchanged probable cyst within the posterior right hepatic lobe on image 24 series 2. Mild nonspecific bilateral perinephric stranding. There is [id number] right-sided hydroureteronephrosis secondary to an obstructing 7 x 5 x 8 mm calculus of the distal right ureter on image 316 series 3 approximately 2 cm upstream to the UVJ. There are at least 4 nonobstructing calculi of the right kidney measuring up to 4 mm. Bilateral renal hypodensities are incompletely characterized on this exam however suggestive of probable cysts. 3 mm cortical calcification of the superior pole left kidney. Punctate left renal calculi. Partially decompressed urinary bladder with wall thickening. Prostatomegaly. Small left and moderate right inguinal hernias. The right inguinal hernia contains fat, trace amount of fluid, a portion of the nonobstructed and tortuous sigmoid colon and a portion of the anterior urinary bladder lumen perivesicular stranding. Atherosclerosis of the aorta without aneurysm. There is no lymphadenopathy. Postoperative changes near the gastroesophageal junction. Normal appendix. No bowel obstruction or bowel wall thickening identified. Degenerative changes of the shoulders and spine. IMPRESSION: 1. Exse-[id number] right-sided hydroureteronephrosis secondary to an obstructing 8 mm calculus of the distal right ureter just upstream to the UVJ. 2. Right greater than left nonobstructing bilateral nephrolithiasis. 3. Moderate sized right inguinal hernia containing mesenteric fat, trace amount of fluid, nonobstructed sigmoid colon and a portion of the urinary bladder. 4. No bowel obstruction or bowel wall thickening. 5. Additional findings as above. ACT 112: Negative or not required by law. The above report was generated using voice recognition software. It may contain grammatical, syntax or spelling errors. Electronically signed by: Silvano Daily M.D. 01/07/2024 10:56 AM Code Status & VTE Plan VTE Prophylaxis Plan VTE Prophylaxis will be ordered: No Supervising Physician Co-Signing Physician Notes see communication noted dated same day for addendum. time spent 30 minutes.
[2024-01-07] MEDS ORDERED: ACETAMINOPHEN 325 MG TAB PO PRN (15:23)
[2024-01-07] MEDS: METOPROLOL SUCC 50MG EXT REL TAB PO SCH (16:43)
[2024-01-07] MEDS: LOSARTAN POTASSIUM 25 MG TAB PO SCH (16:43)
[2024-01-07] MEDS: TAMSULOSIN HCL 0.4 MG CAP PO ONE (16:43)
[2024-01-07] MEDS: methIMAzole 5 MG TABLET PO SCH (16:43)
[2024-01-07] MEDS: ONDANSETRON INJ 2 MG/ML 2 ML VIAL IV PRN (16:48)
[2024-01-07] MEDS: SODIUM CHLORIDE 0.9% 1,000 ML IV SCH (19:02)
[2024-01-07] MEDS: APIXABAN 5 MG TABLET PO SCH (21:13)
[2024-01-07] MEDS: ASPIRIN 81 MG ECTAB PO SCH (21:13)
[2024-01-07] MEDS: POTASSIUM CHLORIDE CRTAB 20 MEQ TABCR PO SCH (21:13)
[2024-01-07] MEDS: ATORVASTATIN 40 MG TAB PO SCH (21:13)
[2024-01-08] MEDS ORDERED: ceFAZolin 3,000 MG in DEXTROSE 5% 50 ML IV SCH (06:00)
[2024-01-08] MEDS: MONTELUKAST SODIUM 10 MG TABLET PO SCH (07:43)
[2024-01-08] MEDS: FLUTICASONE FUROATE 100MCG 14 PUFFS/INHALER INH SCH (07:44)
[2024-01-08] MEDS: TAMSULOSIN HCL 0.4 MG CAP PO SCH (07:52)
--- NOTE | 2024-01-08 10:49 | Urology Progress Note ---
Date of Service January 08, 2024 Assessment & Plan (1) Right distal ureteral calculus: Plan: 73-year-old male with history of nephrolithiasis admitted for renal colic secondary to an obstructing 8 mm right distal ureteral calculus with hydronephrosis. He is afebrile and hemodynamically stable Labs reviewedno leukocytosis and normal renal function. Urinalysis on arrival was not suspicious for infection CT abdomen pelvis reviewed and notable for an obstructing 8 mm right distal ureteral calculus with hydronephrosis; additional bilateral nonobstructing renal calculi Right flank pain has improved. Denies noticeable stone passage. Discussed options for stone management including trial of passage versus surgical intervention. Discussed intervention with right ureteral stent placement while inpatient with stone treatment at a later date vs outpatient surgical options if pain is controlled. Ureteral stents were discussed as well as postoperative issues and pain management. He is aware a second procedure would be needed for stone treatment. Risks/benefits of each were reviewed. After discussion, he prefers stent placement today. Will plan to proceed to OR today for cystoscopy, right retrograde pyelogram, right ureteral stent placement with Dr. Valderrama. Risks and benefits to be reviewed with patient by Dr. Valderrama. Continue supportive care and pain management. Will cover with Ancef preoperatively. Keep NPO. Urology to follow. Admission and Anticipated Discharge Date Admission Date: January 07, 2024 Supervising Physician Co-Signing Physician Notes Plan to go to OR for cysto, right retrograde, right stent Consented, marked Subjective Patient seen at bedside this morning. Awake and resting in bed on arrival, NAD. Pain is currently well controlled. Denies fever, chills, nausea, vomiting. Denies noticeable stone passage. Voiding without issue. Has been NPO. Review of Systems Constitutional: as per Subjective / HPI Genitourinary: + as per Subjective / HPI Physical Exam Constitutional: no acute distress Respiratory: no respiratory distress and no labored breathing Neurologic: moves all extremities and awake Psychiatric: A+Ox3, euthymic affect Results & Data Vital Signs (Past 12 Hours) Vital Signs Temp Pulse Resp BP Pulse Ox O2 Del Method 01/08/24 08:00 Room Air 01/08/24 07:39 36.9 C 71 18 115/68 94 Room Air PG Care Time/CCT Total # of Minutes Spent Total Time Spent with Patient: Total time spent is greater than 50% in coordination of care (as documented) at patient's floor/unit and/or counseling patient: Coding Level of Care Code 84663 SUB INP/OBS CARE MIN Diagnoses Right distal ureteral calculus N20.1
[2024-01-08 10:52] LABS: Hematocrit (blood only) 39.9 % (42.0-52.0); Hemoglobin 13.6 g/dl (14.0-18.0); Mean Corpuscular Hemoglobin 32.3 pg (25.0-34.0); Mean Corpuscular Hgb Conc 34.1 g/dL (32.0-36.0); Mean Corpuscular Volume 94.8 fL (80.0-100.0); Mean Platelet Volume 8.9 fL (9.4-12.4); Platelet Count 187 K/uL (130-400); RDW Coefficient of Variation 13.4 % (11.5-14.5); RDW Standard Deviation 46.8 fL (36.4-46.3); Red Blood Count 4.21 M/uL (4.70-6.10); White Blood Count 9.87 K/ul (4.8-10.8)
[2024-01-08 11:04] LABS: BUN Creatinine Ratio 23.5 (10-20); Calcium 8.7 mg/dl (8.6-10.3); Creatinine Clr Calc Pharmacy 97.2 ml/min; Est GFR (African American) 88.3 ml/min; Est GFR (Non-African American) 76.2 ml/min; Potassium 3.9 mmol/L (3.5-5.1)
[2024-01-08] MEDS ORDERED: ceFAZolin 2000MG 2,000 MG/15 ML SYR IV ONE (12:00)
--- NOTE | 2024-01-08 12:17 | Anesthesiology Consultation ---
Date of Service January 08, 2024 Assessment & Plan Chart Review Chart Review: Acceptable Risk for Surgery and Patient NOT seen in Pre Admission Testing Consults Requested none ASA ASA4 Proposed Anesthesia Anesthesia Type: MAC History Surgery Operation Date: 01/08/24 11:00 Proposed Procedures p Cystoscopy Right Retrograde Pyelogram with Stent Placement - Salas Valderrama MD Height/Weight Height: 6 ft 3 in Weight: 129.2 kg Allergies Allergy/AdvReac Type Severity Reaction Status Date / Time amlodipine AdvReac Intermediate EDEMA Verified 01/01/24 10:31 lisinopril AdvReac Intermediate Cough Verified 01/01/24 10:31 sotalol AdvReac Intermediate A-FIB Verified 01/01/24 10:31 Medications Home Medications Medication Instructions Recorded Confirmed Last Taken albuterol sulfate 90 mcg/actuation 2 puff inhalation Q4H PRN 05/28/18 01/07/24 Unknown aerosol inhaler Shortness Of Breath fluticasone furoate 100 1 inh inhalation QAM 05/28/18 01/07/24 11/06/23 mcg/actuation blister powder for inhalation (Arnuity Ellipta) fluticasone propionate 50 2 spray intranasal QAM 05/28/18 01/07/24 11/06/23 mcg/actuation nasal spray,suspension losartan 25 mg tablet 25 mg PO QAM 05/28/18 01/07/24 11/06/23 multivitamin (Multiple Vitamins 1 tab PO QAM 05/28/18 01/07/24 11/06/23 tablet) omega 3-apa-ons-fish oil 1,000 mg 1 cap PO HS 05/28/18 01/07/24 11/05/23 (120 mg-180 mg) capsule (Fish Oil) potassium chloride 20 mEq 20 meq PO BID 05/28/18 01/07/24 11/06/23 08:00 tablet,extended release(part/cryst) (Klor-Con M) glucosamine sulf dipot 1 cap PO QPM 08/22/18 01/07/24 11/05/23 chlr,msm,chond 550 mg-C 30 mg-perry 1 mg capsule (Glucosamine Chondroitin) aspirin 81 mg tablet,delayed 81 mg PO HS 11/30/20 01/07/24 11/05/23 release (Adult Low Dose Aspirin) apixaban 5 mg tablet (Eliquis) 5 mg PO BID 12/25/22 01/07/24 11/06/23 08:00 atorvastatin 80 mg tablet 80 mg PO HS 12/25/22 01/07/24 11/05/23 metoprolol succinate 50 mg 50 mg PO QAM 12/25/22 01/07/24 11/06/23 tablet,extended release 24 hr oxycodone-acetaminophen 5 mg-325 1 tab PO Q6H PRN pain #20 tabs 12/31/22 01/07/24 01/07/24 mg tablet (Percocet) methimazole 5 mg tablet 2.5 mg (1/2 x 5 mg) PO QAM #90 tabs 01/18/23 01/07/24 11/06/23 acetaminophen 650 mg 1,300 mg PO BID 11/06/23 01/07/24 11/06/23 08:00 tablet,extended release (Tylenol Arthritis Pain) albuterol sulfate 2.5 mg/3 mL 2.5 mg inhalation Q4H PRN 11/06/23 01/07/24 Unknown (0.083 %) solution for nebulization Shortness Of Breath Or Wheezing montelukast 10 mg tablet 10 mg PO QAM 11/06/23 01/07/24 11/06/23 Active Medications Generic Name Dose Route Start Last Admin Trade Name Freq PRN Reason Stop Dose Admin Apixaban 5 mg 01/07/24 21:00 01/08/24 07:42 Apixaban 5 Mg Tablet PO 02/06/24 20:59 5 mg BID KAREN Administration Aspirin 81 mg 01/07/24 21:00 01/07/24 21:13 Aspirin 81 Mg Ectab PO 02/06/24 20:59 81 mg HS KAREN Administration Atorvastatin Calcium 80 mg 01/07/24 21:00 01/07/24 21:13 Atorvastatin 40 Mg Tab PO 02/06/24 20:59 80 mg HS KAREN Administration Fluticasone Furoate 1 puffs 01/08/24 09:00 01/08/24 07:44 Fluticasone Furoate 100mcg 14 Puffs/Inhaler INH 02/07/24 08:59 1 puffs QAM KAREN Administration Sodium Chloride 1,000 mls @ 80 mls/hr 01/07/24 15:23 01/08/24 02:51 Nss IV 01/08/24 16:22 80 mls/hr .[id number] KAREN Administration Losartan Potassium 25 mg 01/07/24 15:23 01/08/24 07:43 Losartan Potassium 25 Mg Tab PO 02/06/24 15:22 25 mg QAM KAREN Administration Methimazole 2.5 mg 01/07/24 15:23 01/08/24 07:43 Methimazole 5 Mg Tablet PO 02/06/24 15:22 2.5 mg QAM KAREN Administration Metoprolol Succinate 50 mg 01/07/24 15:23 01/08/24 07:42 Metoprolol Succ 50mg Ext Rel Tab PO 02/06/24 15:22 50 mg QAM KAREN Administration Montelukast Sodium 10 mg 01/08/24 09:00 01/08/24 07:43 Montelukast Sodium 10 Mg Tablet PO 02/07/24 08:59 10 mg QAM KAREN Administration Morphine Sulfate 4 mg 01/07/24 12:19 01/07/24 21:12 Morphine Sulfate 4 Mg/Ml 1 Ml Carp\\Vial IV 01/21/24 12:18 4 mg Q4H PRN Administration Pain (6,7,8,9,10) Ondansetron HCl 4 mg 01/07/24 16:31 01/07/24 16:48 Ondansetron Inj 2 Mg/Ml 2 Ml Vial IV 02/06/24 16:30 4 mg Q6H PRN Administration Nausea And Vomiting Oxycodone HCl 5 mg 01/07/24 12:19 01/07/24 12:41 Oxycodone Hcl Ir 5 Mg Tab (Immediate Release) PO 01/21/24 12:18 5 mg Q4H PRN Administration MODERATE Pain (4,5,6) & Pre PT Potassium Chloride 20 meq 01/07/24 21:00 01/08/24 07:49 Potassium Chloride Crtab 20 Meq Tabcr PO 02/06/24 20:59 20 meq BID KAREN Administration Tamsulosin HCl 0.4 mg 01/08/24 09:00 01/08/24 07:52 Tamsulosin Hcl 0.4 Mg Cap PO 02/07/24 08:59 0.4 mg QAM KAREN Administration Past Medical History Medical History Ascending aortic aneurysm NSVT (nonsustained ventricular tachycardia) PAF (paroxysmal atrial fibrillation) s/p DCCV Hypertension per records Coronary artery disease Dyslipidemia per records Atrial fibrillation Chronic venous insufficiency Chronic anticoagulation Cardiac murmur no current issues Obesity Aortic stenosis Moderate aortic stenosis (CHAIM= 1.3cm2, mean PG=24.1mmHg) per 09/2018 echo - has had a more recent echo in 2022 at [facility] Osteoarthritis History of kidney stones no intervention needed GERD (gastroesophageal reflux disease) controlled Thyroid nodule Sleep apnea CPAP WITH O 3L/MIN HS Asthma stable Exercise / Class Metabolic Activity III < 4 Walking/Shop/Light housework Past Family History Family History Mother Family history of cancer Sister Family history of lung cancer Other No family history of adverse response to anesthesia Past Surgical History Surgical History History of incision and drainage (11/07/23) Incision and Drainage Right Lower Extremity Hematoma(Right) - Leif Huizar DO, FACS History of total knee replacement LEFT-10/2019 History of right inguinal hernia repair History of left inguinal hernia repair 09/28/2019 [facility] S/P thyroid biopsy History of cardioversion "YRS AGO" History of esophagogastroduodenoscopy (EGD) H/O foot surgery TENDON REPAIR IN CHILDHOOD History of arthroscopy of right knee History of laparoscopic cholecystectomy Past Anesthesia History No Hx of Anesthesia Complications and No Family Hx of Anesthesia Complications History of PONV No Hx of PONV and No Hx of Motion Sickness Social History Smoking Status: Never smoker Do You Dip or Chew Tobacco: No Hx Alcohol Use: No Alcohol type: beer alcohol intake frequency: holidays/special occasions only Hx Substance Use: No substance use type: does not use Physical Exam Vital Signs Last Vital Signs Temp 36.9 C 01/08/24 07:39 Pulse 71 01/08/24 07:39 Resp 18 01/08/24 07:39 BP 115/68 01/08/24 07:39 Pulse Ox 94 01/08/24 07:39 O2 Del Method Room Air 01/08/24 08:00 O2 Flow Rate 2 01/07/24 14:00 Testing Laboratory Results 01/08/24 10:30 01/08/24 10:30 Urine Color Yellow 01/07/24 10:00 Urine Appearance Cloudy (Clear) A 01/07/24 10:00 Urine pH 7.0 (4.5-7.5) 01/07/24 10:00 Ur Specific [place] 1.016 (1.000-1.030) 01/07/24 10:00 Urine Protein 1+ (Negative) H 01/07/24 10:00 Urine Glucose (UA) Negative (Negative) 01/07/24 10:00 Urine Ketones Negative (Negative) 01/07/24 10:00 Urine Nitrite Negative (Negative) 01/07/24 10:00 Ur Leukocyte Esterase 1+ (Negative) H 01/07/24 10:00 Urine WBC (Auto) 0-5 /hpf (0-5) 01/07/24 10:00 Urine RBC (Auto) >20 /hpf (0-2) H 01/07/24 10:00 U Hyaline Cast (Auto) 0-2 /lpf (0-2) 01/07/24 10:00 U Epithel Cells (Auto) 0-2 /hpf (0-2) 01/07/24 10:00 Urine Bacteria (Auto) None Seen (None Seen) 01/07/24 10:00 Electrocardiogram Date: 01/07/24 Findings: + NSR @ (@ 68;? infer. infarct,age ?) Echocardiogram Date: 10/16/22 EF: 60% LV Function: normal RWMA: + none Other Findings: + atrial enlargement (LA-severely enlarged;RA-moderately enlarged) Valvular Disease: + (mod.) and + AI (mod.) CHAIM- 1.1 cm 2 Ao root + aortic arch mildly dilated
[2024-01-08] MEDS: LACTATED RINGER'S 1,000 ML IV SCH (12:40)
[2024-01-08] MEDS ORDERED: fentaNYL citrate PF 100 MCG/2 ML VIAL IV PRN (13:00)
[2024-01-08] MEDS ORDERED: NALOXONE HCL 0.4 MG/1 ML VIAL/CARP IV PRN (13:00)
[2024-01-08] MEDS ORDERED: ePHEDrine sulfate 50 MG/ML AMP IV PRN (13:00)
[2024-01-08] MEDS ORDERED: LABETALOL HCL IV 5 MG/ML 20ML IV PRN (13:00)
[2024-01-08] MEDS ORDERED: ATROPINE SULFATE 0.1 MG/ML 10ML SYR IV PRN (13:00)
[2024-01-08] MEDS ORDERED: FLUMAZENIL 0.1 MG/1 ML 10 ML VIAL IV PRN (13:00)
[2024-01-08] MEDS ORDERED: PROMETHAZINE HCL 6.25 MG in SODIUM CHLORIDE 0.9% 50 ML IV PRN (13:00)
[2024-01-08] MEDS ORDERED: ONDANSETRON INJ 2 MG/ML 2 ML VIAL IV PRN (13:00)
[2024-01-08] MEDS ORDERED: PROPOFOL IV EMULSION 10 MG/ML 20 ML VIAL IV ONE ×2 (13:39→14:07)
[2024-01-08] MEDS ORDERED: KETAMINE HCL 10MG/ML SYR ONE (13:39)
[2024-01-08] MEDS: ceFAZolin 3,000 MG in DEXTROSE 5% 50 ML IV SCH (13:50)
[2024-01-08] MEDS ORDERED: MIDAZOLAM HCL 1 MG/ML 2ML VIAL ONE (13:52)
[2024-01-08] MEDS ORDERED: ONDANSETRON INJ 2 MG/ML 2 ML VIAL ONE (14:06)
[2024-01-08] MEDS: DIATRIZOATE MEGLUMINE 30% 100ML VIAL INSTIL PRN (14:10)
--- NOTE | 2024-01-08 14:14 | Operative Report ---
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 Description of Procedure After informed consent was obtained, the patient was transported operative suite. MAC anesthesia was induced. The patient was placed in dorsolithotomy position prepped and draped in a sterile fashion. They received preoperative Ancef for antibiotic prophylaxis. An appropriate surgical timeout was performed. A 22 Surinamese rigid scope was inserted per urethra into the bladder. Benson cystoscopy revealed no stones or lesions. I turned my attention the right ureteral orifice and intubated this with a 5 Surinamese open-ended catheter. A right retrograde pyelogram was shot which showed mild hydronephrosis. A sensor wire was advanced into the kidney and confirmed fluoroscopically. A 6 Surinamese by 28 cm right ureteral stent was deployed with a good proximal coil in the renal pelvis and a good distal coil noted in the bladder, confirmed fluoroscopically and under direct visualization, respectively. The bladder was emptied and the scope was removed. This concluded the end of the case. All counts were correct at the end of the case. I was present, scrubbed, and actively participated for the entirety of the procedure. I attest to the content of the Intraoperative Record and any orders documented therein. Any exceptions are noted below.
--- NOTE | 2024-01-08 14:41 | Fluoroscopy Report ---
FL retrograde includes kub CLINICAL HISTORY: RIGHT STENTstatus post placement of a right ureteral stent COMPARISON STUDY: CT 01/07/2024 FLUOROSCOPY TIME: 9.1 seconds FLUOROSCOPY IMAGES: 3 EXPOSURE DOSE: 4.89 mGy FINDINGS: Status post placement of a right ureteral stent, proximal portion within satisfactory posit ioning. The distal portion was not imaged. Initial images demonstrate dilation of the mid to distal r ight ureter which is contrast opacified. IMPRESSION: Fluoroscopic assistance as above. ACT 112: Negative or not required by law. Electronically signed by: Silvano Daily M.D. 01/08/2024 2:40 PM
--- NOTE | 2024-01-08 15:09 | Anesthesiology Progress Note ---
Date of Service January 08, 2024 Anesthesia Post Procedure Vital Signs Vital Signs: Temp Pulse Pulse Resp BP BP Pulse Ox 01/08/24 15:01 37.3 C 65 18 117/70 94 01/08/24 14:50 63 14 142/74 H 95 01/08/24 14:40 37.2 C 66 20 138/79 94 01/08/24 14:30 69 16 143/74 H 93 01/08/24 14:21 36.9 C 73 18 117/68 92 01/08/24 12:35 36.9 C 69 20 145/86 H 93 01/08/24 08:00 01/08/24 07:39 36.9 C 71 18 115/68 94 01/07/24 20:01 37.6 C H 69 18 136/73 93 01/07/24 16:36 69 164/78 H 01/07/24 15:35 37.1 C 78 16 136/79 94 O2 Del Method 01/08/24 15:01 Room Air 01/08/24 14:50 Room Air 01/08/24 14:40 Room Air 01/08/24 14:30 Room Air 01/08/24 14:21 Room Air 01/08/24 12:35 Room Air 01/08/24 08:00 Room Air 01/08/24 07:39 Room Air 01/07/24 20:01 Room Air 01/07/24 16:36 01/07/24 15:35 Room Air Pain Intensity Right Flank: Pain Intensity: 2 Transfer of Care Handoff Completed per policy Notes Mental Status: alert / awake / arousable Patient Amnestic to Procedure: Yes Nausea / Vomiting: adequately controlled Pain: adequately controlled Airway Patency, RR, SpO2: stable & adequate BP & HR: stable & adequate Hydration State: stable & adequate Anesthetic Complications: no major complications apparent
--- NOTE | 2024-01-08 18:02 | Hospitalist Progress Note ---
Date of Service January 08, 2024 Assessment & Plan (1) Right distal ureteral calculus: Plan: Patient presenting from home reports of right flank pain x 2 days Right distal ureteral calculus Obstructive uropathy secondary to above B/L nephrolithiasis --S/P cystoscopy, right retrograde pyelogram with radiographic interpretation with stent placement by Dr. Valderrama on 01/08/2024 --CT ABD:[id number] right-sided hydroureteronephrosis secondary to an obstructing 8 mm calculus of the distal right ureter just upstream to the UVJ. Right greater than left nonobstructing bilateral nephrolithiasis. Moderate sized right inguinal hernia containing mesenteric fat, trace amount of fluid, nonobstructed sigmoid colon and a portion of the urinary bladder. No bowel obstruction or bowel wall thickening. -- Empirically received Ancef Continue Flomax Appreciate urology input Will need follow-up with urology on discharge Monitor for urinary retention (2) PAF (paroxysmal atrial fibrillation): Plan: Rate controlled on metoprolol, anticoagulated on Eliquis Continue current medications (3) Hypertension: Plan: BP elevated likely secondary to pain Continue losartan and metoprolol Monitor BP (4) Hyperthyroidism: Plan: Chronic, stable TSH 1.16 09/[address] chest 09/2023 - Increased size of a 4.5 cm hypodense nodule in the left thyroid lobe since 2019. Follow-up with thyroid ultrasound is recommended. -- unclear if this has been followed up yet, will defer to PCP, message sent to PCP in [facility] -- Follow-up with endocrine as outpatient (5) Aortic stenosis: Plan: Echo 09/2023-EF 60 to 64%, moderate , mild AR (6) Ascending aortic aneurysm: Plan: Stable at 4.[address] chest 09/2023 Chronic right leg wound Follows with wound clinic as outpatient DVT Px Eliquis CODE STATUS Full code Admission and Anticipated Discharge Date Admission Date: January 07, 2024 Subjective Patient is seen and examined at bedside Right flank pain much better today Denies any dysuria, hematuria Also denies any chest pain, dyspnea, nausea, vomiting Had ureteral stent placement today Discussed with urology today Review of Systems Review of Systems: All systems reviewed & are unremarkable except as noted in Subjective Physical Exam Physical Exam: Physical Exam: Vitals signs as noted above General Appearance:Obese, no apparent distress Head: normocephalic, Atraumatic Eyes: normal inspection, EOMI Neck: supple, Trachea midline Respiratory/Chest: Normal breath sounds, CTA, No accessory muscle use Cardiovascular: S1, S2, +murmur Abdomen/GI:Soft, Non tender, Bowel sounds present Extremities/Musculoskeletal:normal inspection, R> L leg edema, R leg wound Neurologic/Psych:AAOX3, grossly no focal neurological deficits Skin: normal color, warm Results & Data Results & Data Vital Signs (Past 12 Hours) Vital Signs Temp Pulse Pulse Resp BP BP Pulse Ox 01/08/24 16:56 36.6 C 66 16 140/72 94 01/08/24 16:12 37.2 C 71 18 161/71 H 94 01/08/24 15:38 37.1 C 70 18 153/73 H 94 01/08/24 15:01 37.3 C 65 18 117/70 94 01/08/24 14:50 63 14 142/74 H 95 01/08/24 14:40 37.2 C 66 20 138/79 94 01/08/24 14:30 69 16 143/74 H 93 01/08/24 14:21 36.9 C 73 18 117/68 92 01/08/24 12:35 36.9 C 69 20 145/86 H 93 01/08/24 08:00 01/08/24 07:39 36.9 C 71 18 115/68 94 O2 Del Method 01/08/24 16:56 Room Air 01/08/24 16:12 01/08/24 15:38 Room Air 01/08/24 15:01 Room Air 01/08/24 14:50 Room Air 01/08/24 14:40 Room Air 01/08/24 14:30 Room Air 01/08/24 14:21 Room Air 01/08/24 12:35 Room Air 01/08/24 08:00 Room Air 01/08/24 07:39 Room Air Laboratory Results Short CBC 01/08/24 Range/Units 10:30 WBC 9.87 (4.8-10.8) K/ul Hgb 13.6 L (14.0-18.0) g/dl Hct 39.9 L (42.0-52.0) % Plt Count 187 (130-400) K/uL BMP 01/08/24 10:30 Sodium 134 L Potassium 3.9 Chloride 99 Carbon Dioxide 29 BUN 23 Creatinine 0.98 Glucose 103 H Calcium 8.7
--- NOTE | 2024-01-09 05:56 | Electrocardiogram Report ---
Test Reason : Blood Pressure : */* mmHG Vent. Rate : 68 BPM Atrial Rate : 68 BPM P-R Int : 166 ms QRS Dur : 108 ms QT Int : 404 ms P-R-T Axes : 2 -1 9 degrees QTcB Int : 429 ms Normal sinus rhythm Cannot rule out Inferior infarct , age undetermined Abnormal ECG When compared with ECG of 28-Nov-2015 11:06, No significant change was found Confirmed by Galindo Sullivan ([id number]) on 01/09/2024 5:55:48 AM Referred By: REFERRED SELF Confirmed By: Galindo Sullivan
[2024-01-09 07:44] LABS: Hemoglobin 13.3 g/dl (14.0-18.0); Mean Corpuscular Hgb Conc 33.3 g/dL (32.0-36.0); Mean Corpuscular Volume 96.2 fL (80.0-100.0); Mean Platelet Volume 9.2 fL (9.4-12.4); Platelet Count 211 K/uL (130-400); RDW Coefficient of Variation 13.4 % (11.5-14.5); RDW Standard Deviation 47.4 fL (36.4-46.3); Red Blood Count 4.16 M/uL (4.70-6.10); White Blood Count 8.93 K/ul (4.8-10.8)
[2024-01-09 07:56] VITALS: BP 111/64; RESP 16; TEMP 97.7; O2SAT 95
[2024-01-09 08:00] LABS: Calcium 8.5 mg/dl (8.6-10.3); Creatinine Clr Calc Pharmacy 109.7 ml/min; Est GFR (African American) 98.8 ml/min; Est GFR (Non-African American) 85.2 ml/min; Potassium 3.9 mmol/L (3.5-5.1)
--- NOTE | 2024-01-09 08:01 | Urology Progress Note ---
Date of Service January 09, 2024 Assessment & Plan (1) Right distal ureteral calculus: (2) Nephrolithiasis: (3) Hydroureteronephrosis: Plan Postop day #1 status post cystoscopy and right stent placement Tolerating the stent with minimal bother Afebrile with stable vitals Labs today show no leukocytosis and normal renal function Okay to d/c from perspective when medically stable Recommend Tamsulosin and prn pain medication for stent management Follow-up for definitive stone treatment is in place for next week 01/15/[address] Valderrama. Expected clinical course reviewed, all questions answered Patient is aware to contact our office with any questions or concerns Urology will sign off. Admission and Anticipated Discharge Date Admission Date: January 07, 2024 Subjective Patient seen at bedside today Resting in bed on arrival No acute distress Tolerating the stent with minimal bother Denies fever, chills, nausea, vomiting Voiding without issue Some hematuria as expected Review of Systems Constitutional: as per Subjective / HPI Genitourinary: + as per Subjective / HPI Physical Exam Constitutional: no acute distress Respiratory: no respiratory distress and no labored breathing Neurologic: moves all extremities and awake Psychiatric: A+Ox3, euthymic affect Results & Data Vital Signs (Past 12 Hours) Vital Signs Temp Pulse Resp BP Pulse Ox O2 Del Method 01/09/24 07:55 36.5 C 66 16 111/64 95 Room Air 01/09/24 03:30 36.8 C 74 18 132/70 92 CPAP 01/08/24 22:34 36.5 C 72 18 142/69 H 93 Room Air PG Care Time/CCT Total # of Minutes Spent Total Time Spent with Patient: Total time spent is greater than 50% in coordination of care (as documented) at patient's floor/unit and/or counseling patient: Coding Level of Care Code 16618 SUB INP/OBS CARE 2/35MIN Diagnoses Right distal ureteral calculus N20.1 Nephrolithiasis N20.0 Hydroureteronephrosis N13.30
--- NOTE | 2024-01-09 12:14 | Hospitalist Progress Note ---
Date of Service January 09, 2024 Assessment & Plan (1) Right distal ureteral calculus: Plan: Patient presenting from home reports of right flank pain x 2 days Right distal ureteral calculus Obstructive uropathy secondary to above B/L nephrolithiasis --S/P cystoscopy, right retrograde pyelogram with radiographic interpretation with stent placement by Dr. Valderrama on 01/08/2024 --CT ABD:[id number] right-sided hydroureteronephrosis secondary to an obstructing 8 mm calculus of the distal right ureter just upstream to the UVJ. Right greater than left nonobstructing bilateral nephrolithiasis. Moderate sized right inguinal hernia containing mesenteric fat, trace amount of fluid, nonobstructed sigmoid colon and a portion of the urinary bladder. No bowel obstruction or bowel wall thickening. -- Empirically received Ancef Continue Flomax Appreciate urology input Will need follow-up with urology on discharge Monitor for urinary retention Plan to discharge home today (2) PAF (paroxysmal atrial fibrillation): Plan: Rate controlled on metoprolol, anticoagulated on Eliquis Continue current medications (3) Hypertension: Plan: BP better today Continue losartan and metoprolol Monitor BP (4) Hyperthyroidism: Plan: Chronic, stable TSH 1.16 09/[address] chest 09/2023 - Increased size of a 4.5 cm hypodense nodule in the left thyroid lobe since 2019. Follow-up with thyroid ultrasound is recommended. -- unclear if this has been followed up yet, will defer to PCP, message sent to PCP in [facility] -- Follow-up with endocrine as outpatient (5) Aortic stenosis: Plan: Echo 09/2023-EF 60 to 64%, moderate , mild AR (6) Ascending aortic aneurysm: Plan: Stable at 4.[address] chest 09/2023 Chronic right leg wound Follows with wound clinic as outpatient DVT Px Eliquis CODE STATUS Full code Disposition Home Admission and Anticipated Discharge Date Admission Date: January 07, 2024 Subjective Patient is seen and examined at bedside Right flank pain resolved Still has some hematuria intermittently Denies any chest pain, dyspnea, nausea, vomiting Plan to be discharged home today Review of Systems Review of Systems: All systems reviewed & are unremarkable except as noted in Subjective Physical Exam Physical Exam: Physical Exam: Vitals signs as noted above General Appearance:Obese, no apparent distress Head: normocephalic, Atraumatic Eyes: normal inspection, EOMI Neck: supple, Trachea midline Respiratory/Chest: Normal breath sounds, CTA, No accessory muscle use Cardiovascular: S1, S2, +murmur Abdomen/GI:Soft, Non tender, Bowel sounds present Extremities/Musculoskeletal:normal inspection, R> L leg edema, R leg wound Neurologic/Psych:AAOX3, grossly no focal neurological deficits Skin: normal color, warm Results & Data Results & Data Vital Signs (Past 12 Hours) Vital Signs Temp Pulse Resp BP Pulse Ox O2 Del Method 01/09/24 07:55 36.5 C 66 16 111/64 95 Room Air 01/09/24 03:30 36.8 C 74 18 132/70 92 CPAP Laboratory Results Short CBC 01/09/24 Range/Units 06:48 WBC 8.93 (4.8-10.8) K/ul Hgb 13.3 L (14.0-18.0) g/dl Hct 40.0 L (42.0-52.0) % Plt Count 211 (130-400) K/uL BMP 01/09/24 06:48 Sodium 139 Potassium 3.9 Chloride 102 Carbon Dioxide 31 BUN 22 Creatinine 0.88 Glucose 98 Calcium 8.5 L
--- NOTE | 2024-01-09 12:18 | Discharge Summary ---
Date of Service January 09, 2024 Admission HPI Per Admitting Provider 73-year-old male with PMH HTN, hyperthyroidism, asthma, paroxysmal atrial fibrillation anticoagulated on Eliquis, aortic stenosis, and other problems listed below who presents to the ED for evaluation of right flank pain. Patient reports his symptoms began 2 days ago. Initially describes the pain as a dull ache and constant. This morning, patient reports acute worsening of the pain. He denies fevers and chills. Reports urinary hesitancy, no dysuria or hematuria. Denies abdominal pain, nausea, vomiting, diarrhea. No chest pain or shortness of breath. Denies lightheadedness, dizziness, diaphoresis, syncopal events. In the ED, CT ABD/pelvis shows [id number] right-sided hydroureteronephrosis secondary to an obstructing 8 mm calculus of the distal right ureter just upstream to the UVJ. Patient was given IV morphine, IV Zofran, IVF. Admission Exam Per Admitting Provider Exam GENERAL: Alert and oriented x3. NAD, on RA. HEENT: No pallor, no icterus. Pupils equal, round and reactive to light. Oral mucosa moist. NECK: No JVD, no neck masses. HEART: S1 and S2 heard. Regular rate and rhythm. No murmur, no gallop. RESPIRATORY SYSTEM: Normal AP diameter. No accessory muscle use. No wheezing, no crackles. ABDOMEN: Soft, bowel sounds present, nontender, no distention. CENTRAL NERVOUS SYSTEM: No facial droop. Speech is clear. Obeys simple commands. Moves extremities. EXTREMITIES: 1-2 +ble edema, no erythema seen. RLE wound w/ no surrounding erythema or tenderness. No CVA glo tender. Principal Diagnosis Right distal ureteral calculus Obstructive uropathy Right leg wound Discharge Data Allergies Allergy/AdvReac Type Severity Reaction Status Date / Time amlodipine AdvReac Intermediate EDEMA Verified 01/08/24 12:34 lisinopril AdvReac Intermediate Cough Verified 01/08/24 12:34 sotalol AdvReac Intermediate A-FIB Verified 01/08/24 12:34 Consultations 01/07/24 11:47 ED Decision to Admit Stat 01/07/24 15:23 Consult Urology Routine Procedures Performed Operation Date: 01/08/24 11:00 Actual Procedures p Cystoscopy Right Retrograde Pyelogram with Stent Placement(Right) - Salas Valderrama MD Ordered Studies Laboratory Results WBC 8.93 K/ul (4.8-10.8) 01/09/24 06:48 RBC 4.16 M/uL (4.70-6.10) L 01/09/24 06:48 Hgb 13.3 g/dl (14.0-18.0) L 01/09/24 06:48 Hct 40.0 % (42.0-52.0) L 01/09/24 06:48 MCV 96.2 fL (80.0-100.0) 01/09/24 06:48 MCH 32.0 pg (25.0-34.0) 01/09/24 06:48 MCHC 33.3 g/dL (32.0-36.0) 01/09/24 06:48 RDW Std Deviation 47.4 fL (36.4-46.3) H 01/09/24 06:48 RDW Coeff of Flavio 13.4 % (11.5-14.5) 01/09/24 06:48 Plt Count 211 K/uL (130-400) 01/09/24 06:48 MPV 9.2 fL (9.4-12.4) L 01/09/24 06:48 Immature Gran % (Auto) 0.4 % 01/07/24 10:10 Neut % (Auto) 87.6 % 01/07/24 10:10 Lymph % (Auto) 5.5 % 01/07/24 10:10 [place] % (Auto) 6.3 % 01/07/24 10:10 Eos % (Auto) 0.1 % 01/07/24 10:10 Baso % (Auto) 0.1 % 01/07/24 10:10 Neut # (Auto) 12.22 K/uL (1.40-6.50) H 01/07/24 10:10 Lymph # (Auto) 0.77 K/uL (1.20-3.40) L 01/07/24 10:10 [place] # (Auto) 0.88 K/uL (0.11-0.59) H 01/07/24 10:10 Eos # (Auto) 0.01 K/uL (0.00-0.50) 01/07/24 10:10 Baso # (Auto) 0.01 K/uL (0.00-0.20) 01/07/24 10:10 Immature Gran # (Auto) 0.06 K/uL (0.01-0.20) 01/07/24 10:10 Sodium 139 mmol/L (136-145) 01/09/24 06:48 Potassium 3.9 mmol/L (3.5-5.1) 01/09/24 06:48 Chloride 102 mmol/L (98-107) 01/09/24 06:48 Carbon Dioxide 31 mmol/L (21-32) 01/09/24 06:48 Anion Gap 6 (3-11) 01/09/24 06:48 BUN 22 mg/dl (6-23) 01/09/24 06:48 Creatinine 0.88 mg/dl (0.6-1.4) 01/09/24 06:48 Est Cr Clr Drug Dosing 109.7 ml/min 01/09/24 06:48 Est GFR ( Amer) 98.8 ml/min 01/09/24 06:48 Est GFR (Non-Af Amer) 85.2 ml/min 01/09/24 06:48 BUN/Creatinine Ratio 25.0 (10-20) H 01/09/24 06:48 Glucose 98 mg/dl (70-99(Fasting)) 01/09/24 06:48 Calcium 8.5 mg/dl (8.6-10.3) L 01/09/24 06:48 Total Bilirubin 1.0 mg/dl (0.2-1.0) 01/07/24 10:10 AST 20 U/L (13-39) 01/07/24 10:10 ALT 17 U/L (7-52) 01/07/24 10:10 Alkaline Phosphatase 93 U/L (34-104) 01/07/24 10:10 Total Protein 7.5 gm/dl (6.0-8.3) 01/07/24 10:10 Albumin 4.3 gm/dl (3.4-5.0) 01/07/24 10:10 Globulin 3.2 gm/dl (2.5-4.0) 01/07/24 10:10 Albumin/Globulin Ratio 1.3 (0.9-2) 01/07/24 10:10 Urine Color Yellow 01/07/24 10:00 Urine Appearance Cloudy (Clear) A 01/07/24 10:00 Urine pH 7.0 (4.5-7.5) 01/07/24 10:00 Ur Specific [place] 1.016 (1.000-1.030) 01/07/24 10:00 Urine Protein 1+ (Negative) H 01/07/24 10:00 Urine Glucose (UA) Negative (Negative) 01/07/24 10:00 Urine Ketones Negative (Negative) 01/07/24 10:00 Urine Blood 3+ (Negative) H 01/07/24 10:00 Urine Nitrite Negative (Negative) 01/07/24 10:00 Urine Bilirubin Negative (Negative) 01/07/24 10:00 Urine Urobilinogen Negative (Negative) 01/07/24 10:00 Ur Leukocyte Esterase 1+ (Negative) H 01/07/24 10:00 Urine WBC (Auto) 0-5 /hpf (0-5) 01/07/24 10:00 Urine RBC (Auto) >20 /hpf (0-2) H 01/07/24 10:00 U Hyaline Cast (Auto) 0-2 /lpf (0-2) 01/07/24 10:00 U Epithel Cells (Auto) 0-2 /hpf (0-2) 01/07/24 10:00 Urine Bacteria (Auto) None Seen (None Seen) 01/07/24 10:00 Impressions Abdomen/Pelvis CT 01/07/24 09:[address] WITHOUT CONTRAST CT DOSE: 1698.54 mGy.cm HISTORY: Acute right-sided flank pain R flank pain, hx kidney stone TECHNIQUE: Multiaxial CT images of the abdomen and pelvis were performed without contrast. A dose lowering technique was utilized adhering to the principles of ALARA. COMPARISON STUDY: 08/22/2018 FINDINGS: Cardiomegaly with aortic valvular and coronary arterial calcifications. There is mild bibasilar atelectasis. No free air. The unenhanced spleen, pancreas and adrenal glands are unremarkable. Cholecystectomy with likely postsurgical biliary ductal dilation. Unchanged probable cyst within the posterior right hepatic lobe on image 24 series 2. Mild nonspecific bilateral perinephric stranding. There is [id number] right-sided hydroureteronephrosis secondary to an obstructing 7 x 5 x 8 mm calculus of the distal right ureter on image 316 series 3 approximately 2 cm up stream to the UVJ. There are at least 4 nonobstructing calculi of the right kidney measuring up to 4 mm. Bilateral renal hypodensities are incompletely characterized on this exam however suggestive of probable cysts. 3 mm cortical calcification of the superior pole left kidney. Punctate left renal calculi. Partially decompressed urinary bladder with wall thickening. Prostatomegaly. Small left and moderate right inguinal hernias. The right inguinal hernia contains fat, trace amount of fluid, a portion of the nonobstructed and tortuous sigmoid colon and a portion of the anterior urinary bladder lumen perivesicular stranding. Atherosclerosis of the aorta without aneurysm. There is no lymphadenopathy. Postoperative changes near the gastroesophageal junction. Normal appendix. No bowel obstruction or bowel wall thickening identified. Degenerative changes of the shoulders and spine. IMPRESSION: 1. [id number] right-sided hydroureteronephrosis secondary to an obstructing 8 mm calculus of the distal right ureter just upstream to the UVJ. 2. Right greater than left nonobstructing bilateral nephrolithiasis. 3. Moderate sized right inguinal hernia containing mesenteric fat, trace amount of fluid, nonobstructed sigmoid colon and a portion of the urinary bladder. 4. No bowel obstruction or bowel wall thickening. 5. Additional findings as above. ACT 112: Negative or not required by law. The above report was generated using voice recognition software. It may contain grammatical, syntax or spelling errors. Electronically signed by: Silvano Daily M.D. 01/07/2024 10:56 AM Retrograde Pyelogram 01/08/24 00:00 FL retrograde includes kub CLINICAL HISTORY: RIGHT STENTstatus post placement of a right ureteral stent COMPARISON STUDY: CT 01/07/2024 FLUOROSCOPY TIME: 9.1 seconds FLUOROSCOPY IMAGES: 3 EXPOSURE DOSE: 4.89 mGy FINDINGS: Status post placement of a right ureteral stent, proximal portion within satisfactory positioning. The distal portion was not imaged. Initial images demonstrate dilation of the mid to distal right ureter which is contrast opacified. IMPRESSION: Fluoroscopic assistance as above. ACT 112: Negative or not required by law. Electronically signed by: Silvano Daily M.D. 01/08/2024 2:40 PM Hospital Course (1) Right distal ureteral calculus: Patient presenting from home reports of right flank pain x 2 days Right distal ureteral calculus Obstructive uropathy secondary to above B/L nephrolithiasis --S/P cystoscopy, right retrograde pyelogram with radiographic interpretation with stent placement by Dr. Valderrama on 01/08/2024 --CT ABD:[id number]-vs-vchsiyyh right-sided hydroureteronephrosis secondary to an obstructing 8 mm calculus of the distal right ureter just upstream to the UVJ. Right greater than left nonobstructing bilateral nephrolithiasis. Moderate sized right inguinal hernia containing mesenteric fat, trace amount of fluid, nonobstructed sigmoid colon and a portion of the urinary bladder. No bowel obstruction or bowel wall thickening. -- Empirically received Ancef Continue Flomax Appreciate urology input Will need follow-up with urology on discharge Monitor for urinary retention Plan to discharge home today (2) PAF (paroxysmal atrial fibrillation): Rate controlled on metoprolol, anticoagulated on Eliquis Continue current medications (3) Hypertension: BP better today Continue losartan and metoprolol Monitor BP (4) Hyperthyroidism: Chronic, stable TSH 1.16 09/[address] chest 09/2023 - Increased size of a 4.5 cm hypodense nodule in the left thyroid lobe since 2019. Follow-up with thyroid ultrasound is recommended. -- unclear if this has been followed up yet, will defer to PCP, message sent to PCP in [facility] -- Follow-up with endocrine as outpatient (5) Aortic stenosis: Echo 09/2023-EF 60 to 64%, moderate , mild AR (6) Ascending aortic aneurysm: Stable at 4.[address] chest 09/2023 Chronic right leg wound Follows with wound clinic as outpatient DVT Px Eliquis CODE STATUS Full code Disposition Home Total Time Total Time Spent Total Time Spent (In Minutes): 42 minutes Discharge Plan Discharge Items Patient Disposition: Home - Self-Care Reason For Visit: KIDNEY STONE Discharge Diagnosis: Right distal ureteral calculus Obstructive uropathy Right leg wound Condition on Discharge: Good Activity: Per Instructions section Exercise/Sports: Gradually increase as tolerated Non-emergency contact: Primary Care Provider and Urologist Call non-emergency contact if: you have any medication questions, your symptoms worsen, your pain is concerning for you and you have a fever Follow-up/Referrals: Bello Sullivan MD [Primary Care Provider] - 01/14/24 11:00 am (Date & Time 01/14/2024 11:00 AM Provider Bello Sullivan MD [facility] ) Salas Valderrama MD [Physician] - Diet: Heart Healthy Addtl Attending Provider Instructions: Follow-up with your primary care physician on 01/14/2024 11:00 AM Follow-up with your urologist Dr. Valderrama as scheduled Follow-up with wound clinic for further evaluation of your leg wound as advised Seek immediate medical attention if your symptoms reoccur or worsen Please take all medications as instructed on discharge list below. Please call if you have any questions or problems. You can reach a [facility] hospitalist on duty at [facility] 24 hours a day by calling [phone] Pending Studies at Discharge: No Stand-Alone Forms: [facility] [employer] Karaoke, Smoking Cessation Medications and DC Order Prescriptions: New tamsulosin 0.4 mg Capsule 0.4 mg PO QAM Qty: 30 0RF Continued methimazole 5 mg tablet 2.5 mg PO QAM Qty: 90 3RF aspirin [Adult Low Dose Aspirin] 81 mg tablet,delayed release (DR/EC) 81 mg PO HS multivitamin [Multiple Vitamins] Tablet 1 tab PO QAM losartan 25 mg Tablet 25 mg PO QAM albuterol sulfate 90 mcg/actuation Hfa Aerosol Inhaler 2 puff INHALATION Q4H PRN (Reason: Shortness Of Breath) fluticasone propionate 50 mcg/actuation [place],Suspension 2 spray INTRANASAL QAM omega 5-btj-wbj-fish oil [Fish Oil] 1,000 mg (120 mg-180 mg) Capsule 1 cap PO HS Arnuity Ellipta 100 mcg/actuation Blister With Device 1 inh INHALATION QAM potassium chloride [Klor-Con M20] 20 mEq Tablet,Er Particles/Crystals 20 meq PO BID Glucosamine Chondroitin 550-30-1 mg Capsule 1 cap PO QPM atorvastatin 80 mg Tablet 80 mg PO HS metoprolol succinate 50 mg Tablet Extended Release 24 Hr 50 mg PO QAM Eliquis 5 mg Tablet 5 mg PO BID oxycodone-acetaminophen [Percocet] 5-325 mg tablet 1 tab PO Q6H PRN (Reason: pain) Qty: 20 0RF albuterol sulfate 2.5 mg /3 mL (0.083 %) Solution For Nebulization 2.5 mg INHALATION Q4H PRN (Reason: Shortness Of Breath Or Wheezing) acetaminophen [Tylenol Arthritis Pain] 650 mg Tablet Extended Release 1,300 mg PO BID montelukast 10 mg tablet 10 mg PO QAM Discharge Orders: Discharge Order (Routine); Ordered 01/09/24 Ordered By: Malik Steel/Other Patient Handouts: Nutrition for Wound Healing Admission Data Admit Date/Time: 01/07/24 12:19 Attending Provider: Malik Christopher Admit Provider: Eh Gunter Primary Care Provider: Bello Sullivan Other Providers: Eh Gunter; Simba Zamora
[2024-01-09 12:22] VITALS: PULSE 68
== END 2024-01-09 14:04 | disposition home or self-care (01) | DRG 661 ==
LOC: 3N 09:34 → ED 09:34 → SUATTDRO 12:19 → OBSVTOIN 12:19 → 3N 14:20
DX: N13.2 Hydronephrosis with renal and ureteral calculous obstruction; I35.0 Nonrheumatic aortic (valve) stenosis; J45.909 Unspecified asthma, uncomplicated; I71.21 Aneurysm of the ascending aorta, without rupture; Z79.82 Long term (current) use of aspirin; I48.0 Paroxysmal atrial fibrillation; I10 Essential (primary) hypertension; E05.90 Thyrotoxicosis, unspecified without thyrotoxic crisis or storm; Z79.01 Long term (current) use of anticoagulants; R09.02 Hypoxemia; Z79.899 Other long term (current) drug therapy